=== PATIENT | female | born 1965 | race Caucasian/White ===

== ENCOUNTER 2022-04-12 08:30 | Outpatient (CLI) | payer OTHER, SELFPAY ==
[2022-04-12 10:08] LABS: Albumin* 4.3 g/dL (3.3-5.0); Chloride* 104 mmol/L (96-114); Potassium* 4.7 mmol/L (3.6-5.1); Sodium* 139 mmol/L (135-149)
[2022-04-12 10:10] LABS: Bilirubin Total* 0.7 mg/dL (0.1-1.5); Carbon Dioxide* 26 mmol/L (20-32); Cholesterol* 202 mg/dL (90-199); Creatinine* 0.8 mg/dL (0.5-1.5); Estimated Glomerular Filt Rate 86 ml/min
[2022-04-12 10:11] LABS: Alanine Aminotransferase* 16 U/L (4-35); Alkaline Phosphatase* 78 U/L (40-150); Aspartate Amino Transferase* 24 U/L (12-35); Blood Urea Nitrogen* 13 mg/dL (7-30); Calcium* 9.2 mg/dL (8.4-10.6); Glucose* 98 mg/dL (60-115); HDL Cholesterol* 88 mg/dL (>=50); LDL Cholesterol Calculated 98 mg/dL (<100); Total Protein* 6.8 g/dL (6.0-8.3); Triglycerides* 81 mg/dL (40-149)
[2022-04-12 14:38] LABS: Vitamin D 25 Hydroxy* 58 ng/mL (30-80)
[2022-04-12 17:56] LABS: Free T4 Free Thyroxine* 1.27 ng/dL (0.70-1.85)
== END 2022-04-12 08:31 | disposition home or self-care (01) ==
LOC: NFLDREF 08:32
PROVIDERS: PCP Family Medicine; Visit Provider Family Medicine
DX: Z01.419 Encounter for gynecological examination (general) (routine) without abnormal findings (principal); E03.9 Hypothyroidism, unspecified; E55.9 Vitamin D deficiency, unspecified; I10 Essential (primary) hypertension; Z13.6 Encounter for screening for cardiovascular disorders
CPT/HCPCS: 80053; 80061; 82306; 84439; 84443

== ENCOUNTER 2022-06-14 15:10 | Outpatient (CLI) | payer OTHER, SELFPAY ==
--- NOTE | 2022-06-14 15:20 | CRLHL7_ITS ---
For Patients: As a result of the Century Cures Act, medical imaging exams and procedure reports are released immediately into your electronic medical record. You may view this report before your referring provider. If you have questions, please contact your health care provider. BILATERAL SCREENING MAMMOGRAM WITH COMPUTER-AIDED DETECTION AND TOMOSYNTHESIS TECHNIQUE: CC and MLO views were obtained. These mammographic images have been obtained using full-field digital technique. These mammographic images were interpreted with the benefit of computer-aided detection. Breast Tomosynthesis was used in this interpretation. COMPARISON FILM: 03/30/21, 04/02/20, 03/08/19. FINDINGS: There are scattered areas of fibroglandular density IMPRESSION: There is no radiographic evidence for malignancy. ASSESSMENT: BI-RADS Category 1: Negative RECOMMENDATION: Routine screening mammogram in 1 year. A lay language report of this examination will be provided to the patient. Liban Mckinley M.D. Diagnostic Radiologist [email or web address] AUGUSTINE/Dictated by: Liban Mckinley MD @ 06/15/2022 8:52:00 AM (Electronically Signed)
--- OUTSIDE RECORDS SUMMARY | 2022-06-14 15:22 | XMS_ITS | Encounter Summary ---
:1965 Author Organization [facility] Address [address] [place] [id number] Care Team Providers Name Role Phone Elsewhere, Pcp Primary Care Provider Unavailable Reason for Referral Outpatient (Routine) - Authorized Specialty Diagnoses / Procedures Referred By Contact Refer red To Contact Sleep Medicine Mahad Bustamante M.D. [address] [phone] Referral ID Status Reason Start Date Expiration Date Visits V isits Requested Authorized [id number] Authorized 04/23/2022 04/23/2023 1 1 Reason for Visit Appointment Request (Routine) - Closed Specialty Diagnoses / Procedures Referred By Contact Refer red To Contact Sleep Medicine Referral ID Status Reason Start Date Expiration Date Visits Requ ested Visits Authorized [id number] Closed 03/09/2022 03/09/2023 1 1 Encounter Details Date Type Department Care Team Description 04/23/2022 Office Visit [facility] Mahad Bustamante, Apnea Sle ep Obstructive Medicine in [place] (Primary Dx) [address] [place] [phone] Social History Tobacco Use Types Packs/Day Years Used Date Smoking Tobacco: Never Smokeless Tobacco: Never Alcohol Use Standard Drinks/Week Comments Yes 2 (1 standard drink = 0.6 oz pure alcoho l) Alcohol Habits Answer Date Recorded How often do you have a drink containing alcohol? 2-3 times a week 04/18/2022 How many drinks containing alcohol do you have on a 1 or 2 04/18/2022 typical day when you are drinking? How often do you have six or more drinks on one Never 04/18/2022 occasion? Comment: Not asked Social Isolation Answer Date Recorded In a typical week, how many times do you More than three laxmi es a week 04/18/2022 talk on the phone with family, friends, or neighbors? How often do you get together with friends Three times a wee k 04/18/2022 or relatives? How often do you attend samaritan or Never 2021 advent services? Do you belong to any clubs or Yes 04/18/2022 organizations such as samaritan groups, unions, fraternal or athletic groups, or school groups? How often do you attend meetings of the 1 to 4 times per yea r 04/18/2022 clubs or organizations you belong to? Are you now , , , 04/18/2022 , never or living with a partner? Physical Activity Answer Date Recorded On average, how many days per week do you engage in moderate to 5 days 04/18/2022 strenuous exercise (like walking fast, running, jogging, dancing, swimming, biking, or other activities that cause a light or heavy sweat)? On average, how many minutes do you engage in exercise at th is 60 min 04/18/2022 level? Stress Answer Date Recorded Do you feel stress - tense, restless, nervous, or anxious, N ot at all 04/18/2022 or unable to sleep at night because your mind is troubled all the time - these days? Financial Resource Strain Answer Date Recorded How hard is it for you to pay for the very basics like Not h yaneth at all 04/18/2022 food, housing, medical care, and heating? Intimate Partner Violence Answer Date Recorded Within the last year, have you been afraid of your partner o r No 04/18/2022 ex-partner? Within the last year, have you been humiliated or emotionall y No 04/18/2022 abused in other ways by your partner or ex-partner? Within the last year, have you been kicked, hit, slapped, or No 04/18/2022 otherwise physically hurt by your partner or ex-partner? Within the last year, have you been raped or forced to have any No 04/18/2022 kind of sexual activity by your partner or ex-partner? Food Insecurity Answer Date Recorded Within the past 12 months, you worried that your food would Never true 04/18/2022 run out before you got money to buy more. Within the past 12 months, the food you bought just didn't N ever true 04/18/2022 last and you didn't have money to get more. Transportation Needs Answer Date Recorded In the past 12 months, has lack of transportation kept you f rom No 04/18/2022 medical appointments or from getting medications? In the past 12 months, has lack of transportation kept you f rom No 04/18/2022 meetings, work, or getting things needed for daily living? Housing Stability Answer Date Recorded In the last 12 months, was there a time when you were not ab le No 04/18/2022 to pay the mortgage or rent on time? In the last 12 months, how many places have you lived? 1 04/18/2022 In the last 12 months, was there a time when you did not hav e a No 04/18/[address] or slept in a fpc (including now)? Education Answer Date Recorded What is the highest level of school Master's degree (e.g., M A, MS, 05/20/2021 you have completed or the highest Elias, MEd, MUSICAL INSTRUMENT MECHANIC, JAX) degree you have received? Sex Assigned at Date Recorded Female 06/25/2021 7:39 PM CDT documented as of this encounter Last Filed Vital Signs Vital Sign Reading Time Taken Comments Blood Pressure 120/79 04/23/2022 1:14 PM CDT Pulse 67 04/23/2022 1:14 PM CDT Temperature - - Respiratory Rate - - Oxygen Saturation - - Inhaled Oxygen Concentration - - Weight 93.2 kg (205 lb 5.7 oz) 04/23/2022 1:14 PM CDT Height 175 cm (5' 8.9) 04/23/2022 1:14 PM CDT Body Mass Index 30.42 04/23/2022 1:14 PM CDT documented in this encounter Progress Notes Mahad Bustamante M.D. - 04/23/2022 1:30 PM CDT SUBJECTIVE CHIEF COMPLAINT / REASON FOR VISIT Activation of hypoglossal nerve stimulator (Inspire) therapy HISTORY OF PRESENT ILLNESS Ms. Gudino is a 56 y.o. female with severe, non positional obstructive sleep apnea pAHI 62 events per hour January 2022)-status post Inspire implantation March 10, 2022 who presents for activation of the Inspire system. Verbal histories were obtained today from the patient and her significant other. Ms. Gudino has enjoyed an uncomplicated postoperative course. She denies significant tongue weakness, soreness, dysarthria, dysphagia, or difficulties with the Inspire incision site. OBJECTIVE VITAL SIGNS Blood Pressure: 120/79 (04/23/2022 1:14 PM) Pulse Rate: 67 (04/23/2022 1:14 PM) BMI (Calculated): 30.4 kg/m?? (04/23/2022 1:14 PM) Height: 175 cm (04/23/2022 1:14 PM) Weight: 93.2 kg (04/23/2022 1:14 PM) PHYSICAL EXAMINATION General: Alert. No acute distress. ENT: No oral lesions identified. No tongue lesions identified. Full tongue range of motion demonstrated. Handling oral secretions well. Speech clear. Neck: Full range of motion. Lungs: Easy respirations at rest. Skin: Clean, dry, intact, and non erythematous right submandibular and right infraclavicular incision sites. No palpable fluctuance, warmth, or discharge from the impulse generator site. Musculoskeletal: Able to get on and off the exam table under her own power. Gait: Intact ASSESSMENT / PLAN #1 Severe obstructive sleep apnea-status post hypoglossal nerve stimulator implantation March 10, 2022 Using the Inspire computer programmer analyst, the following parameters were determined today: Sensory threshold: 1.6 volts Functional threshold: 2.5 volts Sensing mechanism: Intact Using the Inspire computer programmer analyst, the following parameters were set today: Stimulation range: 2.4-3.4 volts Initial stimulation amplitude: 2.4 volts Start delay: 30 minutes Pause time: 15 minutes Maximum therapy duration: 8 hours Ms. Gudino was educated on the operation of the Inspire remote. She demonstrated proficiency in turning the system on and off as well as up titrating and down titrating the stimulation amplitude. Questions about the Inspire system were reviewed. Plan 1. Starting tonight, aim for all night, every night Inspire usage at an initial stimulation amplitude of 2.4 volts. 2. Every 7 days or longer, increase the stimulation amplitude by 1 level (0.1 volt increment) until the maximum allowable stimulation amplitude is reached (3.4 volts) or intolerable side effects occur,whichever develops first. 3. Recheck visit in 3 months in preparation for the Inspire fine tune polysomnogram. 4. I encouraged the patient to reach out via the phone or portal if problems arise that prevent consistent and comfortable Inspire usage. I personally spent over half of a total of 60 minutes [id number] with the patient in counseling and discussion and/or coordination of care as described above. documented in this encounter Plan of Treatment Upcoming Encounters Date Type Specialty Care Team Description 07/21/2022 Office Visit Sleep Medicine Mahad Bustamante M .D. [address] [place], [place] [phone] (Wo rk) Scheduled Referrals Name Type Priority Associated Diagnoses Order [facility] Sleep Medicine Outpatient Referral Routine Expect ed: office visit 07/24/2022 (clinic) (Approximate), Expires: 07/24/2023 documented as of this encounter Visit Diagnoses Diagnosis Apnea Sleep Obstructive - Primary documented in this encounter Care Teams Abatement Worker Relationship Specialty Start Date End Date Elsewhere, Pcp PCP - General Family Medicine 05/20/21 Dr. Livia Scott External Primary Care 04/21/22 [facility] Physician [address] [place] [address] documented as of this encounter
--- OUTSIDE RECORDS SUMMARY | 2022-06-14 15:22 | XMS_ITS | Encounter Summary ---
:1965 Author Organization [facility] Address [address] [place] [address] Care Team Providers Name Role Phone Elsewhere, Pcp Primary Care Provider Unavailable Encounter Details Date Type Department Care Team Description 05/13/2022 Clinical Communication [facility]ad Bustamante, [facility] [place] [address] [facility] [address] [place] [phone] Social History Tobacco Use Types Packs/Day Years [...] or relatives? How often do you attend yarsani or Never 2021 advent services? Do you belong to any clubs or Yes 04/18/2022 organizations such as yarsani groups, unions, fraternal or athletic groups, or school groups? How often do you attend meetings of the to 4 times per yea r 04/18/2022 [...] place to sleep or slept in a retirement (including now)? Education Answer Date Recorded What is the highest level of school Master's degree (e.g., M A, MS, 05/20/2021 you have completed or the highest Elias, MEd, ANIMAL BEHAVIORIST, JAX) degree you have received? Sex Assigned at Date Recorded Female 06/25/2021 7:39 PM CDT documented as of this encounter Miscellaneous Notes Telephone Encounter - Brigid Mosquera - 05/13/2022 3:[address] Bustamante, Patient is calling to set up Inspire recheck visit with you in later June. You do not have any EST spots available. Please advise if ok to use Study Rtn spot. Thank you. documented in this encounter Plan of Treatment Upcoming Encounters Date Type Specialty Care Team Description 07/21/2022 Office Visit Sleep Medicine Mahad Bustamante M .D. [address] [place], [place] [phone] (Wo rk) documented as of this encounter Visit Diagnoses Not on filedocumented in this encounter Care Teams Deputy District Customs Director Relationship Specialty Start Date End Date Elsewhere, Pcp PCP - General Family Medicine 05/20/21 Dr. Livia Scott External Primary Care 04/21/22 [facility] Physician [address] [place] [address] documented as of this encounter
--- OUTSIDE RECORDS SUMMARY | 2022-06-14 15:22 | XMS_ITS | Encounter Summary ---
:1965 Author Organization [facility] Address [address] [place] [address] Care Team Providers Name Role Phone Elsewhere, Pcp Primary Care Provider Unavailable Encounter Details Date Type Department Care Team Description 03/03/2022 Clinical Department of Vishnu Edwards Communication Otorhinolaryngology in [place], [place] [address] [place] [phone] Social History Tobacco Use Types Packs/Day Years [...] or relatives? How often do you attend gnosticist or Never 2021 taoist services? Do you belong to any clubs or Yes 04/18/2022 organizations such as gnosticist groups, unions, fraternal or athletic groups, or [...] minutes do you engage in exercise at is 60 min 04/18/2022 level? Stress Answer [...] place to sleep or slept in a penitentiary (including now)? Education Answer Date Recorded What is the highest level of school Master's degree (e.g., M A, MS, 05/20/2021 you have completed or the highest Elias, MEd, EMS DIRECTOR, JAX) degree you have received? Sex Assigned at Date Recorded Female 06/25/2021 7:39 PM CDT documented as of this encounter Miscellaneous Notes Telephone Encounter - Janet Zamora - 03/09/2022 9:01 AM CDT Activation appointment is scheduled for 04/23 at 1:30p. Please order PO. Thank you Telephone Encounter - Janet Zamora - 03/03/2022 11:51 AM CDT I received a call and spoke with the patient's insurance company. The stated that they received two request for approval for the Inspire device. The request sent on 02/21/22 was approved and the other request was a duplicate being removed. I called Cheli to confirm and gave her the authorization number. Patient is approved. Thank you documented in this encounter Plan of Treatment Upcoming Encounters Date Type Specialty Care Team Description 07/21/2022 Office Visit Sleep Medicine Mahad Bustamante M .D. [address] [place] [phone] (Wo rk) documented as of this encounter Visit Diagnoses Not on filedocumented in this encounter Care Teams Assistant Analyst Relationship Specialty Start Date End Date Elsewhere, Pcp PCP - General Family Medicine 05/20/21 documented as of this encounter
--- OUTSIDE RECORDS SUMMARY | 2022-06-14 15:22 | XMS_ITS | Encounter Summary ---
:1965 Author Organization [facility] Address [address] [place] [address] Care Team Providers Name Role Phone Elsewhere, Pcp Primary Care Provider Unavailable Encounter Details Date Type Department Care Team Description 02/18/2022 Orders Only Department of Laura Rausch, Otorhinolaryngology in [place], [place] [address] [facility] [address] [place] [phone] Social History Tobacco Use Types Packs/Day Years [...] or relatives? How often do you attend catholic or Never 2021 mormon services? Do you belong to any clubs or Yes 04/18/2022 organizations such as catholic groups, unions, fraternal or athletic groups, or [...] place to sleep or slept in a jail (including now)? Education Answer Date Recorded What is the highest level of school Master's degree (e.g., M A, MS, 05/20/2021 you have completed or the highest Elias, MEd, EXAMINATION SCORER, JAX) degree you have received? Sex Assigned at Date Recorded Female 06/25/2021 7:39 PM CDT documented as of this encounter Plan of Treatment Upcoming Encounters Date Type Specialty Care Team Description 07/21/2022 Office Visit Sleep Medicine Mahad Bustamante M .D. [address] [place] [phone] (Wo rk) documented as of this encounter Visit Diagnoses Not on filedocumented in this encounter Care Teams Printing Assistant Relationship Specialty Start Date End Date Elsewhere, Pcp PCP - General Family Medicine 05/20/21 documented as of this encounter
--- OUTSIDE RECORDS SUMMARY | 2022-06-14 15:22 | XMS_ITS | Encounter Summary ---
:1965 Author Organization [facility] Address [address] [place] [address] Care Team Providers Name Role Phone Elsewhere, Pcp Primary Care Provider Unavailable Reason for Visit Auth/Cert Specialty Diagnoses / Procedures Referred By Contact Refer red To Contact Diagnoses Obstructive Sleep Apnea Adult severe obstructive sleep apnea Procedures MT INCISION IMPL CRANIAL NERVE MT INS CHST WALL RESP ELCTD INSERTION STIMULATOR HYPOGLOSSAL NERVE Referral ID Status Reason Start Date Expiration Date Visits Requ ested Visits Authorized [id number] 1 1 Encounter Details Date Type Department Care Team Description 03/10/2022 Hospital Encounter [facility] OR Dick Alcala, [address] [place] [phone] [facility] [phone] [place] [phone] (Wo rk) Social History Tobacco Use Types Packs/Day Years [...] or relatives? How often do you attend religious or Never 2021 mandaen services? Do you belong to any clubs or Yes 04/18/2022 organizations such as religious groups, unions, fraternal or athletic groups, or [...] place to sleep or slept in a [facility] (including now)? Education Answer Date Recorded What is the highest level of school Master's degree (e.g., M Ricky, MS, 05/20/2021 you have completed or the highest Elias, MEd, AUTOMOTIVE SALES EXECUTIVE, JAX) degree you have received? Sex Assigned at Date Recorded Female 06/25/2021 7:39 PM CDT documented as of this encounter Last Filed Vital Signs Vital Sign Reading Time Taken Comments Blood Pressure 161/67 03/10/2022 6:19 PM CDT Pulse 75 03/10/2022 7:30 PM CDT Temperature 36.5 ??C (97.7 ??F) 03/10/2022 7:36 PM CDT Respiratory Rate 19 03/10/2022 6:30 PM CDT Oxygen Saturation 98% 03/10/2022 7:30 PM CDT Inhaled Oxygen Concentration - - Weight 91.1 kg (200 lb 13.4 oz) 03/10/2022 11:51 AM CDT Height 172.7 cm (5' 8) 03/10/2022 11:51 AM CDT Body Mass Index 30.54 03/10/2022 11:51 AM CDT documented in this encounter Medications at Time of Discharge Medication Sig Dispensed Refills Start Date End Date eszopiclone (LUNESTA) Lunesta 3 mg oral 0 014 3 mg tablet tablet See Instructions, 1 TABLET AT BEDTIME levothyroxine Take 112 mcg by mouth 0 09/18/2021 (SYNTHROID, every evening. LEVOTHROID) 112 mcg tablet losartan (COZAAR) 25 Take 25 mg by mouth at 0 mg tablet bedtime. methylphenidate HCl every morning. 0 08/25/2020 (CONCERTA) 54 mg CR tablet amLODIPine (NORVASC) at bedtime. 0 09/23/2021 10 mg tablet DME CPAPIndications: DME Order 1 each 0 09/30/2021 Apnea Sleep Obstructive EPINEPHrine (EPIPEN) Inject 0.3 mg 0 01/31/2019 0.3 mg/0.3 mL intramuscularly as injection syringe needed. fluticasone propionate Administer 1 spray 0 (FLONASE) 50 into each nostril mcg/actuation nasal daily. spray HYDROcodone-acetaminop 0.5 tablets as needed. 0 0 12/22/2013 hen (NORCO) 7.5-325 mg per tablet SUMAtriptan (IMITREX) Administer into 0 9 20 mg/actuation nasal affected nostril(s) as spray needed. traMADol (ULTRAM) 50 50 mg as needed. 0 8 mg tablet traMADol ER (ULTRAM 200 mg at bedtime. 0 09/23/20 21 ER) 100 mg 24 hr tablet traMADol ER (ULTRAM MEDS ON BACK ORDER, 0 014 ER) 200 mg 24 hr that's why 100mg is tablet prescribed at this time triamcinolone Administer 1 spray 0 (NASACORT) 55 into each nostril mcg/actuation nasal daily. spray cephalexin (KEFLEX) Take 1 capsule (500 mg 28 capsule 0 02/2403/17/2022 500 mg capsule total) by mouth every 6 (six) hours for 7 days. HYDROcodone-acetaminop Take 1 tablet by mouth 10 tablet 0 0 03/10/2022 03/13/2022 hen (NORCO) 5-325 mg every 4 (four) hours per tabletIndications: as needed for pain Acute Pain Exception (pain) for up to 3 days Indication: Acute Pain Exception. documented as of this encounter OR Notes Op Note - Kraig Bustamante M.D. - 03/10/2022 2:38 PM CDT Surgeon: Kraig Bustamante MD [employer] Mechanic Surgeons: MD Vishnu Felix MD Preoperative diagnosis: 1. Severe obstructive sleep apnea 2. Continuous positive airway pressure intolerance Postoperative diagnosis: 1. Severe obstructive sleep apnea 2. Continuous positive airway pressure intolerance Name of procedure: 1. 12th cranial nerve (hypoglossal) stimulation implant (CPT 83558) 2. Placement of right pleural respiration sensor 3. Electronic analysis of the implanted neurostimulator pulse generator system (CPT 71694) Complications: None Anesthesia Type General Procedural note: The patient was brought to the Operating Room and was anesthetized via general endotracheal anesthesia without complication. A procedural pause was undertaken, all parties agreed. A shoulder roll was placed and the patient was prepped and draped in usual sterile fashion with the head turned to the left. Prior to prepping and draping, electrodes were placed in the genioglossus and styloglossus muscle and connected to the NIM box for intraoperative nerve monitoring. A modified sub-mandibular incision was made in the right upper neck approximately 2 cm below the mandible in the natural skin crease. Dissection was carried down through the subcutaneous tissue and platysma. The inferior border of the submandibular gland was identified as well as the digastric tendon.The submandibular gland and the overlying fascia with the marginal mandibular nerve were retracted superiorly. The digastric was retracted inferiorly. Dissection was carried down into the digastric triangle where the hypoglossal nerve was identified in its usual fashion. The mylohyoid muscle was retracted anteriorly, and the hypoglossal nerve was dissected up towards the floor of the mouth. The lateral branches to retrusor muscles were identified, and tested intra- operatively using the NIM stimulator. The cuff electrode for the hypoglossal nerve stimulator was placed distally to these branches on the medial nerve branch to the genioglossus muscle. Diagnostic evaluation confirmed activation of the genioglossus nerve, resulting in genioglossal activation and tongue protrusion, confirmed visually.Aninferior pocket was created deep to the subcutaneous layer and superficial to the pectoralis muscle.The stimulation electrode was then secured to the digastric tendon on its lateral surface with 2, 3-0 silk sutures. A second 5 cm incision was made in the right upper chest approximately 3 cm below the clavicle. Dissection was carried down to the pectoralis muscle. Once at the pectoralis muscle blunt dissection was used to traverse through the muscle down to the chest wall. The external and internal intercostals were visualized. Dissection was carried through the external intercostals to the internal intercostal space and a quarter-inch malleable was used to create a pocket laterally between the ribs. A 3-0 silk suture was placed on the external intercostals and the respiratory sensor was then carefully and slowly inserted between the external and internal intercostals. The pectoral muscles was closed with 3-0 Monocryl sutures. The anchoring portion of the lead was then secured to the chest wall with multiple 3-0 silk sutures. The stimulation lead was then tunneled in a subplatysmal plane and brought out intothe sub-clavicular pocket. 2 L of saline irrigation was then instilled into the submental and subclavicular pockets. The IPG was then placed into the subclavicular pocket and secured to the pectoralis fascia with two, 2-0 silk sutures. The IPG was connected to the respiratory and stimulation leads. Diagnostic evaluation was run, which confirmed a good respiration sensing signal as well as good tongueprotrusion stimulation without evidence of retraction of the tongue.. The wounds were then closed in three layers with deep 3-0 and 4-0 Monocryl sutures and a 5-0 PDS suture in a subdermal fashion. Dermabond was then applied followed by pressure dressings. The patient was handed back to anesthesia for successful emergence. They were taken the PACU in stable condition. All surgical pauses and universal protocols were followed. A first aid trainer was necessary for one or more of the following: opening, exposure and visualization during the case, maintaining hemostasis, would closure. Kraig Bustamante M.D. Brief Op Note - Vishnu Edwards M.D. - 03/10/2022 2:38 PM CDT Pre-op Diagnosis Obstructive Sleep Apnea Adult Post-op Diagnosis Obstructive Sleep Apnea Adult Findings As expected. Complications None Vishnu Edwards M.D. documented in this encounter Plan of Treatment Upcoming Encounters Date Type Specialty Care Team Description 07/21/2022 Office Visit Sleep Medicine Mahad Bustamante M .D. [address] [place], [place] [phone] (Wo rk) documented as of this encounter Procedures Procedure Name Priority Date/Time Associated Diagnosis Comme nts INSERTION STIMULATOR 03/10/2022 1:30 PM Obstructive Sl eep Apnea HYPOGLOSSAL NERVE CDT Adult Case Notes KNIFE CUTTER 1145 ADULT OXYGEN THERAPY Routine 03/10/2022 12:50 PM CDT documented in this encounter Visit Diagnoses Not on filedocumented in this encounter Administered Medications Inactive Administered Medications - up to 3 most recent administrations Medication Order MAR Action Action Date Dose Rate Site acetaminophen tablet 1,000 mg Given 03/10/2022 1:06 PM CDT 1,000 mg (TYLENOL) 1,000 mg, oral, Once, On Tue03/10/22 at 1315, For 1 dose, Pre-Op metoprolol tablet 12.5 mg (LOPRESSOR) 12.5 mg, oral, Once as needed, if patien t did not take their last scheduled dose of beta rajinder prior to arrival, Starting on Tue03/10/22 at 1300, For 1 dose, Pre-Op, Do not give if patient does not take scheduled beta bl ockers, if patient is receiving intravenous vasopressors or inotropes, if he art rate is less than 50 beats per minute, if systolic blood pres sure is less than 90 mmHg or if diastolic blood pressure is less than 40 mmHg, or if patient has an allergy to metoprolol. oxyCODONE IR tablet 10 mg (ROXICODONE) 10 mg, oral, Every 4 hours PRN, severe p ain or score 7-10 of 10, or pain greater than comfort goal, Starting on Tue03/10/22 at 1815 oxyCODONE IR tablet 5 mg (ROXICODONE) 5 mg, oral, Every 4 hours PRN, moderate pain or score 4-6 of 10, Starting on Tue03/10/22 at 1815 sodium chloride 0.9 % injection 10 mL 10 mL, intravenous, As needed, line care , Starting on Tue03/10/22 at 1300, Pre-Op, Peripheral Intravenous Catheter and Rapid Infusion Cat heter, prior to blood sampling, post blood transfusion or post blood samplin g sodium chloride 0.9 % injection 3 mL 3 mL, intravenous, As needed, line care, Starting on Tue03/10/22 at 1300, Pre-Op, Prior to and following infusion and betw catherine multiple consecutive infusions: sodium chloride 0.9 % injection sodium chloride 0.9 % injection 3 mL 3 mL, intravenous, Every 12 hours scheduled, First dos e on Tue03/10/22 at 2100, Pre-Op, Peripheral Intravenous Catheter and Rapid Infu xiao Catheter, when no infusion to maintain patency documented in this encounter Active and Recently Administered Medications Times are shown in CDT. Scheduled Medication Order 03/08/2022 03/09/2022 03/10/2022 acetaminophen tablet 1,000 mg (TYLENOL) (COMPLETED) 1306 (Given - Provider: Stephanie De Leon R.N.) 1,000 mg, oral, Once, On Tue03/10/22 at 1315, For 1 dose, Pre-Op acetaminophen tablet 1,000 mg (TYLENOL) 1830 (Due) 1,000 mg, oral, Every 6 hours, First dose on Tue03/10/22 at 1830 sodium chloride 0.9 % injection 3 mL 3 mL, intravenous, Every 12 hours schedu led, First dose on Tue03/10/22 at 2100, Pre-Op, Peripheral Intravenous Catheter and Rapid Infusion Catheter, when no infusion to maintain patency Continuous Medication Order 03/08/2022 03/09/2022 03/10/2022 lactated ringers 1800 (Due) 20 mL/hr, intravenous, Continuous, Start ing on Tue03/10/22 at 1800, PACU & Post-Op phenylephrine 80 mcg/mL in NaCl 0.9% 250 mL infusion (CANCELED) 1403 (New Bag - Provider: Taqueria Gentile APRN, MAGNUS, D.N.P.)1406 (Rate/Dose Change - Provider: Taqueria Gentile APRN, MAGNUS, D.N.P.)1443 (Rate/Dose Change - Provider: Taqueria Gentile APRN, MAGNUS, D.N.P.) 0-1 mcg/kg/min ? 91.1 kg Dosing weight (0-68.325 mL/hr, rounded to 0-68.33 mL/hr), intravenous, Continuous, Starting on Tue03/10/22 at 1245, Intra-Op, 20 mg in 250 mL, Patient Type: Standard, initiate 1450 (Rate/Dose Change - Provider: Taqueria Gentile APRN, CRNA, D.N.P.)1456 (Rate/Dose Change - Provider: Taqueria Gentile APRN, CRNA, D.N.P.)1500 (Rate/Dose Change - Provider: Taqueria Gentile APRN, CRNA, D.N.P.) at: Other, Rate: Per Provider, Titrate a t: Other, Titrate: Per Provider, Goal: Other, Goal: Per Provider 1503 (Rate/Dos e Change - Provider: Taqueria Gentile APRN, CRNA, D.N.P.)1519 (Rate/Dose Change - Provider: Taqueria Gentile APRN, CRNA, D.N.P.)1601 (Stopped - Provider: Taqueria Gentile APRN, CRNA, D.N.P.) PRN Medication Order 03/08/2022 03/09/2022 03/10/2022 dexAMETHasone injection 4 mg (DECADRON) 4 mg, intravenous, Once as needed, nause a, vomiting, Starting on Tue03/10/22 at 1815, For 1 dose, Give only if NOT given during the pre or intraoperative period. If ondansetron ordered, give dexamethasone with first dose of ondansetron. fentaNYL injection 25 mcg (SUBLIMAZE) 25 mcg, intravenous, Every 2 min PRN, mo derate pain or score 4-6 of 10, severe pain or score 7-10 of 10, Starting on Tue03/10/22 at 1250, PACU (only), Up to maximum total dose of 100 mcg haloperidol lactate injection 1 mg (HALDOL) 1 mg, intravenous, Every 6 hours PRN, na usea, vomiting, Starting on Tue03/10/22 at 1815, For 48 hours, Total of 3 doses in 24 hour period. RASS must be -2 or higher to administer. Reassess for nausea or vomiting after at least 10 minutes. If nausea or vomiting persists administer next ordered antiemetic medications (order for antiemetic medication administration ondansetron then haloperidol then promethazine) hydroxypropyl methylcellulose 2.5 % opht halmic demulcent solution (GONAK) (CANCELED) 1400 (Given - Provid er: Jossy Fernandes M.D.) As needed, Starting on Tue03/10/22 at 1400, Intra-Op lidocaine-EPINEPHrine 1 %-1:100,000 injection (XYLOCAINE W/EPI) (CANCELED) 1416 (Given - Provider: Jossy Fernandes M.D. - Comment: Right neck and chest) As needed, Starting on Tue03/10/22 at 1416, Intra-Op metoprolol tablet 12.5 mg (LOPRESSOR) 12.5 mg, oral, Once as needed, if patien t did not take their last scheduled dose of beta rajinder prior to arrival, Starting on Tue03/10/22 at 1300, For 1 dose, Pre-Op, Do not give if patient does not ta ke scheduled beta blockers, if patient i s receiving intravenous vasopressors or inotropes, if heart rate is less than 50 beats per minute, if systolic blood pressure is less than 90 mmHg or if diastolic blood pressure is less than 40 mmHg, or if patient has an allergy to metoprolol. naloxone injection 0.2 mg (NARCAN) 0.2 mg, intravenous, Once as needed, res piratory depression, Starting on Tue03/10/22 at 1815, For 1 dose, For RASS Score -4 or less, respiratory rate of less than 8 breaths/min. Notify provider/service and rapid response team (if available at institution). ondansetron (PF) injection 4 mg (ZOFRAN) 4 mg, intravenous, Every 6 hours PRN, na usea, vomiting, Starting on Tue03/10/22 at 1815, For 48 hours, Reassess for nausea or vomiting after at least 10 minutes. If nausea or vomiting persists administe r next ordered antiemetic medications (o rder for antiemetic medication administration ondansetron then haloperidol then promethazine). oxyCODONE IR tablet 10 mg (ROXICODONE)(Linked Group 1) 10 mg, oral, Every 4 hours PRN, severe p ain or score 7-10 of 10, or pain greater than comfort goal, Starting on Tue03/10/22 at 1815 oxyCODONE IR tablet 5 mg (ROXICODONE)(Linked Group 1) 5 mg, oral, Every 4 hours PRN, moderate pain or score 4-6 of 10, Starting on Tue03/10/22 at 1815 promethazine injection 6.25 mg (PHENERGAN) 6.25 mg, intravenous, Every 6 hours PRN, nausea, vomiting, Starting on Tue03/10/22 at 1815, For 48 hours, RASS must be -2 or higher to administer. Reassess for nausea or vomiting after at least 10 minut es. If nausea or vomiting persists admin ister next ordered antiemetic medications (order for antiemetic medication administration ondansetron then haloperidol then promethazine) sodium chloride 0.9 % injection 10 mL 10 mL, intravenous, As needed, line care , Starting on Tue03/10/22 at 1300, Pre- Op, Peripheral Intravenous Catheter and Rapid Infusion Catheter, prior to blood sampling, post blood transfusion or post blood sampling sodium chloride 0.9 % injection 3 mL 3 mL, intravenous, As needed, line care, Starting on Tue03/10/22 at 1300, Pre- Op, Prior to and following infusion and between multiple consecutive infusions: sodium chloride 0.9 % injection Linked Groups Order Group 1: oxyCODONE IR tablet 5 mg (ROXICODONE)Jump to med 5 mg, oral, Every 4 hours PRN, moderate pain or score 4-6 of 10, Starting on Tue03/10/22 at 1815 Or oxyCODONE IR tablet 10 mg (ROXICODONE)Jump to med 10 mg, oral, Every 4 hours PRN, severe p ain or score 7-10 of 10, or pain greater than comfort goal, Starting on Tue03/10/22 at 1815 documented in this encounter Care Teams Boxing Instructor Relationship Specialty Start Date End Date Elsewhere, Pcp PCP - General Family Medicine 05/20/21 documented as of this encounter
--- OUTSIDE RECORDS SUMMARY | 2022-06-14 15:22 | XMS_ITS | Encounter Summary ---
:1965 Author Organization [facility] Address [address] [place] [id number] Care Team Providers Name Role Phone Elsewhere, Pcp Primary Care Provider Unavailable Reason for Visit Outpatient (Routine) - Closed Specialty Diagnoses / Procedures Referred By Contact Refer red To Contact Otorhinolaryngology Vishnu Edwards M.D . [facility] [address] [place] [address] Referral ID Status Reason Start Date Expiration Date Visits Requ ested Visits Authorized [id number] Closed 02/15/2022 02/15/2023 1 1 Encounter Details Date Type Department Care Team Description 03/09/2022 Office Visit Department of Vishnu Edwards Apnea Sleep O bstructive (Primary Dx); Otorhinolaryngology roya García M.D. [place], [place] [address] [place] [phone] Social History Tobacco Use Types Packs/Day Years [...] or relatives? How often do you attend temple or Never 2021 caodaism services? Do you belong to any clubs or Yes 04/18/2022 organizations such as temple groups, unions, fraternal or athletic groups, or [...] have completed or the highest Elias, MEd, SENIOR BUYER PLANNER, JAX) degree you have received? Sex Assigned at Date Recorded Female 06/25/2021 7:39 PM CDT documented as of this encounter Progress Notes Vishnu Edwards M.D. - 03/09/2022 4:00 PM CDT SUBJECTIVE CHIEF COMPLAINT / REASON FOR VISIT Candi Gudino is a 56 y.o. female who presents for listing visit for inspire hypoglossal nerve stimulator implantation tomorrow. HISTORY OF PRESENT ILLNESS The patient presents for listing visit. She has continued in her weight loss efforts. No further concerns. The following portions of the patient's history were reviewed and updated as appropriate: allergies,current medications, family history, medical history, social history, surgical history and problem list. OBJECTIVE PHYSICAL EXAM General: Awake, appropriately interactive Pulmonary: Breathing comfortably on room air ASSESSMENT / PLAN #1 Apnea Sleep Obstructive #2 Neuralgia Trigeminal It was a pleasure visiting with the patient today. She is prepared for surgery tomorrow. We discussed many aspects of the surgery including risks, expected outcome, expected convalescence. Specifically, we discussed risks of implant infection, hematoma, implant failure, need for replacement of the battery after 11 years, MRI compatibility of the head and limbs only, rare risk of pneumothorax, positioning of incisions, rare risk of injury to the marginal mandibular, lingual, hypoglossal nerves. We had a good discussion about the possibility of residual moderate or severe SHANNON, which may require future management including weight loss or further sleep surgeries. I discussed activation of the device 1month after surgery, repeat sleep study, possible soreness of the tongue muscle or irritation of thebottom of the tongue. Fortunately, she is currently using a tooth guard from Dr. Damon Khan. Written informed consent was signed today. I will have her follow-up with Dr. Stallings following surgery. This visit and patient care coordination lasted more than 30 minutes, not including the time for theprocedure. Over 50% of the time was spent counselling the patient including detailed discussions about the pathophysiology, medical and surgical management options, future management options, and expected disease course. Answers for HPI/ROS submitted by the patient on 01/13/2022 Fever: Yes No eye issues: Yes No ENT issues: Yes No heart issues: Yes No respiratory issues: Yes No GI issues: Yes Muscle pain/stiffness: Yes No skin issues: Yes Headache: Yes No mental health issues: Yes No blood/lymph issues: Yes No urinary/reproductive issues: Yes documented in this encounter Miscellaneous Notes Addendum Note - Vishnu Edwards M.D. - 03/09/2022 4:00 PM CDT Addended by: VISHNU EDWARDS on: 03/09/2022 04:41 PM Modules accepted: Level of Service documented in this encounter Plan of Treatment Upcoming Encounters Date Type Specialty Care Team Description 07/21/2022 Office Visit Sleep Medicine Mahad Bustamante M .D. [address] [place] [phone] (Wo rk) documented as of this encounter Visit Diagnoses Diagnosis Apnea Sleep Obstructive - Primary Neuralgia Trigeminal documented in this encounter Additional Health Concerns Infection Onset Date Last Indicated Resolved Time COVID19 Pending 03/09/2022 03/09/2022 03/09/2022 5:15 PM CDT documented as of this encounter Care Teams Cook Specialty Foreign Food Relationship Specialty Start Date End Date Elsewhere, Pcp PCP - General Family Medicine 05/20/21 documented as of this encounter
--- OUTSIDE RECORDS SUMMARY | 2022-06-14 15:22 | XMS_ITS | Encounter Summary ---
:1965 Author Organization [facility] Address [address] [place] [address] Care Team Providers Name Role Phone Elsewhere, Pcp Primary Care Provider Unavailable Encounter Details Date Type Department Care Team Description 04/21/2022 Clinical Communication Visit Review in [place], [place] [address] [place], [place] [phone] Social History Tobacco Use Types Packs/Day Years [...] or relatives? How often do you attend protestant or Never 2021 jewish services? Do you belong to any clubs or Yes 04/18/2022 organizations such as protestant groups, unions, fraternal or athletic groups, or [...] place to sleep or slept in a custodial (including now)? Education Answer Date Recorded What is the highest level of school Master's degree (e.g., M Ricky, MS, 05/20/2021 you have completed or the highest Elias, MEd, MACHINE TACK PULLER, JAX) degree you have received? Sex Assigned at Date Recorded Female 06/25/2021 7:39 PM CDT documented as of this encounter Plan of Treatment Upcoming Encounters Date Type Specialty Care Team Description 07/21/2022 Office Visit Sleep Medicine Mahad Bustamante M .D. [address] [place], [place] [phone] (Wo rk) documented as of this encounter Visit Diagnoses Not on filedocumented in this encounter Care Teams Resident Services Coordinator Relationship Specialty Start Date End Date Elsewhere, Pcp PCP - General Family Medicine 05/20/21 Dr. Livia Scott External Primary Care 04/21/22 [facility] Physician [address] [place] [address] documented as of this encounter
--- OUTSIDE RECORDS SUMMARY | 2022-06-14 15:22 | XMS_ITS | Encounter Summary ---
:1965 Author Organization [facility] Address [address] [place] [address] Care Team Providers Name Role Phone Elsewhere, Pcp Primary Care Provider Unavailable Reason for Visit Auth/Cert Specialty Diagnoses / Procedures Referred By Contact Refer red To Contact Diagnoses Obstructive Sleep Apnea Adult severe obstructive sleep apnea Procedures [place] INCISION IMPL CRANIAL NERVE [place] INS CHST WALL RESP ELCTD INSERTION STIMULATOR HYPOGLOSSAL NERVE Referral ID Status Reason Start Date Expiration Date Visits Requ ested Visits Authorized [id number] 1 1 Encounter Details Date Type Department Care Team Description 03/10/2022 Anesthesia Event RST ROMB MAIN OR Jah Anand M.D. [address] [place] [phone] [address] [facility] Taqueria Gentile APRN, [place]RNA[place] [phone] Anesthesia Record Procedure Summary Procedure Name Responsible Anesthesia Start Anesthesia Stop Anesthesiologist Time Time INSERTION STIMULATOR Jah Anand M.D. 03/10/22 1345 02/24 02/14 1817 HYPOGLOSSAL NERVE. (Right: Neck) Events Date Time Event Comment 03/10/2022 1250 1345 An Start Machine/Equipmen t Checked Infection Precautions Foll owed Procedure/Site Verified NPO Sta tus Verified Supine Standard ASA Mon itors Applied 1350 An Induction 1354 An Intubation 1357 Turnover to Proceduralist 1400 Quick Note Erroneous BP izzy ding due to repositioning while cuff going off. 1402 Quick Note Patency of PIVs confirmed after arms tucked. 1438 Proc Start 1625 Quick Note Unable to obtain a BP reading due to surgical team le aning on BP cuff. Team notified. 1630 Quick Note Erroneous BP izzy ding from surgical team leaning on BP cu ff. Team notified. 1633 Quick Note Continued errone ous BP reading from surgical team le aning on BP cuff. Awaiting arrival of additional BP cuff/cord to [facility] ng NIBP location. 1649 Quick Note BP cuff moved to RLE 1753 Proc Fin 1759 Turnover to ANE Staff 180 Airway Removal Criteria Met 180 Extubation/Airway Removed 180 an stop data 181 An End I completed my h andoff to the receiving staff during [facility] we 1. Identified the patient 2. Ident ified the responsible provider 3. Revi ewed the pertinent medical history 4. Discussed the surgical course 5. Review ed intra-op anesthesia management and i ssues during anesthesia 6. Set expectati ons for post-procedure period 7. Allowe d opportunity for questions and ac knowledgement of understanding. Name Total fentanyl injection 50 mcg/mL 125 mcg lidocaine 2% (mg) injection 100 mg propofol 10 mg/mL 170 mg propofol 10 mg/mL infusion 1,873.02 mg succinylcholine 20 mg/mL injection 120 mg phenylephrine 100 mcg/mL injection 150 mcg ePHEDrine PF 5 mg/mL syringe injection 30 mg ondansetron 4 mg/2 mL injection 4 mg glycopyrrolate 0.2 mg/mL injection 0.2 mg remifentaniL 20 mcg/mL in NaCl 0.9% 100 mL infusion (U LTIVA) 2.67 mg phenylephrine 80 mcg/mL in NaCl 0.9% 250 mL infusion 3 .1 mg dexamethasone 4 mg/mL injection 4 mg ceFAZolin 4 g Lactated Ringers Free Drip 800 mL lactated ringers free drip 1,100 mL Agents No agents on file. Blood No blood administrations on file. Lines, Drains, and Airways Type Details Placement Removal Wound 03/10/22; 1444; Incision; 03/10/22 1444 by Adriano Neck; Right Mary, R.N. Wound 03/10/22; 1444; Incision; 03/10/22 1444 by Adriano, Chest; Right Mary, R.N. Wound 11/06/21; 1014; N; 11/06/21 1014 by 03/10/22 171 3 by Adriano, Incision; Nose; Eryn Bassett R.N. Mai RRosina Ridley septoplasty/bilateral turbinate reduction; clayton splints; 03/10/22; 1713 Peripheral IV Placement Date: 03/10/22; 03/10/22 1311 by 03/10 by Placement Time: 1311; Charlotte Merlos Radha Catheter Size: 22 G; L, R.N. Orientation: Left; Location: Hand; Site Prep: Chlorhexidine (Preferred); Insertion Attempts: 1; Removal Date: 03/10/22; Removal Time: 1926; Removal Reason: Per protocol ETT Placement Date: 03/10/22; 03/10/22 1354 by 03/10 by Placement Time: 1353 Taqueria Gentile, Taqueria Gentile, (created via procedure MAGNUS CHICAS, D.N.P. MAGNUS CHICAS D.N.P. documentation); Mask Ventilation: Oral/Nasal airway needed; Type: Standard ETT; Single Lumen Tube Size: 7 mm; Cuffed: Yes; Location: Oral; Grade View: Grade 1; Insertion Attempts: 1; Placement Verification: Bilateral breath sounds, Positive ETCO2, Symmetrical chest wall movement; Removal Date: 03/10/22; Removal Time: 1801 Peripheral IV Placement Date: 03/10/22; 03/10/22 1401 by 03/10 by Placement Time: 1401; Taqueria Gentile Freder icksen Radha Catheter Size: 20 G; MAGNUS CHICAS, D.N.P. L, R.N. Orientation: Right; Location: Hand; Removal Date: 03/10/22; Removal Time: 1922; Removal Reason: Per protocol documented in this encounter Social History Tobacco Use Types Packs/Day Years [...] or relatives? How often do you attend alevism or Never 2021 faith services? Do you belong to any clubs or Yes 04/18/2022 organizations such as alevism groups, unions, fraternal or athletic groups, or [...] place to sleep or slept in a fci (including now)? Education Answer Date Recorded What is the highest level of school Master's degree (e.g., Jaky García, MS, 05/20/2021 you have completed or the highest Elias, MEd, CABLE SPLICER HELPER, JAX) degree you have received? Sex Assigned at Date Recorded Female 06/25/2021 7:39 PM CDT documented as of this encounter OR Notes Anesthesia Postprocedure Evaluation - Jah Anand M.D. - 03/10/2022 7:42 PM CDT Patient: Candi Gudino Procedure Summary Date: 03/10/22 Room / Location: [address] 01 [facility] / [facility] in [place], [place] Anesthesia Start: 1345 Anesthesia Stop: 1816 Procedure: INSERTION STIMULATOR HYPOGLOSSAL NERVE. (Right Neck) Diagnosis: Obstructive Sleep Apnea Adult (severe obstructive sleep apnea.) Providers: Kraig Bustamante M.D. Responsible Provider: Jah Anand M.D. Anesthesia Type: general ASA Status: 3 Anesthesia Type: general Last vitals Vitals Value Taken Time BP 161/67 06/15/22 1819 Temp 36.7 ??C 03/10/22 181 Pulse 92 03/10/22 1830 Resp 19 03/10/22 1830 SpO2 99 % 03/10/22 1830 Please reference Vitals flowsheet for most recent vital signs. Anesthesia Post Evaluation Patient Disposition: dismissal Cardiovascular status: hemodynamics (HR & BP) acceptable Respiratory status: patent airway with spontaneous effort Temperature: normothermic Oxygen requirements: room air Level of consciousness: awake Pain score: pain adequately controlled and/or at baseline Post Op nausea/vomiting: none Hydration status: euvolemic Anesthesia Procedure Notes - Taqueria Gentile APRN, CRNA, D.N.P. - 03/10/2022 2:30 PM CDTAssociated Order(s): Airway Airway Date/Time: 03/10/2022 1:54 PM Performed by: Taqueria Gentile APRN, CRNA, D.N.P. Authorized by: Joey Johnson M.D. Patient location during procedure: OR / Procedure Area PROCEDURE DETAILS: Mask difficulty assessment: oral/nasal airway needed Final airway type: video laryngoscope Laryngeal Manipulation: no Final best view of glottic structures - Cormack/Lehane Score: grade 1 ETT location: oral VL device: glide scope Hillister scope blade size: 3 Adult tube size: 7 Adult ETT distance at teeth/gum: 22 Oral tube type: standard ETT Cuffed: yes Number of attempt to successful placement: 1 Airway confirmation: bilateral breath sounds, positive ETCO2 and bilateral chest rise Other previous techniques attempted: none PRE PROCEDURE DETAILS: Pre evaluation for airway management: procedure Urgency: elective Preop assessment of probable difficulty: questionable / suspicious difficult airway Preoxygenation: bag valve mask SEDATION / ANESTHESIA Anesthesia method: anesthesia POST PROCEDURE DETAILS: Procedure outcome: successful Airway event: no complications Anesthesia Preprocedure Evaluation - Joey Johnson M.D. - 03/10/2022 12:49 PM CDT Preprocedure Anesthesia & H&P Assessment Procedure Summary Date/Time: 03/10/22 1443 Procedure: INSERTION STIMULATOR HYPOGLOSSAL NERVE. (Right Neck) Diagnosis: Obstructive Sleep Apnea Adult [G47.33] Pre-op diagnosis: severe obstructive sleep apnea. Location: [place] [id number] / [facility] in [place], [place] Providers: Vishnu Edwards M.D. Pertinent components of the patient's history including current problem list, medical history, surgical history, family history, social history, medications and allergies were reviewed. Present illnessand pre-op diagnosis were confirmed. The planned surgery / procedure was verified with the patient /legal guardian. The patient's general health condition remains unchanged RELEVANT COMORBID CONDITIONS CV (+) Hypertension NOS ENDO (+) Hypothyroidism NEURO (+) Aneurysm Carotid Artery (HCC) OBJECTIVE PHYSICAL EXAMINATION Airway (HEENT) Mallampati: III TM Distance: >3 FB Neck ROM: Full Mouth Opening: >3 cm Cardiovascular Rhythm: Regular Rate: Normal Cardiovascular Assessment: cardiovascular normal Pulmonary Pulmonary Assessment: Clear and diminished General / Constitutional Constitutional Assessment: Obese General State of Health:: calm Neurological Neurologic Assessment:??alert and oriented x 3 ASSESSMENT / PLAN ANESTHESIA PLAN ASA: 3 Anesthesia Plan: general Patient seen and allergies reviewed, anesthesia plan and risks discussed directly with patient /legal guardian or through an intelligence officer. Risks/Benefits/Alternatives of Blood transfusion discussed with patient / legal guardian, including an opportunity to ask questions and/or decline some or all transfusion therapies. The patient / legalguardian consented to the use of all blood products, as deemed medically necessary Approval to Proceed: approved for anesthesia documented in this encounter Plan of Treatment Upcoming Encounters Date Type Specialty Care Team Description 07/21/2022 Office Visit Sleep Medicine Mahad Bustamante M .D. [address] [place], [place] [phone] (Wo rk) documented as of this encounter Procedures Procedure Name Priority Date/Time Associated Comments Diagnosis LDA ANE ENDOTRACHEAL Routine 03/10/2022 1:54 PM R esults for this AIRWAY CDT procedure are i n the results section. documented in this encounter Results LDA ANE ENDOTRACHEAL AIRWAY (03/10/2022 1:54 PM CDT) Narrative Taqueria Gentile APRN, CRNA, D.N.P. - 03/10/2022 1:54 PM CDT Taqueria Gentile APRN, CRNA D.N.P. ? 03/10/2022 ??2:30 PM Airway Date/Time: 03/10/2022 1:54 PM Performed by: Taqueria Gentile APRN, CRNA, D.N.P. Authorized by: Joey Johnson M.D. Patient location during procedure: OR / Procedure Area PROCEDURE DETAILS: Mask difficulty assessment: oral/nasal a irway needed Final airway type: video laryngoscope Laryngeal Manipulation: no ?? Final best view of glottic structures - Cormack/Lehane Score: grade 1 ETT location: oral VL device: glide scope Hillister scope blade size: 3 Adult tube size: 7 Adult ETT distance at teeth/gum: 22 Oral tube type: standard ETT Cuffed: yes Number of attempt to successful placemen t: 1 Airway confirmation: bilateral breath so unds, positive ETCO2 and bilateral chest rise Other previous techniques attempted: non e PRE PROCEDURE DETAILS: Pre evaluation for airway management: pr ocedure Urgency: elective Preop assessment of probable difficulty: questionable / suspicious difficult airway Preoxygenation: bag valve mask SEDATION / ANESTHESIA Anesthesia method: anesthesia POST PROCEDURE DETAILS: ? Procedure outcome: successful ?? Airway event: no complications Joey Johnson M.D. ANESTHESIA ORDERABLES documented in this encounter Visit Diagnoses Not on filedocumented in this encounter Administered Medications Inactive Administered Medications - up to 3 most recent administrations Medication Order MAR Action Action Date Dose Rate Site ceFAZolin injection (ANCEF) Given 03/10/2022 5:13 PM CDT 2 g intravenous, As needed, Starting on Tue03/10/22 at 1415, Anesthesia Intra-op Given 03/10/2022 2:15 PM CDT 2 g dexAMETHasone injection (DECADRON) Given 03/10/2022 2:06 PM CDT 4 mg intravenous, As needed, Starting on Tue03/10/22 at 1406, Anesthesia Intra-op ePHEDrine (PF) injection Given 03/10/2022 2:34 PM CDT 10 mg intravenous, As needed, Starting on Tue03/10/22 at 1407, Anesthesia Intra-op Given 03/10/2022 2:25 PM CDT 5 mg Given 03/10/2022 2:22 PM CDT 5 mg fentaNYL injection (SUBLIMAZE) Given 03/10/2022 3:31 PM CDT 25 mcg intravenous, As needed, Starting on Tue03/10/22 at 1350, Anesthesia Intra-op Given 03/10/2022 3:01 PM CDT 50 mcg Given 03/10/2022 1:50 PM CDT 50 mcg glycopyrrolate injection (ROBINUL) Given 03/10/2022 2:51 PM CDT 0.2 mg intravenous, As needed, Starting on Tue03/10/22 at 1451, Anesthesia Intra-op lactated ringers New Bag 03/10/2022 1:46 PM CDT intravenous, Continuous Infusion: Per Instructions PRN, Starting on Tue03/10/22 at 1346, Anesthesia Intra-op lactated ringers New Bag 03/10/2022 5:07 PM CDT intravenous, Continuous Infusion: Per Instructions PRN, Starting on Tue03/10/22 at 1401, Anesthesia Intra-op New Bag 03/10/2022 2:01 PM CDT lidocaine (PF) (cardiac) injection Given 03/10/2022 1:50 PM CDT 100 mg intravenous, As needed, Starting on Tue03/10/22 at 1350, Anesthesia Intra-op ondansetron (PF) injection (ZOFRAN) Given 03/10/2022 5:07 PM CDT 4 mg intravenous, As needed, Starting on Tue03/10/22 at 1707, Anesthesia Intra-op phenylephrine 80 Rate/Dose Change 03/10/2022 3:19 0.05 mcg/kg/min 3.4 16 mL/hr mcg/mL in NaCl 0.9% PM CDT 250 mL infusion 0-1 mcg/kg/min ? 91.1 kg Dosing weight (0-68.325 mL/hr, rounded to 0-68.33 mL/hr), intravenous, Continuous, Starting on Tue03/10/22 at 1245, Intra-Op, 20 mg in 250 mL, Patient Type: Standard, initiate at: Other, Rate: Per Provider, Titrate at: Other, Titrate: Per Provider, Goal: Other, Goal: Per Provider Rate/Dose Change 03/10/2022 3:03 PM CDT 0.1 mcg/kg/min 6.833 mL/hr Rate/Dose Change 03/10/2022 3:00 PM CDT 0.5 mcg/kg/min 34.162 mL/hr phenylephrine injection Given 03/10/2022 2:50 PM CDT 150 mcg intravenous, As needed, Starting on Tue03/10/22 at 1450, Anesthesia Intra-op propofol 10 mg/mL infusion New Bag 03/10/2022 5:07 15 mcg/kg/min 8 .199 mL/hr (DIPRIVAN) PM CDT intravenous, Continuous Infusion: Per Instructions PRN, Starting on Tue03/10/22 at 1350, Anesthesia Intra-op Rate/Dose Change 03/10/2022 4:55 PM CDT 85 mcg/kg/min 46.461 mL/hr New Bag 03/10/2022 3:24 PM CDT 100 mcg/kg/min 54.66 mL/hr propofoL injection (DIPRIVAN) Given 03/10/2022 3:25 PM CDT 30 mg intravenous, As needed, Starting on Tue03/10/22 at 1350, Anesthesia Intra-op Given 03/10/2022 1:50 PM CDT 140 mg remifentaniL 20 mcg/mL in NaCl New Bag 03/10/2022 4:05 PM 0.1 mcg/kg/min 27.33 mL/hr 0.9% 100 mL infusion (ULTIVA) CDT intravenous, Continuous Infusion: Per Instructions PRN, Starting on Tue03/10/22 at 1350, Anesthesia Intra-op Rate/Dose Change 03/10/2022 3:18 PM CDT 0.1 mcg/kg/min 27.33 mL/hr Rate/Dose Change 03/10/2022 2:59 PM CDT 0.12 mcg/kg/min 32.796 mL/h r succinylcholine (PF) injection (ANECTINE ) Given 03/10/2022 1:50 PM CDT 120 mg intravenous, As needed, Starting on Tue03/10/22 at 1350, Anesthesia Intra-op documented in this encounter Care Teams Optical Laboratory Mechanic Relationship Specialty Start Date End Date Elsewhere, Pcp PCP - General Family Medicine 05/20/21 documented as of this encounter
--- OUTSIDE RECORDS SUMMARY | 2022-06-14 15:22 | XMS_ITS | Encounter Summary ---
:1965 Author Organization [facility] Address [address] [place] [address] Care Team Providers Name Role Phone Elsewhere, Pcp Primary Care Provider Unavailable Reason for Visit Auth/Cert Specialty Diagnoses / Procedures Referred By Contact Refer red To Contact Diagnoses Obstructive Sleep Apnea Adult severe obstructive sleep apnea Procedures ID INCISION IMPL CRANIAL NERVE ID INS CHST WALL RESP ELCTD INSERTION STIMULATOR HYPOGLOSSAL NERVE Referral ID Status Reason Start Date Expiration Date Visits Requ ested Visits Authorized [id number] 1 1 Encounter Details Date Type Department Care Team Description 03/10/2022 Surgery RST ROMB ZEKE OR Kraig Bustamante, INSERTION STIMULATOR [address] [facility] M.D. HYPOGLOSSAL NERVE. [place], [place] [address] [facility] [address] [place], [place] [phone] (Wo rk) Social History Tobacco Use Types [...] or relatives? How often do you attend spiritism or Never 2021 restoration services? Do you belong to any clubs or Yes 04/18/2022 organizations such as spiritism groups, unions, fraternal or athletic groups, or [...] place to sleep or slept in a longterm (including now)? Education Answer Date Recorded What is the highest level of school Master's degree (e.g., M Ricky, MS, 05/20/2021 you have completed or the highest Elias, MEd, GAMBRELER, JAX) degree you have received? Sex Assigned at Date Recorded Female 06/25/2021 7:39 PM CDT documented as of this encounter Last Filed Vital Signs Vital Sign Reading Time Taken Comments Blood Pressure 144/92 03/10/2022 11:51 AM CDT Pulse 96 03/10/2022 11:51 AM CDT Temperature 36.6 ??C (97.9 ??F) 03/10/2022 11:51 AM CDT Respiratory Rate 16 03/10/2022 11:51 AM CDT Oxygen Saturation 96% 03/10/2022 11:51 AM CDT Inhaled Oxygen Concentration - - Weight [...] 2:38 PM CDT Surgeon: Kraig Bustamante MD [facility]: MD Vishnu Felix MD Preoperative diagnosis: 1. Severe obstructive sleep apnea 2. Continuous positive airway pressure intolerance Postoperative diagnosis: 1. Severe obstructive sleep apnea 2. Continuous positive airway pressure intolerance Name of procedure: 1. 12th cranial nerve (hypoglossal) stimulation implant (CPT 12509) 2. Placement of right pleural respiration sensor 3. Electronic analysis of the implanted neurostimulator pulse generator system (CPT 50621) Complications: None Anesthesia Type General Procedural note: [...] pauses and universal protocols were followed. A actuarial assistant was necessary for one or more of [...] Medicine Mahad Bustamante M .D. [address] [place], [place] [phone] (Wo rk) documented as of this encounter Procedures Procedure Name Priority Date/Time Associated Diagnosis Comme nts INSERTION STIMULATOR 03/10/2022 1:30 PM Obstructive Sl eep Apnea HYPOGLOSSAL NERVE CDT Adult Case Notes EXECUTIVE CREATIVE DIRECTOR 1145 ADULT OXYGEN THERAPY Routine 03/10/2022 12:50 PM CDT documented in this encounter Visit Diagnoses Diagnosis Obstructive Sleep Apnea Adult documented in this encounter Administered Medications Inactive Administered Medications - up to 3 most recent administrations Medication Order MAR Action Action Date Dose Rate Site acetaminophen tablet 1,000 mg Given 03/10/2022 1:06 PM CDT 1,000 mg (TYLENOL) 1,000 mg, oral, Once, On Tue03/10/22 at 1315, For 1 dose, Pre-Op hydroxypropyl methylcellulose 2.5 % Given 03/10/2022 2:00 PM CDT 2 drops ophthalmic demulcent solution (GONAK) As needed, Starting on Tue03/10/22 at 1400, Intra-Op lidocaine-EPINEPHrine 1 %-1:100,000 injection Given 2:16 PM CDT 10 mL (XYLOCAINE W/EPI) As needed, Starting on Tue03/10/22 at 1416, [...] Prior to and following infusion and betw een multiple consecutive infusions: sodium chloride 0.9 % [...] (New Bag - Provider: Taqueria Gentile APRN, INVESTMENTS MANAGER, D.N.P.)1406 (Rate/Dose Change - Provider: Taqueria Gentile APRN, CRNA, D.N.P.)1443 (Rate/Dose Change - Provider: Taqueria Gentile APRN, CRNA, D.N.P.) 0-1 mcg/kg/min ? 91.1 kg Dosing [...] 4-6 of 10, Starting on Tue03/10/22 at 1814 promethazine injection 6.25 mg (PHENERGAN) 6.25 mg, intravenous, Every 6 hours PRN, nausea, vomiting, Starting on Tue03/10/22 at 181, For 48 hours, RASS must be -2 [...] than comfort goal, Starting on Tue03/10/22 at 1814 documented in this encounter Care Teams Fire Prevention Forester Relationship Specialty Start Date End Date Elsewhere, Pcp PCP - General Family Medicine 05/20/21 documented as of this encounter
--- OUTSIDE RECORDS SUMMARY | 2022-06-14 15:22 | XMS_ITS | Encounter Summary ---
:1965 Author Organization [facility] Address [address] [place] [phone] Care Team Providers Name Role Phone Elsewhere, Pcp Primary Care Provider Unavailable Reason for Referral Outpatient (Routine) - Closed Specialty Diagnoses / Procedures Referred By Contact Refer red To Contact Otorhinolaryngology Kraig Bustamanet M. D. [facility] [address] [place] [phone] Referral ID Status Reason Start Date Expiration Date Visits Requ ested Visits Authorized [id number] Closed 03/09/2022 03/09/2023 1 1 Encounter Details Date Type Department Care Team Description 03/09/2022 Orders Only Department of Laura Rausch, Otorhinolaryngology in [place], [place] [address] [facility] [address] [place] [phone] Social History Tobacco Use Types Packs/Day Years [...] or relatives? How often do you attend evangelical or Never 2021 denominational services? Do you belong to any clubs or Yes 04/18/2022 organizations such as evangelical groups, unions, fraternal or athletic groups, or [...] have completed or the highest Elias, MEd, STREET OPENINGS INSPECTOR, JAX) degree you have received? Sex Assigned at Date Recorded Female 06/25/2021 7:39 PM CDT documented as of this encounter Plan of Treatment Upcoming Encounters Date Type Specialty Care Team Description 07/21/2022 Office Visit Sleep Medicine Mahad Bustamante M .D. [address] [place] [phone] (Wo rk) Scheduled Referrals Name Type Priority Associated Order Schedule Diagnoses Otorhinolaryngology Post Op Outpatient Routine Expected: (clinic) Referral 04/23/2022 (Approximate), Expires: 06/09/2023 documented as of this encounter Visit Diagnoses Not on filedocumented in this encounter Additional Health Concerns Infection Onset Date Last Indicated Resolved Time COVID19 Pending 03/09/2022 03/09/2022 03/09/2022 5:15 PM CDT documented as of this encounter Care Teams Housekeeper Nanny Relationship Specialty Start Date End Date Elsewhere, Pcp PCP - General Family Medicine 05/20/21 documented as of this encounter
--- OUTSIDE RECORDS SUMMARY | 2022-06-14 15:22 | XMS_ITS | Encounter Summary ---
:1965 Author Organization [facility] Address [address] [place] [address] Care Team Providers Name Role Phone Elsewhere, Pcp Primary Care Provider Unavailable Reason for Visit Outpatient (Routine) - Closed Specialty Diagnoses / Procedures Referred By Contact Refer red To Contact Otorhinolaryngology Kraig Bustamante M. D. [facility] [address] [place] [phone] Referral ID Status Reason Start Date Expiration Date Visits Requ ested Visits Authorized [id number] Closed 03/09/2022 03/09/2023 1 1 Encounter Details Date Type Department Care Team Description 04/23/2022 Office Visit Department of Kraig Bustamante Apnea Sleep Otorhinolaryngology roya Dixon M.D. [place], [place] [address] [place] [address] (Primary Dx) [address] [place] [phone] Social History Tobacco Use Types Packs/Day Years [...] or relatives? How often do you attend episcopal or Never 2021 gnosticism services? Do you belong to any clubs or Yes 04/18/2022 organizations such as episcopal groups, unions, fraternal or athletic groups, or [...] place to sleep or slept in a half-way (including now)? Education Answer Date Recorded What is the highest level of school Master's degree (e.g., M A, MS, 05/20/2021 you have completed or the highest Elias, MEd, CERTIFIED DRUG COUNSELOR, JAX) degree you have received? Sex Assigned at Date Recorded Female 06/25/2021 7:39 PM CDT documented as of this encounter Progress Notes Kraig Bustamante M.D. - 04/23/2022 1:30 PM CDT SUBJECTIVE CHIEF COMPLAINT / REASON FOR VISIT Post op visit HISTORY OF PRESENT ILLNESS Ms. Gudino returns for the activation of her upper airway stimulator. She had no difficulties withthe procedure. The following portions of the patient's history were reviewed and updated as appropriate: allergies,current medications, family history, medical history, social history, surgical history, and problem list. OBJECTIVE PHYSICAL EXAM Physical Exam ENT: Neck: Submental incision is healing without difficulties Chest: Right-sided IPG incision is healing without abnormalities. Both reviewed by my nurse, Laura Rausch RN ASSESSMENT / PLAN #1 Status post upper airway stimulator placement on 03/10/2022 Plan: Postoperative wound expectations were discussed. She will continue to follow with our sleep medicinecolleagues for continued care. She understands the plan. All questions were answered. documented in this encounter Plan of Treatment Upcoming Encounters Date Type Specialty Care Team Description 07/21/2022 Office Visit Sleep Medicine Mahad Bustamante M .D. [address] [place], [place] [phone] (Wo rk) documented as of this encounter Visit Diagnoses Diagnosis Apnea Sleep Obstructive - Primary documented in this encounter Care Teams Entry Level Electrician Relationship Specialty Start Date End Date Elsewhere, Pcp PCP - General Family Medicine 05/20/21 Dr. Livia Scott External Primary Care 04/21/22 [facility] Physician [address] [place] [phone] documented as of this encounter
--- OUTSIDE RECORDS SUMMARY | 2022-06-14 15:22 | XMS_ITS | Encounter Summary ---
:1965 Author Organization [facility] Address [address] [place] [address] Care Team Providers Name Role Phone Elsewhere, Pcp Primary Care Provider Unavailable Reason for Visit Outpatient (Routine) - Closed Specialty Diagnoses / Procedures Referred By Contact Refer red To Contact Video Medicine Diagnoses Apnea Sleep Obstructive Kraig Head, [facility] M.Dominique, Ch.B. [address] [place] [phone] Referral ID Status Reason Start Date Expiration Date Visits Requ ested Visits Authorized [id number] Closed 01/18/2022 01/18/2023 1 1 Encounter Details Date Type Department Care Team Description 02/18/2022 [facility] Kraig Head, Apnea Sleep Medicine in B., Ch.B. Obstructive [place], [place] [address] [facility] [address] [place] [phone] Social History Tobacco Use Types Packs/Day Years [...] or relatives? How often do you attend buddhist or Never 2021 rastafarian services? Do you belong to any clubs or Yes 04/18/2022 organizations such as buddhist groups, unions, fraternal or athletic groups, or [...] place to sleep or slept in a assisted (including now)? Education Answer Date Recorded What is the highest level of school Master's degree (e.g., M A, MS, 05/20/2021 you have completed or the highest Elias, MEd, MANUAL EQUIPMENT MECHANIC, JAX) degree you have received? Sex Assigned at Date Recorded Female 06/25/2021 7:39 PM CDT documented as of this encounter Progress Notes Kraig Head M.B., Ch.B. - 02/18/2022 9:00 AM CDT SUBJECTIVE CHIEF COMPLAINT/REASON FOR VISIT I met with the patient in her home to discuss the results of the home sleep apnea test using real-time video audio technology. I was in my office at [facility] [place]. OBJECTIVE PHYSICAL EXAM ASSESSMENT / PLAN #1 Obstructive sleep apnea I discuss the results of the home sleep apnea test using the [employer] system. For full details, please see separate report In summary, she has severe non positional obstructive sleep apnea with an apnea- hypopnea index of 62per hour and minimum saturation of 69%. This is an improvement from the previous sleep study which showed an apnea-hypopnea index of 73 per hour. She has now dropped below 65 per hour and thus qualifies for the Inspire procedure. I note that her weight is now below the maximum permitted and that examination under anesthesia showed AP collapse of her oropharynx. She is due to visit with our surgeon again in February and plans to proceed with the surgery. I discussed our expectation for a hoped for significant drop in her AHI following surgery but she is aware that the AHI may not drop below 15 per hour. She plans further weight loss and this may also be helpful in the future. Total time: 10 minutes [id number] and non [id number] documented in this encounter Plan of Treatment Upcoming Encounters Date Type Specialty Care Team Description 07/21/2022 Office Visit Sleep Medicine Mahad Bustamante M .D. [address] [place] [phone] (Wo rk) documented as of this encounter Visit Diagnoses Diagnosis Apnea Sleep Obstructive documented in this encounter Care Teams Optical Laboratory Mechanic Relationship Specialty Start Date End Date Elsewhere, Pcp PCP - General Family Medicine 05/20/21 documented as of this encounter
--- OUTSIDE RECORDS SUMMARY | 2022-06-14 15:22 | XMS_ITS | Clinical Summary ---
:1965 Author Organization [facility] Address [address] [place] [address] Care Team Providers Name Role Phone Elsewhere, Pcp Primary Care Provider Unavailable Source Comments Patient records contain information from all sites at [facility]. For routine questions regarding patient records, call [phone] during business hours, M-F 8:00 AM - 5:00 PM Central Time. Record requests for emergency care only can be directed to [phone] at any time.[facility] Allergies Active Allergy Reactions Severity Noted Date Comments Aspirin Rash, Other (see High 12/22/2013 ASPIRIN - M outh ulcers comments) and rash across chest Erythromycin Other (see comments) High 12/22/2013 ERYTHRO MYCIN - Eyes swelled shut Ibuprofen Other (see comments) High 12/05/2002 Mouth u lcers and rash Nsaids (Non-Steroidal Rash High 03/13/2018 Mouth ulcers Anti-Inflammatory Drug) Plant Extracts Edema High 04/21/2022 Allgood Zaleplon Headache High 12/22/2013 SONATA - Caused migraines Medications Medication Sig Dispensed Refills Start Date End Date Status eszopiclone (LUNESTA) Lunesta 3 mg oral 0 12/22/2013 Active 3 mg tablet tablet See Instructions, 1 TABLET AT BEDTIME HYDROcodone-acetamino 0.5 tablets as 0 12/22/2013 Active phen (NORCO) 7.5-325 needed. mg per tablet SUMAtriptan (IMITREX) Administer into 0 12/24/2008 Active 20 mg/actuation nasal affected nostril(s) spray as needed. traMADol ER (ULTRAM MEDS ON BACK ORDER, 0 12/22/2013 Active ER) 200 mg 24 hr that's why 100mg is tablet prescribed at this time traMADol (ULTRAM) 50 50 mg as needed. 0 12/21/2017 Active mg tablet EPINEPHrine (EPIPEN) Inject 0.3 mg 0 01/31/2019 Active 0.3 mg/0.3 mL intramuscularly as injection syringe needed. losartan (COZAAR) 25 Take 25 mg by mouth 0 1 Active mg tablet at bedtime. amLODIPine (NORVASC) at bedtime. 0 09/23/2021 Active 10 mg tablet levothyroxine Take 112 mcg by 0 09/18/2021 Active (SYNTHROID, mouth every evening. LEVOTHROID) 112 mcg tablet methylphenidate HCl every morning. 0 08/25/2020 Active (CONCERTA) 54 mg CR tablet traMADol ER (ULTRAM 200 mg at bedtime. 0 09/23/2021 Active ER) 100 mg 24 hr tablet DME CPAPIndications: DME Order 1 each 0 09/30/2021 Active Apnea Sleep Obstructive triamcinolone Administer 1 spray 0 Active (NASACORT) 55 into each nostril mcg/actuation nasal daily. spray fluticasone Administer 1 spray 0 Active propionate (FLONASE) into each nostril 50 mcg/actuation daily. nasal spray cholecalciferol Take 125 mcg by 0 Active (VITAMIN D3) 125 mcg mouth daily. 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 04/23/2022 Office Visit Otorhinolaryngology Corinna Bustamante Obstructive M.D. (Primary Dx) 04/23/2022 Office Visit Sleep Medicine Mahad Bustamante M.D. Obstructive (Primary Dx) 04/21/2022 Clinical Admitting/Central Communication Scheduling from Last 3 Months Immunizations Name Administration Dates Next Due HZV (ZOSTAVAX) 04/20/2017 HepA / HepB 01/20/2012 HepA Adult 03/30/2019 HepB Adult 03/30/2019, 07/17/2012 Influenza (IM) Preservative Free 09/05/2014 Influenza, Seasonal, Injectable 07/20/2005 MMR 03/30/2019 RZV (SHINGRIX) 01/31/2019 Td (Adult), adsorbed 09/26/2005 Tdap 06/10/2011, 11/15/2008 Ty21a (oral) 03/30/2019 (Deferred: Other - Prescripton given) TyVi (inj) 01/20/2012 YF 01/20/2012 influenza vaccine quad 09/21/2016, 08/14/2015 (FLUZONE/FLUARIX) (6 months and older)(PF) Family History Medical History Relation Name Comments ADD Father Marlo Mckinney Anxiety disorder Father Marlo Mckinney Colon polyps Father Marlo Mckinney Sleep apnea Father Marlo Mckinney Alcohol abuse Mother Paris Mckinney Arthritis Mother Paris Mckinney Breast cancer Mother Paris Plunkettskyordan Colon polyps Mother Paris Mi Elbarbie Depression Mother Paris Mi Eljmskyordan Lymphoma Mother [place] Mi Elbarbie Melanoma Mother Paris Mi Elavsky Migraines Mother Paris Carrizalesavskyordan Relation Name Status Comments Father Marlo Mckinney Mother Paris Mckinney Social History Tobacco Use Types Packs/Day Years [...] or relatives? How often do you attend mandaen or Never 2021 buddhist services? Do you belong to any clubs or Yes 04/18/2022 organizations such as mandaen groups, unions, fraImpulsiv or athletic groups, or school groups? How [...] have completed or the highest Elias, MEd, SIZING SPRAYER, JAX) degree you have received? Sex Assigned at Date Recorded Female 06/25/2021 7:39 PM CDT Last Filed Vital Signs Vital Sign Reading Time Taken Comments Blood Pressure 120/79 04/23/2022 1:14 PM CDT Pulse 67 04/23/2022 1:14 PM CDT Temperature 36.5 ??C (97.7 ??F) 03/10/2022 7:36 PM CDT Respiratory Rate 19 03/10/2022 6:30 PM CDT Oxygen Saturation 98% 03/10/2022 7:30 PM CDT Inhaled Oxygen Concentration - - Weight 93.2 kg (205 lb 5.7 oz) 04/23/2022 1:14 PM CDT Height 175 cm (5' 8.9) 04/23/2022 1:14 PM CDT Body Mass Index 30.42 04/23/2022 1:14 PM CDT Plan of Treatment Upcoming Encounters Date Type Specialty Care Team Description 07/21/2022 Office Visit Sleep Medicine Mahad Bustamante M .D. [address] [place] [phone] (Wo rk) Health Maintenance Due Date Last Done Comments CT Colonography 1965 Cervical Cancer Screening 1965 Cologuard 1965 Colonoscopy 1965 Colorectal Cancer Screening 1965 FIT 1965 HIV Screening 1965 Hepatitis C Screening 1965 Lipid (Cholesterol) 1965 Screening Thyroid Stimulating Hormone 1965 (TSH) test for thyroid function Mammogram 11/15/2009 11/15/2008, 10/30/2007, 10/25/2006 DTaP,Tdap,and Td Vaccines 06/10/2021 06/10/2011, 11/15/2008 , (3 - Td or Tdap) 09/26/2005 Depression Screening 09/26/2021 (Annual PHQ-2) Creatinine Level 05/21/2022 05/21/2021 Potassium Level 05/21/2022 05/21/2021 Sodium Level 05/21/2022 05/21/2021 COVID-19 Vaccine (5 - 06/04/2022 04/09/2022, 07/31/2021, Booster for Moderna series) 12/17/2020, Addition al history exists Influenza Vaccine (#1) 2022 07/22/2021, 07/29/2020, 07/31/2019, Additional history exists Office Visit for Blood 04/23/2023 04/23/2022 Pressure Check / Re-check Fasting Glucose for 05/21/2024 05/21/2021 Diabetes Screening Hepatitis B Vaccines Completed 03/30/2019, 07/17/2012, 01/20/2012 Zoster Vaccines Completed 04/03/2019, 01/31/2019, 04/20/2017 Pneumococcal vaccine (0-64 Aged Out No lo nger eligible years) based on patient 's age to complete this topic Medical Devices Implanted Type Area Dietitian Device Shelf Model / Identifier Expiration Date Ser ial / Lot Clip Slimline Side Angle 15 - [id number] Aneurysm Clip Feliciaman Implanted: Qty: 1 on 06/16/2001 Description: Device Dietitian - [employer]. Device Status Text - [id number]. Kls-Plate 16ho Straight - [id number] Hardware e.g. pins/screws/rods MARCELLESandra Alba Implanted: Qty: 1 on 12/05/2002 Description: Device Dietitian - JAYESH cantu. Device Status Text - [id number]. Lead Assembly Instructions Writer Ap Thor Rsp Sns - [id number] - [id number] Responsive Right: Inspire 09/07/2023 [id number] / Implanted: Qty: 1 on 03/10/2022 by Vishnu Edwards M.D. at [facility] Neurostimulator Sys Chest Medical [id number] / Systems Gen Nrstm Sleep Apnea Thor - [id number] - [id number] Spinal Cord Right: Inspire 08/14/2024 [id number] / Implanted: Qty: 1 on 03/10/2022 by Vishnu Edwards M.D. at [facility] Stimulator Chest Medical [id number] / Systems Insurance Payer Benefit Plan / Subscriber ID Effective Phone Address T ype Group Dates [employer] [id number] 2016-Pres [phone] [address] PPO OPEN ACCESS ent [address] [place] [address] ([place]) [place] [address] Advance Directives For more information, please contact: [phone] Documents on File Type Date Recorded Patient Service Delivery Director Explanati on Advance Directives 05/05/2017 12:00 AM Legacy doc ument. See document viewer. Advance Directives 05/13/2004 12:00 AM Legacy doc ument. See document viewer. Care Teams Billing Department Supervisor Relationship Specialty Start Date End Date Elsewhere, Pcp PCP - General Family Medicine 05/20/21 Dr. Livia Scott External Primary Care 04/21/22 [facility] Physician [address] [place] [phone]
--- OUTSIDE RECORDS SUMMARY | 2022-06-14 15:23 | XMS_ITS | Encounter Summary ---
:1965 Author Organization [facility] Address [address] [place] [address] Care Team Providers Name Role Phone Elsewhere, Pcp Primary Care Provider Unavailable Reason for Visit Outpatient (Routine) - Closed Specialty Diagnoses / Procedures Referred By Contact Refer red To Contact Diagnoses Apnea Sleep Obstructive Kraig Head M.B., [facility] Procedures Home sleep apnea test (HSAT) Ch.BKhai [address] [place], [place] [phone] Referral ID Status Reason Start Date Expiration Date Visits Requ ested Visits Authorized [id number] Closed 01/18/2022 01/18/2023 1 1 Encounter Details Date Type Department Care Team Description 02/11/2022 - Hospital Encounter Center for Sleep Kraig Head, 02/14/2022 Medicine in [place], Ch.[place], [place] [address] [facility] [address] [place] [phone] Social History Tobacco Use Types Packs/Day Years [...] or relatives? How often do you attend anabaptist or Never 2021 sikhism services? Do you belong to any clubs or Yes 04/18/2022 organizations such as anabaptist groups, unions, fraternal or athletic groups, or [...] have completed or the highest Elias, MEd, UROLOGIST PHYSICIAN, JAX) degree you have received? Sex Assigned at Date Recorded Female 06/25/2021 7:39 PM CDT documented as of this encounter Medications at Time of Discharge Medication Sig Dispensed Refills Start Date End Date amLODIPine (NORVASC) 10 at bedtime. 0 09/23/2021 mg tablet DME CPAPIndications: DME Order 1 each 0 09/30/2021 Apnea Sleep Obstructive EPINEPHrine (EPIPEN) Inject 0.3 mg 0 01/31/2019 0.3 mg/0.3 mL injection intramuscularly as syringe needed. eszopiclone (LUNESTA) 3 Lunesta 3 mg oral 0 12/22 mg tablet tablet See Instructions, 1 TABLET AT BEDTIME fluticasone propionate Administer 1 spray 0 (FLONASE) 50 into each nostril mcg/actuation nasal daily. spray HYDROcodone-acetaminoph 0.5 tablets as needed. 0 12/22/2013 en (NORCO) 7.5-325 mg per tablet levothyroxine Take 112 mcg by mouth 0 09/18/2021 (SYNTHROID, LEVOTHROID) every evening. 112 mcg tablet losartan (COZAAR) 25 mg Take 25 mg by mouth at 0 08/19/2021 tablet bedtime. methylphenidate HCl every morning. 0 08/25/2020 (CONCERTA) 54 mg CR tablet SUMAtriptan (IMITREX) Administer into 0 9 20 mg/actuation nasal affected nostril(s) as spray needed. traMADol (ULTRAM) 50 mg 50 mg as needed. 0 2017 tablet traMADol ER (ULTRAM ER) 200 mg at bedtime. 0 08/27 100 mg 24 hr tablet traMADol ER (ULTRAM ER) MEDS ON BACK ORDER, 0 200 mg 24 hr tablet that's why 100mg is prescribed at this time triamcinolone Administer 1 spray 0 (NASACORT) 55 into each nostril mcg/actuation nasal daily. spray acetaminophen (TYLENOL) Take 1,000 mg by mouth 0 03/10/2022 500 mg tablet every 6 (six) hours as needed for pain. HYDROcodone-acetaminoph Take 1 tablet by mouth 10 tablet 0 11/06/2021 03/10/2022 en (NORCO) 5-325 mg per every 6 (six) hours as tabletIndications: needed for pain (pain Acute Pain not controlled by tylenol) Indication: Acute Pain. documented as of this encounter Plan of Treatment Upcoming Encounters Date Type Specialty Care Team Description 07/21/2022 Office Visit Sleep Medicine Mahad Bustamante M .D. 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 documented in this encounter Results Home sleep apnea test (HSAT) (02/11/2022 12:15 PM CDT) Specimen (Source) Anatomical Location Collection Method / Collectio n Time Received Time / Laterality Volume Narrative ONBASE - 02/18/2022 8:28 AM CDT SUMMARY The home sleep apnea test using the [employer] hPAT system showed a total sleep time of 417 minutes. ??Estimated REM and non-REM sleep were recorded. ??The patient slept predominantly in the supin e position but 56 minutes of sleep in the lateral decubitus and prone posit ions was obtained. ??The estimated apnea-hypopnea index and respiratory dis turbance index were 62 per hour. ?? Mean oxyhemoglobin saturation was 91% wi th minimum saturation 69%. ??The patient snored at 40 decibels or above f or 49% of the night. CLINICAL INTERPRETATION The study showed the presence of very se valeria non positional obstructive sleep apnea with marked oxyhemoglobin de saturation. Kraig Lovell, Ch.B. SLEEP CENTER ORDERABLES Performing Organization Address City/State/ZIP Code Phon e Number ONBASE ONBASE NA documented in this encounter Visit Diagnoses Not on filedocumented in this encounter Care Teams Supervisor Garment Manufacturing Relationship Specialty Start Date End Date Elsewhere, Pcp PCP - General Family Medicine 05/20/21 documented as of this encounter
--- OUTSIDE RECORDS SUMMARY | 2022-06-14 15:23 | XMS_ITS | Encounter Summary ---
:1965 Author Organization [facility] Address [address] [place] [id number] Care Team Providers Name Role Phone Elsewhere, Pcp Primary Care Provider Unavailable Reason for Visit Outpatient (Routine) - Closed Specialty Diagnoses / Procedures Referred By Contact Refer red To Contact Otorhinolaryngology Vishnu Edwards M.D . [place] [facility] [address] [place] [address] Referral ID Status Reason Start Date Expiration Date Visits Requ ested Visits Authorized [id number] Closed 11/13/2021 11/13/2022 1 1 Encounter Details Date Type Department Care Team Description 01/13/2022 Telemedicine Department of Vishnu Edwards Apnea Sleep O bstructive (Primary Dx); Otorhinolaryngology roya García M.D. Neura lgia Trigeminal; [place], [place] Deviation Nasal Septal [address] [place] [phone] Social History Tobacco Use Types Packs/Day [...] get together with friends Three times a timoteo singh 04/18/2022 or relatives? How often do you attend mandaen or Never 2021 hindu services? Do you belong to any clubs or Yes 04/18/2022 organizations such as mandaen groups, unions, fraternal or athletic groups, or [...] place to sleep or slept in a group home (including now)? Education Answer Date Recorded What is the highest level of school Master's degree (e.g., M Ricky, MS, 05/20/2021 you have completed or the highest Elias, MEd, DRUG WORKER, JAX) degree you have received? Sex Assigned at Date Recorded Female 06/25/2021 7:39 PM CDT documented as of this encounter Progress Notes Vishnu Edwards M.D. - 01/13/2022 9:15 AM CDT OTOLARYNGOLOGY TELEHEALTH PHONE VISIT This visit was performed via connected care while I was present at the [facility] in [facility] and the patient was at their home. There was no direct [id number] communication or direct physical examination. All of the elements of the visit were performed remotely the a communication through the computer interface. Chief Complaint/Reason for Visit Severe obstructive sleep apnea, follow-up septoplasty History of Present Illness Patient presents for follow-up. She underwent septoplasty and drug-induced sleep endoscopy on 11/06/2021. She feels her nasal breathing is excellent. We have been trying to get her in with sleep medicine for repeat sleep study to qualify her for inspire. She is currently scheduled for a video visit atthe end of January. She is very interested in having surgery prior to her insurance switching over on March 26. Unfortunately, she was diagnosed with COVID last night. She has symptoms of fever and myalgias. Fortunately, she has intact sense of smell and taste. She has lost 22 lb since surgery. ROS: Pertinent positives are indicated in the HPI. All other review of systems are negative. Patient Self Exam: General: No acute distress, afebrile Eyes: No limitations in gaze, no changes in vision Ears: Denies otorrhea or deformities of the outer ear Nose: Denies rhinorrhea or epistaxis Face: No new numbness or weakness of the face Neck: Self palpation reveals no new lumps or swelling in the neck Lungs: Patient denies noisy breathing or shortness of breath Assessment/Plan: #1 severe SHANNON #2 Right trigeminal neuralgia with intolerance of CPAP It was a pleasure to speak to Candi Gudino today. She has had a great outcome from her septoplasty. I congratulated her on her weight loss. I do think she has likely made a significant impact on her AHI with her 22 lb weight loss and potentially improved nasal breathing. I think she is likelyunder 65 AHI at this point. She will be messaging the sleep medicine team to see if they can advanceher visit or schedule her for a polysomnography in person. I reviewed again the criteria for inspiretherapy. I also reviewed again the unpredictable nature of sleep surgery. I would hope that the weight loss in combination with the inspire therapy may reduce her SHANNON into the mild range, but I did discuss that she may require additional surgeries or interventions to achieve this. She was very understanding of this. I asked that she send me a message should she have difficulty in obtaining sleep study or if the results are available and she is ready to pursue surgery. I have personally reviewed the relevant records and imaging. PATIENT EDUCATION Patient ready to learn, no apparent learning barriers were identified. Explained diagnosis and treatment plan; patient expressed understanding of the content. BILLING A total of 15 minutes was spent with the patient in counseling and discussion and/or coordination ofcare as described above. Answers for HPI/ROS submitted by the patient on 01/13/2022 Fever: Yes No eye issues: Yes No ENT issues: Yes No heart issues: Yes No respiratory issues: Yes No GI issues: Yes Muscle pain/stiffness: Yes No skin issues: Yes Headache: Yes No mental health issues: Yes No blood/lymph issues: Yes No urinary/reproductive issues: Yes documented in this encounter Plan of Treatment Upcoming Encounters Date Type Specialty Care Team Description 07/21/2022 Office Visit Sleep Medicine Mahad Bustamante M .D. [address] [place], [place] [phone] (Wo rk) documented as of this encounter Visit Diagnoses Diagnosis Apnea Sleep Obstructive - Primary Neuralgia Trigeminal Deviation Nasal Septal documented in this encounter Care Teams Rfid Strategist Relationship Specialty Start Date End Date Elsewhere, Pcp PCP - General Family Medicine 05/20/21 documented as of this encounter
--- OUTSIDE RECORDS SUMMARY | 2022-06-14 15:23 | XMS_ITS | Encounter Summary ---
:1965 Author Organization [facility] Address [address] [place] [id number] Care Team Providers Name Role Phone Elsewhere, Pcp Primary Care Provider Unavailable Reason for Visit Outpatient (Routine) - Closed Specialty Diagnoses / Procedures Referred By Contact Refer red To Contact Otorhinolaryngology Vishnu Edwards M.D . [place] [facility] 200 [place] [address] Referral ID Status Reason Start Date Expiration Date Visits Requ ested Visits Authorized [id number] Closed 09/30/2021 09/30/2022 1 1 Encounter Details Date Type Department Care Team Description 11/05/2021 Office Visit Department of Vishnu Edwards Obstruction N jeanette (Primary Dx); Otorhinolaryngology roya García M.D. Devia tion Nasal Septal; [place], [place] Apnea Sleep Obstructive [address] [place] [phone] Social History Tobacco Use Types Packs/Day [...] or relatives? How often do you attend amish or Never 2021 cheondoism services? Do you belong to any clubs or Yes 04/18/2022 organizations such as amish groups, unions, fraternal or athletic groups, or [...] place to sleep or slept in a care home (including now)? Education Answer Date Recorded What is the highest level of school Master's degree (e.g., Jaky García, MS, 05/20/2021 you have completed or the highest Elias, MEd, MEDICAL ASSISTANT SUPERVISOR, JAX) degree you have received? Sex Assigned at Date Recorded Female 06/25/2021 7:39 PM CDT documented as of this encounter Progress Notes Vishnu Edwards M.D. - 11/05/2021 2:15 PM CST SUBJECTIVE CHIEF COMPLAINT / REASON FOR VISIT Candi Gudino is a 56 y.o. female who presents for listing visit for septoplasty bilateral inferior turbinate reduction HISTORY OF PRESENT ILLNESS Patient returns for listing visit. She is prepared for septoplasty and bilateral inferior turbinate reduction tomorrow. She has started exercising on her elliptical 30 minutes per day and continues to be interested in alternatives her CPAP. No further concerns. The following portions of the patient's history were reviewed and updated as appropriate: allergies,current medications, family history, medical history, social history, surgical history and problem list. OBJECTIVE PHYSICAL EXAM General: Awake, appropriately interactive Nose: No external deformity. Right septal deviation, worse in the higher nasal vault. Moderate turbinate hypertrophy. Oral cavity/oropharynx: Moderate palatal redundancy. Pulmonary: Breathing comfortably on room air. ASSESSMENT / PLAN #1 Obstruction Nasal #2 Deviation Nasal Septal #3 Apnea Sleep Obstructive It was a pleasure visiting with . Candi Gudino . She continues to be interested in alternatives her CPAP. I discussed with her that it may be useful to perform a drug-induced sleep endoscopyto assess for areas of obstruction. This would also be helpful should she pursue inspire in the future. She is amenable with proceeding. We will do this at the beginning of the case. She has several insightful questions which were answered to the best my abilities. I would did discuss the risks again with surgery, including the unpredictable nature of her postoperative pain. We will plan to manage this with Tylenol, ibuprofen, and her home hydrocodone. She was ready to proceed with surgery. Written informed consent was obtained. This visit lasted more than 15 min and over 50% of the time was spent counselling the patient. Intraoperative findings, the significance of the pathology report, future management options, and expecteddisease course were discussed. The patient's questions were answered. Answers for HPI/ROS submitted by the patient on 10/27/2021 No general issues: Yes No eye issues: Yes No ENT issues: Yes No heart issues: Yes No respiratory issues: Yes No GI issues: Yes No muscle/bone issues: Yes No skin issues: Yes No neurologic issues: Yes No mental health issues: Yes No blood/lymph issues: Yes No urinary/reproductive issues: Yes EL PLANER documented in this encounter Plan of Treatment Upcoming Encounters Date Type Specialty Care Team Description 07/21/2022 Office Visit Sleep Medicine Mahad Bustamante M .D. [address] [place] [phone] ([facility] [place]) documented as of this encounter Visit Diagnoses Diagnosis Obstruction Nasal - Primary Deviation Nasal Septal Apnea Sleep Obstructive documented in this encounter Additional Health Concerns Infection Onset Date Last Indicated Resolved Time COVID19 Pending 11/05/2021 11/05/2021 11/05/2021 5:10 PM BARREL PLANER documented as of this encounter Care Teams Fence Post Cutter Relationship Specialty Start Date End Date Elsewhere, Pcp PCP - General Family Medicine 05/20/21 documented as of this encounter
--- OUTSIDE RECORDS SUMMARY | 2022-06-14 15:23 | XMS_ITS | Encounter Summary ---
:1965 Author Organization [facility] Address [address] [place] [address] Care Team Providers Name Role Phone Elsewhere, Pcp Primary Care Provider Unavailable Reason for Visit Auth/Cert Specialty Diagnoses / Procedures Referred By Contact Refer red To Contact Diagnoses Obstruction Nasal Deviation Nasal Septal Obstruction Nasal [J34.89] Deviation Nasal Septal [J34.2] Procedures NJ SEPTO/SUBM RESEC W/WO CART GRFT NJ SUBMUC RSECT TURB PRTL/COMPLT SEPTOPLASTY REDUCTION TURBINATE Referral ID Status Reason Start Date Expiration Date Visits Requ ested Visits Authorized [id number] 1 1 Encounter Details Date Type Department Care Team Description 11/06/2021 Anesthesia Event RST ROMB MAIN OR Kari De Leon M.D. 200 [place] [phone] [facility] Vinnie Tolentino M.D., Ph.D. [address] [place] [phone] [place] [phone] Anesthesia Record Procedure Summary Procedure Name Responsible Anesthesiologist Anesthesia Start Ti me Anesthesia Stop Time SEPTOPLASTY. Kari De Leon M.D. 11/06/21 0750 11/06/21 1103 Events Date Time Event Comment 11/06/2021 0750 An Start Machine/Equipmen t Checked Infection Precautions Foll owed Procedure/Site Verified NPO Sta tus Verified Supine Standard ASA Mon itors Applied 0801 Quick Note Endoscopic sleep state protocol started 0812 Proc Start 0815 An Induction 0817 An Intubation 0818 Turnover to Proceduralist 1051 Turnover to ANE Staff 1051 Airway Removal Criteria Met 1052 Extubation/Airway Removed 1052 Proc Fin 1056 an stop data 1103 An End I completed my h andoff to the receiving staff during [facility] 1. Identified the patient 2. Ident ified the responsible provider 3. Revi ewed the pertinent medical history 4. Discussed the surgical course 5. Review ed intra-op anesthesia management and i ssues during anesthesia 6. Set expectati ons for post-procedure period 7. Allowe d opportunity for questions and ac knowledgement of understanding. Name Total fentanyl injection 50 mcg/mL 100 mcg lidocaine 2% (mg) injection 100 mg propofol 10 mg/mL 220 mg propofol 10 mg/mL infusion 1,550 mg succinylcholine 20 mg/mL injection 130 mg phenylephrine 100 mcg/mL injection 100 mcg ondansetron 4 mg/2 mL injection 4 mg phenylephrine 80 mcg/mL in NaCl 0.9% 250 mL infusion 2 .18 mg dexamethasone 4 mg/mL injection 4 mg remifentaniL 20 mcg/mL in NaCl 0.9% 100 mL infusion (U LTIVA) 1.89 mg ceFAZolin injection 2 g (ANCEF) 2 g Lactated Ringers Free Drip 700 mL Agents No agents on file. Blood No blood administrations on file. Lines, Drains, and Airways Type Details Placement Removal Peripheral IV Placement Date: 11/06/21; 11/06/21 0614 by Radha , 11/06/21 1249 by Placement Time: 0614; Ricky Hurley, Catheter Size: 20 G; R.N. Orientation: Anterior, Lower, Right; Location: Forearm; Site Prep: Chlorhexidine (Preferred); Insertion Attempts: 1; Removal Date: 11/06/21; Removal Time: 1249 ETT Placement Date: 11/06/21; 11/06/21 0817 by 11/06 1052 by Placement Time: 08 Liban Gannon, Liban Hoang, (created via procedure PANEL LAY UP WORKER, FOOT DOCTOR, DNAP PANEL LAY UP WORKER, CR NA, DNAP documentation); Mask Ventilation: Not attempted; Type: Standard ETT; Single Lumen Tube Size: 7 mm; Cuffed: Yes; Location: Oral; Grade View: Grade 1; Placement Verification: Bilateral breath sounds, Positive ETCO2, Symmetrical chest wall movement; Removal Date: 11/06/21; Removal Time: 1052 Wound 11/06/21; 1014; N; 11/06/21 1014 by 03/10/22 171 3 by Adriano, Incision; Nose; Eryn Bassett R.N. Mai, R.N . septoplasty/bilateral turbinate reduction; clayton splints; 03/10/22; 1713 documented in this encounter Social History Tobacco [...] do you attend religious or Never 2021 yazidi services? Do you belong to any clubs [...] place to sleep or slept in a skilled nursing (including now)? Education Answer Date Recorded What is the highest level of school Master's degree (e.g., M Ricky, MS, 05/20/2021 you have completed or the highest Elias, MEd, CABLE PLACER, JAX) degree you have received? Sex Assigned at Date Recorded Female 06/25/2021 7:39 PM CDT documented as of this encounter OR Notes Anesthesia Postprocedure Evaluation - Emily Walker M.D. - 11/06/2021 12:55 PM CST Patient: Candi Gudino Procedure Summary Date: 11/06/21 Room / Location: [address] [facility] [place], [place] Anesthesia Start: 0750 Anesthesia Stop: 1103 Procedures: SEPTOPLASTY. (N/A ) REDUCTION TURBINATE. (Bilateral ) ENDOSCOPY SLEEP STATE. (N/A ) Diagnosis: Obstruction Nasal Deviation Nasal Septal (Obstruction Nasal [J34.89], Deviation Nasal Septal [J34.2].) Providers: Melanie Ray M.D. Responsible Provider: Kari De Leon M.D. Anesthesia Type: general ASA Status: 3 Anesthesia Type: general Last vitals Vitals Value Taken Time BP 117/75 11/06/21 1237 Temp 36.5 ??C 11/06/21 1230 Pulse 64 11/06/21 1242 Resp 14 11/06/21 1158 SpO2 95 % 11/06/21 1145 Vitals shown include unvalidated device data. Please reference Vitals flowsheet for most recent vital signs. Anesthesia Post Evaluation Patient Disposition: dismissal Cardiovascular status: hemodynamics (HR & BP) acceptable Respiratory status: patent airway with spontaneous effort Temperature: normothermic Oxygen requirements: room air Level of consciousness: awake Pain score: pain adequately controlled and/or at baseline Post Op nausea/vomiting: none Hydration status: euvolemic Comments: Patient had uneventful recovery. No acute events in PACU. Hemodynamically stable. Pain is adequately controlled. RVISOR OF RESEARCH Anesthesia Procedure Notes - Liban Gannon APRN, FOOT DOCTOR, DNAP - 11/06/2021 8:29 AM CSTAssociated Order(s): Airway Airway Date/Time: 11/06/2021 8:17 AM Performed by: Liban Gannon APRN, CRNA, DNAP Authorized by: Kari De Leon M.D. Patient location during procedure: OR / Procedure Area PROCEDURE DETAILS: Mask difficulty assessment: not attempted Final airway type: video laryngoscope Laryngeal Manipulation: no Final best view of glottic structures - Cormack/Lehane Score: grade 1 ETT location: oral VL device: glide scope Mondovi scope blade size: 3 Adult tube size: 7 Adult ETT distance at teeth/gum: 21 Oral tube type: standard ETT Cuffed: yes Airway confirmation: bilateral breath sounds, positive ETCO2 and bilateral chest rise Other previous techniques attempted: none PRE PROCEDURE DETAILS: Pre evaluation for airway management: procedure Urgency: elective Preop assessment of probable difficulty: no difficulty anticipated Preoxygenation: bag valve mask SEDATION / ANESTHESIA Anesthesia method: anesthesia POST PROCEDURE DETAILS: Procedure outcome: successful Airway event: no complications ATTESTATION STATEMENT RVISOR OF RESEARCH Anesthesia Preprocedure Evaluation - Vinnie Tolentino M.D., Ph.D. - 11/06/2021 5:55 AM CST Preprocedure Anesthesia & H&P Assessment Procedure Summary Date/Time: 11/06/21 0745 Procedures: SEPTOPLASTY. (N/A ) REDUCTION TURBINATE. (Bilateral ) ENDOSCOPY SLEEP STATE. (N/A ) Diagnosis: Obstruction Nasal [J34.89] Deviation Nasal Septal [J34.2] Pre-op diagnosis: Obstruction Nasal [J34.89], Deviation Nasal Septal [J34.2]. Location: [address] / [facility] in [place], [place] Providers: Vishnu Edwards M.D. Pertinent components [...] TM Distance: >3 FB Neck ROM: Full Cardiovascular Rhythm: Regular Rate: Normal Cardiovascular Assessment: cardiovascular normal Pulmonary Pulmonary Assessment: Clear and diminished General / Constitutional Constitutional Assessment: Obese General State of Health:: calm Neurological Neurologic Assessment:??alert and oriented x 3 ASSESSMENT / PLAN ANESTHESIA PLAN ASA: 3 Anesthesia Plan: general Patient seen and allergies reviewed, anesthesia plan and risks discussed directly with patient /legal guardian or through an spanish medical interpreter. The use of blood products not discussed Approval to Proceed: approved for anesthesia Severe SHANNON, BMI 33, trigeminal neuralgia RVISOR OF RESEARCH documented in this encounter Plan of Treatment Upcoming Encounters Date Type Specialty Care Team Description 07/21/2022 Office Visit Sleep Medicine Mahad Bustamante M .D. [address] [place], [place] [phone] (Wo rk) documented as of this encounter Procedures Procedure Name Priority Date/Time Associated Comments Diagnosis LDA ANE ENDOTRACHEAL Routine 11/06/2021 8:17 AM R esults for this AIRWAY SUPERVISOR OF RESEARCH procedure are i n the results section. documented in this encounter Results LDA ANE ENDOTRACHEAL AIRWAY (11/06/2021 8:17 AM SUPERVISOR OF RESEARCH) Narrative Liban Gannon APRN, CRNA, DNAP - 0 11/06/2021 8:17 AM SUPERVISOR OF RESEARCH Liban Gannon APRN, CRNA, DNAP ? 11/06/2021 ??8:30 AM Airway Date/Time: 11/06/2021 8:17 AM Performed by: Liban Gannon APRN, CRNA, DNAP Authorized by: Kari De Leon M.D. Patient location during procedure: OR / Procedure Area PROCEDURE DETAILS: Mask difficulty assessment: not attempte d Final airway type: video laryngoscope Laryngeal Manipulation: no ?? Final best view of glottic structures - Cormack/Lehane Score: grade 1 ETT location: oral VL device: glide scope Mondovi scope blade size: 3 Adult tube size: 7 Adult ETT distance at teeth/gum: 21 Oral tube type: standard ETT Cuffed: yes Airway confirmation: bilateral breath so unds, positive ETCO2 and bilateral chest rise Other previous techniques attempted: non e PRE PROCEDURE DETAILS: Pre evaluation for airway management: pr ocedure Urgency: elective Preop assessment of probable difficulty: no difficulty anticipated Preoxygenation: bag valve mask SEDATION / ANESTHESIA Anesthesia method: anesthesia POST PROCEDURE DETAILS: ? Procedure outcome: successful ?? Airway event: no complications ATTESTATION STATEMENT Kari De Leon M.D. ANESTHESIA ORDERABLES documented in this encounter Visit Diagnoses Not on filedocumented in this encounter Administered Medications Inactive Administered Medications - up to 3 most recent administrations Medication Order MAR Action Action Date Dose Rate Site ceFAZolin injection 2 g (ANCEF) Given 11/06/2021 8:25 AM SUPERVISOR OF RESEARCH 2 g 2 g, intravenous, Once, On Tue11/06/21 at 0745, For 1 dose, Intra-Op, Administer within 1 hour prior to surgical incision If needed, reconstitute vial per package insert instructions. See IVAG for administration guidelines. , Drug Monitoring Program: Pharmacist to adjust medication dosing based on indication and drug clearance factors., Indications: Prophylaxis, surgical dexAMETHasone injection (DECADRON) Given 11/06/2021 8:25 AM SUPERVISOR OF RESEARCH 4 mg intravenous, As needed, Starting on Tue11/06/21 at 0825, Anesthesia Intra-op fentaNYL injection (SUBLIMAZE) Given 11/06/2021 10:13 AM SUPERVISOR OF RESEARCH 50 mcg intravenous, As needed, Starting on Tue11/06/21 at 0816, Anesthesia Intra-op Given 11/06/2021 8:16 AM SUPERVISOR OF RESEARCH 50 mcg lactated ringers New Bag 11/06/2021 7:59 AM SUPERVISOR OF RESEARCH intravenous, Continuous Infusion: Per Instructions PRN, Starting on Tue11/06/21 at 0759, Anesthesia Intra-op lidocaine (PF) (cardiac) injection Given 11/06/2021 8:00 AM SUPERVISOR OF RESEARCH 100 mg intravenous, As needed, Starting on Tue11/06/21 at 0800, Anesthesia Intra-op ondansetron (PF) injection (ZOFRAN) Given 11/06/2021 10:13 AM SUPERVISOR OF RESEARCH 4 mg intravenous, As needed, Starting on Tue11/06/21 at 1013, Anesthesia Intra-op phenylephrine 80 Rate/Dose Change 11/06/2021 9:25 AM 0.3 mcg/kg/min 2 2.5 mL/hr mcg/mL in NaCl 0.9% SUPERVISOR OF RESEARCH 250 mL infusion 0-1 mcg/kg/min ? 100 kg Dosing weight (0-75 mL/hr), intravenous, Continuous, Starting on Tue11/06/21 at 0700, Intra-Op, 20 mg in 250 mL, Patient Type: Standard, initiate at: 0.5 mcg/kg/min., Titrate at: 0.1 mcg/kg/min. every 5 min., Goal: MAP 60-80 Rate/Dose Change 11/06/2021 8:52 AM SUPERVISOR OF RESEARCH 0.5 mcg/kg/min 37.5 mL/hr Rate/Dose Change 11/06/2021 8:45 AM SUPERVISOR OF RESEARCH 0.4 mcg/kg/min 30 mL/hr phenylephrine injection Given 11/06/2021 8:37 AM SUPERVISOR OF RESEARCH 100 mcg intravenous, As needed, Starting on Tue11/06/21 at 0837, Anesthesia Intra-op propofol 10 mg/mL infusion Rate/Dose 11/06/2021 8:43 100 mcg/kg/min 60 mL/hr (DIPRIVAN) Change AM SUPERVISOR OF RESEARCH intravenous, Continuous Infusion: Per Instructions PRN, Starting on Tue11/06/21 at 0801, Anesthesia Intra-op Rate/Dose Change 11/06/2021 8:18 AM SUPERVISOR OF RESEARCH 125 mcg/kg/min 75 mL/hr Rate/Dose Change 11/06/2021 8:13 AM SUPERVISOR OF RESEARCH 275 mcg/kg/min 165 mL/hr propofoL injection (DIPRIVAN) Given 11/06/2021 10:42 AM SUPERVISOR OF RESEARCH 50 mg intravenous, As needed, Starting on Tue11/06/21 at 0801, Anesthesia Intra-op Given 11/06/2021 8:15 AM SUPERVISOR OF RESEARCH 150 mg Given 11/06/2021 8:01 AM SUPERVISOR OF RESEARCH 20 mg remifentaniL 20 mcg/mL in Rate/Dose 11/06/2021 9:54 0.2 mcg/kg/min 6 0 mL/hr NaCl 0.9% 100 mL infusion Change AM SUPERVISOR OF RESEARCH (ULTIVA) intravenous, Continuous Infusion: Per Instructions PRN, Starting on Tue11/06/21 at 0815, Anesthesia Intra-op Rate/Dose Change 11/06/2021 9:28 AM SUPERVISOR OF RESEARCH 0.15 mcg/kg/min 45 mL/hr Rate/Dose Change 11/06/2021 8:55 AM SUPERVISOR OF RESEARCH 0.1 mcg/kg/min 30 mL/hr succinylcholine (PF) injection (ANECTINE ) Given 11/06/2021 8:16 AM SUPERVISOR OF RESEARCH 130 mg intravenous, As needed, Starting on Tue11/06/21 at 0816, Anesthesia Intra-op documented in this encounter Care Teams Extruding Department Supervisor Relationship Specialty Start Date End Date Elsewhere, Pcp PCP - General Family Medicine 05/20/21 documented as of this encounter
--- OUTSIDE RECORDS SUMMARY | 2022-06-14 15:23 | XMS_ITS | Encounter Summary ---
:1965 Author Organization [facility] Address [address] [place] [address] Care Team Providers Name Role Phone Elsewhere, Pcp Primary Care Provider Unavailable Encounter Details Date Type Department Care Team Description 11/05/2021 Ancillary Procedure Department of Otorhinolaryngology Social History Tobacco Use Types Packs/Day Years [...] do you attend temple or Never 2021 mu-ism services? Do you belong to any clubs [...] place to sleep or slept in a senior care (including now)? Education Answer Date Recorded What is the highest level of school Master's degree (e.g., M A, MS, 05/20/2021 you have completed or the highest Elias, MEd, HAND ENDBAND CUTTER, JAX) degree you have received? Sex Assigned at Date Recorded Female 06/25/2021 7:39 PM CDT documented as of this encounter Plan of Treatment Upcoming Encounters Date Type Specialty Care Team Description 07/21/2022 Office Visit Sleep Medicine Mahad Bustamante M .D. [address] [place] [phone] (Wo rk) documented as of this encounter Procedures Procedure Name Priority Date/Time Associated Comments Diagnosis OTORHINOLARYNGOLOGY IMAGE Routine 11/05/2021 8:40 Results for this EXAM PM RECEIVABLE EXECUTIVE procedure are i n the results section. documented in this encounter Results NOSE-Otorhinolaryngology Image Exam (11/05/2021 8:40 PM RECEIVABLE EXECUTIVE) Specimen (Source) Anatomical Location Collection Method / Collectio n Time Received Time / Laterality Volume Narrative IIMS - 11/06/2021 11:04 AM RECEIVABLE EXECUTIVE This order has been created and auto-finalized to support the import of images acquired without order. The clini brandy documentation to support these images can be found on the encounter vy t produced images. Provider Not In System IMG NON RAD IMAGING PROCEDUR ES Performing Organization Address City/State/ZIP Code Phon e Number IIMS IIMS NA documented in this encounter Visit Diagnoses Not on filedocumented in this encounter Care Teams Cyber Forensic Specialist Relationship Specialty Start Date End Date Elsewhere, Pcp PCP - General Family Medicine 05/20/21 documented as of this encounter
--- OUTSIDE RECORDS SUMMARY | 2022-06-14 15:23 | XMS_ITS | Encounter Summary ---
:1965 Author Organization [facility] Address [address] [place] [address] Care Team Providers Name Role Phone Elsewhere, [...] or relatives? How often do you attend mormonism or Never 2021 hinduism services? Do you belong to any clubs or Yes 04/18/2022 organizations such as mormonism groups, unions, fraternal or athletic groups, or [...] have completed or the highest Elias, MEd, SOCCER COMMENTATOR, JAX) degree you have received? Sex Assigned at Date Recorded Female 06/25/2021 7:39 PM CDT documented as of this encounter Plan of Treatment Upcoming Encounters Date Type Specialty Care Team Description 07/21/2022 Office Visit Sleep Medicine Mahad Bustamante M .D. [address] [place] [address] [phone] (Wo rk) documented as of this encounter Procedures Procedure Name Priority Date/Time Associated Comments Diagnosis OTORHINOLARYNGOLOGY IMAGE Routine 11/05/2021 8:30 Results for this EXAM PM PRINTED CIRCUIT BOARDS PLASMA ETCHER procedure are i n the results section. documented in this encounter Results NOSE-Otorhinolaryngology Image Exam (11/05/2021 8:30 PM PRINTED CIRCUIT BOARDS PLASMA ETCHER) Specimen (Source) Anatomical Location Collection Method / Collectio n Time Received Time / Laterality Volume Narrative IIMS - 11/06/2021 11:00 AM PRINTED CIRCUIT BOARDS PLASMA ETCHER This order has been created and auto-finalized [...] on filedocumented in this encounter Care Teams Branch Associate Relationship Specialty Start Date End Date Elsewhere, Pcp PCP - General Family Medicine 05/20/21 documented as of this encounter
--- OUTSIDE RECORDS SUMMARY | 2022-06-14 15:23 | XMS_ITS | Encounter Summary ---
:1965 Author Organization [facility] Address [address] [place] [address] Care Team Providers Name Role Phone Elsewhere, Pcp Primary Care Provider Unavailable Reason for Visit Reason Comments No approval required for surgery Encounter Details Date Type Department Care Team Description 10/09/2021 Clinical Department of Vishnu Edwards No approval Communication Otorhinolaryngology Scottie Leon for [place], [place] surgery [address] [place] [phone] Social History Tobacco Use Types Packs/Day Years Used Date Smoking Tobacco: Never Alcohol Habits Answer Date Recorded How often [...] do you attend episcopal or Never 2021 quaker services? Do you belong to any clubs [...] place to sleep or slept in a nursing home (including now)? Education Answer Date Recorded What is the highest level of school Master's degree (e.g., M A, MS, 05/20/2021 you have completed or the highest Elias, MEd, SUPERVISOR MOLD YARD, JAX) degree you have received? Sex Assigned at Date Recorded Female 06/25/2021 7:39 PM CDT documented as of this encounter Miscellaneous Notes Telephone Encounter - Denzel Lindsey V. - 10/09/2021 11:51 AM CST I have contacted the patient with this information below and she is going to contact her insurance company to get more information. She wants to go forward with her surgery on 11/06/21. She will contactus back if something changes. FYI- A Predetermination Review is not required with the patient's insurance company, [employer]. This does not mean the patient has been approved nor denied for the procedure(s). It simply means that the insurance company will review the procedure(s) for medical necessity at time of claim submission. If the patient has questions about coverage for the procedure(s), please advise to contact the insurance company. Thank you, Mitali RY WORKER documented in this encounter Plan of Treatment Upcoming Encounters Date Type Specialty Care Team Description 07/21/2022 Office Visit Sleep Medicine Mahad Bustamante M .D. [address] [place], [place] [phone] (Wo rk) documented as of this encounter Visit Diagnoses Not on filedocumented in this encounter Care Teams Meter Installer And Remover Relationship Specialty Start Date End Date Elsewhere, Pcp PCP - General Family Medicine 05/20/21 documented as of this encounter
--- OUTSIDE RECORDS SUMMARY | 2022-06-14 15:23 | XMS_ITS | Encounter Summary ---
:1965 Author Organization [facility] Address [address] [place] [address] Care Team Providers Name Role Phone Elsewhere, Pcp Primary Care Provider Unavailable Reason for Referral Outpatient (Routine) - Closed Specialty Diagnoses / Procedures Referred By Contact Refer red To Contact Video Medicine Diagnoses Apnea Sleep Obstructive Kraig Head, [facility], Ch.B. [address] [place] [phone] Referral ID Status Reason Start Date Expiration Date Visits Requ ested Visits Authorized [id number] Closed 01/18/2022 01/18/2023 1 1 Outpatient (Routine) - Closed Specialty Diagnoses / Procedures Referred By Contact Refer red To Contact Diagnoses Apnea Sleep Obstructive Kraig Head M.B., [facility] Procedures Home sleep apnea test (HSAT) Ch.B. [address] [place] [phone] Referral ID Status Reason Start Date Expiration Date Visits Requ ested Visits Authorized [id number] Closed 01/18/2022 01/18/2023 1 1 Reason for Visit Outpatient (Routine) - Closed Specialty Diagnoses / Procedures Referred By Contact Refer red To Contact Sleep Medicine Vishnu Edwards M.D . Silber, Michael H, [address] [facility] [phone] [address] [place] [address] Phone: Fax: Referral ID Status Reason Start Date Expiration Date Visits Requ ested Visits Authorized [id number] Closed 12/25/2021 12/25/2022 1 1 Encounter Details Date Type Department Care Team Description 01/18/2022 Telemedicine Center for Sleep Kraig Head, Apnea Sleep Medicine in [place], ChKhaiB. Obstructive (Primary [place], [place] [address] [facility]) [address] [place] [phone] Social History Tobacco Use Types Packs/Day Years [...] do you attend protestant or Never 2021 congregation services? Do you belong to any clubs [...] place to sleep or slept in a correction (including now)? Education Answer Date Recorded What is the highest level of school Master's degree (e.g., Jaky García, , 05/20/2021 you have completed or the highest Elias, MEd, WHEEL FITTER, JAX) degree you have received? Sex Assigned at Date Recorded Female 06/25/2021 7:39 PM CDT documented as of this encounter Progress Notes Kraig Head M.B., Ch.B. - 01/18/2022 10:00 AM CDT SUBJECTIVE CHIEF COMPLAINT/REASON FOR VISIT I met with the patient and her in their home to discuss obstructive sleep apnea using real-time video audio technology. I was in my office at [facility]. HISTORY OF PRESENT ILLNESS #1 Obstructive sleep apnea Obstructive sleep apnea was diagnosed in July 2021 with an AHI of 73 and an RDI of 76 per hour with minimum saturation of 74%. 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 She underwent a septoplasty and turbinate reduction on 11/06/2021 with no improvement in her ability to tolerate CPAP although her says she has snoring somewhat less. He still notes apneas and snort arousals. She starts to sleep on her side but rapidly changes to her back. With the help of 3 mg Lunesta and 200 mg tramadol she initiate sleep quickly at 8:30 p.m.. She wakesat most once to use the bathroom returning easily to sleep. She wakes with an alarm between 5 and 5:30 a.m. on week days feeling groggy. However, she has never been particularly sleepy during the day and thinks she is less sleepy now. Her [place] Sleepiness Scale was 5. She has no difficulty driving. Her only other narcotic is 2.5 mg hydrocodone for migraine which she has taken once since September. Her blood pressure is under good control (117/75 on 11/06/2021). She has lost 25 lb weight since October 2021 and tells me that her current weight is 200 lb for a height of 5 ft 8 in. OBJECTIVE PHYSICAL EXAM ASSESSMENT / PLAN #1 Obstructive sleep apnea She is unable to tolerate CPAP because of chronic facial pain. She is planning the inspire procedure. I calculated her BMI today, based on the figures she gave me as 30.4 which would qualify her for the procedure. However, her sleep study of 2020 showed a AHI of 73 per hour which is higher than the cut off of 65 per hour. She has had an examination of her oropharynx under anesthesia which shows AP collapse which would also allow the procedure to be performed. We decided to proceed with a home sleep apnea test using the WatchPAT system. In view of her 25 lb weight loss, she will likely have dropped her be AHI below 65. I will meet with her back to discuss the results. I did briefly review the procedure with her. I quoted a 60% success rate and discussed some of the possible complications. Total time: 30 minutes [id number] and non [id number] documented in this encounter Plan of Treatment Upcoming Encounters Date Type Specialty Care Team Description 07/21/2022 Office Visit Sleep Medicine Mahad Bustamante M .D. [address] [place], [place] [phone] (Wo rk) Scheduled Referrals Name Type Priority Associated Diagnoses Order S chedule Video anyplace Outpatient Referral Routine Apnea Sleep 1 Occu rrences visit Obstructive starting 2021 until 3 documented as of this encounter Results Home sleep apnea test (HSAT) (02/11/2022 12:15 PM CDT) Specimen (Source) Anatomical Location Collection Method / Collectio n Time Received Time / Laterality Volume Narrative ONBASE - 02/18/2022 8:28 AM CDT SUMMARY The home sleep apnea test using the [place] hPAT system showed a total sleep time [...] apnea with marked oxyhemoglobin de saturation. Kraig Lovell [facility] ORDERABLES Performing Organization Address City/State/ZIP Code Phon e Number ONBASE ONBASE NA documented in this encounter Visit Diagnoses Diagnosis Apnea Sleep Obstructive - Primary Apnea Sleep Obstructive documented in this encounter Care Teams Squaring Shear Operator Relationship Specialty Start Date End Date Elsewhere, Pcp PCP - General Family Medicine 05/20/21 documented as of this encounter
--- OUTSIDE RECORDS SUMMARY | 2022-06-14 15:23 | XMS_ITS | Encounter Summary ---
:1965 Author Organization [facility] Address [address] [place] [address] Care Team Providers Name Role Phone Elsewhere, Pcp Primary Care Provider Unavailable Encounter Details Date Type Department Care Team Description 11/16/2021 Clinical Department of Vishnu Edwards Communication Otorhinolaryngology in Scottie García [place], [place] [address] [place] [phone] Social History Tobacco Use [...] or relatives? How often do you attend faith or Never 2021 rastafari services? Do you belong to any clubs or Yes 04/18/2022 organizations such as faith groups, unions, fraternal or athletic groups, or [...] have completed or the highest Elias, MEd, TRACTOR DRILL OPERATOR, JAX) degree you have received? Sex Assigned at Date Recorded Female 06/25/2021 7:39 PM CDT documented as of this encounter Miscellaneous Notes Telephone Encounter - Janet Whitfield - 11/16/2021 8:08 AM CST Order in for Ms. Gudino to return to see you sometime in December. You are not in clinic the whole month of December. Would you like to see her on Mikal 6? Please advise, thank you! DER MACHINE KNIFE SETTER documented in this encounter Plan of Treatment Upcoming Encounters Date Type Specialty Care Team Description 07/21/2022 Office Visit Sleep Medicine Mahad Bustamante M .D. [address] [place], [place] [phone] (Wo rk) documented as of this encounter Visit Diagnoses Not on filedocumented in this encounter Care Teams Electrocardiograph Technician Relationship Specialty Start Date End Date Elsewhere, Pcp PCP - General Family Medicine 05/20/21 documented as of this encounter
--- OUTSIDE RECORDS SUMMARY | 2022-06-14 15:23 | XMS_ITS | Encounter Summary ---
:1965 Author Organization [facility] Address [address] [place] [address] Care Team Providers Name Role Phone Elsewhere, Pcp Primary Care Provider Unavailable Encounter Details Date Type Department Care Team Description 10/13/2021 Telemedicine Department of Dental Damon Khan I., Left without seen Specialties in [facility] [address] [place] [phone] Social History Tobacco Use Types Packs/Day [...] or relatives? How often do you attend yazdanism or Never 2021 hinduism services? Do you belong to any clubs or Yes 04/18/2022 organizations such as yazdanism groups, unions, fraternal or athletic groups, or [...] place to sleep or slept in a long term (including now)? Education Answer Date Recorded What is the highest level of school Master's degree (e.g., M A, MS, 05/20/2021 you have completed or the highest lEias, MEd, FARM HELPER, JAX) degree you have received? Sex Assigned at Date Recorded Female 06/25/2021 7:39 PM CDT documented as of this encounter Progress Notes Damon Khan D.M.D. 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 She was scheduled for virtual visit with me during one ofher breaks between classes. I was at least 30 minutes late having been unexpectedly occupied with another patient. Understandably,Ms. Gudino could not continue to wait for me. Thus we did not interactas planned. I wrote her a note of apology and as always she is very graciously accepting and understanding. Candi Gudino is a 56 y.o. female who presents for virtual appointment. OBJECTIVE Not applicable ASSESSMENT / PLAN #1. Neuropathic Orofacial Pain R SHOVEL OPERATOR HELPER documented in this encounter Plan of Treatment Upcoming Encounters Date Type Specialty Care Team Description 07/21/2022 Office Visit Sleep Medicine Mahad Bustamante M .D. [address] [place], [place] [phone] (Wo rk) documented as of this encounter Visit Diagnoses Not on filedocumented in this encounter Care Teams Director Of Market Intelligence Relationship Specialty Start Date End Date Elsewhere, Pcp PCP - General Family Medicine 05/20/21 documented as of this encounter
--- OUTSIDE RECORDS SUMMARY | 2022-06-14 15:23 | XMS_ITS | Encounter Summary ---
:1965 Author Organization [facility] Address [address] [place] [address] Care Team Providers Name Role Phone Elsewhere, Pcp Primary Care Provider Unavailable Encounter Details Date Type Department Care Team Description 01/13/2022 Clinical Communication Center for Sleep Jeanette Head, Medicine in M.B., .B. [place], [place] [address] [facility] [address] [place] [phone] Social History Tobacco Use Types Packs/Day Years [...] or relatives? How often do you attend presybeterian or Never 2021 confucianism services? Do you belong to any clubs or Yes 04/18/2022 organizations such as presybeterian groups, unions, fraternal or athletic groups, or [...] place to sleep or slept in a chcf (including now)? Education Answer Date Recorded What is the highest level of school Master's degree (e.g., M A, MS, 05/20/2021 you have completed or the highest Elias, MEd, PATTERN GRADER CUTTER, JAX) degree you have received? Sex Assigned at Date Recorded Female 06/25/2021 7:39 PM CDT documented as of this encounter Miscellaneous Notes Telephone Encounter - Gem Zavala - 01/13/2022 4:[address] Head, The patient is scheduled to see you on February 18 for an office visit. Due to her insurance changing in February, the patient would like to get a sooner appointment with you and also a sleep study before February if possible.I did not see any sooner appointments on your calendars. Do you have some time coming up to see this patient in December or early January? Please advise, Thank you,Gem documented in this encounter Plan of Treatment Upcoming Encounters Date Type Specialty Care Team Description 07/21/2022 Office Visit Sleep Medicine Mahad Bustamante M .D. [address] [place], [place] [phone] (Wo rk) documented as of this encounter Visit Diagnoses Not on filedocumented in this encounter Care Teams Linux Programmer Relationship Specialty Start Date End Date Elsewhere, Pcp PCP - General Family Medicine 05/20/21 documented as of this encounter
--- OUTSIDE RECORDS SUMMARY | 2022-06-14 15:23 | XMS_ITS | Encounter Summary ---
:1965 Author Organization [facility] Address [address] [place] [address] Care Team Providers Name Role Phone Elsewhere, Pcp Primary Care Provider Unavailable Encounter Details Date Type Department Care Team Description 12/07/2021 Telemedicine Department of Dental Damon Khan I., Specialties in [facility] [place] [address] [place] [phone] Social History Tobacco Use Types Packs/Day [...] do you attend mormonism or Never 2021 orthodoxy services? Do you belong to any clubs [...] place to sleep or slept in a fdc (including now)? Education Answer Date Recorded What is the highest level of school Master's degree (e.g., M Ricky, MS, 05/20/2021 you have completed or the highest Elias, MEd, SOLUTION MANAGER, JAX) degree you have received? Sex Assigned at Date Recorded Female 06/25/2021 7:39 PM CDT documented as of this encounter Progress Notes Damon Khan D.M.D. - 12/07/2021 2:00 PM CDT SUBJECTIVE Candi Gudino is a 56 y.o. female who presents for discussion of treatments affecting facialpain. Apnea-hypopnea index was 74. She attempted CPAP for three weeks but unfortunately it exacerbated herfacial pain and triggered headaches every morning for which she had to medicate. She has been discussing surgical implantation of inspire. She has l 15 lb and hopes to lose about 10 more all of which should reduce her apnea-hypopnea index. OBJECTIVE Not apical ASSESSMENT / PLAN #1. Neuropathic Facial Pain I am pleased that she was able to discontinue CPAP since it was exacerbating her facial pain and causing headaches. I am even more pleased with the fact that she is losing weight and hope that the planto surgically implant inspire will be of benefit to her. She continues to receive medication management by her local neurologist. However is slated to retirefairly shortly. Commended that she consult with someone at [facility] and I am happy to make those arrangements before my own imminent longterm in mid January. We will be in touch. documented in this encounter Plan of Treatment Upcoming Encounters Date Type Specialty Care Team Description 07/21/2022 Office Visit Sleep Medicine Mahad Bustamante M .D. [address] [place] [phone] (Wo rk) documented as of this encounter Visit Diagnoses Not on filedocumented in this encounter Care Teams Sausage Stuffer Relationship Specialty Start Date End Date Elsewhere, Pcp PCP - General Family Medicine 05/20/21 documented as of this encounter
--- OUTSIDE RECORDS SUMMARY | 2022-06-14 15:23 | XMS_ITS | Encounter Summary ---
:1965 Author Organization [facility] Address [address] [place] [address] Care Team Providers Name Role Phone Elsewhere, Pcp Primary Care Provider Unavailable Reason for Visit Reason Comments Medication Question Not at pharmacy Encounter Details Date Type Department Care Team Description 11/06/2021 Clinical Department of Vishnu Edwards Medication Communication Otorhinolaryngology Scottie Leon (Not at [place], [place] pharmacy) [address] [place] [phone] Social History Tobacco Use Types Packs/Day [...] or relatives? How often do you attend baptism or Never 2021 taoist services? Do you belong to any clubs or Yes 04/18/2022 organizations such as baptism groups, unions, fraternal or athletic groups, or [...] have completed or the highest Elias, MEd, YARDMASTER, JAX) degree you have received? Sex Assigned at Date Recorded Female 06/25/2021 7:39 PM CDT documented as of this encounter Miscellaneous Notes Telephone Encounter - Vishnu Edwards M.D. - 11/06/2021 3:45 PM CST Spoke to patient's . They did not receive the paper prescriptions. I electronically ordered these medications to the [facility]. SCHOOL PRINCIPAL Telephone Encounter - Christine Gomez - 11/06/2021 3:34 PM CST Patient called and stated they were at [facility] to spanish moss picker the prescriptions for hydrocodone and Duricef and nothing was there. I called the pharmacy to check and they said they hadn't received anything. cefadroxil (DURICEF) 500 mg capsule Take 1 capsule (500 mg total) by mouth 2 (two) times a day for 7 days., Starting Tue11/06/2021, Until Tue11/13/2021, Print Dispense: 14 capsule Refills: 0 ordered Pharmacy: [id number] [place] [address] [facility] ( ) HYDROcodone-acetaminophen (NORCO) 5-325 mg per tablet 10 tablet 0 11/06/2021 Sig - Route: Take 1 tablet by mouth every 6 (six) hours as needed for pain (pain not controlled by tylenol) Indication: Acute Pain. - oral Class: Print Earliest Fill Date: 11/06/2021 Renewals Please contact Pharmacy regarding this. SCHOOL PRINCIPAL documented in this encounter Plan of Treatment Upcoming Encounters Date Type Specialty Care Team Description 07/21/2022 Office Visit Sleep Medicine Mahad Bustamante M .D. [facility] [address] [employer] [place], [place] [phone] (Wo rk) documented as of this encounter Visit Diagnoses Not on filedocumented in this encounter Care Teams Beach Lifeguard Relationship Specialty Start Date End Date Elsewhere, Pcp PCP - General Family Medicine 05/20/21 documented as of this encounter
--- OUTSIDE RECORDS SUMMARY | 2022-06-14 15:23 | XMS_ITS | Encounter Summary ---
:1965 Author Organization [facility] Address [address] [place] [address] Care Team Providers Name Role Phone Elsewhere, Pcp Primary Care Provider Unavailable Encounter Details Date Type Department Care Team Description 09/30/2021 Clinical Communication Preoperative [facility] in [facility] [place], [place] [address] [facility] [address] [place] [id number] [phone] Social History Tobacco Use Types Packs/Day Years [...] or relatives? How often do you attend restorationism or Never 2021 restorationist services? Do you belong to any clubs or Yes 04/18/2022 organizations such as restorationism groups, unions, fraternal or athletic groups, or [...] place to sleep or slept in a residential (including now)? Education Answer Date Recorded What is the highest level of school Master's degree (e.g., M Ricky, MS, 05/20/2021 you have completed or the highest Elias, MEd, ACOUSTICAL TILE PATTERNMAKER, JAX) degree you have received? Sex Assigned at Date Recorded Female 06/25/2021 7:39 PM CDT documented as of this encounter Miscellaneous Notes Telephone Encounter - Sienna Brewer, [employer] - 09/30/2021 1:36 PM SPREADER Surgical Risk Score: 2 Risk Identifiers: 3 ??? SHANNON ??? HTN ??? Tramadol ADER documented in this encounter Plan of Treatment Upcoming Encounters Date Type Specialty Care Team Description 07/21/2022 Office Visit Sleep Medicine Mahad Bustamante M .D. [address] [place] [phone] (Wo rk) documented as of this encounter Visit Diagnoses Not on filedocumented in this encounter Care Teams Certified Ophthalmic Technician Relationship Specialty Start Date End Date Elsewhere, Pcp PCP - General Family Medicine 05/20/21 documented as of this encounter
--- OUTSIDE RECORDS SUMMARY | 2022-06-14 15:23 | XMS_ITS | Encounter Summary ---
:1965 Author Organization [facility] Address [address] [place] [address] Care Team Providers Name Role Phone Elsewhere, Pcp Primary Care Provider Unavailable Reason for Referral Outpatient (Routine) - Closed Specialty Diagnoses / Procedures Referred By Contact Refer red To Contact Otorhinolaryngology Vishnu Edwards M.D . [address] [address] Referral ID Status Reason Start Date Expiration Date Visits Requ ested Visits Authorized [id number] Closed 02/15/2022 02/15/2023 1 1 Scheduling Instructions [address] Edwards Encounter Details Date Type Department Care Team Description 02/15/2022 Orders Only Department of Vishnu Edwards Apnea Sleep Otorhinolaryngology roya García M.D. [place], [place] (Primary Dx) [address] [place] [phone] Social History Tobacco Use Types Packs/Day [...] or relatives? How often do you attend rastafarian or Never 2021 anglican services? Do you belong to any clubs or Yes 04/18/2022 organizations such as rastafarian groups, unions, fraternal or athletic groups, or [...] completed or the highest Elias, MEd, MACHINE SORTER, JAX) degree you have received? Sex Assigned at Date Recorded Female 06/25/2021 7:39 PM CDT documented as of this encounter Plan of Treatment Upcoming Encounters Date Type Specialty Care Team Description 07/21/2022 Office Visit Sleep Medicine Mahad Bustamante M .D. [address] [place], [place] [phone] (Wo rk) Scheduled Referrals Name Type Priority Associated Order Schedule Diagnoses Otorhinolaryngology office Outpatient Routine E xpected: visit (clinic) Referral 03/09/2022, Expires: 05/18/2023 documented as of this encounter Results SARS Coronavirus 2, Molecular Detection, PCR, Varies Asymptomatic (03/09/2022 12:11 PM CDT) [facility] Method Time Signature COVID-19, Swab, 03/09/2022 DTL PCR, Source Nasopharynx 5:13 PM CDT COVID-19, Undetected Undetected 03/09/2022 DTL PCR, Result 5:13 PM CDT Comment: SARS-CoV-2 RNA absent. This result does not rule out COVID-19 in the patient, as the sensitivity of the test depends o n the timing of the specimen collection and quality of the specimen. Result should be correlated with patient's history and clinical presentat ion. ----ADDITIONAL INFORMATION---- This RT-PCR test using the [employer] SARS-Co V-2 Assay ( [employer] performed on the [employer] Two Module System has received Emergency Use Authorization (EUA) by the U.S. Food and Drug Administration, and is modified from the manager ethics's instructions with a bridging study. Performance characteristics were verifie d by [facility] in a manner consistent with CLIA requirements. Visit the CDC website: https://www.cdc.g ov/coronavirus/ for the most recent guidelines on [place] virus testing. Fact Sheet for Healthcare Providers: https://www.fda.gov/media/191537/downloa d Fact Sheet for Patients: https://www.fda.gov/media/917403/downloa d Specimen Anatomical Collection Method Collection Time Receive d Time (Source) Location / / Volume Laterality Varies 03/09/2022 12:11 03/09/2022 (Nasopharynx) PM CDT 12:45 PM CDT Vishnu Edwards M.D. LAB MICROBIOLOGY - GENERAL Shayy GUERRIER Performing Organization Address City/State/ZIP Code Phon e Number [facility] [address] [place], [place] [address] [place] [address] [facility] [address] documented in this encounter Visit Diagnoses Diagnosis Apnea Sleep Obstructive - Primary documented in this encounter Care Teams Financial Analyst Accountant Relationship Specialty Start Date End Date Elsewhere, Pcp PCP - General Family Medicine 05/20/21 documented as of this encounter
--- OUTSIDE RECORDS SUMMARY | 2022-06-14 15:23 | XMS_ITS | Encounter Summary ---
:1965 Author Organization [facility] Address [address] [place] [address] Care Team Providers Name Role Phone Elsewhere, Pcp Primary Care Provider Unavailable Reason for Visit Auth/Cert Specialty Diagnoses / Procedures Referred By Contact Refer red To Contact Diagnoses Obstruction Nasal Deviation Nasal Septal Obstruction Nasal [J34.89] Deviation Nasal Septal [J34.2] Procedures WY SEPTO/SUBM RESEC W/WO CART GRFT W[place] SUBMUC RSECT TURB PRTL/COMPLT SEPTOPLASTY REDUCTION TURBINATE Referral ID Status Reason Start Date Expiration Date Visits Requ ested Visits Authorized [id number] 1 1 Encounter Details Date Type Department Care Team Description 11/06/2021 Surgery [facility] OR Melanie Ray M.D. SEPTOPLASTY. [address] [facility] [address] [place] [address] [place], [place] [phone] (Wo rk) Social History Tobacco Use Types [...] or relatives? How often do you attend muslim or Never 2021 evangelical services? Do you belong to any clubs or Yes 04/18/2022 organizations such as muslim groups, unions, fraternal or athletic groups, or [...] place to sleep or slept in a long-term (including now)? Education Answer Date Recorded What is the highest level of school Master's degree (e.g., M Ricky, MS, 05/20/2021 you have completed or the highest Elias, MEd, RACK ROOM WORKER, JAX) degree you have received? Sex Assigned at Date Recorded Female 06/25/2021 7:39 PM CDT documented as of this encounter Last Filed Vital Signs Vital Sign Reading Time Taken Comments Blood Pressure 117/76 11/06/2021 6:10 AM SOLID WASTE ENGINEER Pulse 15 11/06/2021 6:10 AM SOLID WASTE ENGINEER Temperature 36.5 ??C (97.7 ??F) 11/06/2021 6:10 AM SOLID WASTE ENGINEER Respiratory Rate 15 11/06/2021 6:10 AM SOLID WASTE ENGINEER Oxygen Saturation 97% 11/06/2021 6:10 AM SOLID WASTE ENGINEER Inhaled Oxygen Concentration - - Weight 100 kg (220 lb 7.4 oz) 11/06/2021 6:10 AM SOLID WASTE ENGINEER Height 172.7 cm (5' 8) 11/06/2021 6:10 AM SOLID WASTE ENGINEER Body Mass Index 33.52 11/06/2021 6:10 AM SOLID WASTE ENGINEER documented in this encounter Discharge Instructions AttachmentsThe following attachments cannot be sent through Care Everywhere. Instructions After Sedation or Anesthesia for Adults (Slovenian)documented in this encounter Medications at Time of [...] 6 (six) hours as needed for pain. documented as of this encounter OR Notes Op Note - Vishnu Edwards M.D. - 11/06/2021 7:45 AM CST Pre-op Diagnosis Obstruction Nasal,Deviation Nasal Septal Post-op Diagnosis Obstruction Nasal,Deviation Nasal Septal A dermatology physician assistant actively participated and was necessary for one or more of the following: opening,exposure and visualization during the case, maintaining hemostasis, wound closure resulting in its safe and expeditious completion. Findings As expected. Complications None Description of Procedure The patient was brought to the operating room and identified by name and clinic number. A proceduralpause was undertaken, all parties agreed. After a 20 mg bolus of propofol, anesthesia successfully induced a plane of anesthesia with propofol to a level of 275 mcg/kg/min. At this level the patient was noted to be obstructing. The 4.1 mm flexible bronchoscope was inserted into the nasal cavity and brought down to the level of the velum, oropharynx, tongue base, and epiglottis. Grading of the collapse is noted in the table below. Additional findings include complete palatal AP collapse and partial tongue base collapse with snort arousals with tongue base collapse. Once the procedure was completed, the patient was handed back to anesthesia for intubation and general anesthesia for the remainder of the procedure. Vote Classification System Level A-P Lateral Concentric Velum 2 Oropharynx 2 Tongue Base 1 Epiglottis 0 0 Grade 2 = obstruction, >75% narrowing, markedly reduced or absent airflow Grade 1 = vibration, 50%-75% narrowing, possible reduced airflow Grade 0 = no vibration of the involved structure and <50% airway narrowing compared with dimensions during spontaneous breathing We then turned our attention to septoplasty and bilateral inferior turbinate reduction. Afrin pledgets were placed on both sides the nose. The head of bed was turned 90??. Vibrissae were trimmed. A haylie transection incision and the bilateral septum were injected with 1% lidocaine with 100,000 epinephrine. The patient was prepped and draped in the usual fashion for nasal surgery. We began on the left side. Pledgets were removed from both sides of the nose. The haylie transection was made with a 15 blade. Using a speculum, a sub mucoperichondrial flap was raised on the left side with no tears. There was a mild posterior septal spur on the left, and a severe septal spur on the right with a high right septal deviation. After raising the mucoperichondrial flap on the left side, a submucoperichondrial flap on the right side was raised through the haylie transection incision. A tear was encountered at the side of the severe septal spur. The mucoperichondrial flap was raised past the bony septum. Next, C-shaped chondrotomy was fashioned with the 15 blade, an completed with a 2 mm osteotome. Double-action scissors were used to continue the superior cut through the bony septum. The Toriyumi elevator was used to fracture the posterior bony septum. The chondrotomy was removed with the Artemio forceps additional deviated bony septum was removed with a straight through cut. Mucoperichondrial flaps were replaced. Next, the bilateral inferior turbinates were injected with 1% lidocaine 1000 epinephrine. Starting on the right side, incision was made in the 15 blade at the head of the inferior turbinate. Dissectionwas carried out along the bone with a caudal elevator. The turbinate shaver was inserted and submucous resection of turbinate soft tissue was performed. The inferior turbinate was outfractured with a Boies elevator. An identical procedure was performed on the left side. The haylie-transfixion incision was closed with a 4-0 chromic running locking suture. Moreno splints were placed and secured with a 3-0 Ethilon transseptal suture. Stomach contents were suctioned with a [place] sump. The patient was returned anesthesia team where she was awakened, extubated, and transported to PACU in good condition. There were no complications. Fire risk was assessed at 2. Vishnu Edwards M.D. D WASTE ENGINEER documented in this encounter Plan of Treatment Upcoming Encounters Date Type Specialty Care Team Description 07/21/2022 Office Visit Sleep Medicine Mahad Bustamante M .D. [address] [place] [phone] (Wo rk) Scheduled Referrals Name Type Priority Associated Order Schedule Diagnoses Otorhinolaryngology office Outpatient Routine E xpected: visit (clinic) Referral 11/13/2021, Expires: 02/03/2023 documented as of this encounter Procedures Procedure Name Priority Date/Time Associated Diagnosis Comme nts ADULT OXYGEN THERAPY Routine 11/06/2021 11:03 AM SOLID WASTE ENGINEER ENDOSCOPY SLEEP STATE 11/06/2021 7:30 AM SOLID WASTE ENGINEER Obs truction Nasal Deviation Nasal Septal REDUCTION TURBINATE 11/06/2021 7:30 AM SOLID WASTE ENGINEER Obstr uction Nasal Deviation Nasal Septal SEPTOPLASTY 11/06/2021 7:30 AM SOLID WASTE ENGINEER Obstructi on Nasal Deviation Nasal Septal documented in this encounter Visit Diagnoses Diagnosis Obstruction Nasal Deviation Nasal Septal Apnea Sleep Obstructive Neuralgia Trigeminal Hypothyroidism Obstruction Nasal Deviation Nasal Septal documented in this encounter Admitting Diagnoses Diagnosis Obstruction Nasal Deviation Nasal Septal documented in this encounter Administered Medications Inactive Administered Medications - up to 3 most recent administrations Medication Order MAR Action Action Date Dose Rate Site acetaminophen tablet 1,000 mg Given 11/06/2021 7:10 AM SOLID WASTE ENGINEER 1,000 mg (TYLENOL) 1,000 mg, oral, Once, On Tue11/06/21 at 0615, For 1 dose, Pre-Op fentaNYL injection 25 mcg (SUBLIMAZE) Given 11/06/2021 11:40 AM SOLID WASTE ENGINEER 25 mcg 25 mcg, intravenous, Every 2 min PRN, For pain 4 or greater (maximum 100 mcg). If max dose of Fentanyl is reached and if pain is greater than 4, discontinue Fentanyl: give Hydromorphone, Starting on Tue11/06/21 at 1103, PACU (only) Given 11/06/2021 11:31 AM SOLID WASTE ENGINEER 25 mcg Given 11/06/2021 11:18 AM SOLID WASTE ENGINEER 25 mcg lactated ringers Continued from OR 11/06/2021 11:10 AM 20 mL/hr 20 mL/hr 20 mL/hr, intravenous, SOLID WASTE ENGINEER Continuous, Starting on Tue11/06/21 at 1030, PACU & Post-Op lidocaine-EPINEPHrine 1 Given 11/06/2021 10:13 AM 2.5 mL Bilateral Nares %-1:100,000 injection (XYLOCAINE SOLID WASTE ENGINEER W/EPI) As needed, Starting on Tue11/06/21 at 0830, Intra-Op Given 11/06/2021 8:30 AM SOLID WASTE ENGINEER 6 mL Bilat eral Nares metoprolol tablet 12.5 mg (LOPRESSOR) 12.5 mg, oral, Once as needed, if patien t did not take their last scheduled dose of beta rajinder prior to arrival, Starting on Tue11/06/21 at 0606, For 1 dose, Pre-Op, Do not give if patient does not take scheduled beta bl ockers, if patient is receiving intravenous vasopressors or inotropes, if he art rate is less than 50 beats per minute, if systolic blood pres sure is less than 90 mmHg or if diastolic blood pressure is less than 40 mmHg, or if patient has an allergy to metoprolol. mupirocin 2 % ointment Given 11/06/2021 10:38 AM 1 application Bilateral Nares (BACTROBAN) SOLID WASTE ENGINEER As needed, Starting on Tue11/06/21 at 1038, Intra-Op oxyCODONE IR tablet 10 mg (ROXICODONE) Given 11/06/2021 11:29 AM SOLID WASTE ENGINEER 10 mg 10 mg, oral, Every 4 hours PRN, severe pain or score 7-10 of 10, or pain greater than comfort goal, Starting on Tue11/06/21 at 1117, PACU & Post-Op oxyCODONE IR tablet 5 mg (ROXICODONE) 5 mg, oral, Every 4 hours PRN, moderate pain or score 4-6 of 10, Starting on Tue11/06/21 at 1117, PACU & Post-Op oxymetazoline 0.05 % Given 11/06/2021 8:28 AM SOLID WASTE ENGINEER 1 application Bilateral Nares nasal spray (AFRIN) As needed, Starting on Tue11/06/21 at 0828, Intra-Op sodium chloride 0.9 % injection 10 mL 10 mL, intravenous, As needed, line care , Starting on Tue11/06/21 at 0606, Pre-Op, Peripheral Intravenous Catheter and Rapid Infusion Cat heter, prior to blood sampling, post blood transfusion or post blood samplin g sodium chloride 0.9 % injection 3 mL 3 mL, intravenous, As needed, line care, Starting on Tue11/06/21 at 0606, Pre-Op, Prior to and following infusion and betw een multiple consecutive infusions: sodium chloride 0.9 % injection sodium chloride 0.9 % injection 3 mL 3 mL, intravenous, Every 12 hours scheduled, First dos e on Tue11/06/21 at 0900, Pre-Op, Peripheral Intravenous Catheter and Rapid Infu xiao Catheter, when no infusion to maintain patency documented in this encounter Active and Recently Administered Medications Times are shown in SOLID WASTE ENGINEER. Scheduled Medication Order 11/04/2021 11/05/2021 11/06/2021 acetaminophen tablet 1,000 mg (TYLENOL) (COMPLETED) 0710 (Given - Provider: Dunia Vinson R.N.) 1,000 mg, oral, Once, On Tue11/06/21 at 0615, For 1 dose, Pre-Op ceFAZolin injection 2 g (ANCEF) (COMPLETED) 0825 (Given - Provider: Liban Gannon APRN, MAGNUS, DNAHelen) 2 g, intravenous, Once, On Tue11/06/21 a t 0745, For 1 dose, Intra-Op, Administer within 1 hour prior to surgical incision If needed, reconstitute vial per package insert instructions. See IVAG for admin istration guidelines. , Drug Monitoring Program: Pharmacist to adjust medication dosing based on indication and drug clearance factors., Indications: Prophylaxis, surgical lidocaine 10 mg/mL (1 %) injection 1 mL (XYLOCAINE) 0615 (Due) 1 mL, infiltration, Once, On Tue11/06/21 at 0615, For 1 dose, Pre-Op, May admin up to 1 mL at the site of IV site if not allergic to lidocaine sodium chloride 0.9 % injection 3 mL 0900 (Due) 3 mL, intravenous, Every 12 hours schedu led, First dose on Tue11/06/21 at 0900, Pre-Op, Peripheral Intravenous Catheter and Rapid Infusion Catheter, when no infusion to maintain patency Continuous Medication Order 11/04/2021 11/05/2021 11/06/2021 lactated ringers 0615 (Due) 20 mL/hr, intravenous, Continuous, Starting on Tue11/06/21 at 06 15, Pre-Op lactated ringers 1110 (Continued from OR - Provider: Radha Ham R.N.) 20 mL/hr, intravenous, Continuous, Start ing on Tue11/06/21 at 1030, PACU & Post-Op phenylephrine 80 mcg/mL in NaCl 0.9% 250 mL infusion (CANCELED) 0837 (New Bag - Provider: Liban Gannon APRN, MAGNUS, DNAP)0845 (Rate/Dose Change - Provider: Liban Gannon APRN, MAGNUS, DNAP)0852 (Rate/Dose Change - Provider: Liban Gannon APRN, MAGNUS, DNAHelen) 0-1 mcg/kg/min ? 100 kg Dosing weight (0-75 mL/hr), intravenous, Continuous, Starting on Tue11/06/21 at 0700, Intra-Op, 20 mg in 250 mL, Patient Type: Standard, initiate at: 0.5 mcg/kg/min., Titrate at: 0.1 mcg/kg/min. every 5 min., Goal: MAP 60-80 0925 (Rate/Dose Change - Provider: Liban Gannon APRN, MAGNUS, DNAP)0928 (Stopped - Provider: Liban Gannon APRN, MAGNUS, DNAP) PRN Medication Order 11/04/2021 11/05/2021 11/06/2021 fentaNYL injection 25 mcg (SUBLIMAZE) 1109 (Given - Provider: Radha Ham R.N.)1112 (Given - Provider: Radha Ham R.N.)1114 (Given - Provider: Radha Ham R.N.)1118 (Given - Provider: Radha Ham R.N.) 25 mcg, intravenous, Every 2 min PRN, Fo r pain 4 or greater (maximum 100 mcg). If max dose of Fentanyl is reached and if pain is greater than 4, discontinue Fentanyl: give Hydromorphone, Starting on Tue11/06/21 at 1103, PACU (only) 1131 (Given - Provider: Radha Ham R.N.)1140 (Given - Provider: Radha Ham R.N.) fentaNYL injection 25 mcg (SUBLIMAZE) 25 mcg, intravenous, Every 2 min PRN, mo derate pain or score 4-6 of 10, severe pain or score 7-10 of 10, Starting on Tue11/06/21 at 0606, Pre-Op, Up to maximum total dose of 200 mcg HYDROmorphone (PF) injection 0.2 mg (DILAUDID) 0.2 mg, intravenous, Every 5 min PRN, mo derate pain or score 4-6 of 10, severe pain or score 7-10 of 10, Starting on Tue11/06/21 at 1103, PACU (only), Up to maximum total dose of 2 mg lidocaine-EPINEPHrine 1 %-1:100,000 injection (XYLOCAINE W/EPI) (CANCELED) 0830 (Given - Provider: Noemy Rowan M.D.)1013 (Given - Provider: Vishnu Edwards M.D.) As needed, Starting on Tue11/06/21 at 0830, Intra-Op metoprolol tablet 12.5 mg (LOPRESSOR) 12.5 mg, oral, Once as needed, if patien t did not take their last scheduled dose of beta rajinder prior to arrival, Starting on Tue11/06/21 at 0606, For 1 dose, Pre-Op, Do not give if patient does not ta ke scheduled beta blockers, if patient i s receiving intravenous vasopressors or inotropes, if heart rate is less than 50 beats per minute, if systolic blood pressure is less than 90 mmHg or if diastolic blood pressure is less than 40 mmHg, or if patient has an allergy to metoprolol. mupirocin 2 % ointment (BACTROBAN) (CANCELED) 1038 (Given - Provider: Vishnu Edwards M.D.) As needed, Starting on Tue11/06/21 at 1038, Intra-Op oxyCODONE IR tablet 10 mg (ROXICODONE)(Linked Group 1) 1129 (Given - Provider: Radha Ham R.N.) 10 mg, oral, Every 4 hours PRN, severe p ain or score 7-10 of 10, or pain greater than comfort goal, Starting on Tue11/06/21 at 1117, PACU & Post-Op oxyCODONE IR tablet 5 mg (ROXICODONE)(Linked Group 1) 1129 (See Alternative - Provider: Radha Ham R.N.) 5 mg, oral, Every 4 hours PRN, moderate pain or score 4-6 of 10, Starting on Tue11/06/21 at 1117, PACU & Post-Op oxymetazoline 0.05 % nasal spray (AFRIN) (CANCELED) 0828 (Given - Provider: Noemy Rowan M.D. - Comment: soaked on cottonoids and used) As needed, Starting on Tue11/06/21 at 0828, Intra-Op sodium chloride 0.9 % injection 10 mL 10 mL, intravenous, As needed, line care , Starting on Tue11/06/21 at 0606, Pre- Op, Peripheral Intravenous Catheter and Rapid Infusion Catheter, prior to blood sampling, post blood transfusion or post blood sampling sodium chloride 0.9 % injection 3 mL 3 mL, intravenous, As needed, line care, Starting on Tue11/06/21 at 0606, Pre- Op, Prior to and following infusion and between multiple consecutive infusions: sodium chloride 0.9 % injection Linked Groups Order Group 1: oxyCODONE IR tablet 5 mg (ROXICODONE)Jump to med 5 mg, oral, Every 4 hours PRN, moderate pain or score 4-6 of 10, Starting on Tue11/06/21 at 1117, PACU & Post-Op Or oxyCODONE IR tablet 10 mg (ROXICODONE)Jump to med 10 mg, oral, Every 4 hours PRN, severe p ain or score 7-10 of 10, or pain greater than comfort goal, Starting on Tue11/06/21 at 1117, PACU & Post-Op documented in this encounter Care Teams Shirring Machine Operator Relationship Specialty Start Date End Date Elsewhere, Pcp PCP - General Family Medicine 05/20/21 documented as of this encounter
--- OUTSIDE RECORDS SUMMARY | 2022-06-14 15:23 | XMS_ITS | Encounter Summary ---
:1965 Author Organization [facility] Address [address] [place] [address] Care Team Providers Name Role Phone Elsewhere, Pcp Primary Care Provider Unavailable Reason for Referral Outpatient (Routine) - Closed Specialty Diagnoses / Procedures Referred By Contact Refer red To Contact Otorhinolaryngology Vishnu Edwards M.D . [facility] 200 [place] [address] Referral ID Status Reason Start Date Expiration Date Visits Requ ested Visits Authorized [id number] Closed 11/06/2021 11/06/2022 [address] Edwards on 6Fr, 4 pm COURSE MANAGER Reason for Visit Auth/Cert Specialty Diagnoses / Procedures Referred By Contact Refer red To Contact Diagnoses Obstruction Nasal Deviation Nasal Septal Obstruction Nasal [J34.89] Deviation Nasal Septal [J34.2] Procedures [place] SEPTO/SUBM RESEC W/WO CART GRFT [place] SUBMUC RSECT TURB PRTL/COMPLT SEPTOPLASTY REDUCTION TURBINATE Referral ID Status Reason Start Date Expiration Date Visits Requ ested Visits Authorized [id number] 1 1 Encounter Details Date Type Department Care Team Description 11/06/2021 Hospital Encounter [facility] OR Dick Alcala M.D. [address] [place] [phone] Obstruction Nasal; [address] [facility] Tracy Russell APRN, C.N.P., M.S.N. [address] [place] [phone] [place] [address] Social History Tobacco Use Types Packs/Day Years [...] do you attend gnosticist or Never 2021 anabaptist services? Do you belong to any clubs [...] have completed or the highest Elias, MEd, LABEL SEWER, JAX) degree you have received? Sex Assigned at Date Recorded Female 06/25/2021 7:39 PM CDT documented as of this encounter Last Filed Vital Signs Vital Sign Reading Time Taken Comments Blood Pressure 117/75 11/06/2021 12:30 PM GOLF COURSE MANAGER Pulse 70 11/06/2021 12:30 PM GOLF COURSE MANAGER Temperature 36.5 ??C (97.7 ??F) 11/06/2021 12:30 PM GOLF COURSE MANAGER Respiratory Rate 8 11/06/2021 11:45 AM GOLF COURSE MANAGER Oxygen Saturation 89% 11/06/2021 12:30 PM GOLF COURSE MANAGER Inhaled Oxygen Concentration - - Weight 100 kg (220 lb 7.4 oz) 11/06/2021 6:10 AM GOLF COURSE MANAGER Height 172.7 cm (5' 8) 11/06/2021 6:10 AM GOLF COURSE MANAGER Body Mass Index 33.52 11/06/2021 6:10 AM GOLF COURSE MANAGER documented in this encounter Discharge Instructions AttachmentsThe following attachments cannot be sent through Care Everywhere. Instructions After Sedation or Anesthesia for Adults (Japanese)documented in this encounter Medications at Time of [...] Post-op Diagnosis Obstruction Nasal,Deviation Nasal Septal A assistant terminal manager actively participated and was necessary for one [...] suture. Stomach contents were suctioned with a [place] sump. The patient was returned anesthesia team where she was awakened, extubated, and transported to PACU in good condition. There were no complications. Fire risk was assessed at 2. Vishnu Edwards M.D. COURSE MANAGER documented in this encounter Plan of Treatment Upcoming Encounters Date Type Specialty Care Team Description 07/21/2022 Office Visit Sleep Medicine Mahad Bustamante M .D. 200 [place], [place] [phone] (Wo rk) Scheduled Referrals Name Type Priority Associated Order Schedule Diagnoses Otorhinolaryngology office Outpatient Routine E xpected: visit (clinic) Referral 11/13/2021, Expires: 02/03/2023 documented as of this encounter Procedures Procedure Name Priority Date/Time Associated Diagnosis Comme nts ADULT OXYGEN THERAPY Routine 11/06/2021 11:03 AM GOLF COURSE MANAGER ENDOSCOPY SLEEP STATE 11/06/2021 7:30 AM GOLF COURSE MANAGER Obs truction Nasal Deviation Nasal Septal REDUCTION TURBINATE 11/06/2021 7:30 AM GOLF COURSE MANAGER Obstr uction Nasal Deviation Nasal Septal SEPTOPLASTY 11/06/2021 7:30 AM GOLF COURSE MANAGER Obstructi on Nasal Deviation Nasal Septal documented in this encounter Visit Diagnoses Diagnosis Obstruction Nasal Deviation Nasal Septal Apnea Sleep Obstructive Neuralgia Trigeminal Hypothyroidism documented in this encounter Admitting Diagnoses Diagnosis Obstruction Nasal Deviation Nasal Septal documented in this encounter Administered Medications Inactive Administered Medications - up to 3 most recent administrations Medication Order MAR Action Action Date Dose Rate Site acetaminophen tablet 1,000 mg Given 11/06/2021 7:10 AM GOLF COURSE MANAGER 1,000 mg (TYLENOL) 1,000 mg, oral, Once, On Tue11/06/21 at 0615, For 1 dose, Pre-Op fentaNYL injection 25 mcg (SUBLIMAZE) Given 11/06/2021 11:40 AM GOLF COURSE MANAGER 25 mcg 25 mcg, intravenous, Every 2 min PRN, For pain 4 or greater (maximum 100 mcg). If max dose of Fentanyl is reached and if pain is greater than 4, discontinue Fentanyl: give Hydromorphone, Starting on Tue11/06/21 at 1103, PACU (only) Given 11/06/2021 11:31 AM GOLF COURSE MANAGER 25 mcg Given 11/06/2021 11:18 AM GOLF COURSE MANAGER 25 mcg lactated ringers Continued from OR 11/06/2021 11:10 AM 20 mL/hr 20 mL/hr 20 mL/hr, intravenous, GOLF COURSE MANAGER Continuous, Starting on Tue11/06/21 at 1030, PACU & Post-Op metoprolol tablet 12.5 mg (LOPRESSOR) 12.5 mg, [...] metoprolol. oxyCODONE IR tablet 10 mg (ROXICODONE) Given 11/06/2021 11:29 AM GOLF COURSE MANAGER 10 mg 10 mg, oral, Every 4 hours PRN, severe pain or score 7-10 of 10, or pain greater than comfort goal, Starting on Tue11/06/21 at 1117, PACU & Post-Op oxyCODONE IR tablet 5 mg (ROXICODONE) 5 mg, oral, Every 4 hours PRN, moderate pain or score 4-6 of 10, Starting on Tue11/06/21 at 1117, PACU & Post-Op sodium chloride 0.9 % injection 10 mL [...] Recently Administered Medications Times are shown in GOLF COURSE MANAGER. Scheduled Medication Order 11/04/2021 11/05/2021 11/06/2021 acetaminophen [...] Bag - Provider: Liban Gannon APRN, MAGNUS, DNAHelen)0845 (Rate/Dose Change - Provider: Liban Gannon APRN, MAGNUS, DNAP)0852 (Rate/Dose Change - Provider: Liban Gannon APRN, MAGNUS, DNAHelen) 0-1 mcg/kg/min ? 100 kg Dosing weight (0-75 mL/hr), intravenous, Continuous, Starting on Tue11/06/21 at 0700, Intra-Op, 20 mg in 250 mL, Patient Type: Standard, initiate at: 0.5 mcg/kg/min., Titrate at: 0.1 mcg/kg/min. every 5 min., Goal: MAP 60-80 0925 (Rate/Dose Change - Provider: Liban Gannon, JUAN FRANCISCO, MAGNUS, DNAP)0928 (Stopped - Provider: Liban Gannon [...] Post-Op documented in this encounter Care Teams News Operations Manager Relationship Specialty Start Date End Date Elsewhere, Pcp PCP - General Family Medicine 05/20/21 documented as of this encounter
--- OUTSIDE RECORDS SUMMARY | 2022-06-14 15:23 | XMS_ITS | Encounter Summary ---
:1965 Author Organization [facility] Address [address] [place] [address] Care Team Providers Name Role Phone Elsewhere, [...] or relatives? How often do you attend sikh or Never 2021 hindu services? Do you belong to any clubs or Yes 04/18/2022 organizations such as sikh groups, unions, fraternal or athletic groups, or [...] place to sleep or slept in a snf (including now)? Education Answer Date Recorded What is the highest level of school Master's degree (e.g., M A, MS, 05/20/2021 you have completed or the highest Elias, MEd, TOWEL STRETCHER, JAX) degree you have received? Sex Assigned at Date Recorded Female 06/25/2021 7:39 PM CDT documented as of this encounter Plan of Treatment Upcoming Encounters Date Type Specialty Care Team Description 07/21/2022 Office Visit Sleep Medicine Mahad Bustamante M .D. [address] [place] [phone] (Wo rk) documented as of this encounter Procedures Procedure Name Priority Date/Time Associated Comments Diagnosis OTORHINOLARYNGOLOGY IMAGE Routine 11/05/2021 8:35 Results for this EXAM PM IMMIGRATION SERVICES OFFICER procedure are i n the results section. documented in this encounter Results NOSE-Otorhinolaryngology Image Exam (11/05/2021 8:35 PM IMMIGRATION SERVICES OFFICER) Specimen (Source) Anatomical Location Collection Method / Collectio n Time Received Time / Laterality Volume Narrative IIMS - 11/06/2021 11:01 AM IMMIGRATION SERVICES OFFICER This order has been created and auto-finalized [...] on filedocumented in this encounter Care Teams Top Waddy Relationship Specialty Start Date End Date Elsewhere, Pcp PCP - General Family Medicine 05/20/21 documented as of this encounter
--- OUTSIDE RECORDS SUMMARY | 2022-06-14 15:23 | XMS_ITS | Encounter Summary ---
:1965 Author Organization [facility] Address [address] [place] [address] Care Team Providers Name Role Phone Elsewhere, Pcp Primary Care Provider Unavailable Reason for Referral Outpatient (Routine) - Closed Specialty Diagnoses / Procedures Referred By Contact Refer red To Contact Diagnoses Apnea Sleep Obstructive [facility] M.B., [facility] Procedures Home sleep apnea test (HSAT) Ch.B. [address] [place] [phone] Referral ID Status Reason Start Date Expiration Date Visits Requ ested Visits Authorized [id number] Closed 01/18/2022 01/18/2023 1 1 Reason for Visit Outpatient (Routine) - Closed Specialty Diagnoses / Procedures Referred By Contact Refer red To Contact Diagnoses Apnea Sleep Obstructive [facility] M.B., [facility] Procedures Home sleep apnea test (HSAT) Ch.B. [address] [place] [phone] Referral ID Status Reason Start Date Expiration Date Visits Requ ested Visits Authorized [id number] Closed 01/18/2022 01/18/2023 1 1 Encounter Details Date Type Department Care Team Description 01/28/2022 - Hospital Encounter [facility] for [facility] 01/31/2022 Medicine Nas Thomas, Ch.B. Obstructive [place], [address] [place] [address] [place] [phone] [place], [place] [phone] (Work) [phone] Social History Tobacco Use Types Packs/Day Years [...] or relatives? How often do you attend christian or Never 2021 religion services? Do you belong to any clubs or Yes 04/18/2022 organizations such as christian groups, unions, fraternal or athletic groups, or [...] have completed or the highest Elias, MEd, AUTOMATION CONTROLS ENGINEER, JAX) degree you have received? Sex Assigned [...] Visit Sleep Medicine Mahad Bustamante M .D. [address] [place] [address], [place] [phone] (Wo rk) documented as of this encounter Procedures Procedure Name Priority Date/Time Associated Diagnosis Comme nts [place] DIESEL RETROFIT INSTALLER STDY UNATTND Routine 02/11/2022 12:15 PM [...] The home sleep apnea test using the [employer] hPAT system showed a total sleep time [...] with marked oxyhemoglobin de saturation. [facility] ORDERABLES Performing Organization Address City/State/ZIP Code Phon e Number ONBASE ONBASE NA documented in this encounter Visit Diagnoses Diagnosis Apnea Sleep Obstructive documented in this encounter Care Teams Lever Tender Relationship Specialty Start Date End Date Elsewhere, Pcp PCP - General Family Medicine 05/20/21 documented as of this encounter
--- OUTSIDE RECORDS SUMMARY | 2022-06-14 15:23 | XMS_ITS | Encounter Summary ---
:1965 Author Organization [facility] Address [address] [place] [phone] Care Team Providers Name Role Phone Elsewhere, Pcp Primary Care Provider Unavailable Reason for Visit Outpatient (Routine) - Closed Specialty Diagnoses / Procedures Referred By Contact Refer red To Contact Anesthesiology Diagnoses Obstruction Nasal Deviation Nasal Septal Vishnu Edwards M.D. [facility] 200 [place] [address] Referral ID Status Reason Start Date Expiration Date Visits Requ ested Visits Authorized [id number] Closed 09/30/2021 09/30/2022 1 1 Encounter Details Date Type Department Care Team Description 10/27/2021 Telemedicine Preoperative Vishnu Ewdards M.D. [facility] Medical Exam (Primary Dx); Evaluation Center in [facility] Tracy Youssef APRN C.N.PKhai, M.S.N. [address] [place] [phone] Obstruction Nasal; [place], [place] Deviation Nasal Septal; [address] [place] [address] Apnea Sleep Obstructive; [place], [place] Hypertension E ssential Primary; [phone] Aneurysm Carotid Artery (HCC ); [phone] Neuralgia Trige maria m; Migraine Headac he; Hypothyroidism Social History Tobacco Use Types Packs/Day Years [...] or relatives? How often do you attend uatsdin or Never 2021 mandaen services? Do you belong to any clubs or Yes 04/18/2022 organizations such as uatsdin groups, unions, fraternal or athletic groups, or [...] place to sleep or slept in a halfway (including now)? Education Answer Date Recorded What is the highest level of school Master's degree (e.g., M A, MS, 05/20/2021 you have completed or the highest Elias, MEd, FUR WEIGHER, JAX) degree you have received? Sex Assigned at Date Recorded Female 06/25/2021 7:39 PM CDT documented as of this encounter H&P Notes Tracy Russell APRN, C.N.P., M.S.N. - 10/27/2021 11:00 AM CST REASON FOR VISIT: Preoperative Medical Evaluation REFERRING PHYSICIAN: Vishnu Edwards M.D. 11/06/2021: SEPTOPLASTY; Vishnu Edwards M.D. Surgery Specific Risk Classification: Low Risk / Elevated Risk: Low Risk SUBJECTIVE HISTORY OF PRESENT ILLNESS This Consult was conducted via real-time audio/video technology. This is a 56 y.o. female who is here for preanesthetic medical examination prior to the planned procedure as listed above. Patient presents with history of chronic right-sided nasal obstruction and severe obstructive sleep apnea. At today's visit, she reports daily headache. Relieved by Tylenol, Tramadol, and/or hydrocodone as needed. The following portions of the patient's history were reviewed and updated as appropriate: allergies,current medications, medical history, social history, surgical history and problem list. REVIEW OF SYSTEMS The following systems were negative: Constitutional, Skin, Eyes, ENT, CV, Respiratory, GI, , Hematologic, Musculoskeletal, Neuro, Psych Cardiac Risk Scoring: Cayla Cardiac Score: 0.12 % RCRI Point Count: 1 RCRI Score: 0.9% DASI Calculations Flowsheet Row Appointment from 10/27/2021 in Preoperative Evaluation Center in [place], [place] Estimated V02 Peak 34.63 Estimated MET Level 9.89 The patient exceeding 4 METS. OBJECTIVE OBJECTIVE PHYSICAL EXAMINATION General/Constitutional General State of Health: Healthy appearing Airway (HEENT) Dental Assessment: Dentition intact Cardiovascular Virtual visit Pulmonary Virtual visit Neurological Neurologic Assessment: Alert and oriented X 3 Musculoskeletal Ambulate with: None Psychiatric Psychiatric Assessment: Calm Dermatology Virtual visit Physical exam will be performed by anesthesia the day of procedure. ASSESSMENT / PLAN Anesthesia: Patient denies previous anesthesia related complications. Airway Hx : None #1 Preanesthetic Medical Exam Very pleasant 56-year-old non-smoking female presents for virtual GRPUO. She reports regular cardiovascular activity that includes elliptical for 30 minutes 4 times per week. Denies cardiopulmonary symptoms at rest or with activity. NPO and medication instructions reviewed with patient. Labs: Reviewed from 05/21/21. Hgb 15.0, Hct 45.5, platelets 165, Na 140, K 4.6, Creatinine 0.93, and GFR 69. ECG: Not indicated today. #2 Obstruction Nasal #3 Deviation Nasal Septal #4 Apnea Sleep Obstructive See HPI for details. Compliant with CPAP. #5 Hypertension Essential Primary Managed with amlodipine and losartan, which she was instructed to take amlodipine and hold losartan morning of surgery. #6 Aneurysm Carotid Artery (HCC) Right paraclinoid carotid aneurysm diagnosed 2000. Status post cranioplasty in 2000 and 2002. Followed by [facility], please see their notes for further details. Asymptomatic. #7 Neuralgia Trigeminal Symptoms affect right side of face. She uses lidocaine patch when using CPAP. #8 Migraine Headache Diagnosed in 1999. She reports 1 migraine per week. Managed with Imitrex. #9 Hypothyroidism Managed with levothyroxine, which she was instructed to take morning of surgery. RECOMMENDATIONS: Patient medically optimized for planned procedure: Yes Further Recommendations: None PATIENT EDUCATION: Checklist for Surgical Patients Evening before your surgery: Call [phone] or [phone] between 8:15 p.m. and midnight to learn report time for surgery next day. Phone system will ask for [facility] number and date of . Fasting for Adults: - 8 hours before your report time stop eating solid foods. - 6 hours before your report time stop drinking any non clear liquids such as: milk, soy/almond milk, orange juice, or tomato juice. - 1 hour before your report time stop drinking clear liquids. Clear Liquids: - Water, clear fruit juice (apple/white grape), carbonated beverages, clear broth, gelatin, ice popsor popsicles, and clear tea or black coffee (no milk or creamer). I personally spent a total of 60 minutes in gmg-opfn-ys-face time performing a review of the record and/or discussion with the patient/caregiver as described above. Consult conducted via real-time audio/video technology by Tracy Russell APRN, C.N.P., M.S.N. in [facility] to the patient in the patient's home. CIENCE PROFESSOR documented in this encounter Plan of Treatment Upcoming Encounters Date Type Specialty Care Team Description 07/21/2022 Office Visit Sleep Medicine Mahad Bustamante M .D. [address] [place] [phone] (Wo rk) documented as of this encounter Visit Diagnoses Diagnosis Preanesthetic Medical Exam - Primary Obstruction Nasal Deviation Nasal Septal Apnea Sleep Obstructive Hypertension Essential Primary Aneurysm Carotid Artery (HCC) Neuralgia Trigeminal Migraine Headache Hypothyroidism documented in this encounter Care Teams Marketing Manager Health Communications Relationship Specialty Start Date End Date Elsewhere, Pcp PCP - General Family Medicine 05/20/21 documented as of this encounter
--- OUTSIDE RECORDS SUMMARY | 2022-06-14 15:23 | XMS_ITS | Encounter Summary ---
:1965 Author Organization [facility] Address [address] [place] [address] Care Team Providers Name Role Phone Elsewhere, Pcp Primary Care Provider Unavailable Encounter Details Date Type Department Care Team Description 12/28/2021 Orders Only Department of [place], Apnea Sl eep Neurology in M.B., Ch.B. Obstructive (Primary [place], [place] [address] [facility]) [address] [place] [phone] Social History Tobacco Use Types Packs/Day Years [...] or relatives? How often do you attend mosque or Never 2021 mormon services? Do you belong to any clubs or Yes 04/18/2022 organizations such as mosque groups, unions, fraternal or athletic groups, or [...] have completed or the highest Elias, MEd, LABORATORY ADMINISTRATIVE DIRECTOR, JAX) degree you have received? Sex Assigned at Date Recorded Female 06/25/2021 7:39 PM CDT documented as of this encounter Plan of Treatment Upcoming Encounters Date Type Specialty Care Team Description 07/21/2022 Office Visit Sleep Medicine Mahad Bustamante M .D. [address] [place] [phone] (Wo rk) documented as of this encounter Visit Diagnoses Diagnosis Apnea Sleep Obstructive - Primary documented in this encounter Care Teams Senior Medical Writer Relationship Specialty Start Date End Date Elsewhere, Pcp PCP - General Family Medicine 05/20/21 documented as of this encounter
--- OUTSIDE RECORDS SUMMARY | 2022-06-14 15:23 | XMS_ITS | Encounter Summary ---
:1965 Author Organization [facility] Address [address] [place] [address] Care Team Providers Name Role Phone Elsewhere, Pcp Primary Care Provider Unavailable Encounter Details Date Type Department Care Team Description 11/06/2021 [facility] in [place], [place] [address] [place] [phone] Social History Tobacco Use Types Packs/Day [...] or relatives? How often do you attend episcopalian or Never 2021 scientologist services? Do you belong to any clubs or Yes 04/18/2022 organizations such as episcopalian groups, unions, fraternal or athletic groups, or [...] level of school Master's degree (e.g., Jaky García MS, 05/20/2021 you have completed or the highest Elias, MEd, RN MED SURG, JAX) degree you have received? Sex Assigned at Date Recorded Female 06/25/2021 7:39 PM CDT documented as of this encounter Plan of Treatment Upcoming Encounters Date Type Specialty Care Team Description 07/21/2022 Office Visit Sleep Medicine Mahad Bustamante M .D. 200 [place], [place] [phone] (Wo rk) documented as of this encounter Visit Diagnoses Not on filedocumented in this encounter Care Teams Commercial Parts Professional Relationship Specialty Start Date End Date Elsewhere, Pcp PCP - General Family Medicine 05/20/21 documented as of this encounter
--- OUTSIDE RECORDS SUMMARY | 2022-06-14 15:23 | XMS_ITS | Encounter Summary ---
:1965 Author Organization [facility] Address [address] [place] [address] Care Team Providers Name Role Phone Elsewhere, Pcp Primary Care Provider Unavailable Encounter Details Date Type Department Care Team Description 10/27/2021 Clinical Communication Department of Dental Britney Khan I., Specialties in D.M.D. [place], [place] [address] [place] [address] Social History Tobacco Use Types Packs/Day Years [...] do you attend mormonism or Never 2021 baptism services? Do you belong to any clubs [...] place to sleep or slept in a detention (including now)? Education Answer Date Recorded What is the highest level of school Master's degree (e.g., M Ricky, MS, 05/20/2021 you have completed or the highest Elias, MEd, FIELD TECHNICIAN, JAX) degree you have received? Sex Assigned at Date Recorded Female 06/25/2021 7:39 PM CDT documented as of this encounter Miscellaneous Notes Telephone Encounter - Janeth Monahan - 10/27/2021 11:19 AM CST Patient will be having surgery on 11/06. Stated that Dr Khan would like to visit with her before then. She would prefer a phone call please. Can you please place the order and a time when we can schedule this. Thank you ATIONS SUPERVISOR 2ND SHIFT documented in this encounter Plan of Treatment Upcoming Encounters Date Type Specialty Care Team Description 07/21/2022 Office Visit Sleep Medicine Mahad Bustamante M .D. [address] [place], [place] [phone] (Wo rk) documented as of this encounter Visit Diagnoses Not on filedocumented in this encounter Additional Health Concerns Infection Onset Date Last Indicated Resolved Time COVID19 Pending 11/05/2021 11/05/2021 11/05/2021 5:10 PM OPERATIONS SUPERVISOR 2ND SHIFT documented as of this encounter Care Teams Inbound Sales Manager Relationship Specialty Start Date End Date Elsewhere, Pcp PCP - General Family Medicine 05/20/21 documented as of this encounter
--- OUTSIDE RECORDS SUMMARY | 2022-06-14 15:23 | XMS_ITS | Encounter Summary ---
:1965 Author Organization [facility] Address [address] [place] [address] Care Team Providers Name Role Phone Elsewhere, Pcp Primary Care Provider Unavailable Reason for Referral Outpatient (Routine) - Closed Specialty Diagnoses / Procedures Referred By Contact Refer red To Contact Otorhinolaryngology Vishnu Edwards M.D . [address] [phone] Referral ID Status Reason Start Date Expiration Date Visits Requ ested Visits Authorized [id number] Closed 11/13/2021 11/13/2022 1 1 ECTOR GLASS OR MIRROR Reason for Visit Outpatient (Routine) - Closed Specialty Diagnoses / Procedures Referred By Contact Refer red To Contact Otorhinolaryngology Vishnu Edwards M.D . [address] [phone] Referral ID Status Reason Start Date Expiration Date Visits Requ ested Visits Authorized [id number] Closed 11/06/2021 11/06/2022 1 1 Encounter Details Date Type Department Care Team Description 11/13/2021 Office Visit Department of Vishnu Edwards Vahe al Septal (Primary Dx); Otorhinolaryngology roya García M.D. Apnea Sleep Obstructive [address] [phone] Social History Tobacco Use Types Packs/Day [...] or relatives? How often do you attend bahai or Never 2021 scientology services? Do you belong to any clubs or Yes 04/18/2022 organizations such as bahai groups, unions, fraternal or athletic groups, or [...] have completed or the highest Elias, MEd, HEALTHCARE RECRUITER, JAX) degree you have received? Sex Assigned at Date Recorded Female 06/25/2021 7:39 PM CDT documented as of this encounter Progress Notes Vishnu Edwards M.D. - 11/13/2021 4:00 PM CST SUBJECTIVE CHIEF COMPLAINT / REASON FOR VISIT Candi Gudino is a 56 y.o. female who presents status post septoplasty and inferior turbinate reduction on 11/06. HISTORY OF PRESENT ILLNESS Patient returns for follow-up. Her pain was manageable and well controlled on her home Vicodin. She has not been using her CPAP. She has been sleeping for many hours throughout the night and during theday. She feels tired during the day. She feels that her quality of sleep is good. She would like to delay turning to work for another week or 2. The following portions of the patient's history were reviewed and updated as appropriate: allergies,current medications, family history, medical history, social history, surgical history and problem list. OBJECTIVE PHYSICAL EXAM General: Alert, appropriately interactive Nose: No external deformity. Moreno splints removed. Septum is midline and intact. Healing mucosa on the right side. Turbinates with expected healing. ASSESSMENT / PLAN #1 Septal deviation #2 Severe obstructive sleep apnea The patient noted improved breathing with removal of Moreno splints. This is better than her preop state. I recommended no nose blowing for an additional 2 weeks, and light nose blowing afterwards. I also recommended continuing using nasal saline spray 2 3 times a day for the next 2 weeks to enhance mucosal healing. I discussed for resuming her CPAP, which is likely the cause for her excessive sleep. I will facilitate a work excuse for the next couple weeks. I will plan to see her back in 2 months. She will be working on weight loss. She has already lost 9 lb or so due to reduced intake. If she has lost 10% of her weights, or close to it, we will consider a repeat polysomnogram. I had another discussion with her about the likely need for multiple sleep surgeries to get her within range of mild obstructive sleep apnea. She restated her interest in getting off of pain medications needed for her trigeminal neuralgia and CPAP use. Answers for HPI/ROS submitted by the patient on 10/27/2021 No general issues: Yes No eye issues: Yes No ENT issues: Yes No heart issues: Yes No respiratory issues: Yes No GI issues: Yes No muscle/bone issues: Yes No skin issues: Yes No neurologic issues: Yes No mental health issues: Yes No blood/lymph issues: Yes No urinary/reproductive issues: Yes ECTOR GLASS OR MIRROR documented in this encounter Plan of Treatment Upcoming Encounters Date Type Specialty Care Team Description 07/21/2022 Office Visit Sleep Medicine Mahad Bustamante M .D. [address] [place] [phone] (Wo rk) Scheduled Referrals Name Type Priority Associated Order Schedule Diagnoses Otorhinolaryngology office Outpatient Routine E xpected: visit (clinic) Referral 01/11/2022, Expires: 02/10/2023 documented as of this encounter Visit Diagnoses Diagnosis Deviation Nasal Septal - Primary Apnea Sleep Obstructive documented in this encounter Care Teams Master Yacht Relationship Specialty Start Date End Date Elsewhere, Pcp PCP - General Family Medicine 05/20/21 documented as of this encounter
--- OUTSIDE RECORDS SUMMARY | 2022-06-14 15:23 | XMS_ITS | Encounter Summary ---
:1965 Author Organization [facility] Address [address] [place] [address] Care Team Providers Name Role Phone Elsewhere, Pcp Primary Care Provider Unavailable Encounter Details Date Type Department Care Team Description 12/10/2021 Clinical Communication Department of Dental Britney Khan I., Specialties in D.M.D. [place], [place] [address] [place] [address] Social History Tobacco Use Types Packs/Day Years [...] or relatives? How often do you attend latter-day or Never 2021 amish services? Do you belong to any clubs or Yes 04/18/2022 organizations such as latter-day groups, unions, fraternal or athletic groups, or [...] have completed or the highest Elias, MEd, NETWORK SUPPORT TECHNICIAN, JAX) degree you have received? Sex Assigned at Date Recorded Female 06/25/2021 7:39 PM CDT documented as of this encounter Miscellaneous Notes Telephone Encounter - Shiela Jimenez - 12/10/2021 11:02 AM CDT Patient called and is wondering if she can get a new mouth guard before Dr. Khan retires. Please advise. Thank you documented in this encounter Plan of Treatment Upcoming Encounters Date Type Specialty Care Team Description 07/21/2022 Office Visit Sleep Medicine Mahad Bustamante M .D. 200 [place], [place] [phone] (Wo rk) documented as of this encounter Visit Diagnoses Not on filedocumented in this encounter Care Teams National Investigative Producer Relationship Specialty Start Date End Date Elsewhere, Pcp PCP - General Family Medicine 05/20/21 documented as of this encounter
--- OUTSIDE RECORDS SUMMARY | 2022-06-14 15:23 | XMS_ITS | Encounter Summary ---
:1965 Author Organization [facility] Address [address] [place] [address] Care Team Providers Name Role Phone Elsewhere, Pcp Primary Care Provider Unavailable Reason for Referral Outpatient (Routine) - Closed Specialty Diagnoses / Procedures Referred By Contact Refer red To Contact Sleep Medicine Vishnu Edwards M.D . Silber, Michael H, 200 [facility] JakyDominique, [place] [address] [place] [phone] Phone: Fax: Referral ID Status Reason Start Date Expiration Date Visits Requ ested Visits Authorized [id number] Closed 12/25/2021 12/25/2022 1 1 Encounter Details Date Type Department Care Team Description 12/25/2021 Orders Only Department of Vishnu Edwards, Otorhinolaryngology in [place], [place] [address] [place] [phone] Social History Tobacco Use Types Packs/Day [...] do you attend sikh or Never 2021 catholic services? Do you belong to any clubs [...] have completed or the highest Elias, MEd, SHIFT PRODUCTION SUPERVISOR, JAX) degree you have received? Sex Assigned at Date Recorded Female 06/25/2021 7:39 PM CDT documented as of this encounter Plan of Treatment Upcoming Encounters Date Type Specialty Care Team Description 07/21/2022 Office Visit Sleep Medicine Mahad Bustamante M .D. [address] [place] [phone] (Wo rk) Scheduled Referrals Name Type Priority Associated Diagnoses Order S chedule Return to provider Outpatient Referral Routine Ex pected: in another 01/08/2022 specialty (Approximate), Expires: 03/26/2023 documented as of this encounter Visit Diagnoses Not on filedocumented in this encounter Care Teams Senior Game Designer Relationship Specialty Start Date End Date Elsewhere, Pcp PCP - General Family Medicine 05/20/21 documented as of this encounter
--- OUTSIDE RECORDS SUMMARY | 2022-06-14 15:24 | XMS_ITS | Encounter Summary ---
:1965 Author Organization [facility] Address [address] [place] [address] Care Team Providers Name Role Phone Unavailable Primary Care Provider Unavailable Encounter Details Date Type Department Care Team Description 09/26/2010 Hospital Encounter HX NO MAPPING Provider, Historical Social History Tobacco Use Types Packs/Day Years Used Date Smoking Tobacco: Never Assessed Alcohol Habits Answer Date Recorded How often [...] do you attend christian or Never 2021 scientology services? Do you [...] or slept in a penitentiary (including now)? Sex Assigned at Date Recorded Female 06/25/2021 7:39 PM CDT documented as of this encounter Medications at Time of Discharge Medication Sig Dispensed Refills Start Date End Date SUMAtriptan (IMITREX) 20 Administer into 0 2008 mg/actuation nasal spray affected nostril(s) as needed. acetaminophen (TYLENOL) Take 2 tablets by 0 12/2407/01/2021 500 mg tablet mouth as needed. methylphenidate HCl Take 2 tablets by 0 9 09/30/2021 (CONCERTA) 36 mg CR mouth daily. tablet documented as of this encounter Miscellaneous Notes Miscellaneous - Conversion, Historical Provider Tal - 09/26/2010 12:00 AM PERSONAL PROTECTION SPECIALIST [id number] IOD processed records. Source: [facility] [email or web address] Document Id: [id number] documented in this encounter Plan of Treatment Upcoming Encounters Date Type Specialty Care Team Description 07/21/2022 Office Visit Sleep Medicine Mahad Bustamante M .D. [address] [place], [place] [phone] (Wo rk) documented as of this encounter Visit Diagnoses Not on filedocumented in this encounter
--- OUTSIDE RECORDS SUMMARY | 2022-06-14 15:24 | XMS_ITS | Encounter Summary ---
:1965 Author Organization [facility] Address [address] [place] [address] Care Team Providers Name Role Phone Unavailable Primary Care Provider Unavailable Encounter Details Date Type Department Care Team Description 01/28/2021 Clinical Communication Department of Dental Bill, Britney Escamilla, Specialties in D.M.D. [place], [place] [address] [place] [address] Social History Tobacco Use Types Packs/Day Years [...] or relatives? How often do you attend sabianist or Never 2021 synagogue services? Do you belong to any clubs or Yes 04/18/2022 organizations such as sabianist groups, unions, fraternal or athletic groups, or [...] to sleep or slept in a senior living (including now)? Education Answer Date Recorded What is the highest level of Professional school degree (e.g ., , 03/30/2019 school you have completed or the DDS, DVM, NASRIN) highest degree you have received? Sex Assigned at Date Recorded Female 06/25/2021 7:39 PM CDT documented as of this encounter Miscellaneous Notes Telephone Encounter - Arleen Galvez - 02/02/2021 1:03 PM CDT LM to schedule return Telephone Encounter - Sofie Oneal L.D.A. - 01/28/2021 1:27 PM CDT This patient will need a 60 minute video visit or f2f with Dr. Khan. Telephone Encounter - Arleen Galvez - 01/28/2021 7:53 AM CDT Patient is looking to get a new mouth guard. She is also wanting to talk about her pain and she is looking into have corrective surgery in her deviated septum and wondering about the pain in her face. Can I schedule a return? She was seen about 3 years ago. Thank you documented in this encounter Plan of Treatment Upcoming Encounters Date Type Specialty Care Team Description 07/21/2022 Office Visit Sleep Medicine Mahad Bustamante M .D. [address] [place], [place] [phone] (Wo rk) documented as of this encounter Visit Diagnoses Not on filedocumented in this encounter
--- OUTSIDE RECORDS SUMMARY | 2022-06-14 15:24 | XMS_ITS | Encounter Summary ---
:1965 Author Organization [facility] Address [address] [place] [address] Care Team Providers Name Role Phone Unavailable Primary Care Provider Unavailable Encounter Details Date Type Department Care Team Description 04/21/2011 Hospital Encounter HX NO MAPPING Provider, Historical [...] or relatives? How often do you attend voodoo or Never 2021 restoration services? Do you belong to any clubs or Yes 04/18/2022 organizations such as voodoo groups, unions, fraternal or athletic groups, or [...] or slept in a custodial (including now)? Sex Assigned at Date Recorded [...] daily. tablet documented as of this encounter Plan of Treatment Upcoming Encounters Date Type Specialty Care Team Description 07/21/2022 Office Visit Sleep Medicine Mahad Bustamante M .D. 200 [place], [place] [phone] (Wo rk) documented as of this encounter Visit Diagnoses Not on filedocumented in this encounter
--- OUTSIDE RECORDS SUMMARY | 2022-06-14 15:24 | XMS_ITS | Encounter Summary ---
:1965 Author Organization [facility] Address [address] [place] [address] Care Team Providers Name Role Phone Unavailable Primary Care Provider Unavailable Encounter Details Date Type Department Care Team Description 01/05/2010 Hospital Encounter HX NO MAPPING Provider, Historical [...] do you attend latter-day or Never 2021 confucianism services? Do you [...] or slept in a longterm (including now)? Sex Assigned at Date Recorded [...] Sleep Medicine Mahad Bustamante M .D. 200 [place], [place] [phone] (Wo rk) documented as of this encounter Visit Diagnoses Not on filedocumented in this encounter
--- OUTSIDE RECORDS SUMMARY | 2022-06-14 15:24 | XMS_ITS | Encounter Summary ---
:1965 Author Organization [facility] Address [address] [place] [address] Care Team Providers Name Role Phone Unavailable Primary Care Provider Unavailable Reason for Visit Reason Onset Date Comments Medication Question 11/23/2019 Encounter Details Date Type Department Care Team Description 11/23/2019 Clinical Communication Section of Chrissie Mxi ication Question Infectious Diseases M, R.N. in [place], [place] ([facility]) [address] [place] [phone] Social History Tobacco Use Types Packs/Day Years [...] do you attend episcopal or Never 2021 jehovah's witness services? Do you belong to any clubs [...] this encounter Miscellaneous Notes Telephone Encounter - Chrissie Mix R.N. - 11/23/2019 4:05 PM CST Received a message that the patient is at the [facility] to get a second Hepatitis A vaccination and, in reviewing the patient's record of past immunizations, they are asking if another dose of Hepatitis A is truly needed since she appears to have already received two. I reviewed the patient's immunization record and note that the first dose of Hepatitis A was given as part of a Twinrix (HepA/HepB) vaccine. Since the Hep A dose in a twinrix vaccine is less than an adult dose of Hepatitis A alone, I did confirm (per the pink book on Hepatitis A vaccine) the following: Single- antigen hepatitis A vaccine may be used to complete a series begun with Twinrix and vice versa. A person 19 years of age or older who receives one dose of Twinrix may complete the hepatitis A series with two doses of adult formulation hepatitis A vaccine by at least 5 months. (https ://www.cdc.gov/vaccines/pubs/pinkbook/hepa.html) FACILITY MANAGER documented in this encounter Plan of Treatment Upcoming Encounters Date Type Specialty Care Team Description 07/21/2022 Office Visit Sleep Medicine Mahad Bustamante M .D. [address] [place], [place] [phone] (Wo rk) documented as of this encounter Visit Diagnoses Not on filedocumented in this encounter
--- OUTSIDE RECORDS SUMMARY | 2022-06-14 15:24 | XMS_ITS | Encounter Summary ---
:1965 Author Organization [facility] Address 200 [place] [address] Care Team Providers Name Role Phone Elsewhere, Pcp Primary Care Provider Unavailable Reason for Referral Outpatient (Routine) - Closed Specialty Diagnoses / Procedures Referred By Contact Refer red To Contact Sleep Medicine Kraig Head M.B., [facility] Ch.B. 200 [place], [place] [phone] Referral ID Status Reason Start Date Expiration Date Visits Requ ested Visits Authorized [id number] Closed 08/14/2021 08/14/2022 1 1 Scheduling Instructions RN cpap visit on 09/30/2021 LE TESTER Reason for Visit Outpatient (Routine) - Closed Specialty Diagnoses / Procedures Referred By Contact Refer red To Contact Sleep Kraig Tatum M.B., [facility] Ch.B. 200 [place] [phone] Referral ID Status Reason Start Date Expiration Date Visits Requ ested Visits Authorized [id number] Closed 07/01/2021 07/01/2022 1 1 Encounter Details Date Type Department Care Team Description 08/14/2021 Office Visit [facility] Kraig Head, Apnea Sleep Medicine in [place], Ch.B. Obstructive (Primary [place], [place] 200 [facility] D[facility]) 200 [place] [phone] Social History Tobacco Use Types Packs/Day Years [...] or relatives? How often do you attend yarsanism or Never 2021 zoroastrian services? Do you belong to any clubs or Yes 04/18/2022 organizations such as yarsanism groups, unions, fraternal or athletic groups, or [...] place to sleep or slept in a [facility] (including now)? Education Answer Date Recorded What is the highest level of school Master's degree (e.g., M A, MS, 05/20/2021 you have completed or the highest Elias, MEd, LINUX SERVER ADMINISTRATOR, JAX) degree you have received? Sex Assigned at Date Recorded Female 06/25/2021 7:39 PM CDT documented as of this encounter Progress Notes Kraig Head M.B., Ch.B. - 08/14/2021 9:00 AM CST SUBJECTIVE CHIEF COMPLAINT/REASON FOR VISIT Follow-up of polysomnography OBJECTIVE PHYSICAL EXAM ASSESSMENT / PLAN #1 Obstructive sleep apnea I met with the patient and her discuss the results of the sleep study. For full details, please see separate polysomnography report. In summary, she has severe non positional obstructive sleep apnea with an AHI of 73 and RDI of 76 per hour and minimum saturation of 74%. CPAP was successful at 9 cm water pressure. I discussed the need for treatment. The patient has chronic facial pain. She used a large Respironics Nilesh mask which was tolerable but resulted in some discomfort in her face on waking in the morning.She did not feel she would be able to tolerate any interface that involved straps across upper jaw. We did discuss alternatives to CPAP. She is understandably reluctant to even consider jaw surgery inview of her facial pain. We discussed the possibility of upper airway surgery. We discussed tongue stimulation technique but her BMI is too high for this at present. She would like to try CPAP and I prescribed a system set at 9 cm water pressure with a large Respironics Nilesh mask and heated humidification. I discussed care of the machine. She is aware there is a shortage of machines nationwide and will call multiple vendors in the [facility] if necessary to try and find availability. We will see her back in 2 months to review progress but she will cancel and reschedule the appointment if she has not been able to find a machine by then. Total time: 35 min, [id number] and non [id number] LE TESTER documented in this encounter Plan of Treatment Upcoming Encounters Date Type Specialty Care Team Description 07/21/2022 Office Visit Sleep Medicine Mahad Bustamante M .D. [address] [place] [phone] (Wo rk) Scheduled Referrals Name Type Priority Associated Diagnoses Order S [facility] Sleep Medicine Outpatient Referral Routine Expect ed: nurse visit 09/30/2021 (clinic) (Approximate), Expires: 08/14/2024 documented as of this encounter Visit Diagnoses Diagnosis Apnea Sleep Obstructive - Primary documented in this encounter Care Teams Director Vaccine Relationship Specialty Start Date End Date Elsewhere, Pcp PCP - General Family Medicine 05/20/21 documented as of this encounter
--- OUTSIDE RECORDS SUMMARY | 2022-06-14 15:24 | XMS_ITS | Encounter Summary ---
:1965 Author Organization [facility] Address [address] [place] [address] Care Team Providers Name Role Phone Unavailable Primary Care Provider Unavailable Encounter Details Date Type Department Care Team Description 03/24/2009 Hospital Encounter HX NO MAPPING Provider, Historical [...] or relatives? How often do you attend mormon or Never 2021 mandaen services? Do you belong to any clubs or Yes 04/18/2022 organizations such as mormon groups, unions, fraternal or athletic groups, or [...] or slept in a [facility] (including now)? Sex Assigned at Date Recorded Female 06/25/2021 7:39 PM CDT documented as of this encounter Medications at Time of Discharge Medication Sig Dispensed Refills Start Date End Date SUMAtriptan (IMITREX) 20 Administer into 0 2008 mg/actuation nasal spray affected nostril(s) as needed. acetaminophen (TYLENOL) Take 2 tablets by 0 12/2407/01/2021 500 mg tablet mouth as needed. documented as of this encounter Plan of Treatment Upcoming Encounters Date Type Specialty Care Team Description 07/21/2022 Office Visit Sleep Medicine Mahad Bustamante M .D. [address] [place] [phone] (Wo rk) documented as of this encounter Visit Diagnoses Not on filedocumented in this encounter
--- OUTSIDE RECORDS SUMMARY | 2022-06-14 15:24 | XMS_ITS | Encounter Summary ---
:1965 Author Organization [facility] Address [address] [place] [phone] Care Team Providers Name Role Phone Elsewhere, Pcp Primary Care Provider Unavailable Reason for Referral Outpatient (Routine) - Closed Specialty Diagnoses / Procedures Referred By Contact Refer red To Contact Otorhinolaryngology Vishnu Edwards M.D . [address] [phone] Referral ID Status Reason Start Date Expiration Date Visits Requ ested Visits Authorized [id number] Closed 09/30/2021 09/30/2022 1 1 Scheduling Instructions Pre-op/listing utpatient (Routine) - Closed Specialty Diagnoses / Procedures Referred By Contact Refer red To Contact Anesthesiology Diagnoses Obstruction Nasal Deviation Nasal Septal Vishnu Edwards M.D. [address] [phone] Referral ID Status Reason Start Date Expiration Date Visits Requ ested Visits Authorized [id number] Closed 09/30/2021 09/30/2022 1 1 R WORKER Reason for Visit Outpatient (Routine) - Closed Specialty Diagnoses / Procedures Referred By Contact Refer red To Contact Otorhinolaryngology Diagnoses Obstruction Nasal Damon Khan I. [place] Mario Lombardi [address] [place] [phone] Referral ID Status Reason Start Date Expiration Date Visits V isits Requested Authorized [id number] Closed Specialty 07/06/2021 07/06/2022 1 1 Services Required Encounter Details Date Type Department Care Team Description 09/30/2021 Comprehensive Visit Department of EdwardsVishnu Nasal Septal (Primary Dx); Otorhinolaryngology in [place] García Obstr uction Nasal; [place], [place] Apnea Sleep Obstructive [address] [place] [phone] Social History Tobacco Use Types Packs/Day [...] or relatives? How often do you attend islam or Never 2021 anabaptist services? Do you belong to any clubs or Yes 04/18/2022 organizations such as islam groups, unions, fraternal or athletic groups, or [...] place to sleep or slept in a [place] [facility] [place] (including now)? Education Answer Date Recorded What is the highest level of school Master's degree (e.g., Jaky García, MS, 05/20/2021 you have completed or the highest Elias, MEd, FLAT KNITTER HELPER, JAX) degree you have received? Sex Assigned at Date Recorded Female 06/25/2021 7:39 PM CDT documented as of this encounter Consult Notes Vishnu Edwards M.D. - 09/30/2021 8:45 AM CST SUBJECTIVE CHIEF COMPLAINT / REASON FOR VISIT Candi Gudino is a 56 y.o. female who presents for evaluation of right- sided nasal obstruction. HISTORY OF PRESENT ILLNESS Patient is a very pleasant 56-year-old female with a history of trigeminal neuralgia who presents for evaluation of right-sided nasal obstruction. The patient has a history of severe SHANNON with an AHI of73 who was prompted to seek evaluation for right-sided nasal obstruction. She wondered if her nasal o bstruction contributed to her sleep apnea. She notes right-sided nasal obstruction for the last several years. It is constant in nature. She rates it as severe. She has been using Nasonex for several months now, which has not helped the right side. She has had no prior nasal surgeries. She thinks thatshe has some seasonal allergies, but does not take any medications for this. She has tried nasal saline irrigations in the past, but this has also not been helpful. The patient has some issues with her facial pain as it relates to her CPAP. She has trialed multipleCPAPs, is managed by Dr. Damon Khan for facial pain related to more of the pressure on her right cheek with the CPAP. She has noted a tremendous improvement in her sleep and energy in the morning with the CPAP, but overall this requires management with a lidocaine patch on her cheek, and she still gets residual headaches from time to time, which requires medication to manage. She uses 9 cm H2O pressure for her CPAP. Her bed partner notes minimal snoring with her CPAP. Her blood pressure has improved. She is interested in alternatives in treatment of her sleep apnea as the CPAP mask is difficult to m anage with her facial pain. She has trialed 5 different masks during her fitting with Sleep Medicineand her current one was the most tolerable. The patient denies smoking. She drinks 2-3 alcoholic beverages per week. 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 The following portions of the patient's history were reviewed and updated as appropriate: allergies,current medications, family history, medical history, social history, surgical history and problem list. Social History Tobacco Use Smoking status: Never Smoker Smokeless tobacco: Not on file REVIEW OF SYSTEMS Constitutional: Positive for fatigue and weight gain of more than 10 pounds. ENT: Positive for sinus congestion. Respiratory: Positive for coughing up mucus (phlegm) and sleep disturbances due to breathing. Neurological: Positive for numbness or shooting pain in hands, arms, legs, or feet, excessive daytime sleepiness, headaches and weakness in arms or legs. Psychiatric/Behavioral: Positive for excessive daytime sleepiness/tiredness, snores loudly and stop breathing, choking, or gasping while asleep. The following systems were negative: Skin, Eyes, CV, GI, , Hematologic, Musculoskeletal OBJECTIVE PHYSICAL EXAM General: Awake, appropriately interactive Face: Symmetric. House Brackmann I/ bilaterally. Eyes: Extraocular movements intact. No nystagmus. Neuro: Cranial nerves 2 through 12 intact bilaterally. Ears: Auricles without deformity. Bilateral canals are patent. Bilateral TMs are round, intact with no evidence of middle ear effusion. Nose: Mild C-shaped deformity with nasal tip deviated to the right. No dorsal hump. No vestibular stenosis or collapse. Left caudal septal deviation, more posterior severe right septal deviation. Inferior turbinates with moderate hypertrophy. No drainage or polyps bilaterally. Oral cavity/oropharynx: 1+ tonsils. Qabw-on-rdvmgkla palatal redundancy. No macroglossia. Class 1 occlusion bilaterally. No retrognathia. Neck: Supple. No lymphadenopathy. Trachea midline. Pulmonary: Breathing comfortably on room air. Flexible laryngoscopy: Verbal consent obtained and universal protocol followed. In order to evaluatethe chief complaint, a flexible laryngoscopy was performed as a separate identifiable procedure. Twopercent lidocaine with phenylephrine was instilled into the right and left nares. The flexible scopewas passed. The larynx was examined, specifically the supraglottis, true vocal folds, and subglottis. Vocal fold adduction and abduction were assessed. The true vocal folds, arytenoids, and interarytenoid spaces were closely visualized to confirm presence or absence of erythema, edema, or structural lesions. Specific findings: Right septal deviation redemonstrated. Nasopharynx without lesion. Tongue base isnot setback. Epiglottis, supraglottic structures are normal. Glottis the usually visualized with excellent abduction or adduction bilaterally of the true vocal folds. No lesions of the glottis. ASSESSMENT / PLAN #1 Obstruction Nasal #2 Deviation Nasal Septal #3 Apnea Sleep Obstructive It was a pleasure meeting with Ms. Candi Mi Terese today. She is a very pleasant 56-year-old with right-sided nasal obstruction. I discussed the mucosal and structural components of nasal obstruction. I believe her right-sided nasal obstruction is predominantly caused by her severe septal deviation. She has failed maximal medical therapy with topical steroids and nasal saline irrigation for an adequate period of time. I discussed with her septoplasty and inferior turbinate reduction. I discussed the risks of surgery including hematoma, use of Moreno splints, perforation. We will file for to PWA. She is amenable to proceeding.I discussed with her the nasal cycle and that her nasal breathing wou ld not be equal on both sides. With regards to her obstructive sleep apnea, this is a tricky situation to be sure. She has difficulty with her CPAP secondary to her trigeminal neuralgia, which has been managed to the best of her abilities with the help of Dr. Khan. I discussed with her that the most dependable, safest, and effective treatment for obstructive sleep apnea is CPAP. I discussed with her that in patients wear CPAP is not tolerated S, sleep surgery may be an option. She has severe obstructive sleep apnea. Her latest BMI is 33. I discussed with her 3 major categories of sleep surgery: Soft tissue surgery, hypoglossal nerve stimulator, and orthognathic surgery. She is not interested in orthognathic surgery after a brief conversation. I discussed with her that do not point towards significant soft tissue obstructive components that could be intervened upon with the surgery. I do not believe that addressing her palate or tongue base with a reduction surgery or UPPP would cure her sleep apnea such that CPAP would not be necessary. Finally, I discussed with her the criteria for qualifying for a hypoglossal nerve stimulator. Namely, AHI 15-65, BMI less than 35, lack of circumferential palatal closure on drug-induced sleep endoscopy. I did also discuss that weight loss is an option for treating obstructive sleep apnea.She inquired if weight loss may get her into the range of AHI for hypoglossal nerve stimulator, and this may be the case. She is amenable to working on this. For now, she is amenable to working on her nasal obstruction and revisiting op options for sleep surgery following her septoplasty. We will coordinate her septoplasty and bilateral inferior turbinate reduction. She was amenable withthis plan. R WORKER documented in this encounter Plan of Treatment Upcoming Encounters Date Type Specialty Care Team Description 07/21/2022 Office Visit Sleep Medicine Mahad Bustamante M .D. [address] [place], [place] [phone] (Wo rk) Scheduled Referrals Name Type Priority Associated Order Schedule Diagnoses Preoperative Evaluation Outpatient Routine Obstruct ion Nasal Expected: GRUPO consult (clinic) Referral Deviation Nasal 10/27 Septal (Approximate), Expires: 12/29/2022 Otorhinolaryngology office Outpatient Routine E xpected: visit (clinic) Referral 11/05/2021, Expires: 12/29/2022 documented as of this encounter Results SARS Coronavirus 2, Molecular Detection, PCR, Varies Asymptomatic (11/05/2021 12:13 PM LINER WORKER) [facility] Method Time Signature COVID-19, Swab, 11/05/2021 DTL PCR, Source Nasopharynx 5:10 PM LINER WORKER COVID-19, Undetected Undetected 11/05/2021 DTL PCR, Result 5:10 PM LINER WORKER Comment: SARS-CoV-2 RNA absent. This result does not rule out COVID-19 in the patient, as the sensitivity of the test depends o n the timing of the specimen collection and quality of the specimen. Result should be correlated with patient's history and clinical presentat ion. ----ADDITIONAL INFORMATION---- This RT-PCR test using the Walkabout SARS-Co V-2 Assay ( [employer].) performed on the Walkabout Two Module System has received Emergency Use Authorization (EUA) by the U.S. Food and Drug Administration, and is modified from the websphere architect's instructions with a bridging study. Performance characteristics were verifie d by [facility] in a manner consistent with CLIA requirements. Visit the CDC website: https://www.cdc.g ov/coronavirus/ for the most recent guidelines on Hanson virus testing. Fact Sheet for Healthcare Providers: https://www.fda.gov/media/204256/downloa d Fact Sheet for Patients: https://www.fda.gov/media/593348/downloa d Specimen Anatomical Collection Method Collection Time Receive d Time (Source) Location / / Volume Laterality Varies 11/05/2021 12:13 11/05/2021 (Nasopharynx) PM LINER WORKER 12:56 PM LINER WORKER Vishnu Edwards M.D. LAB MICROBIOLOGY - GENERAL O RDERABLES Performing Organization Address City/State/ZIP Code Phon e Number [facility] - [address] [place], [place] [address] [facility] [place] [address] Laboratories-[facility] [address] documented in this encounter Visit Diagnoses Diagnosis Deviation Nasal Septal - Primary Obstruction Nasal Apnea Sleep Obstructive documented in this encounter Care Teams Roll Form Operator Relationship Specialty Start Date End Date Elsewhere, Pcp PCP - General Family Medicine 05/20/21 documented as of this encounter
--- OUTSIDE RECORDS SUMMARY | 2022-06-14 15:24 | XMS_ITS | Encounter Summary ---
:1965 Author Organization [facility] Address [address] [place] [address] Care Team Providers Name Role Phone Elsewhere, Pcp Primary Care Provider Unavailable Reason for Referral Outpatient (Routine) - Closed Specialty Diagnoses / Procedures Referred By Contact Refer red To Contact Otorhinolaryngology Diagnoses Obstruction Nasal aDmon Khan I., [facility] Harjit [address] [place] [address] Referral ID Status Reason Start Date Expiration Date Visits V isits Requested Authorized [id number] Closed Specialty 07/06/2021 07/06/2022 1 1 Services Required Encounter Details Date Type Department Care Team Description 07/06/2021 Orders Only Department of Dental Damon Khan I., Obst ruction Nasal Specialties in [place] (Primary Dx) [place], [place] [address] [place] [address] Social History Tobacco Use Types Packs/Day Years [...] or relatives? How often do you attend jew or Never 2021 voodoo services? Do you belong to any clubs or Yes 04/18/2022 organizations such as jew groups, unions, fraternal or athletic groups, or [...] have completed or the highest Elias, MEd, MARINE FITTER, JAX) degree you have received? Sex Assigned at Date Recorded Female 06/25/2021 7:39 PM CDT documented as of this encounter Plan of Treatment Upcoming Encounters Date Type Specialty Care Team Description 07/21/2022 Office Visit Sleep Medicine Mahad Bustamante M .D. [address] [place] [phone] (Wo rk) Scheduled Referrals Name Type Priority Associated Order Schedule Diagnoses Otorhinolaryngology - Outpatient Routine Obstruction Nasal E xpected: General non-surgical Referral 021 consult (clinic) (Approximat e), Expires: 07/06/2024 documented as of this encounter Visit Diagnoses Diagnosis Obstruction Nasal - Primary documented in this encounter Care Teams Industrial Custodian Relationship Specialty Start Date End Date Elsewhere, Pcp PCP - General Family Medicine 05/20/21 documented as of this encounter
--- OUTSIDE RECORDS SUMMARY | 2022-06-14 15:24 | XMS_ITS | Encounter Summary ---
:1965 Author Organization [facility] Address [address] [place] [address] Care Team Providers Name Role Phone Elsewhere, Pcp Primary Care Provider Unavailable Reason for Visit Reason Comments Intake Assessment Encounter Details Date Type Department Care Team Description 05/20/2021 Clinical Communication Division of Allergic Elsewhere, Intake Assessment Diseases in [place], [place] [address] [place] [phone] Social History Tobacco Use Types Packs/Day Years [...] do you attend sabianist or Never 2021 quaker services? Do you [...] have completed or the highest Elias, MEd, DIRECTOR MEDICARE SALES, JAX) degree you have received? Sex Assigned at Date Recorded Female 06/25/2021 7:39 PM CDT documented as of this encounter Plan of Treatment Upcoming Encounters Date Type Specialty Care Team Description 07/21/2022 Office Visit Sleep Medicine Mahad Bustamante M .D. [address] [place] [phone] (Wo rk) documented as of this encounter Visit Diagnoses Not on filedocumented in this encounter Care Teams Precision Lathe Operator Relationship Specialty Start Date End Date Elsewhere, Pcp PCP - General Family Medicine 05/20/21 documented as of this encounter
--- OUTSIDE RECORDS SUMMARY | 2022-06-14 15:24 | XMS_ITS | Encounter Summary ---
:1965 Author Organization [facility] Address [address] [place] [address] Care Team Providers Name Role Phone Elsewhere, Pcp Primary Care Provider Unavailable Encounter Details Date Type Department Care Team Description 08/24/2021 Orders Only Department of Dental Damon Khan D.M. D. Specialties in [place], [place] [address] [place] [phone] Social History Tobacco Use Types Packs/Day [...] have completed or the highest Elias, MEd, BARRELHEAD INSPECTOR, JAX) degree you have received? Sex Assigned at Date Recorded Female 06/25/2021 7:39 PM CDT documented as of this encounter Plan of Treatment Upcoming Encounters Date Type Specialty Care Team Description 07/21/2022 Office Visit Sleep Medicine Mahad Bustamante M .D. [address] [place] [phone] (Wo rk) documented as of this encounter Visit Diagnoses Not on filedocumented in this encounter Care Teams Disability Counselor Relationship Specialty Start Date End Date Elsewhere, Pcp PCP - General Family Medicine 05/20/21 documented as of this encounter
--- OUTSIDE RECORDS SUMMARY | 2022-06-14 15:24 | XMS_ITS | Encounter Summary ---
:1965 Author Organization [facility] Address [address] [place] [id number] Care Team Providers Name Role Phone Elsewhere, Pcp Primary Care Provider Unavailable Reason for Referral Outpatient (Routine) - Authorized Specialty Diagnoses / Procedures Referred By Contact Refer red To Contact Sleep Medicine Kraig Head M.B., [facility] [address] [place] [phone] Referral ID Status Reason Start Date Expiration Date Visits V isits Requested Authorized [id number] Authorized 09/30/2021 09/30/2022 1 1 OPOLITAN EDITOR Reason for Visit Reason Comments Sleep Apnea Outpatient (Routine) - Closed Specialty Diagnoses / Procedures Referred By Contact Refer red To Contact Sleep Kraig Tatum M.B., [facility] [address] [place] [address] [phone] Referral ID Status Reason Start Date Expiration Date Visits Requ ested Visits Authorized [id number] Closed 08/14/2021 08/14/2022 1 1 Encounter Details Date Type Department Care Team Description 09/30/2021 Nurse Only [facility] Kraig Head M.B., [facility] [address] [place] [phone] Sleep Apnea in [facility] Shelton Martinez R.N. 200 [place] [phone] [address] [place] [phone] Social History Tobacco Use Types Packs/Day [...] or relatives? How often do you attend hindu or Never 2021 episcopalian services? 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 Sex Assigned at Date Recorded Female 06/25/2021 7:39 PM CDT documented as of this encounter Last Filed Vital Signs Vital Sign Reading Time Taken Comments Blood Pressure 127/76 09/30/2021 9:45 AM METROPOLITAN EDITOR Pulse 76 09/30/2021 9:45 AM METROPOLITAN EDITOR Temperature - - Respiratory Rate - - Oxygen Saturation - - Inhaled Oxygen Concentration - - Weight 104 kg (229 lb 0.9 oz) 09/30/2021 9:45 AM METROPOLITAN EDITOR Height 177 cm (5' 9.69) 09/30/2021 9:45 AM METROPOLITAN EDITOR Body Mass Index 33.16 09/30/2021 9:45 AM METROPOLITAN EDITOR documented in this encounter Patient Instructions Patient InstructionsShelton Taylor RRosina. - 09/30/2021 9:45 AM CST Images from the original note were not included. Patient Education Cleaning Your Positive Airway Pressure (PAP) Equipment Your positive airway pressure therapy equipment helps you breathe better while you sleep. Getting a good night???s sleep is important for your health. Cleaning the interface, your mask and nasal pillows is important because over time natural oils on your face can cause a poor rjdu-zv-azno seal. Cleaning your interface often helps the mask fit more comfortably and helps it to stay in place better. Cleaning your humidifier every day keeps water from sitting too long. If water sits too long, mold and fungus may grow. Allergies, a runny nose and stuffiness can happen if you breathe these in. Use these instructions as a guide for cleaning your PAP equipment. Your PAP equipment comes with an instruction manual from the public health worker. Look at your equipment instruction manual for the public health worker???s recommendations. It is important to clean your equipment. Supplies ?? Mild liquid soap such as Ivory???, Eloisa??? or baby shampoo ?? Sink or basin ?? Clean hand towel ?? A shower bar, towel rack or back of a chair to hang tubing on ?? Vinegar water - made with one part white vinegar and three parts water Mask Wash daily. 1. Remove the headgear from the mask. 2. Put soap in warm water until sudsy. Do not put soap directly on the mask. 3. Wash the mask in the warm soapy water. 4. Rinse the mask under running water. 5. Shake off extra water. 6. Put the mask on a clean hand towel to air dry or use the towel to wipe the mask. Once a week, after washing the mask in soapy water, soak the mask in vinegar water. Soak for 30 minutes.Then follow steps 3 to 5. Nasal pillows Wash daily. 1. Wash the nasal pillows in warm soapy water. 2. Rinse the nasal pillows under running water. 3. Shake off extra water. 4. Put nasal pillows on a clean hand towel to air dry or use the towel to wipe them. Humidifier Wash daily. 1. Empty remaining distilled water. 2. Wash humidifier reservoir in the spouter if the instruction manual says it is safe and you have a spouter. Otherwise, follow steps 3 to 6. 3. Wash the inside of the humidifier with warm soapy water. 4. Rinse the inside of the humidifier thoroughly. 5. Pour out extra water. 6. Use a clean hand towel to wipe the outside of the humidifier. ??Let the inside air dry before putting new distilled water into it before you go to bed. Once a week, after washing the inside of the humidifier, pour vinegar water into the humidifier. After 30 minutes, pour out the vinegar water. Then follow steps 4 to 6. Talk with the store where you buy your PAP equipment about getting a humidifier that snaps apart foreasier cleaning. Tubing Wash weekly. 1. Separate tubing from the PAP unit and mask or nasal pillows. 2. Wash the tubing in warm soapy water. 3. Soak the tubing in vinegar water for 30 minutes. 4. Rinse the tubing under running water. 5. Shake off extra water. 6. Let tubing air dry by hanging it so the water drains out.?? Tubing also can be dried by reattaching it to the PAP unit and turning the unit on for several minutes. Headgear Wash weekly. 1. Close the Velcro??? tabs so they do not fruit or nut picker lint from the towel. 2. Handwash headgear in warm soapy water. Do not wash headgear in the clothes washer. 3. Place headgear on a clean hand towel to air dry or use the hand towel to dry it. Do not dry the headgear in the clothes dryer. Filters It is important to know what your filter looks like, where it is located and what type of filter youhave. There are washable and disposable filters. Washable filters Wash weekly when cleaning tubing. 1. Remove the filter. 2. Wash the filter in warm soapy water. 3. Rinse the filter under running water. 4. Squeeze out extra water or press filter in a clean hand towel. 5. Let the filter air dry. 6. Do not put the filter back until it is completely dry. Disposable filters Check monthly. Replace the filter if it is nancy. Do not clean it. Do not use it again. You may haveto check more often if, for example, your PAP is in a nancy room or you have a house pet. PAP unit 1. Remove dust from the PAP unit by wiping it with a damp cloth. 2. Do not place liquids on top of the PAP unit. Traveling You can travel with your PAP equipment. You can use pop-up cleansing wipes such as baby wipes to clean your interfaces. Bottled drinking water or tap water can be used in the humidifier if distilled water is not available. If you can safely drink the water it can be used to moisturize your nose in thehumidity chamber. Always empty the humidifier completely every day and put it upside down so it dries out. Keep in mind distilled water is still the preferred water because it does not leave mineral deposits in the system, hose or interfaces. Important ?? Do not keep or use cleaning supplies that are . ?? Do not use equipment that is too old or out of date. ?? Follow your public health worker???s instructions on when to replace outdated equipment. ?? Understand and follow your insurance???s guidelines. ?? Do not put solutions that may be harmful to you in the humidifier. These include bleach, cleaningproducts made by the public health worker and other cleaning products such as Bowie Mickie???. Do not put products such as VICKS??? in the humidifier. This material is for your education and information only. This content does not replace medical advice, diagnosis or treatment. New medical research may change this information. If you have questions about a medical condition, always talk with your health care provider. ? 2011 [facility] [place] for Medical Education and Research (MER). All rights reserved. [id number] Patient Education Using Positive Airway Pressure (PAP) Introduction Your sleep care provider has prescribed a positive airway pressure (PAP) device as treatment for breathing problems during sleep. The PAP device includes a flexible hose, soft mask or nosepiece, and a small air blower. PAP therapy is a treatment--not a cure--for problems such as obstructive sleep apnea (SHANNON), central sleep apnea (CSA) or complex sleep apnea (both central and obstructive breathing problems). Robles Messages About PAP Therapy ?? Therapy may be life long; it is not a cure, only a treatment ?? Attitude determines a successful outcome ?? It usually takes one to two months to adjust ?? The robles to success is daily use ?? Most people feel better, well rested, and no longer snore ?? Many health benefits may happen as a result of successful treatment How PAP Works The PAP device uses room air and blows a gentle, steady stream of air through your nose into your throat, keeping your airway open and allowing you to breathe normally (Figure 1). Your sleep care provider decides how strong the air pressure needs to be during your sleep study. This air pressure is different for each person; do not compare yours to others. Everyone has a period of adjustment getting used to breathing against the airflow. The robles to successful adjustment is daily use of PAP. Types of PAP interfaces It is very important to find the right interface for you (Figure 2). Interfaces include: ?? Full-face masks that cover your mouth and nose. These are attached with straps that stretch across your forehead and cheeks. ?? Nasal pillows (cannulas) that fit under your nose (at your nostrils) and have straps that cover less of your face. ?? Nasal (standard) masks that only cover your nose. Proper fit is important, as well as learning how to wear the interface the right way (Figure 3). There are many different styles and sizes of interfaces and sizes vary with each brand and type. Most PAP interfaces are adjustable. Ask your sleep care provider or PAP supplier to show you how to make adjustments. Many companies that make PAP have instructions to help you. These instructions may be in a print format, such as a booklet, or available online. If you find your interface is uncomfortable or feel it does not work well, do not stop using it. Give it a few days and look into adjustments that may be needed to solve fitting issues. Many stores have a 30-day period where you can return it for a new one. Do not get discouraged. Work with your sleepcare provider to find the best interface for you. Using Your PAP For most users, it takes about one to two months to fully adjust to PAP. Most people are able to usePAP every night, all night, once they are used to it. Wear PAP nightly for as long as you can. If you cannot wear PAP while sleeping, wear it for a short period during the day while you are awake. You can practice using the device while relaxing (e.g., watching your favorite television show, listening to music or reading the paper). This keeps your mind on something else and usually helps to lessen anxious feelings you may have from learning to breathe against the air pressure. You eventually get used to the feeling of the air pressure and have an easier time falling asleep when you use it at night. Use the PAP every night. You may be tempted to skip a night. Your snoring may not be as bad as it was before using the device; however, snoring returns after several nights without using PAP. Just because you do not snore for a few nights without PAP does not mean your sleep apnea, which is a long-lasting (chronic) condition, has gone away. Keep your PAP at a consistent pressure. The PAP pressure is determined in the sleep laboratory. The blower unit is set to the proper pressure for you. Do not alter the pressure. Weight changes can affect your pressure requirements. Common Problems With PAP Therapy There are several common problems people usually have with PAP. These may include: Runny or stuffy nose, sneezing One of the most common effects from using PAP is that constant air blowing through your nose dries out the nasal tissues. The tissues become red and puffy. You may have a clear runny, drippy nose during the day and congestion and increased sneezing at night. You may also have a postnasal drip when lying down; this can lead to a sore throat and coughing at night. These symptoms are like those of the common cold and cause you to have increased difficulty using the PAP device. A PAP device comes with canisters for distilled water. There are heat units underneath to warm the water and add moisture to your nose during treatment. This humidity keeps the tissues of your nose free of inflammation, irritation and from getting dried out. It is best to set the humidity setting on a higher setting at first to prevent irritation from happening; you can always move it down if you feel it is too moist. It is very important to learn how to adjust the heat setting. PAP does not cause the common cold, allergies, sinus or ear infections; however, these conditions may make it less comfortable to use the PAP because nasal congestion may increase. If you develop a cold or sinus infection, you may have to stop PAP until your symptoms get better ifyou are unable to continue with the therapy. Increasing the humidity level may help you with using the PAP. If you have allergies or other problems that block your nasal passages, talk about possible treatment with your sleep care provider. An npzv-ycz-nwujzjx decongestant medication may be for short-term treatment. Follow the instructions given on the medication package. Nasal steroids may be prescribed for more severe cases involving allergies or other conditions. Discuss any concerns you have with your sleep care provider. Not tolerating forced air You can use the ???ramp?? button on the PAP to drop your pressure. It gradually comes back up to the prescribed pressure within 10 to 15 minutes. This may help you fall asleep before the pressure reaches a stronger level. Some people find this helpful while others prefer the air pressure as prescribed. You need to experiment to find what works best for you. Talk with your sleep care provider. Dry mouth Dry mouth is commonly caused if you keep your mouth open when sleeping. During the first few weeks of treatment you will likely learn to keep your mouth closed while sleeping. Increase your humidity setting if dry mouth continues. Sometimes your nose is stuffy and so you breathe through your mouth. You can try adding a chinstrap, which is a soft fabric strap that adds support under the chin. You can also try a full-face mask instead of a nasal mask or pillows. Feeling claustrophobic If the mask or interface makes you feel closed in and uneasy, you may be having a claustrophobic reaction. Talk with your sleep care provider about how you feel. You may need a smaller interface or onewith simpler headgear. Sometimes all you need is to take your time adjusting to the interface. Your sleep care team can help you create a plan that works best for you. Difficulty falling asleep This is usually a temporary problem. It helps to wear the mask sometimes during the day at first in order to get used to it. Using the ???ramp?? feature on the machine can also help by providing a gradual increase to your prescribed pressure setting. It is also helpful to try to relax, avoid caffeineand alcohol before going to bed, and exercise on a regular basis. Sometimes falling asleep is a problem before PAP therapy. If this is the case, discuss your sleep habits with your sleep care provider.Also, talk about what you can do to help get good rest. Contact your sleep care provider if you are still having trouble falling asleep after regular use of PAP. Daytime sleepiness If you remain sleepy or become sleepy during the day despite using PAP, ask your partner or someone to observe you while you are sleeping. Ask them if you continue to snore over the therapy or if your interface is leaking. Frequent snoring over PAP pressure is a sign the pressure may need to be raisedor it may mean your interface is worn out and not sealing as it should. Most people need 7 to 8 hours of sleep every day in order to feel well rested. You will be sleepy even if your apnea is fully treated if you are constantly sleep deprived. Leaky mask This means you are not getting the full pressure you need. Leaking usually indicates you do not havethe mask adjusted correctly or it is very worn. The leaking air can cause your eyes to become dry and teary. Try adjusting the straps, mask or nasal pillows. Make sure the mask does not sit too high onthe bridge of your nose. Washing the mask daily with warm, soapy water can help make sure you have abetter fit. Washing your face at night before you go to bed can also help. It is possible you may need a different size mask or different size nasal pillows. Talk with your sleep care provider or PAP supplier. Skin irritation and pressure sores These problems can happen if your mask does not fit right. Try adjusting the straps and mask. Make sure the mask fits over the nose and does not sit too high on its bridge. A tight-cinching mask that rides too high can lead to pressure sores over the bridge of the nose. You may need to find a different size mask or try nasal pillows. Talk with your sleep care provider or PAP supplier. If you have sores or raw skin on your nose, tell your sleep care provider right away. These usually go away by switching to nasal pillows and applying an aqgd-sju-gbhqijx antibacterial ointment/cream to the sore area. Annoying noise PAP devices typically make less noise than a ceiling fan. If the device seems too loud to you or to your bed partner, it may mean the pieces are not attached correctly, there is a larger leak or it is wearing out. Check your operation manual or contact the store where you bought it to figure out the problem. Removing the mask during sleep This is a common problem, especially at the start of PAP therapy. It happens because you may move a lot in your sleep or your nose is congested so you pull the mask from your face. A good mask (interface) fit can help with this. Adding a PAP humidifier can also help. Put the interface back on if you wake up and find it off. Talk with your sleep care provider if this continues to be a problem. There are some interfaces designed for more active sleepers. Care of PAP Read the [facility] booklet Positive Airway Pressure (PAP) Equipment Cleaning Instructions ([id number]). Be sure you understand how to care for your PAP device and clean the humidity chamber daily. Talk to your PAP equipment company about how often your insurance pays for replacement interfaces, hoses, filters, and other device equipment. Replace the parts as often as you are able because it helps keep good fit, comfort and performance. Traveling with a PAP device When traveling with a PAP device, carry your blower unit with you on the plane. Do not send your PAPthrough checked luggage. Before you go, check the type of electrical plug needed. Handy converter plug- ins can be purchased through your PAP supplier. Pack an extension cord with your PAP because sometimes the outlets in hotelrooms are not near the head of the bed. Conclusion Your level of improvement with PAP depends on how bad your symptoms are. Important messages to remember include: ?? Most people feel and look better rested. ?? Other people may notice the change before you do. ?? You should no longer snore. ?? You still need 7 to 8 hours of sleep every night. ?? Medical conditions and some medications can cause daytime sleepiness. ?? PAP decreases the heart (cardiovascular) health risk associated with obstructive sleep apnea (SHANNON). ?? PAP must be used to be effective. Your best results come from wearing it the entire time you sleep. ?? Regular visits to your sleep care provider are important; SHANNON is a long- lasting (chronic) condition. ?? Often, adjustments are necessary to make PAP comfortable. Contact the [facility] to discuss ways to make PAP comfortable or to discuss other treatment options. ?? Follow-up with your sleep care provider within the first month and schedule routine visits once ayear. ?? Make healthy lifestyle choices: lose weight, if necessary; participate in a regular exercise plan; avoid alcohol and sedative use; and if you smoke, stop. When to call your sleep care provider Call your sleep care provider if: ?? You are snoring over the PAP. ?? Congestion is not responding to heated humidity. ?? You have mask-related concerns. ?? You are still very sleepy but are getting 7 to 8 hours of sleep. ?? You have stopped using the treatment. ?? You have not been able to use the PAP comfortably. ?? Your weight has changed by 10 percent or more since PAP was prescribed. If you have questions about this material, contact your [facility] health care provider. This material is for your education and information only. This content does not replace medical advice, diagnosis or treatment. New medical research may change this information. If you have questions about a medical condition, always talk with your health care provider. ? 2016 [facility] [place] for Medical Education and Research (MER). All rights reserved. [id number] OPOLITAN EDITOR documented in this encounter Progress Notes Shelton Taylor R.N. - 09/30/2021 9:45 AM CST Images from the original note were not included. SUBJECTIVE Candi Gudino presents for initial PAP follow-up. Overnight polysomnogram completed on 08/13/2021 revealed an AHI of 73.3 per hour in 151.5 total minutes sleep time. Weight at the time of testing was 101.0 kg. Candi Gudino reports PAP-related improvements in: sleep quality, daytime alertness, energy,napping reduction and blood pressure and describes the following current concerns/challenges about treatment: nasal congestion and denies the following with PAP: excessive pressure, difficulty exhaling, choking and gasping. No snoring or snort arousals are noted. Patient has neuropathic pain which causes headaches in the morning with PAP use. She has been using a lidocaine patch and Ultram as prevention. Her current mask style prevents the strap from being over the nerve which causes her chronic pain. Holbrook Score: 6 (09/30/21805 : Patient, Online Services) PROMIS Adult Short Form-Global Health Score (Mental): 16 (09/30/21803 : Patient, Online Services) PROMIS Adult Short Form-Global Health Score (Physical): 14 (09/30/21803 : Patient, Online Services) Blood Pressure: 127/76 (09/30/2021 9:45 AM) Pulse Rate: 76 (09/30/2021 9:45 AM) BMI (Calculated): 33.2 kg/m?? (09/30/2021 9:45 AM) Height: 177 cm (09/30/2021 9:45 AM) Weight: 104 kg (09/30/2021 9:45 AM) Patient Active Problem List Diagnosis ??? Apnea Sleep Obstructive ??? Obstruction Nasal ??? Deviation Nasal Septal PAP therapy prescribed at : 9 cm H2O. 08/20/2021 - 09/18/2021 The interface is a Nilesh large nasal. Heated humidity is set on auto, and heated hose is set at on auto. Current vendor: [employer] CP[employer] [facility] Patient verbalizes she is benefitting from using CPAP therapy. ASSESSMENT / PLAN This return visit was supervised by Sally Head M.D. Updated plan of care and treatment recommendations provided as a result of today's visit include: 1. Continue PAP therapy at 9 cm H2O. Prescription was renewed by protocol [id number] and provided tothe patient. 2. Weight Loss was encouraged. I explained to the patient the importance of weight loss in the management of SHANNON. 3. senior living management of the sleep treatment plan was reviewed with instruction on the focus that this is a chronic medical condition that requires ongoing assessment. Follow-up recommendation is for1 year. 4. Nurse reviewed with patient how and when to adjust her heated humidity and heated tube temperature to prevent nasal congestion and nasal dryness. Comprehensive education was provided regarding Positive Airway Pressure Therapy (PAP). Common problems encountered when utilizing CPAP were reviewed in detail including vasomotor rhinitis and congestion and the use of heated humidity. Instruction on the need to adjust the heat setting on the humidity was reviewed to assure the patient has knowledge of how to do this. Proper care of CPAP equipment andintervals for replacing interface, hoses and filters was provided. Reinforcement of the importance of properly cleaning the humidifier and empty the water daily was provided. Discussion of the health risks of untreated obstructive sleep apnea was reviewed. I reinforced importance in obtaining adequatetotal sleep time of 7-8 hours daily. Education materials were provided this date, please refer to patient education and or the after visit summary for details. OPOLITAN EDITOR documented in this encounter Plan of Treatment Upcoming Encounters Date Type Specialty Care Team Description 07/21/2022 Office Visit Sleep Medicine Mahad Bustamante M .D. [address] [place] [address] [phone] (Wo rk) Scheduled Referrals Name Type Priority Associated Diagnoses Order S [facility] Sleep Medicine Outpatient Referral Routine Expect ed: office visit 09/30/2022 (clinic) (Approximate), Expires: 12/29/2022 documented as of this encounter Visit Diagnoses Diagnosis Apnea Sleep Obstructive documented in this encounter Care Teams Representative Relationship Specialty Start Date End Date Elsewhere, Pcp PCP - General Family Medicine 05/20/21 documented as of this encounter
--- OUTSIDE RECORDS SUMMARY | 2022-06-14 15:24 | XMS_ITS | Encounter Summary ---
:1965 Author Organization [facility] Address [address] [place] [address] Care Team Providers Name Role Phone Elsewhere, Pcp Primary Care Provider Unavailable Reason for Referral Outpatient (Routine) - Closed Specialty Diagnoses / Procedures Referred By Contact Refer red To Contact Diagnoses Obstructive Sleep Apnea Adult Kraig Head M.B., [facility] Procedures Polysomnography (PSG): Split Night (STANDARD); Non-Positional SHANNON, Positional SHANNON, RERA; CPAP, ASV Ch.B. [address] [place], [place] [address] Referral ID Status Reason Start Date Expiration Date Visits Requ ested Visits Authorized [id number] Closed 07/01/2021 07/01/2022 1 1 ICAL EDUCATOR Reason for Visit Outpatient (Routine) - Closed Specialty Diagnoses / Procedures Referred By Contact Refer red To Contact Diagnoses Obstructive Sleep Apnea Adult Kraig Head M.B., [facility] Procedures Polysomnography (PSG): Split Night (STANDARD); Non-Positional SHANNON, Positional SHANNON, RERA; CPAP, ASV Ch.B. [address] [place], [place] [address] Referral ID Status Reason Start Date Expiration Date Visits Requ ested Visits Authorized [id number] Closed 07/01/2021 07/01/2022 1 1 Encounter Details Date Type Department Care Team Description 08/13/2021 - Hospital Encounter [facility] Ob structive Sleep 08/16/2021 Medicine in [place], [place]. Apnea Adult [place], [address] [place], [place] [address] [facility] [id number] [place], [place] [phone] (Work) [phone] Social History Tobacco Use Types Packs/Day Years [...] or relatives? How often do you attend restoration or Never 2021 confucianist services? Do you belong to any clubs or Yes 04/18/2022 organizations such as restoration groups, unions, fraternal or athletic groups, or [...] have completed or the highest Elias, MEd, [employer], [employer]) degree you have received? Sex Assigned at Date Recorded Female 06/25/2021 7:39 PM CDT documented as of this encounter Medications at Time of Discharge Medication Sig Dispensed Refills Start Date End Date EPINEPHrine (EPIPEN) Inject 0.3 mg 0 01/31/2019 0.3 mg/0.3 mL intramuscularly as injection syringe needed. eszopiclone (LUNESTA) Lunesta 3 mg oral 0 014 3 mg tablet tablet See Instructions, 1 TABLET AT BEDTIME HYDROcodone-acetaminop 0.5 tablets as needed. 0 0 12/22/2013 hen (NORCO) 7.5-325 mg per tablet methylphenidate HCl every morning. 0 08/25/2020 (CONCERTA) 54 mg CR tablet SUMAtriptan (IMITREX) Administer into 0 9 20 mg/actuation nasal affected nostril(s) as spray needed. traMADol (ULTRAM) 50 50 mg as needed. 0 8 mg tablet traMADol ER (ULTRAM MEDS ON BACK ORDER, 0 014 ER) 200 mg 24 hr that's why 100mg is tablet prescribed at this time amLODIPine (NORVASC) 5 0 04/09/2021 mg tablet amoxicillin (AMOXIL) amoxicillin 500 mg 0 014 10/22/2021 500 mg capsule oral capsule See Instructions, 4 tablets x 1 dose 60 minutes before procedure betamethasone 1 12/23/2017 10/22/2021 dipropionate (DIPROLENE) 0.05 % cream cetirizine (ZyrTEC) 10 TAKE 2 TABLETS BY 0 202010/22/2021 mg tablet MOUTH BY MOUTH EVERY MORNING AND 2 EVERY EVENING ciclopirox (PENLAC) 8 0 04/09/2021 % external solution DME CPAPIndications: DME Order 1 each 0 08/14/2021 01/0 01/2022 Apnea Sleep Obstructive fexofenadine (SHREE) Take 1 tablet (180 mg 180 tablet 3 10/22/2021 180 mg total) by mouth 2 tabletIndications: (two) times a day. Hives levothyroxine Take 1 tablet by mouth 0 05/05/2017 09/30/2021 (SYNTHROID, every morning before LEVOTHROID) 88 mcg breakfast. tablet lisinopril Take 10 mg by mouth. 0 03/10/2018/2 03/2022 (PRINIVIL,ZESTRIL) 10 mg tablet methylphenidate HCl Take 2 tablets by 0 9 09/30/2021 (CONCERTA) 36 mg CR mouth daily. tablet mometasone (ELOCON) Apply 1 application 45 g 0 018 10/22/2021 0.1 % cream topically daily as needed (Rash). documented as of this encounter Plan of Treatment Upcoming Encounters Date Type Specialty Care Team Description 07/21/2022 Office Visit Sleep Medicine Mahad Bustamante M .D. [address] [place], [place] [phone] (Wo rk) documented as of this encounter Procedures Procedure Name Priority Date/Time Associated Diagnosis Comme nts HC PSG >=6 YRS W Routine 08/14/2021 5:37 AM Obstructive Sleep Results for this CPAP CHEMICAL EDUCATOR Apnea Adult procedure are i n the results section. documented in this encounter Results Polysomnography (PSG): Split Night (STANDARD); Non-Positional SHANNON, Positional SHANNON, RERA; CPAP, ASV (08/14/2021 5:37 AM CHEMICAL EDUCATOR) Specimen (Source) Anatomical Location Collection Method / Collectio n Time Received Time / Laterality Volume Narrative ONBASE - 08/14/2021 8:42 AM CHEMICAL EDUCATOR SUMMARY Polysomnography showed 73 predominantly obstructive apneas and hypopneas per hour with events occurring in all po sitions and states. ??Occasional central apneas was seen in the supine po sition. ??There were an additional 2.4 respiratory effort-related arousals per hour for total respiratory disturbance index of 75.6 per hour. ??Sumit hilliard oxyhemoglobin saturation was 95% with mean saturation 88% and minimum saturation 74%. ??68% of the night was spent with saturations below 90%. ?? The patient snored moderately 70% of the time on the side and 25% the time on the back. ??No periodic limb movements were seen. ??Of 66 arousals pe r hour, 59 per hour were breathing related. ??Sleep efficiency was low at 7 3% and sleep architecture showed increased light non-REM sleep and no REM sleep during this phase of the study. During the second half of the night CPAP was used with the large Respironics Nilesh mask. ??At an optimal p ressure of 9 cm water, all sleep disordered breathing and snoring was chung minated. ??Oxyhemoglobin saturation normalized with a mean of 96%. ??Sleep e fficiency increased, slow-wave and REM rebound was seen and arousals fell. CLINICAL INTERPRETATION The study shows the presence of severe n on positional obstructive sleep apnea with resultant marked oxyhemoglobi n desaturation and disturbance of sleep architecture, efficiency and kody nuity. ??CPAP was successful at 9 cm water pressure with elimination of sl eep disordered breathing, normalization of oxyhemoglobin saturatio n and REM and slow-wave rebound. Kraig Lovell, Ch.B. [facility] ORDERABLES Performing Organization Address City/State/ZIP Code Phon e Number ONBASE ONBASE NA documented in this encounter Visit Diagnoses Diagnosis Obstructive Sleep Apnea Adult documented in this encounter Care Teams Cotton Feeder Relationship Specialty Start Date End Date Elsewhere, Pcp PCP - General Family Medicine 05/20/21 documented as of this encounter
--- OUTSIDE RECORDS SUMMARY | 2022-06-14 15:24 | XMS_ITS | Encounter Summary ---
:1965 Author Organization [facility] Address [address] [place] [address] Care Team Providers Name Role Phone Unavailable Primary Care Provider Unavailable Reason for Visit Reason Comments Skin Check Rash Rigth forearm Encounter Details Date Type Department Care Team Description 03/13/2018 Office Visit Department of Fozia Rose, Dermatitis (Primary Dermatology in [place] ) [address] [phone] Social History Tobacco Use Types Packs/Day Years [...] or relatives? How often do you attend sikhism or Never 2021 yazidi services? Do you belong to any clubs or Yes 04/18/2022 organizations such as sikhism groups, unions, fraternal or athletic groups, or [...] or slept in a assisted (including now)? Sex Assigned at Date Recorded Female 06/25/2021 7:39 PM CDT documented as of this encounter Progress Notes Fozia Rose M.D. - 03/13/2018 2:30 PM CDT CHIEF COMPLAINT Recheck dermatitis HISTORY OF THE PRESENT ILLNESS Candi Gudino is a pleasant 52 y.o. female who follows up for a dermatitis recheck. She had a similar rash in the past however it improved. She previously used triamcinolone cream prescribed byDr. Scott without improvement so this was discontinued. I prescribed her betamethasone cream twice daily for 2 weeks with a one week break and then had her resume for a second two weeks. At her lastvisit in December, she felt the dermatitis had markedly improved so she stopped the steroid creams. Shedeveloped the dermatitis again two weeks ago. It is pruritic, rated at 6/10. She scratches it 3-4 times a day. For the last two weeks the only thing she has applied to her dermatitis is over the counter Benadryl cream. She has not used any steroid cream. She denies rash anywhere else on her body. She cannot think of any specific contacts specific to her right arm that could cause irritation or a contact dermatitis. She does not wear any braces on either arm. PAST MEDICAL HISTORY No history of skin cancer PHYSICAL EXAM General: Awake, alert, in no acute distress, and with appropriate affect. Skin: Examination of the right superior extensor arm reveals a mild patch of dermatitis measuring 5 cm x 4.5 cm. Examination reveals no vesicles, blisters or pustules. Examination reveals dry skin on her elbows bilaterally but no rash on the arms, knees, legs or upper chest. IMPRESSION AND PLAN #1 Bilateral extensor arms: Mild dermatitis I advised the patient not to use the betamethasone. I will prescribe mometasone cream to apply once a day for up to two weeks at most, stop for one week and resume for up to two weeks at most. I explained to the patient the risks of skin thinning with prolonged steroid use. We also discussed that if this becomes chronic or recurring then consideration [place] rash is I am hoping we can avoid the patch testing. She is in agreement with this approach PATIENT EDUCATION Ready to learn. No apparent learning barriers were identified. Learning preferences include listening. Explained diagnosis and treatment plan; patient/guardian of patient expressed understanding of thecontent. By signing my name below, I, Billy Das, attest that this documentation has been prepared underthe direction and in the presence of Fozia Rose M.D.. Electronically Signed: yair Arcos. 03/13/2018. 2:49 PM . I, Fozia Rose M.D., personally performed the services described in this documentation. All medical record entries made by the scribe were at my direction and in my presence. I have reviewed the chart and discharge instructions (if applicable) and agree that the record reflects my personal performance and is accurate and complete. Fozia Rose M.D. . 03/13/2018. 3:12 PM. documented in this encounter Plan of Treatment Upcoming Encounters Date Type Specialty Care Team Description 07/21/2022 Office Visit Sleep Medicine Mahad Bustamante M .D. [address] [place], [place] [phone] (Wo rk) documented as of this encounter Visit Diagnoses Diagnosis Dermatitis - Primary documented in this encounter
--- OUTSIDE RECORDS SUMMARY | 2022-06-14 15:24 | XMS_ITS | Encounter Summary ---
:1965 Author Organization [facility] Address [address] [place] [address] Care Team Providers Name Role Phone Unavailable Primary Care Provider Unavailable Encounter Details Date Type Department Care Team Description 05/05/2017 Hospital Encounter HX NO MAPPING Social History Tobacco Use Types Packs/Day Years [...] or relatives? How often do you attend scientology or Never 2021 orthodoxy services? Do you belong to any clubs or Yes 04/18/2022 organizations such as scientology groups, unions, fraternal or athletic groups, or [...] or slept in a snf (including now)? Sex Assigned at Date Recorded Female 06/25/2021 7:39 PM CDT documented as of this encounter Last Filed Vital Signs Vital Sign Reading Time Taken Comments Blood Pressure 117/65 05/05/2017 12:39 PM CDT Pulse 74 05/05/2017 6:34 AM CDT Temperature - - Respiratory Rate 16 05/05/2017 12:39 PM CDT Oxygen Saturation - - Inhaled Oxygen Concentration - - Weight 97.3 kg (214 lb 8.1 oz) 05/05/2017 6:34 AM CDT Height 172 cm (5' 7.72) 05/05/2017 6:34 AM CDT Body Mass Index 32.89 05/05/2017 6:34 AM CDT documented in this encounter Medications at Time of Discharge Medication Sig Dispensed Refills Start Date End Date eszopiclone (LUNESTA) 3 Lunesta 3 mg oral 0 12/22 mg tablet tablet See Instructions, 1 TABLET AT BEDTIME HYDROcodone-acetaminophen 0.5 tablets as 0 2013 (NORCO) 7.5-325 mg per needed. tablet SUMAtriptan (IMITREX) 20 Administer into 0 2008 mg/actuation nasal spray affected nostril(s) as needed. traMADol ER (ULTRAM ER) MEDS ON BACK ORDER, 0 200 mg 24 hr tablet that's why 100mg is prescribed at this time acetaminophen (TYLENOL) Take 2 tablets by 0 12/2407/01/2021 500 mg tablet mouth as needed. amoxicillin (AMOXIL) 500 amoxicillin 500 mg 0 10/22/2021 mg capsule oral capsule See Instructions, 4 tablets x 1 dose 60 minutes before procedure levothyroxine (SYNTHROID, Take 1 tablet by 0 08/09/30/2021 LEVOTHROID) 88 mcg tablet mouth every morning before breakfast. methylphenidate HCl Take 2 tablets by 0 09/30/2021 (CONCERTA) 36 mg CR mouth daily. tablet documented as of this encounter Plan of Treatment Upcoming Encounters Date Type Specialty Care Team Description 07/21/2022 Office Visit Sleep Medicine Mahad Bustamante M .D. [address] [place] [phone] (Wo rk) documented as of this encounter Visit Diagnoses Not on filedocumented in this encounter
--- OUTSIDE RECORDS SUMMARY | 2022-06-14 15:24 | XMS_ITS | Encounter Summary ---
:1965 Author Organization [facility] Address [address] [place] [address] Care Team Providers Name Role Phone Unavailable Primary Care Provider Unavailable Encounter Details Date Type Department Care Team Description 07/10/2009 Hospital Encounter HX [facility] aHzel Resendez M.D. [address] [place], [place] [phone] (Wo rk) Social History Tobacco Use Types [...] or relatives? How often do you attend cheondoism or Never 2021 mandaeism services? Do you belong to any clubs or Yes 04/18/2022 organizations such as cheondoism groups, unions, fraternal or athletic groups, or [...] this encounter Miscellaneous Notes Telephone Encounter - Conversion, Historical Provider Ser - 07/10/2009 12:00 AM CDT [id number] Situation/What is the patients concern/need: Please see form in your inbasket requiring signature. Clinical Background/Recent Intervention: Patient qualifies for cost savings from insurance if she does her preventative care. Your sig verifies that she had physical on 11/15/08. She did have physical on this date. Recommendation/Patient Request: Please sig form and fax to Cinthya at [employer], . Best number(s) to reach patient: Can reach patient on cell [phone] if needed. Source: [facility]XRTFSYSandra Document Id: [id number] Telephone Encounter - Yolanda Daniel M.D. - 07/10/2009 12:00 AM CDT [id number] I mailed it last Tue (the day I got it) Pls fax as well Source: [facility] Document Id: [id number] Electronically signed by Conversion, [facility] Student Finance Advisor [id number] at 02/27/2017 10:02 PM CDT Telephone Encounter - Conversion, Historical Provider Ser - 07/10/2009 12:00 AM CDT [id number] Done. Source: [facility] RWHXTRANSXRTFSYS Document Id: [id number] documented in this encounter Plan of Treatment Upcoming Encounters Date Type Specialty Care Team Description 07/21/2022 Office Visit Sleep Medicine Mahad Bustamante M .D. [address] [place], [place] [phone] (Wo rk) documented as of this encounter Visit Diagnoses Not on filedocumented in this encounter
--- OUTSIDE RECORDS SUMMARY | 2022-06-14 15:24 | XMS_ITS | Encounter Summary ---
:1965 Author Organization [facility] Address [address] [place] [id number] Care Team Providers Name Role Phone Unavailable Primary Care Provider Unavailable Reason for Visit Reason Comments Travel Consult Appointment Request (Routine) - Closed Specialty Diagnoses / Procedures Referred By Contact Refer red To Contact Infectious Diseases Referral ID Status Reason Start Date Expiration Date Visits Requ ested Visits Authorized [id number] Closed 03/12/2019 03/11/2020 1 Encounter Details Date Type Department Care Team Description 03/30/2019 Comprehensive Visit Section of [facility] And Infectious Diseases Nichelle Wynne APRN [facility] (Primary in [place], [place]. ) [place] [address] [facility] [address] [place] [phone] Social History Tobacco Use Types Packs/Day Years [...] or relatives? How often do you attend hinduism or Never 2021 mu-ism services? Do you belong to any clubs or Yes 04/18/2022 organizations such as hinduism groups, unions, fraternal or athletic groups, or [...] Sign Reading Time Taken Comments Blood Pressure - - Pulse - - Temperature 36.6 ??C (97.9 ??F) 03/30/2019 9:07 AM CDT Respiratory Rate - - Oxygen Saturation - - Inhaled Oxygen Concentration - - Weight 97.9 kg (215 lb 13.3 oz) 03/30/2019 9:07 AM CDT Height - - Body Mass Index 33.09 05/05/2017 6:34 AM CDT documented in this encounter Consult Notes Nichelle Levin APRN, C.N.P. - 03/30/2019 9:30 AM CDT Clinic Number:[id number] Patient Name: Candi Gudino Age: 53 y.o. Birthdate: 1965 Sex: female [address]: [address] [place] [id number] Provider: Nichelle Levin APRN, C.N.P. REFERRAL SOURCE: self-referred CHIEF COMPLAINT/REASON FOR CONSULT Pre Travel Consult HISTORY OF PRESENT ILLNESS Ms. Gudino is a generally healthy 53 y.o. female here with her and children preparing for international travel. Patient provided the following information in the Travel and Tropical Medicine Questionnaire. Travel-related Information Are you taking this assessment for yourself or someone else?: Myself 1. City and Country: [facility] 1. Date of Arrival at Destination: 05/02/19 1. Departure: 05/10/19 2. City and Country: [facility] 2. Date of Arrival at Destination: 05/10/19 2. Departure: 05/10/19 3. City and Country: [facility] 3. Date of Arrival at Destination: 05/10/19 3. Departure: 05/12/19 4. City and Country: [place], [facility], [facility] 4. Date of Arrival at Destination: 05/12/19 4. Departure: 05/17/19 What is the purpose of your travel to this destination?: Vacation What type of travel are you planning?: Independent travel - Flexible itinerary What are your planned accommodations?: Hotel/Resort Any previous international travel?: Y If yes, please list countries and year.: en[place] -annually -1990 [place] [phone] [facility] 2007[facility]2009 [place] 2004/2005/2007/2009 [place] 2012 [place] 2009 [facility] 2005 Health Pre-Travel Screen Do you have a medical condition that is stable now, but that may recur while traveling?: No Have you had a fever in the past 48 hours?: No Are you , or planning to become in the next 3 months?: No Date of last menstrual period.: 09/02/14 Do you have HIV/AIDS, any other immune disorder, leukemia, transplantation, cancer, or take steroidsor any medication that weakens your immune system?: No Do you live (or work closely) with anyone who has HIV/AIDS, an immune disorder, transplantation, cancer, or is on chemotherapy?: No Do you have severe thrombocytopenia (low platelet count) or a blood clotting or bleeding disorder?: No Do you have ulcer/indigestion or diarrhea?: No Have you had stomach surgery?: No Have you ever had hepatitis or jaundice?: No Have you ever taken anti-malaria medications before? : Yes Have you ever had a convulsion, seizure or epilepsy?: No Have you ever had chicken pox disease as a child?: Yes Have you had measles disease as a child?: No Have you had mumps disease?: No Do you have a history of depression, anxiety or other psychiatric diagnosis?: Yes Do you have psoriasis?: No Do you have a history of an abnormal heart rhythm or abnormal electrocardiogram?: No Have you ever had tuberculosis (TB) exposure?: No Have you had a splenectomy (surgical removal of the spleen)?: No Have you ever fainted during blood draws or from an injection?: No Have you ever had any reactions, or side effect, from any vaccination? : No Have you received any injection of immunoglobulin or any blood product during the past 8 months?: No Have you received any antibiotic or vaccine(s) in the last 4 weeks? If yes, please note the name of the vaccine or antibiotic and if an antibiotic, include the day of the last dose, in the text box below.: No Are you prone to motion sickness?: Yes Do you wear glasses/contacts?: Yes Tell us more if you answered yes or don't know. (max 250 characters): [facility] motion sickness ocean cruise Did you review the immunization indicated in your [facility] Record.: Y DIAGNOSTICS None ASSESSMENT / PLAN 1. Immunization Recommendations Based on the patient's reported itinerary, past medical and immunization history and after discussion of risks and benefits, the patient consents to receive the following vaccine(s): Hepatitis A, Hepatitis B (Recombivax?? or Engerix??), Typhoid (Oral) and MMR. Vaccine indications, contraindications, dosing schedule, efficacy and adverse effects for each vaccine were reviewed. Vaccine information statement(s) were provided. and The following vaccine(s) were discussed but the patient did not receive: Rabies - because risk of illness is low and Yellow Fever (I discussed the adverse effects including life-threatening side-effects discussed) - because Patient received the yellow fever vaccination in 2011. As of March 2016, no booster vaccinations are required. Patient advised that she will need to contact the clinic that administered the yellow fever vaccination in order to obtain a replacement yellowcard. Vaccine indications, contraindications, dosing schedule, efficacy and adverse effects for eachvaccine were reviewed. Vaccine information statement(s) were provided.. Vaccine indications, contraindications, dosing schedule, efficacy and adverse effects for each vaccine were reviewed. Vaccine information statement(s) were provided. Patient was advised that she will require a 2nd hepatitis A vaccination in 6 months as the original hepatitis A vaccination she received was part of a combination vaccine called Twinrix which does not contain full dose of hepatitis A vaccine. As she did not complete the series of 3 Twinrix vaccinations is recommended that she complete the 2 doses hepatitis A vaccine series. She has received 2 doses of hepatitis B vaccine therefore we will be able to complete the series today with her 3rd dose. 2. Insect Precautions and Insect Transmitted Diseases Based on the patient's reported itinerary and medical history, the following is advised and written information Stay Healthy While Traveling was provided and reviewed regarding general insect bite precautions, insect repellent use and permethrin use. For malaria prevention: no antimalarial prophylaxis needed Patient advised to see healthcare provider if illness occurs during or after travel. Mosquito avoidance measures recommended not only for malaria prevention at destinations were risk ispresent, but also for other mosquito illnesses. The planned destinations are considered risk for transmission of Dengue, Chikungunya and Zika. Patient was advised to use repellents for daytime protection and to reapply later in the afternoon/day. 3. Traveler's Diarrhea Based on the patient's reported itinerary and medical history, the following is advised and written information per Stay Healthy While Traveling provided and reviewed regarding food and water precautions and traveler's diarrhea self- management, including the proper use of antidiarrheal and/or antibiotic. Antibiotic use is recommended only if needed when outside the [place]. If persistent or severe diarrhea occurs, the patient is advised to seek medical attention. A prescription for azithromycin was provided. Potential adverse effects discussed. Patient notes a prior allergic reaction to erythromycin however states that she has tolerated azithromycin without reaction. 4. Pre-Travel Education Patient viewed the Stay Healthy While Traveling audiovisual education. Pamphlet provided with review of the following: insect precautions, food and water precautions, self-treatment of traveler's diarrhea, travel health insurance/air evacuation, animal bite management algorithm, motion sickness, jet lag, safe swimming/beach precautions, DVT prevention, respiratory and viral illnesses/influenza, sunscreen hand hygiene, sexual exposure and illness after travel. Additional pertinent topics reviewed include altitude sickness and compression stockings advised. 5. Other Education Altitude Illness: A prescription for acetazolamide was provided. Side effects were discussed. Written information on altitude sickness was provided. Advised patient that I will prescribe a 3 daytrial dose in addition to the 3 day dose for the trip. I would recommend that she take the trial dose prior to travel to ensure she does not experience allergic reaction or intolerable side effects. Assessment of Barriers/Learning Preferences Barriers present: None Teaching methods: Verbal explanation, use of printed material, audio/visuals. Stay Healthy While Traveling [id number] booklet provided. The plan of care, as outlined above, was discussed with patient whoexpressed understanding, and all questions were satisfactorily answered. Diagnoses #1 Counseling Travel And Immunization Other orders - acetaZOLAMIDE (DIAMOX) 125 mg tablet; Take 1 tablet (125 mg total) by mouth 2 (two) times a day. Altitude illness-begin day before ascent for total of 3 days, Starting Tue03/30/2019, Until Tue04/29/2019, Normal - Typhoid oral [address] capsule; Take 1 capsule by mouth every other day for 7 days. On empty stomach Use cool water. Finish 14 days before trip, Starting Tue03/30/2019, Until Tue04/06/2019, Normal - azithromycin (ZITHROMAX) 500 mg tablet; Take 1 tablet (500 mg total) by mouth daily for 3 days. For Traveler's diarrhea if severe when out of [place] and stop if diarrhea stops, Starting Tue03/30/2019, Until Tue04/02/2019, Normal - HepA: hepatitis A vaccine (19 years and older) - HepB: hepatitis B vaccine (20 years and older) - MMR: measles, mumps and rubella vaccine (12 months and older) Nichelle Levin APRN, C.N.P. Special Instructions Patient dismissed. Total time spent with patient (excluding time spent by the patient watching educational video): 15 minutes Counseling Time: Greater than 50% of total time. ORDERS Orders Placed This Encounter Procedures ??? HepA: hepatitis A vaccine (19 years and older) ??? HepB: hepatitis B vaccine (20 years and older) ??? MMR: measles, mumps and rubella vaccine (12 months and older) documented in this encounter Plan of Treatment Upcoming Encounters Date Type Specialty Care Team Description 07/21/2022 Office Visit Sleep Medicine Mahad Bustamante M .D. [address] [place], [place] [phone] (Wo rk) documented as of this encounter Visit Diagnoses Diagnosis Counseling Travel And Immunization - Sara lisbeth documented in this encounter
--- OUTSIDE RECORDS SUMMARY | 2022-06-14 15:24 | XMS_ITS | Encounter Summary ---
:1965 Author Organization [facility] Address [address] [place] [address] Care Team Providers Name Role Phone Unavailable Primary Care Provider Unavailable Encounter Details Date Type Department Care Team Description 04/09/2021 Clinical Communication Department of Dental Bill, Britney Escamilla, Specialties in D.M.D. [place], [place] [address] [place] [address] Social History Tobacco Use Types Packs/Day Years [...] do you attend islam or Never 2021 catholic services? Do you [...] Notes Telephone Encounter - Arleen Galvez - 04/09/2021 3:20 PM CDT This is scheduled Telephone Encounter - Sofie Oneal L.D.A. - 04/09/2021 1:04 PM CDT Yes, please schedule her appointment with Dr. Khan after her sleep appt also Telephone Encounter - Arleen Galvez - 04/09/2021 12:46 PM CDT Patient called and stated her appointment with Dr Khan is after her allergy appointment but she is wondering should it be after her sleep appointment that is scheduled in Jun? thaarleen you documented in this encounter Plan of Treatment Upcoming Encounters Date Type Specialty Care Team Description 07/21/2022 Office Visit Sleep Medicine Mahad Bustamante M .D. [address] [place] [phone] (Wo rk) documented as of this encounter Visit Diagnoses Not on filedocumented in this encounter
--- OUTSIDE RECORDS SUMMARY | 2022-06-14 15:24 | XMS_ITS | Encounter Summary ---
:1965 Author Organization [facility] Address [address] [place] [id number] Care Team Providers Name Role Phone Elsewhere, Pcp Primary Care Provider Unavailable Reason for Visit Outpatient (Routine) - Closed Specialty Diagnoses / Procedures Referred By Contact Refer red To Contact Allergy and Immunology Diagnoses HivDamon Frost I.[facility] Harjit [address] [place] [address] Referral ID Status Reason Start Date Expiration Date Visits V isits Requested Authorized [id number] Closed Specialty 04/07/2021 04/07/2022 1 1 Services Required Encounter Details Date Type Department Care Team Description 05/21/2021 Comprehensive Visit Division of Linda Larsen (Primary Dx); Allergic Diseases Scottie Patricio in [address] [place] [phone] [place], [place] [phone] (Work) [phone] Social History Tobacco Use Types Packs/Day Years [...] or relatives? How often do you attend orthodoxy or Never 2021 synagogue services? Do you belong to any clubs or Yes 04/18/2022 organizations such as orthodoxy groups, unions, fraternal or athletic groups, or [...] place to sleep or slept in a usp (including now)? Education Answer Date Recorded What is the highest level of school Master's degree (e.g., M Ricky, MS, 05/20/2021 you have completed or the highest Elias, MEd, DRAW FRAME OPERATOR, JAX) degree you have received? Sex Assigned at Date Recorded Female 06/25/2021 7:39 PM CDT documented as of this encounter Last Filed Vital Signs Vital Sign Reading Time Taken Comments Blood Pressure - - Pulse - - Temperature 36.3 ??C (97.3 ??F) 05/21/2021 9:04 AM CDT Respiratory Rate - - Oxygen Saturation - - Inhaled Oxygen Concentration - - Weight - - Height - - Body Mass Index - - documented in this encounter Consult Notes Raheem Larsen M.D. - 05/21/2021 9:00 AM CDT Allergy and Immunology Consult Note Candi Gudino is a 55 y.o. female being seen in the Division of Allergic Diseases on 05/21/2021. Patient is referred by Damon Khan D.M.D. for a consultation for the following clinical question: chronic hives HPI: Ms. Gudino is a 55 y/o female patient with a history of hypothyroidism on levothyroxine here for evaluation of chronic hives. Hives started about 3 years ago. 1 year after hives started she saw an edger runner who instructed her to take cetirizine 20 mg twice daily. She experienced significant sedation with this dose of cetirizine. About 1 week ago she saw a mold bunch trimmer who recommended switching to fexofenadine. Hives are well controlled on fexofenadine 180 mg twice daily. Sedation is much better, but still having some dryness. No bruising when hives resolve. No angioedema. She avoids NSAIDs as they trigger a rash. No clear precipitating factors for hives. Medication Allergy: Allergies Allergen Reactions ??? Aspirin Other (see comments) ASPIRIN - Mouth ulcers and rash across chest ??? Erythromycin Other (see comments) ERYTHROMYCIN - Eyes swelled shut ??? Ibuprofen Other (see comments) Mouth ulcers and rash ??? Nsaids (Non-Steroidal Anti-Inflammatory Drug) Rash Mouth ulcers ??? Zaleplon Headache SONATA - Caused migraines PMH: Past Medical History: Diagnosis Date ??? Varicella PSH: Past Surgical History: Procedure Laterality Date ??? OTHER CONVERTED SHX (SEE COMMENT) N/A 12/05/2002 >Right temporal cranioplasty with a Anna CAMACHO. Restabilization of previously placed bone flap. ??? OTHER CONVERTED SHX (SEE COMMENT) N/A 06/16/2001 >Right pterional craniotomy. Extradural removal sphenoid wing. ??? OTHER CONVERTED SHX (SEE COMMENT) N/A 02/07/2006 >Excision of lesion, right lateral canthus. Subciliary incision. Medications: Current Outpatient Medications: ??? acetaminophen (TYLENOL) 500 mg tablet, Take 2 tablets by mouth as needed., Disp: , Rfl: ??? acetaZOLAMIDE (DIAMOX) 125 mg tablet, Take 1 tablet (125 mg total) by mouth 2 (two) times a day.Altitude illness-begin day before ascent for total of 3 days, Disp: 12 tablet, Rfl: 0 ??? amLODIPine (NORVASC) 5 mg tablet, , Disp: , Rfl: ??? amoxicillin (AMOXIL) 500 mg capsule, amoxicillin 500 mg oral capsule See Instructions, 4 tabletsx 1 dose 60 minutes before procedure, Disp: , Rfl: ??? betamethasone dipropionate (DIPROLENE) 0.05 % cream, , Disp: , Rfl: 1 ??? cetirizine (ZyrTEC) 10 mg tablet, TAKE 2 TABLETS BY MOUTH BY MOUTH EVERY MORNING AND 2 EVERY EVENING, Disp: , Rfl: ??? ciclopirox (PENLAC) 8 % external solution, , Disp: , Rfl: ??? EPINEPHrine (EPIPEN) 0.3 mg/0.3 mL injection syringe, Inject 0.3 mg intramuscularly as needed., Disp: , Rfl: 0 ??? eszopiclone (LUNESTA) 3 mg tablet, Lunesta 3 mg oral tablet See Instructions, 1 TABLET AT BEDTIME, Disp: , Rfl: ??? HYDROcodone-acetaminophen (NORCO) 7.5-325 mg per tablet, HYDROcodone- acetaminophen 7.5 mg-325 mgoral tablet See Instructions, One po Q 4-6 hrs prn migraines, Disp: , Rfl: ??? levothyroxine (SYNTHROID, LEVOTHROID) 88 mcg tablet, Take 1 tablet by mouth every morning beforebreakfast. , Disp: , Rfl: ??? lisinopril (PRINIVIL,ZESTRIL) 10 mg tablet, Take 10 mg by mouth. , Disp: , Rfl: ??? methylphenidate HCl (CONCERTA) 36 mg CR tablet, Take 2 tablets by mouth daily., Disp: , Rfl: ??? mometasone (ELOCON) 0.1 % cream, Apply 1 application topically daily as needed (Rash)., Disp: 45g, Rfl: 0 ??? SUMAtriptan (IMITREX) 20 mg/actuation nasal spray, Administer into affected nostril(s) as needed., Disp: , Rfl: ??? traMADol (ULTRAM) 50 mg tablet, TK 1 T PO BID PRN P, Disp: , Rfl: 0 ??? traMADol ER (ULTRAM ER) 200 mg 24 hr tablet, Ultram ER 200 mg/24 hours oral tablet, extended release See Instructions, 1 TABLET DAILY, Disp: , Rfl: Family History: No family history on file. Social History: Social History Tobacco Use ??? Smoking status: Never Smoker Substance Use Topics ??? Alcohol use: Not on file ??? Drug use: Not on file Review of Systems: Answers for HPI/ROS submitted by the patient on 05/20/2021 Fatigue: Yes No eye issues: Yes No ENT issues: Yes Swelling in the legs or feet: Yes No respiratory issues: Yes No GI issues: Yes No muscle/bone issues: Yes Skin rash: Yes Headache: Yes Numbness or shooting pain in hands, arms, legs or feet: Yes Loud snoring: Yes Excessive daytime sleepiness/tiredness: Yes No blood/lymph issues: Yes No urinary/reproductive issues: Yes Physical Exam: There were no vitals taken for this visit. Gen: female in no acute distress Skin: no urticaria on exam Head: normocephalic Eyes: PERRLA Mouth/Throat: moist mucous membranes Neck: supple Chest: CTAB Cardiac: RRR Neuro: AOX3 Studies: Component Latest Ref Rng & Units 05/21/2021 Potassium, S 3.6 - 5.2 mmol/L 4.6 Sodium, S 135 - 145 mmol/L 140 Chloride, S 98 - 107 mmol/L 100 Bicarbonate, S 22 - 29 mmol/L 31 (H) Anion Gap 7 - 15 9 BUN (Blood Urea Nitrogen), S/P 6 - 21 mg/dL 16 Creatinine, S 0.59 - 1.04 mg/dL 0.93 eGFR-Non Black/ >=60 mL/min/BSA 69 eGFR-Black/ >=60 mL/min/BSA 79 Calcium, Total, S 8.6 - 10.0 mg/dL 9.8 Glucose, S 70 - 140 mg/dL 80 Protein, Total, S 6.3 - 7.9 g/dL 7.5 Albumin, S 3.5 - 5.0 g/dL 4.9 Aspartate Aminotransferase (AST), S 8 - 43 U/L 22 Alkaline Phosphatase, S 35 - 104 U/L 82 Alanine Aminotransferase (ALT), S 7 - 45 U/L 20 Bilirubin, Total, S <=1.2 mg/dL 0.5 Hemoglobin 11.6 - 15.0 g/dL 15.0 Hematocrit 35.5 - 44.9 % 45.5 (H) Erythrocytes 3.92 - 5.13 x10(12)/L 4.98 MCV 78.2 - 97.9 fL 91.4 RBC Distrib Width 12.2 - 16.1 % 12.4 Platelet Count 157 - 371 x10(9)/L 165 White Blood Cell Count 3.4 - 9.6 x10(9)/L 4.3 Neutrophils 1.56 - 6.45 x10(9)/L 2.53 Lymphocytes 0.95 - 3.07 x10(9)/L 1.15 Monocytes 0.26 - 0.81 x10(9)/L 0.36 Eosinophils 0.03 - 0.48 x10(9)/L 0.17 Basophils 0.01 - 0.08 x10(9)/L 0.04 Assessment/Plan: 55 y/o female patient with a history of hypothyroidism on levothyroxine here for evaluation of chronic hives. 1. Chronic urticaria - currently well controlled Chronic urticaria is most likely spontaneous/idiopathic. No clear triggering factors. CBC with differential and CMP checked today are overall normal. She is being following for hypothyroidism. For chronic urticaria, recommend continuing fexofenadine 180 mg twice daily. Reviewed possible side effects. After 1 month, she can try reducing the dose of fexofenadine to 180 mg once daily. If in the future hives are not controlled on maximum doses of antihistamines, then we could consider start omalizumab. Patient agrees with the plan. Candi Hiwot Terese expressed their understanding and agreement with the plan. I answered all their questions to the best of my abilities. I personally spent over half of a total [45] minutes face to face with the patient in counseling anddiscussion and/or coordination of care as described above. Patient Education Ready to learn, no apparent learning barriers were identified; learning preferences include listening. Explained diagnosis and treatment plan; patient expressed understanding of the content. Raheem Larsen M.D. Division of Allergic Diseases documented in this encounter Plan of Treatment Upcoming Encounters Date Type Specialty Care Team Description 07/21/2022 Office Visit Sleep Medicine Mahad Bustamante M .D. [address] [place] [phone] (Wo rk) documented as of this encounter Results (ABNORMAL) Comprehensive Metabolic Panel (05/21/2021 9:51 AM CDT) P athologist Signature Potassium, S 4.6 3.6 - 5.2 05/21/2021 DTL mmol/L 10:53 AM CDT Sodium, S 140 135 - 145 05/21/2021 DTL mmol/L 10:53 AM CDT Chloride, S 100 98 - 107 05/21/2021 DTL mmol/L 10:53 AM CDT Bicarbonate, S 31 (H) 22 - 29 05/21/2021 DTL mmol/L 10:53 AM CDT Anion Gap 9 7 - 15 05/21/2021 DTL 10:53 AM CDT BUN (Blood Urea 16 6 - 21 05/21/2021 DTL Nitrogen), S mg/dL 10:53 AM CDT Creatinine 0.93 0.59 - 05/21/2021 DTL 1.04 mg/dL 10:53 AM CDT eGFR-Non 69 >=60 05/21/2021 DTL Black/ mL/min/BSA 10:53 AM CDT [place]an Comment: ----ADDITIONAL INFORMATION---- Estimated GFR calculated using the 2009 CKD_EPI creatinine equation. eGFR-Black/ 79 >=60 mL/min/BSA 2020 10:53 AM CDT DTL Comment: ----ADDITIONAL INFORMATION---- Estimated GFR calculated using the 2009 CKD_EPI creatinine equation. Calcium, Total, S 9.8 8.6 - 10.0 mg/dL 05/21/2021 10:5 3 AM CDT DTL Glucose, S 80 70 - 140 mg/dL 05/21/2021 10:53 AM CDT DTL Protein, Total, S 7.5 6.3 - 7.9 g/dL 05/21/2021 10:53 AM CDT DTL Albumin, S 4.9 3.5 - 5.0 g/dL 05/21/2021 10:53 AM CDT DTL Aspartate Aminotransferase 22 8 - 43 U/L 05/21/2021 1 0:53 AM CDT DTL (AST), S Alkaline Phosphatase, S 82 35 - 104 U/L 05/21/2021 10 :53 AM CDT DTL Alanine Aminotransferase (ALT), 20 7 - 45 U/L 021 10:53 AM CDT DTL S Bilirubin, Total, S 0.5 <=1.2 mg/dL 05/21/2021 10:53 A M CDT DTL Specimen Anatomical Collection Method Collection Time Receive d Time (Source) Location / / Volume Laterality Blood (Blood, 05/21/2021 9:51 AM 05/21/20 21 Venous) CDT 10:27 AM CDT Raheem Larsen M.D. LAB BLOOD ADD-ON Performing Organization Address City/State/ZIP Code Phon e Number [facility] - [address] [place], [place] [address] [facility] [place] [address] [facility] 200 [facility] (ABNORMAL) CBC with Differential, Blood (05/21/2021 9:51 AM CDT) [facility] gist Method Time Signature Hemoglobin 15.0 11.6 - 05/21/2021 DTL 15.0 g/dL 10:32 AM CDT Hematocrit 45.5 (H) 35.5 - 05/21/2021 DTL 44.9 % 10:32 AM CDT Erythrocytes 4.98 3.92 - 05/21/2021 DTL 5.13 10:32 AM CDT x10(12)/L MCV 91.4 78.2 - 05/21/2021 DTL 97.9 fL 10:32 AM CDT RBC Distrib Width 12.4 12.2 - 05/21/2021 DTL 16.1 % 10:32 AM CDT Platelet Count 165 157 - 371 05/21/2021 DTL x10(9)/L 10:32 AM CDT Leukocytes 4.3 3.4 - 9.6 05/21/2021 DTL x10(9)/L 10:32 AM CDT Neutrophils 2.53 1.56 - 05/21/2021 DTL 6.45 10:32 AM CDT x10(9)/L Lymphocytes 1.15 0.95 - 05/21/2021 DTL 3.07 10:32 AM CDT x10(9)/L Monocytes 0.36 0.26 - 05/21/2021 DTL 0.81 10:32 AM CDT x10(9)/L Eosinophils 0.17 0.03 - 05/21/2021 DTL 0.48 10:32 AM CDT x10(9)/L Basophils 0.04 0.01 - 05/21/2021 DTL 0.08 10:32 AM CDT x10(9)/L Specimen Anatomical Collection Method Collection Time Receive d Time (Source) Location / / Volume Laterality Blood (Blood, 05/21/2021 9:51 AM 05/21/20 Venous) CDT 10:17 AM CDT Raheem Larsen M.D. LAB BLOOD ADD-ON Performing Organization Address City/State/ZIP Code Phon e Number [facility] - [address] [place], [place] [address] [facility] [place] [address] [facility] [address] documented in this encounter Visit Diagnoses Diagnosis Urticaria Chronic - Primary Hives documented in this encounter Care Teams Case Management Director Relationship Specialty Start Date End Date Elsewhere, Pcp PCP - General Family Medicine 05/20/21 documented as of this encounter
--- OUTSIDE RECORDS SUMMARY | 2022-06-14 15:24 | XMS_ITS | Encounter Summary ---
:[address] [facility] Address [address] [place] [address] Care Team Providers Name Role Phone Elsewhere, Pcp Primary Care Provider Unavailable Encounter Details Date Type Department Care Team Description 05/20/2021 Clinical Communication Division of Allergic [place]ia[place], Raheem Diseases in Jeffy Walton M.D. [place] [address] [facility] [address] [place] [phone] Social History Tobacco Use Types Packs/Day Years [...] do you attend bahai or Never 2021 evangelical services? Do you [...] have completed or the highest Elias, MEd, BREAKFAST SUPERVISOR, JAX) degree you have received? Sex Assigned at Date Recorded Female 06/25/2021 7:39 PM CDT documented as of this encounter Plan of Treatment Upcoming Encounters Date Type Specialty Care Team Description 07/21/2022 Office Visit Sleep Medicine Mahad Bustamante M .D. [address] [place], [place] [phone] (Wo rk) documented as of this encounter Visit Diagnoses Not on filedocumented in this encounter Care Teams Orthophoto Tech/Draftsman Relationship Specialty Start Date End Date Elsewhere, Pcp PCP - General Family Medicine 05/20/21 documented as of this encounter
--- OUTSIDE RECORDS SUMMARY | 2022-06-14 15:24 | XMS_ITS | Encounter Summary ---
:1965 Author Organization [facility] Address [address] [place] [address] Care Team Providers Name Role Phone Elsewhere, Pcp Primary Care Provider Unavailable Encounter Details Date Type Department Care Team Description 08/24/2021 Telemedicine Department of Dental Dmaon Khan I., [facility] [place] [address] [place] [phone] Social History Tobacco Use Types Packs/Day [...] do you attend sabianist or Never 2021 moravian services? Do you belong to any clubs [...] have completed or the highest Elias, MEd, MANAGER STAFFING, JAX) degree you have received? Sex Assigned at Date Recorded Female 06/25/2021 7:39 PM CDT documented as of this encounter Consult Notes Damon Khan D.M.D. - 08/24/2021 11:00 AM CST This video visit was conducted during the COVID-19 pandemic during which social distancing was encouraged. This visit with was conducted via real-time video technology originating from [place], [place]. Ms. Gudino was referred for Orofacial Pain evaluation by me and was at home at time of our video consultation. Ms. Gudino underwent evaluation in the Sleep Medicine Clinic where she was determined to have an apnea-hypopnea index of 74 on polysomnogram. CPAP was recommended and she is currently awaiting the arrival of a nasal interface. During the polysomnogram, the CPAP straps presented a mechanical stimulus to the right side of her face which grossly exacerbated her right 2nd division neuropathic pain. She developed ice pick sensations in the right face with pain reference to her teeth as she had in years past. She is very concerned that the CPAP strap will be intolerable and wanted to discuss options with me. I suggested that she consider taping the straps, otherwise reorienting their position by tying perhaps a string around them both or considering other options. These may include wearing a lidocaine patch on the right face during sleep, the pre-sleep application of EMLA cream or even and orthodontic type of appliance that will act as a barrier so that the strap does not touch her face. She is going to have a trial of CPAP over the next few weeks and then meet with Dr. Head. In the meantime, I will talk with some of my pain clinic colleagues about the advisability of lidocaine patchnightly and or M lock cream nightly. I will also discuss the potential for developing a mechanical barrier so that CPAP strap does not touch the right side of her face. I strongly urged her to be in of eight of and persistent with CPAP. Her apnea- hypopnea index is severe and we had a lengthy discussion about that as well, reinforcing the information shared with her byDr. Head. She has an appointment in ENT on September 30 to address her right nasal obstruction. She was curiousabout the possibility that the nasal obstruction would cause her obstructive sleep apnea. I repeatedly emphasized that her obstructive sleep apnea is not caused by the right nasal obstruction. She verba lized an understanding. We will touch base again either before or on September 30. I will look into the possibilities referenced above. I will of course discuss these ultimately with Dr. Head as well to ensure that they do not compromised the affect of the CPAP. I spent 15 minutes reviewing appropriate medical records and in video consultation with Ms. Gudino greater than 50% of which was spent to youth counselor and coordinate care. TOP HAT BODY MAKER documented in this encounter Plan of Treatment Upcoming Encounters Date Type Specialty Care Team Description 07/21/2022 Office Visit Sleep Medicine Mahad Bustamante M .D. [address] [place], [place] [phone] (Wo rk) documented as of this encounter Visit Diagnoses Not on filedocumented in this encounter Care Teams Clock Smith Relationship Specialty Start Date End Date Elsewhere, Pcp PCP - General Family Medicine 05/20/21 documented as of this encounter
--- OUTSIDE RECORDS SUMMARY | 2022-06-14 15:24 | XMS_ITS | Encounter Summary ---
:1965 Author Organization [facility] Address [address] [place] [id number] Care Team Providers Name Role Phone Unavailable Primary Care Provider Unavailable Reason for Referral Outpatient (Routine) - Closed Specialty Diagnoses / Procedures Referred By Contact Refer red To Contact Sleep Medicine Diagnoses Obstructive Sleep Apnea Adult Damon Khan D.M.D. [address] [phone] Referral ID Status Reason Start Date Expiration Date Visits V isits Requested Authorized [id number] Closed Specialty 04/07/2021 04/07/2022 1 1 Services Required Scheduling Instructions Please schedule with Dr. Cabral or James Sanchez Escalante and or Jennifer Outpatient (Routine) - Closed Specialty Diagnoses / Procedures Referred By Contact Refer red To Contact Allergy and Immunology Diagnoses Hives Damon Khan [facility] Harjit [address] [place] [phone] Referral ID Status Reason Start Date Expiration Date Visits V isits Requested Authorized [id number] Closed Specialty 04/07/2021 04/07/2022 1 1 Services Required Scheduling Instructions Please schedule with Dr. Mcdaniels or Dr. aLrsen Reason for Visit Reason Comments Orofacial Pain Consultation Appointment Request (Routine) - Closed Specialty Diagnoses / Procedures Referred By Contact Refer red To Contact Dental Specialties Referral ID Status Reason Start Date Expiration Date Visits Requ ested Visits Authorized [id number] Closed 02/02/2021 02/02/2022 1 1 Encounter Details Date Type Department Care Team Description 04/07/2021 Office Visit Department of Dental Damon Khan I., Ela holt (Primary Dx); Specialties in [place]. Obstructive S leep Apnea Adult; [place], [place] [facility] [address] [place] [phone] Social History Tobacco Use Types Packs/Day Years [...] do you attend latter-day or Never 2021 hoahaoism services? Do you belong to any clubs [...] encounter Progress Notes Damon Khan D.M.D. - 04/07/2021 11:00 AM CDT SUBJECTIVE Candi Gudino is a 55 y.o. female who presents for the following concerns.: 1. Persistent fatigue, necessitating long naps and severe snoring with snort arousals throughout thenight ( confirmed) 2. Concerns related to nose and specifically obstruction and difficulty breathing through nose 3. Chronic hives 4. 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 This is well controlled at present. Understandably,Ms. Gudino is reticent with regard to nasal surgery and or wearing an interface for obstructive sleep apnea management. Distant history of polysomnogram. Reportedly no obstructive sleep apnea. However, over time, she hasgained weight, snoring is much more severe in disruptive, and she is exhausted most of the time. Sheawakens exhausted every morning and on most days will take a two or 3 hour nap even after sleeping an ywhere from 8-14 hours the night before. She has assumed that the information regarding the absence of obstructive sleep apnea, generated all those years ago is still applicable and that she may need rhinoplasty. I advised her that this is not necessarily the case and that we should proceed with request for new sleep medicine consultation. Consultation many years ago reportedly revealed obstruction within the nasal cavity and surgical intervention was recommended. Due to the fact that she has struggled tremendously with oral facial neuropathic pain (please see oral facial pain notes for details) she did not want to proceed with rhinoplasty. Her facial pain is much more controlled at this point and though she was reluctant, she elected to return to discuss the prospect of rhinoplasty and or sleep medicine evaluation with me. She was diagnosed with chronic hives which was a condition her father had for many years. She takes to Zyrtec in the morning and two in the evening. This seems to control her symptoms fairly well but this sedative affect is quite troublesome and she would like to know if there are other options. She is curious if she needs a new inter occlusal appliance. She has no problems with the current device but simply wants to inquire about whether not she should have the current one replaced. OBJECTIVE Range of mandibular motion appears to be normal. Inter occlusal appliance is retentive and appears to be functional. No need to replace ASSESSMENT / PLAN #1 Disordered Breathing - query SHANNON #2. Nasal obstruction #3. Chronic Hives 1. Recommend repeat sleep medicine consultation. If she has mild to moderate obstructive sleep apneaand wishes to avoid a CPAP interface for fear that it will exacerbate her pain, she may benefit froma mandibular repositioning appliance. I advised her that we should have updated information regarding the presence or absence of sleep disorder breathing before proceeding with any interventions. She agrees and arrangements will be made 2. We will postpone consultation with Dr. Brian Small in ENT with regard to rhinoplasty. It may be that if disordered breathing is diagnosed, treatment may preclude the necessity of any sort of intervention to her nose. Alternatively, if she does not have obstructive sleep apnea, it may be that a mandibular repositioning appliance would be of assistance to her in ways that may preclude the need for nasal surgical intervention with hopes that it would reduce snoring and improve her sleep quality. This is purely speculative on my part but it is important to recognize that her oral facial pain history provides a very rational foundation for her concern about wearing a CPAP interface. She is also very concerned that any sort of nasal surgery would exacerbate the Oral Facial Pain that cripple to her quality of life for many years. 3. Chronic hives is controlled but perhaps at the expense of greater sedation. I will ask my colleagues in Allergy Medicine to evaluate, confirmed diagnosis and perhaps suggest other options at their discretion. Finally, once these consultations are complete,Ms. Gudino and I will meet virtually to discuss nextsteps. At this point my involvement is solely based on my historical management of her chronic facial pain which as indicated disrupted her quality of life severely. She would like for me to help her make decisions with regard to next steps in order to avoid recurrence of pain intensity in frequency, if at all possible. I am happy to do so. documented in this encounter Plan of Treatment Upcoming Encounters Date Type Specialty Care Team Description 07/21/2022 Office Visit Sleep Medicine Mahad Bustamante M .D. [address] [place], [place] [phone] (Wo rk) Scheduled Referrals Name Type Priority Associated Diagnoses Order S chedule Allergy and Outpatient Referral Routine Hives Expected : Immunology - General 021 consult (clinic) (Approximat e), Expires: 04/07/2024 Sleep Medicine - Outpatient Referral Routine Obstructive Sleep Expected: General consult Apnea Adult 04/07/2021 (clinic) (Approximate), Expires: 04/07/2024 documented as of this encounter Visit Diagnoses Diagnosis Hives - Primary Obstructive Sleep Apnea Adult Pain Neuropathic documented in this encounter
--- OUTSIDE RECORDS SUMMARY | 2022-06-14 15:24 | XMS_ITS | Encounter Summary ---
:1965 Author Organization [facility] Address [address] [place] [address] Care Team Providers Name Role Phone Elsewhere, Pcp Primary Care Provider Unavailable Encounter Details Date Type Department Care Team Description 09/27/2021 Lab Department of Laboratory Damon Khan I., Contact With And (Suspected) Exposure To COVID-19; Medicine and Pathology, D.M.DKhai Prep rocedural Lab Exam [facility] [place], [place] [address] [place] [phone] Social History Tobacco Use Types Packs/Day [...] or relatives? How often do you attend scientologist or Never 2021 hinduism services? 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 Sex Assigned at Date Recorded Female 06/25/2021 7:39 PM CDT documented as of this encounter Plan of Treatment Upcoming Encounters Date Type Specialty Care Team Description 07/21/2022 Office Visit Sleep Medicine Mahad Bustamante M .D. [address] [place], [place] [phone] (Wo rk) documented as of this encounter Procedures Procedure Name Priority Date/Time Associated Diagnosis Comme nts SARS COV-2 RNA, Routine 09/27/2021 1:43 PM Contact With And Re sults for this PCR, VARIES PETS SALESPERSON (Suspected) Exposure procedu re are in To COVID-19 the results Preprocedural Lab section. Exam documented in this encounter Results SARS CoV-2 RNA, PCR, Varies Asymptomatic (09/27/2021 1:43 PM PETS SALESPERSON) [facility] Method Time Signature SARS CoV-2 Swab, 09/27/2021 DTL RNA, PCR, Nasopharynx 8:55 PM PETS SALESPERSON Source SARS CoV-2 Undetected Undetected 09/27/2021 DTL RNA, PCR 8:55 PM PETS SALESPERSON Comment: SARS-CoV-2 RNA absent. This result does not rule out COVID-19 in the patient, as the sensitivity of the test depends o n the timing of the specimen collection and quality of the specimen. Result should be correlated with patient's history and clinical presentat ion. ----ADDITIONAL INFORMATION---- This RT-PCR test has received Emergency Use Authorization (EUA) by the U.S. Food and Drug Administration an d is used per shared services manager's instructions. Performance characteristics were verified by [facility] in a manner consistent with CLIA requirements. Visit the CDC website: https://www.cdc.g ov/coronavirus/ for the most recent guidelines on Coron avirus testing. Fact Sheet for Healthcare Providers: https://www.fda.gov/media/779402/downloa d Fact Sheet for Patients: https://www.fda.gov/media/636190/downloa d Specimen Anatomical Collection Method Collection Time Receive d Time (Source) Location / / Volume Laterality Varies 09/27/2021 1:43 PM 2:36 (Nasopharynx) PETS SALESPERSON PM PETS SALESPERSON Damon Khan D.M.D. LAB MICROBIOLOGY - GENERAL O CHEY Performing Organization Address City/State/ZIP Code Phon e Number [facility] - [address] [place] [phone] [facility] [place] [address] Laboratories-[address] documented in this encounter Visit Diagnoses Diagnosis Contact With And (Suspected) Exposure To COVID-19 Preprocedural Lab Exam documented in this encounter Additional Health Concerns Infection Onset Date Last Indicated Resolved Time COVID19 Pending 09/27/2021 09/27/2021 09/27/2021 8:55 PM PETS SALESPERSON documented as of this encounter Care Teams Member Of The Legislative Assembly Relationship Specialty Start Date End Date Elsewhere, Pcp PCP - General Family Medicine 05/20/21 documented as of this encounter
--- OUTSIDE RECORDS SUMMARY | 2022-06-14 15:24 | XMS_ITS | Encounter Summary ---
:1965 Author Organization [facility] Address [address] [place] [address] Care Team Providers Name Role Phone Elsewhere, Pcp Primary Care Provider Unavailable Reason for Referral Outpatient (Routine) - Closed Specialty Diagnoses / Procedures Referred By Contact Refer red To Contact Sleep Medicine Kraig Head M.B., [facility] Ch.B. [address] [place] [phone] Referral ID Status Reason Start Date Expiration Date Visits Requ ested Visits Authorized [id number] Closed 07/01/2021 07/01/2022 1 1 Outpatient (Routine) - Closed Specialty Diagnoses / Procedures Referred By Contact Refer red To Contact Diagnoses Obstructive Sleep Apnea Adult Kraig Head M.B., [facility] Procedures Polysomnography (PSG): Split Night (STANDARD); Non-Positional SHANNON, Positional SHANNON, RERA; CPAP, ASV Ch.B. [address] [place] [phone] Referral ID Status Reason Start Date Expiration Date Visits Requ ested Visits Authorized [id number] Closed 07/01/2021 07/01/2022 1 1 Reason for Visit Outpatient (Routine) - Closed Specialty Diagnoses / Procedures Referred By Contact Refer red To Contact Sleep Medicine Diagnoses Obstructive Sleep Apnea Adult Damon Khan D.M.D. [place] [address] [place] [phone] Referral ID Status Reason Start Date Expiration Date Visits V tyrone Requested Authorized [id number] Closed Specialty 04/07/2021 04/07/2022 1 1 Services Required Encounter Details Date Type Department Care Team Description 07/01/2021 Comprehensive Visit Center for Sleep Kraig Head [facility] Sleep Medicine in [place], Ch.B. Apnea Adult [place], [address] [place], [place] [address] [place] [phone] [place], [place] [phone] (Work) [phone] Social History Tobacco Use Types Packs/Day Years [...] or relatives? How often do you attend hoahaoism or Never 2021 sikh services? 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 Sex Assigned at Date Recorded Female 06/25/2021 7:39 PM CDT documented as of this encounter Last Filed Vital Signs Vital Sign Reading Time Taken Comments Blood Pressure 120/82 07/01/2021 10:46 AM CDT Pulse 88 07/01/2021 10:46 AM CDT Temperature - - Respiratory Rate - - Oxygen Saturation - - Inhaled Oxygen Concentration - - Weight 101 kg (222 lb 7.1 oz) 07/01/2021 10:46 AM CDT Height 173.1 cm (5' 8.15) 07/01/2021 10:46 AM CDT Body Mass Index 33.67 07/01/2021 10:46 AM CDT documented in this encounter Consult Notes Kraig Head M.B., Ch.B. - 07/01/2021 11:00 AM CDT SUBJECTIVE REFERRING PROVIDER Damon Khan D.M.D. REASON FOR CONSULT Question of sleep apnea HISTORY OF PRESENT ILLNESS #1 Question of sleep apnea I took a history from the patient. I examined the patient. I agree with the findings as documented by Dr. Meade on the note of today summarized below. The patient has a complex background history of a craniotomy for a paraclinoid aneurysm and a subsequent right temporal cranioplasty. 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 She has chronic facial pain on the right which may be trigeminal neuralgia. In 2006 polysomnography at [place] showed an AHI of 3. However, 66% of 45 arousals per hour were breathing related. Minimum saturation was 93%. CPAP resolved all sleep disordered breathing. It was decidedshe did not need treatment at that time. She has increased her weight at least 20 lb. Her tells me that snoring is now present in allpositions and he and the patient have noted snort arousals. He has noticed apneas. She sleeps on herright side and her back. With the help of 3 mg Lunesta she goes to bed between 9 and 10:00 p.m. falling asleep easily. She takes 200 mg tramadol ER before bed for pain. She wakes twice during the night either because of snorting or to use the bathroom but returns to sleep easily. She wakes with an alarm at 5:00 a.m. on week days and spontaneously at 11:00 a.m. on weekends with a dry mouth. She is only mildly sleepy during the day, dozing later in the day watching TV and reading with an Whiteface Sleepiness Scale of 6. She does not fall asleep driving. However, this is confounded by her useof 72 mg Concerta for ADD. She naps once or twice a week for 2 to 3 hours. OBJECTIVE PHYSICAL EXAM Blood Pressure: 120/82 (07/01/2021 10:46 AM) Pulse Rate: 88 (07/01/2021 10:46 AM) BMI (Calculated): 33.7 kg/m?? 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 Right nostril occluded. Lips, teeth, and gums normal. Lymph: No abnormal lymphadenopathy in neck or supraclavicular region Neck: Normal. Neck circumference 41 cm. Thyroid normal. ASSESSMENT / PLAN #1 Probable obstructive sleep apnea The patient has many features suggest obstructive sleep apnea including heavy snoring, snort arousals, observed apneas, mild daytime sleepiness, weight gain, hypertension, the anatomic orientation of her oropharynx and a strong family history of sleep apnea in her father and sister. We will proceed to nocturnal polysomnography rather than a home sleep apnea test so that we can try CPAP during the night and see if she can tolerated. The other reason for doing a in-lab study is because of her use of tramadol which can induce central rather than obstructive apnea which could not be adequately assessed with a home sleep apnea test. We will use nasal pillows with CPAP as this may be more tolerable to her. I will see her back in the morning. Miriam Meade M.D. - 07/01/2021 11:00 AM CDT [facility] Initial consultation note 07/01/21 SUBJECTIVE CHIEF COMPLAINT / REASON FOR VISIT Damon Khan D.M.D. requests evaluation for snoring. HISTORY OF PRESENT ILLNESS is a 56 y.o. 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 She further underwent a right temporal cranioplasty in 2002. 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 she presents to sleep clinic for snoring. History is obtained from patient and her . Ms. Gudino says that she never snored until after her facial surgeries in 2000. Since that time, she has had loud snoring and her notes multiple episodes of sorting awake and irregular breathing. She had a overnight polysomnogram in 2006 where CPAP was trialed but ultimately no treatment was p ursued due to the mild severity and difficulty tolerating the mask with her facial pain. Her husbandsays in the last 7-8 years her snoring has grown worse. The breathing cessation has become more prominent and now patient is also aware of occasional snorting awake. She does endorse a dry mouth on waking up and says she sleeps with her mouth open because 1 of her nostrils is plugged chronically from her surgeries. She has significant facial pain over her right cheek as a result of the surgery for which she takes nightly tramadol 200mg. She typically goes to bed between 9 and 10 after taking 3 mg of Lunesta. Sleep is often immediate and she sleeps 3-4 hours of restful sleep. Her says her snoring increases through the night andis very prominent by 1:00 a.m.. Patient says she typically wakes up at 1:00 a.m. and 3:30 a.m. but is able to go back to sleep immediately after using the bathroom. She wakes up to an alarm at 5:00 a.m. on weekdays and 11:00 a.m. without alarm on weekends. She will often nap 1-2 hours on weekend days.Her says she sleeps mostly on her right side and back and has not noticed a difference in snoring based on position. She does not have any daytime drowsiness in the morning hours, during driving (including the 40 minute commute to and from work), or when with other people. She does have a tendency to nod off at home on the couch if reading or watching television in the evening. Whiteface scale 6. She is on Concerta 72mg daily for ADHD. The following portions of the patient's history were reviewed and updated as appropriate: allergies,current medications, family history, medical history, social history, surgical history. 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 She lives at home with her . She drinks one cup of coffee per day. She has 2oz scotch 2-3 times per week. No tobacco or other drug use. FAMILY HISTORY: Father and sister both diagnosed with sleep apnea requiring CPAP. REVIEW OF SYSTEMS: Positives are as stated above in the HPI. Remainder performed and was negative. Answers for HPI/ROS submitted by the patient [...] blood/lymph issues: Yes No urinary/reproductive issues: Yes OBJECTIVE PHYSICAL EXAM Vitals: 07/01/21 1046 BP: 120/82 Pulse: 88 Body mass index is 33.67 kg/m??. General Appearance: Normal. NAD. Ears, Nose, Mouth and Throat: Nose normal. Teeth and gums normal. Mallampati score 4 with a narrow throat. No air movement through her right nostril with exhale Neck: Neck: Neck circumference: 41cm. Respiratory: Chest expansion and symmetry normal. Respiratory effort normal. Cardiovascular: Extremities warm and well perfused. Musculoskeletal: Gait normal. Extremities: No clubbing, cyanosis or edema. Skin: No rash or significant lesions noted. Neurological/psychiatric: Oriented to time, place and person. Mood and affect normal. ASSESSMENT / PLAN #1 Probable obstructive sleep apnea Ms. Gudino has multiple risk factors for SHANNON including snoring with observed apneas and snort arousals, weight gain, family history, throat anatomy, and mild daytime sleepiness. There has been significant change since the prior polysomnography test in 2006. We will pursue in-lab polysomnography to determine the severity of apnea present and tolerability of CPAP devices. Plan: 1. Overnight polysomnogram with CPAP trial - in-lab will allow opportunity to see if her facial pain will allow CPAP treatment 2. Follow-up after nocturnal polysomnogram Patient was seen and discussed with Dr. Adilene Meade MD FISCAL SERVICES MANAGER/Epilepsy Fellow documented in this encounter Plan of Treatment Upcoming Encounters Date Type Specialty Care Team Description 07/21/2022 Office Visit Sleep Medicine Mahad Bustamante M .D. [address] [place] [phone] (Wo rk) Scheduled Referrals Name Type Priority Associated Diagnoses [facility] Outpatient Referral Routine Expect ed: office visit 07/01/2021 (clinic) (Approximate), Expires: 07/01/2024 documented as of this encounter Results Polysomnography (PSG): Split Night (STANDARD); Non-Positional SHANNON, Positional SHANNON, RERA; CPAP, ASV (08/14/2021 5:37 AM REGIONAL VICE PRESIDENT LIFE SALES) Specimen (Source) Anatomical Location Collection Method / Collectio n Time Received Time / Laterality Volume Narrative ONBASE - 08/14/2021 8:42 AM REGIONAL VICE PRESIDENT LIFE SALES SUMMARY Polysomnography showed 73 predominantly obstructive apneas and hypopneas per hour with events occurring in all po sitions and states. ??Occasional central apneas was seen in the supine po sition. ??There were an additional 2.4 respiratory effort-related arousals per hour for total respiratory disturbance index of 75.6 per hour. ??[facility] oxyhemoglobin saturation was 95% with mean saturation [...] and REM and slow-wave rebound. Kraig Lovell, [facility]Khai[facility]. [facility]EP [facility]ENTER ORDERABLES Performing Organization Address City/State/ZIP Code Phon e Number ONBASE ONBASE NA documented in this encounter Visit Diagnoses Diagnosis Obstructive Sleep Apnea Adult Obstructive Sleep Apnea Adult documented in this encounter Care Teams Skip Hoist Operator Relationship Specialty Start Date End Date Elsewhere, Pcp PCP - General Family Medicine 05/20/21 documented as of this encounter
--- OUTSIDE RECORDS SUMMARY | 2022-06-14 15:24 | XMS_ITS | Encounter Summary ---
:1965 Author Organization [facility] Address [address] [place] [address] Care Team Providers Name Role Phone Unavailable Primary Care Provider Unavailable Encounter Details Date Type Department Care Team Description 05/13/2009 Hospital Encounter H[facility] Hazel Resendez M.D. [address] [place], [place] [phone] (Wo rk) Social History [...] or relatives? How often do you attend zoroastrianism or Never 2021 christianity services? Do you belong to any clubs or Yes 04/18/2022 organizations such as zoroastrianism groups, unions, fraternal or athletic groups, or [...] or slept in a mcc (including now)? Sex Assigned at Date Recorded [...] Encounter - Conversion, Historical Provider Ser - 05/13/2009 12:00 AM CDT [id number] Patient calling for refills of Ultram 50 mg. And Nasacort for 90 day supply. Has a new insurance carrier. Source: [facility] RWHXTRANSXRTFSYS Document Id: [id number] documented in this encounter Plan of Treatment Upcoming Encounters Date Type Specialty Care Team Description 07/21/2022 Office Visit Sleep Medicine Mahad Bustamante M .D. [address] [place] [phone] (Wo rk) documented as of this encounter Visit Diagnoses Not on filedocumented in this encounter
--- OUTSIDE RECORDS SUMMARY | 2022-06-14 15:24 | XMS_ITS | Encounter Summary ---
:1965 Author Organization [facility] Address [address] [place] [address] Care Team Providers Name Role Phone Elsewhere, Pcp Primary Care Provider Unavailable Encounter Details Date Type Department Care Team Description 05/21/2021 Hospital Encounter Department of Laboratory Raheem Larsen Medicine and Pathology, [place] [address] [place] [address] [place] [phone] [place] [address] [phone] Social History Tobacco Use Types Packs/Day Years [...] do you attend evangelical or Never 2021 mormon services? 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 Sex Assigned [...] 100mg is tablet prescribed at this time acetaminophen Take 2 tablets by 0 12/24/2008/0 02/2021 (TYLENOL) 500 mg mouth as needed. tablet acetaZOLAMIDE (DIAMOX) Take 1 tablet (125 mg 12 tablet 0 07/01/2021 125 mg tablet total) by mouth 2 (two) times a day. Altitude illness-begin day before ascent for total of 3 days amLODIPine (NORVASC) 5 0 04/09/20212 mg tablet amoxicillin (AMOXIL) amoxicillin 500 mg 0 014 10/22/2021 500 mg capsule oral capsule See Instructions, 4 tablets x 1 dose 60 minutes before procedure betamethasone 1 12/23/2017 10/22/2021 dipropionate (DIPROLENE) 0.05 % cream cetirizine (ZyrTEC) 10 TAKE 2 TABLETS BY 0 202010/22/2021 mg tablet MOUTH BY MOUTH EVERY MORNING AND 2 EVERY EVENING ciclopirox (PENLAC) 8 0 04/09/2021 % external solution fexofenadine (SHREE) Take 1 tablet (180 mg 180 tablet 3 10/22/2021 180 mg total) by mouth 2 tabletIndications: (two) times a day. Hives levothyroxine Take 1 tablet by mouth 0 05/05/2017 09/30/2021 (SYNTHROID, every morning before LEVOTHROID) 88 mcg breakfast. tablet lisinopril Take 10 mg by mouth. 0 03/10/201809/27 (PRINIVIL,ZESTRIL) 10 mg tablet methylphenidate HCl Take [...] Medicine Mahad Bustamante M .D. [address] [place], [place] [phone] (Wo rk) documented as of this encounter Procedures Procedure Name Priority Date/Time Associated Comments Diagnosis CBC WITH DIFFERENTIAL, Routine 05/21/2021 9:51 AM Hives Results for this B CDT procedure are i n the results section. COMPREHENSIVE Routine 05/21/2021 9:51 AM Hives Results for this METABOLIC PANEL, S/P CDT procedu re are in the results section. documented in this encounter Results (ABNORMAL) Comprehensive Metabolic Panel [...] 05/21/2021 DTL Black/ mL/min/BSA 10:53 AM CDT Malian Comment: ----ADDITIONAL INFORMATION---- Estimated GFR calculated using [...] Organization Address City/State/ZIP Code Phon e Number [facility] - [address] [place], [place] [address] [facility] [place] [address] Laboratories-[facility] 200 [facility] (ABNORMAL) CBC with Differential, Blood (05/21/2021 9:51 AM CDT) [facility] Method Time Signature Hemoglobin 15.0 11.6 - [...] 05/21/2021 9:51 AM 05/21/20 21 Venous) CDT 10:17 AM CDT Raheem Larsen M.D. LAB BLOOD ADD-ON Performing Organization Address City/State/ZIP Code Phon e Number [facility] - [address] [place], [place] [address] [facility] [place] [address] Laboratories-[facility] [address] documented in this encounter Visit Diagnoses Diagnosis Hives documented in this encounter Care Teams Visual Aid Expert Relationship Specialty Start Date End Date Elsewhere, Pcp PCP - General Family Medicine 05/20/21 documented as of this encounter
--- OUTSIDE RECORDS SUMMARY | 2022-06-14 15:24 | XMS_ITS | Encounter Summary ---
:1965 Author Organization [facility] Address [address] [place] [address] Care Team Providers Name Role Phone Elsewhere, Pcp Primary Care Provider Unavailable Encounter Details Date Type Department Care Team Description 09/30/2021 Ancillary Procedure Department of Otorhinolaryngology Social History [...] do you attend yarsanism or Never 2021 amish services? 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 Sex Assigned at Date Recorded Female 06/25/2021 7:39 PM CDT documented as of this encounter Plan of Treatment Upcoming Encounters Date Type Specialty Care Team Description 07/21/2022 Office Visit Sleep Medicine Mahad Bustamante M .D. [address] [place], [place] [phone] (Wo rk) documented as of this encounter Procedures Procedure Name Priority Date/Time Associated Comments Diagnosis OTORHINOLARYNGOLOGY IMAGE Routine 09/30/2021 8:25 Results for this EXAM AM BRAKE LINER procedure are i n the results section. documented in this encounter Results Direct Laryngoscopy-Otorhinolaryngology Image Exam (09/30/2021 8:25 AM BRAKE LINER) Specimen (Source) Anatomical Collection Method Collection Time Re ceived Time Location / / Volume Laterality 09/30/2021 8:25 AM BRAKE LINER Narrative IIMS - 09/30/2021 9:37 AM BRAKE LINER This order has been created and auto-finalized [...] on filedocumented in this encounter Care Teams Circular Head Saw Operator Relationship Specialty Start Date End Date Elsewhere, Pcp PCP - General Family Medicine 05/20/21 documented as of this encounter
--- OUTSIDE RECORDS SUMMARY | 2022-06-14 15:24 | XMS_ITS | Encounter Summary ---
:1965 Author Organization [facility] Address [address] [place] [address] Care Team Providers Name Role Phone Elsewhere, Pcp Primary Care Provider Unavailable Encounter Details Date Type Department Care Team Description 08/12/2021 Lab Department of Kraig Head Preproce dural Lab Exam; Laboratory Medicine and MNeto, Ch .B. Contact With And (Suspected) Exposure To COVID-19 Pathology, [place] [address] [place] [address], in [facility] [phone] [place] [address] [place] [phone] Social History Tobacco Use Types Packs/Day Years [...] do you attend spiritism or Never 2021 amish services? 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 Sex Assigned at Date Recorded Female 06/25/2021 7:39 PM CDT documented as of this encounter Plan of Treatment Upcoming Encounters Date Type Specialty Care Team Description 07/21/2022 Office Visit Sleep Medicine Mahad Bustamante M .D. [address] [place] [phone] (Wo rk) documented as of this encounter Procedures Procedure Name Priority Date/Time Associated Diagnosis Comme nts SARS COV-2 RNA, Routine 08/12/2021 4:44 PM Preprocedural Lab Exam Results for this PCR, VARIES TEACHER OF THE DEAF Contact With And procedure a re in (Suspected) Exposure the res ults To COVID-19 section. documented in this encounter Results SARS CoV-2 RNA, PCR, Varies Asymptomatic (08/12/2021 4:44 PM TEACHER OF THE DEAF) [facility] Method Time Signature SARS CoV-2 Swab, 08/13/2021 DTL RNA, PCR, Nasopharynx 2:21 PM TEACHER OF THE DEAF Source SARS CoV-2 Undetected Undetected 08/13/2021 DTL RNA, PCR 2:21 PM TEACHER OF THE DEAF Comment: SARS-CoV-2 RNA absent. This result does [...] Drug Administration an d is used per admitting clerk's instructions. Performance characteristics were verified by [facility] in a manner consistent with CLIA requirements. Visit the CDC website: https://www.cdc.g ov/coronavirus/ for the most recent guidelines on Coron avirus testing. Fact Sheet for Healthcare Providers: https://www.fda.gov/media/394948/downloa d Fact Sheet for Patients: https://www.fda.gov/media/908185/downloa d Specimen Anatomical Collection Method Collection Time Receive d Time (Source) Location / / Volume Laterality Varies 08/12/2021 4:44 PM 5:33 (Nasopharynx) TEACHER OF THE DEAF PM TEACHER OF THE DEAF Kraig Lovell, Ch.B. LAB MICROBIOLOGY - GENERA L ORDERABLES Performing Organization Address City/State/[facility] Phon e Number [facility] - [address] [place] [phone] [place] [address] Laboratories-[facility] [address] documented in this encounter Visit Diagnoses Diagnosis Preprocedural Lab Exam Contact With And (Suspected) Exposure To COVID-19 documented in this encounter Additional Health Concerns Infection Onset Date Last Indicated Resolved Time COVID19 Pending 08/12/2021 08/12/2021 08/13/2021 2:22 PM TEACHER OF THE DEAF documented as of this encounter Care Teams Blank Driller Relationship Specialty Start Date End Date Elsewhere, Pcp PCP - General Family Medicine 05/20/21 documented as of this encounter
--- OUTSIDE RECORDS SUMMARY | 2022-06-14 15:24 | XMS_ITS | Encounter Summary ---
:1965 Author Organization [facility] Address [address] [place] [address] Care Team Providers Name Role Phone Unavailable Primary Care Provider Unavailable Encounter Details Date Type Department Care Team Description 07/08/2009 Hospital Encounter HX NO MAPPING Provider, Historical [...] do you attend religious or Never 2021 voodoo services? Do you [...] place to sleep or slept in a alf (including now)? Sex Assigned at Date Recorded [...] Miscellaneous Notes Miscellaneous - Conversion, Historical Provider Ser - 07/08/2009 12:00 AM CDT [id number] [address] [address] July 08, 2009 Candi Gudino [address] [place] [address] Dear Candi Gudino, Thank you for your interest in becoming a [employer] user. Please access the [employer] web site at [email or web address]. Your access code is: [email or web address] Access Code Expiration: TueOct 06, 2009 11:51 AM If you allow your access code to , or if you have any questions please call the [employer] national account representative at your primary clinic during normal clinic hours. Sincerely, [facility] Source: [facility] Document Id: [id number] documented in this encounter Plan of Treatment Upcoming Encounters Date Type Specialty Care Team Description 07/21/2022 Office Visit Sleep Medicine Mahad Bustamante M .D. [address] [place], [place] [phone] (Wo rk) documented as of this encounter Visit Diagnoses Not on filedocumented in this encounter
--- OUTSIDE RECORDS SUMMARY | 2022-06-14 15:25 | XMS_ITS | Encounter Summary ---
:1965 Author Organization [facility] Address [address] [place] [address] Care Team Providers Name Role Phone Unavailable Primary Care Provider Unavailable Encounter Details Date Type Department Care Team Description 04/06/2004 Hospital Encounter HX NO MAPPING Provider, Historical [...] or relatives? How often do you attend restorationist or Never 2021 restorationist services? Do you belong to any clubs or Yes 04/18/2022 organizations such as restorationist groups, unions, fraternal or athletic groups, or [...] or slept in a fci (including now)? Sex Assigned at Date Recorded Female 06/25/2021 7:39 PM CDT documented as of this encounter Plan of Treatment Upcoming Encounters Date Type Specialty Care Team Description 07/21/2022 Office Visit Sleep Medicine Mahad Bustamante M .D. [address] [place], [place] [phone] (Wo rk) documented as of this encounter Visit Diagnoses Not on filedocumented in this encounter
--- OUTSIDE RECORDS SUMMARY | 2022-06-14 15:25 | XMS_ITS | Encounter Summary ---
:1965 Author Organization [facility] Address [address] [place] [address] Care Team Providers Name Role Phone Unavailable Primary Care Provider Unavailable Encounter Details Date Type Department Care Team Description 10/31/2007 Hospital Encounter HX [facility] Hazel Resendez M.D. [address] [place], [place] [phone] (Wo rk) Social History [...] do you attend hinduism or Never 2021 synagogue services? Do you [...] slept in a nursing home (including now)? Sex Assigned at Date Recorded Female 06/25/2021 7:39 PM CDT documented as of this encounter Plan of Treatment Upcoming Encounters Date Type Specialty Care Team Description 07/21/2022 Office Visit Sleep Medicine Mahad Bustamante M .D. [address] [place], [place] [phone] (Wo rk) documented as of this encounter Visit Diagnoses Not on filedocumented in this encounter
--- OUTSIDE RECORDS SUMMARY | 2022-06-14 15:25 | XMS_ITS | Encounter Summary ---
:1965 Author Organization [facility] Address [address] [place] [address] Care Team Providers Name Role Phone Unavailable Primary Care Provider Unavailable Encounter Details Date Type Department Care Team Description 10/25/2006 Hospital Encounter HX [facility] Hazel Resendez M.D. [address] [place], [place] [phone] (Wo rk) Social History [...] do you attend mosque or Never 2021 anabaptist services? Do you [...] or slept in a fpc (including now)? Sex Assigned at Date Recorded Female 06/25/2021 7:39 PM CDT documented as of this encounter Plan of Treatment Upcoming Encounters Date Type Specialty Care Team Description 07/21/2022 Office Visit Sleep Medicine Mahad Bustamante M .D. [address] [place], [place] [phone] (Wo rk) documented as of this encounter Visit Diagnoses Not on filedocumented in this encounter
--- OUTSIDE RECORDS SUMMARY | 2022-06-14 15:25 | XMS_ITS | Encounter Summary ---
:1965 Author Organization [facility] Address [address] [place] [address] Care Team Providers Name Role Phone Unavailable [...] many times do you More than three lxami es a week 04/18/2022 talk on the phone with family, friends, or neighbors? How often do you get together with friends Three times a wee k 04/18/2022 or relatives? How often do you attend islam or Never 2021 druze services? Do you belong to any clubs [...] slept in a senior living (including now)? Sex Assigned at Date Recorded Female 06/25/2021 7:39 PM CDT documented as of this encounter Plan of Treatment Upcoming Encounters Date Type Specialty Care Team Description 07/21/2022 Office Visit Sleep Medicine Mahad Bustamante M .D. [address] [place], [place] [phone] (Wo rk) documented as of this encounter Visit Diagnoses Not on filedocumented in this encounter
--- OUTSIDE RECORDS SUMMARY | 2022-06-14 15:25 | XMS_ITS | Encounter Summary ---
:1965 Author Organization [facility] Address [address] [place] [address] Care Team Providers Name Role Phone Unavailable Primary Care Provider Unavailable Encounter Details Date Type Department Care Team Description 11/15/2008 Hospital Encounter [facility]X [facility] XRAY Provider, Histori brandy Social History Tobacco Use Types Packs/Day Years [...] or relatives? How often do you attend confucianism or Never 2021 catholic services? Do you belong to any clubs or Yes 04/18/2022 organizations such as confucianism groups, unions, fraternal or athletic groups, or [...] slept in a long term (including now)? Sex Assigned at Date Recorded Female 06/25/2021 7:39 PM CDT documented as of this encounter Plan of Treatment Upcoming Encounters Date Type Specialty Care Team Description 07/21/2022 Office Visit Sleep Medicine Mahad Bustamante M .D. [address] [place], [place] [phone] (Wo rk) documented as of this encounter Visit Diagnoses Not on filedocumented in this encounter
--- OUTSIDE RECORDS SUMMARY | 2022-06-14 15:25 | XMS_ITS | Encounter Summary ---
:1965 Author Organization [facility] Address [address] [place] [address] Care Team Providers Name Role Phone Unavailable Primary Care Provider Unavailable Encounter Details Date Type Department Care Team Description 12/21/2004 Hospital Encounter HX NO MAPPING Provider, Historical [...] or relatives? How often do you attend tenriism or Never 2021 catholic services? Do you belong to any clubs or Yes 04/18/2022 organizations such as tenriism groups, unions, fraternal or athletic groups, or [...] Medicine Mahad Bustamante M .D. [address] [place], [place] [phone] (Wo rk) documented as of this encounter Visit Diagnoses Not on filedocumented in this encounter
--- OUTSIDE RECORDS SUMMARY | 2022-06-14 15:25 | XMS_ITS | Encounter Summary ---
:1965 Author Organization [facility] Address [address] [place] [address] Care Team Providers Name Role Phone Unavailable Primary Care Provider Unavailable Encounter Details Date Type Department Care Team Description 03/16/2004 Hospital Encounter HX [facility] Luz Malone L.PKhaiN. [address] [place], [place] [phone] Social History Tobacco Use Types Packs/Day Years [...] or relatives? How often do you attend confucianist or Never 2021 jain services? Do you belong to any clubs or Yes 04/18/2022 organizations such as confucianist groups, unions, fraternal or athletic groups, or [...] Encounter - Conversion, Historical Provider Ser - 03/16/2004 12:00 AM CDT [id number] >> LUZ ROMANO TueMar 16, 2004 11:21 AM >> CALL RECEIVED. Contact: María pt. Using ultram prn for dysmenorrhea. Will you ok refill in María's absence? Accep ting this Rx will FAX it directly to the pharmacy. Source: [facility] RWHXTRANSXSYS Document Id: [id number] documented in this encounter Plan of Treatment Upcoming Encounters Date Type Specialty Care Team Description 07/21/2022 Office Visit Sleep Medicine Mahad Bustamante M .D. [address] [place], [place] [phone] (Wo rk) documented as of this encounter Visit Diagnoses Not on filedocumented in this encounter
--- OUTSIDE RECORDS SUMMARY | 2022-06-14 15:25 | XMS_ITS | Encounter Summary ---
:1965 Author Organization [facility] Address [address] [place] [address] Care Team Providers Name Role Phone Unavailable Primary Care Provider Unavailable Encounter Details Date Type Department Care Team Description 12/05/2002 - Hospital Encounter HX [facility] Balaji Muñoz, 12/07/2002 M.DKhai [address] [place] [address] Social History Tobacco Use Types Packs/Day Years [...] do you attend sabianist or Never 2021 taoist services? Do you [...] Visit Sleep Medicine Mahad Bustamante M .D. [address] [place] [phone] (Wo rk) documented as of this encounter Visit Diagnoses Not on filedocumented in this encounter
--- OUTSIDE RECORDS SUMMARY | 2022-06-14 15:25 | XMS_ITS | Encounter Summary ---
:1965 Author Organization [facility] Address [address] [place] [address] Care Team Providers Name Role Phone Unavailable Primary Care Provider Unavailable Encounter Details Date Type Department Care Team Description 01/24/2009 Hospital Encounter HX [facility] Hazel Resendez M.D. [address] [place], [place] [phone] (Wo rk) Social History [...] or relatives? How often do you attend methodist or Never 2021 confucianist services? Do you belong to any clubs or Yes 04/18/2022 organizations such as methodist groups, unions, fraternal or athletic groups, or [...] Sleep Medicine Mahad Bustamante M .D. [address] [place] [phone] (Wo rk) documented as of this encounter Visit Diagnoses Not on filedocumented in this encounter
--- OUTSIDE RECORDS SUMMARY | 2022-06-14 15:25 | XMS_ITS | Encounter Summary ---
:1965 Author Organization [facility] Address [address] [place] [address] Care Team Providers Name Role Phone Unavailable Primary Care Provider Unavailable Encounter Details Date Type Department Care Team Description 08/18/2007 Hospital Encounter HX NO MAPPING Provider, Historical [...] or relatives? How often do you attend jainism or Never 2021 scientologist services? Do you belong to any clubs or Yes 04/18/2022 organizations such as jainism groups, unions, fraternal or athletic groups, or [...] Medicine Mahad Bustamante M .D. [address] [place], [place] [phone] (Wo rk) documented as of this encounter Visit Diagnoses Not on filedocumented in this encounter
--- OUTSIDE RECORDS SUMMARY | 2022-06-14 15:25 | XMS_ITS | Encounter Summary ---
:1965 Author Organization [facility] Address [address] [place] [address] Care Team Providers Name Role Phone Unavailable Primary Care Provider Unavailable Encounter Details Date Type Department Care Team Description 11/15/2008 Hospital Encounter HX NO MAPPING Yelena Daniel M.D. [address] [place] [phone] (Wo rk) Social History Tobacco [...] do you attend scientologist or Never 2021 yazidism services? Do you belong to any clubs [...] or slept in a usp (including now)? Sex Assigned at Date Recorded Female 06/25/2021 7:39 PM CDT documented as of this encounter Plan of Treatment Upcoming Encounters Date Type Specialty Care Team Description 07/21/2022 Office Visit Sleep Medicine Mahad Bustamante M .D. [address] [place] [phone] (Wo rk) documented as of this encounter Visit Diagnoses Not on filedocumented in this encounter
--- OUTSIDE RECORDS SUMMARY | 2022-06-14 15:25 | XMS_ITS | Encounter Summary ---
:1965 Author Organization [facility] Address [address] [place] [address] Care Team Providers Name Role Phone Unavailable Primary Care Provider Unavailable Encounter Details Date Type Department Care Team Description 10/25/2006 Hospital Encounter HX NO MAPPING Provider, Historical [...] or relatives? How often do you attend mandaeism or Never 2021 jew services? Do you belong to any clubs or Yes 04/18/2022 organizations such as mandaeism groups, unions, fraternal or athletic groups, or [...] slept in a skilled nursing (including now)? Sex Assigned at Date Recorded Female 06/25/2021 7:39 PM CDT documented as of this encounter Plan of Treatment Upcoming Encounters Date Type Specialty Care Team Description 07/21/2022 Office Visit Sleep Medicine Mahad Bustamante M .D. [address] [place], [place] [phone] (Wo rk) documented as of this encounter Visit Diagnoses Not on filedocumented in this encounter
--- OUTSIDE RECORDS SUMMARY | 2022-06-14 15:25 | XMS_ITS | Encounter Summary ---
:1965 Author Organization [facility] Address [address] [place] [address] Care Team Providers Name Role Phone Unavailable Primary Care Provider Unavailable Encounter Details Date Type Department Care Team Description 02/07/2006 Hospital Encounter HX NO MAPPING Social History [...] do you attend protestant or Never 2021 temple services? Do you belong to any clubs [...] Sleep Medicine Mahad Bustamante M .D. [address] [place], [place] [phone] (Wo rk) documented as of this encounter Visit Diagnoses Not on filedocumented in this encounter
--- OUTSIDE RECORDS SUMMARY | 2022-06-14 15:25 | XMS_ITS | Encounter Summary ---
:1965 Author Organization [facility] Address [address] [place] [address] Care Team Providers Name Role Phone Unavailable Primary Care Provider Unavailable Encounter Details Date Type Department Care Team Description 03/11/2008 Hospital Encounter HX NO MAPPING Provider, Historical [...] do you attend mandaeism or Never 2021 islam services? Do you belong to any clubs [...] or slept in a half-way (including now)? Sex Assigned at Date Recorded Female 06/25/2021 7:39 PM CDT documented as of this encounter Plan of Treatment Upcoming Encounters Date Type Specialty Care Team Description 07/21/2022 Office Visit Sleep Medicine Mahad Bustamante M .D. [address] [place], [place] [phone] (Wo rk) documented as of this encounter Visit Diagnoses Not on filedocumented in this encounter
--- OUTSIDE RECORDS SUMMARY | 2022-06-14 15:25 | XMS_ITS | Encounter Summary ---
:1965 Author Organization [facility] Address [address] [place] [address] Care Team Providers Name Role Phone Unavailable Primary Care Provider Unavailable Encounter Details Date Type Department Care Team Description 10/25/2006 Hospital Encounter HX [facility] Provider, [facility] Social History Tobacco Use Types Packs/Day Years [...] or relatives? How often do you attend worship or Never 2021 baptist services? Do you belong to any clubs or Yes 04/18/2022 organizations such as worship groups, unions, fraternal or athletic groups, or [...] or slept in a halfway (including now)? Sex Assigned at Date Recorded Female 06/25/2021 7:39 PM CDT documented as of this encounter Plan of Treatment Upcoming Encounters Date Type Specialty Care Team Description 07/21/2022 Office Visit Sleep Medicine Mahad Bustamante M .D. [address] [place], [place] [phone] (Wo rk) documented as of this encounter Visit Diagnoses Not on filedocumented in this encounter
--- OUTSIDE RECORDS SUMMARY | 2022-06-14 15:25 | XMS_ITS | Encounter Summary ---
:1965 Author Organization [facility] Address [address] [place] [address] Care Team Providers Name Role Phone Unavailable Primary Care Provider Unavailable Encounter Details Date Type Department Care Team Description 07/13/2007 - Hospital Encounter HX [facility] Dejon Keenan, 07/20/2007 PRACTICE [facility] Social History Tobacco Use Types Packs/Day Years [...] do you attend hinduism or Never 2021 episcopal services? Do you belong to any clubs [...] Visit Sleep Medicine Mahad Bustamante M .D. [address] [place] [phone] (Wo rk) documented as of this encounter Visit Diagnoses Not on filedocumented in this encounter
--- OUTSIDE RECORDS SUMMARY | 2022-06-14 15:25 | XMS_ITS | Encounter Summary ---
:1965 Author Organization [facility] Address [address] [place] [address] Care Team Providers Name Role Phone Unavailable Primary Care Provider Unavailable Encounter Details Date Type Department Care Team Description 10/09/2007 Telemedicine Department of Otorhinolaryngology Social History Tobacco Use [...] or relatives? How often do you attend pentecostalism or Never 2021 islam services? Do you belong to any clubs or Yes 04/18/2022 organizations such as pentecostalism groups, unions, fraternal or athletic groups, or [...] or slept in a long-term (including now)? Sex Assigned at Date Recorded Female 06/25/2021 7:39 PM CDT documented as of this encounter Plan of Treatment Upcoming Encounters Date Type Specialty Care Team Description 07/21/2022 Office Visit Sleep Medicine Mahad Bustamante M .D. [address] [place], [place] [phone] (Wo rk) documented as of this encounter Procedures Procedure Name Priority Date/Time Associated Comments Diagnosis OTORHINOLARYNGOLOGY IMAGE Routine 10/09/2007 1:30 Results for this EXAM PM INSURANCE COORDINATOR procedure are i n the results section. documented in this encounter Results OTORHINOLARYNGOLOGY IMAGE EXAM (10/09/2007 1:30 PM INSURANCE COORDINATOR) Specimen (Source) Anatomical Location Collection Method / Collectio n Time Received Time / Laterality Volume Narrative IIMS - 05/02/2017 5:24 AM CDT This order has been created and auto-finalized [...]
--- OUTSIDE RECORDS SUMMARY | 2022-06-14 15:25 | XMS_ITS | Encounter Summary ---
:1965 Author Organization [facility] Address [address] [place] [address] Care Team Providers Name Role Phone Unavailable Primary Care Provider Unavailable Encounter Details Date Type Department Care Team Description 2005 Hospital Encounter HX [facility] Hazel Resendez M.D. [address] [place], [place] [phone] (Wo rk) Social History [...] do you attend restoration or Never 2021 pentecostal services? Do you belong to any clubs [...] Encounter - Conversion, Historical Provider Ser - 2005 12:00 AM CDT [id number] pt has an appt for an annual exam on Jul.29 pt will need a refill on this medication enough till she see's you. Accepting this Rx will FAX it directly to the pharmacy. [facility] Document Id: [id number] Telephone Encounter - Conversion, Historical Provider Ser - 2005 12:00 AM CDT [id number] done [facility] Document Id: [id number] documented in this encounter Plan of Treatment Upcoming Encounters Date Type Specialty Care Team Description 07/21/2022 Office Visit Sleep Medicine Mahad Bustamante M .D. [address] [place] [phone] (Wo rk) documented as of this encounter Visit Diagnoses Not on filedocumented in this encounter
--- OUTSIDE RECORDS SUMMARY | 2022-06-14 15:25 | XMS_ITS | Encounter Summary ---
:1965 Author Organization [facility] Address [address] [place] [address] Care Team Providers Name Role Phone Unavailable Primary Care Provider Unavailable Encounter Details Date Type Department Care Team Description 11/15/2008 Hospital Encounter HX [facility] Hazel Resendez M.D. [address] [place], [place] [phone] (Wo rk) Social History [...] or relatives? How often do you attend jain or Never 2021 congregational services? Do you belong to any clubs or Yes 04/18/2022 organizations such as jain groups, unions, fraternal or athletic groups, or [...] documented as of this encounter Progress Notes Yolanda Daniel M.D. - 11/15/2008 10:15 AM CST [id number] Candi is a 43 year old here for her annual exam. Obstetric History T2 P0 TAB0 SAB0 E0 M0 L2 using vasectomy for contraception. 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 Her menses are every 4-6 weeks X 1 week, first couple of days cramps, first few days heavy, no bleeding between cycles HPI: Head is good, best it's ever been. She's now on topamax 75mg at , seen at [facility]. 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, with arthralgia, reduced range of motion Unspecified Sleep Apnea 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 PAST SURGICAL HISTORY: Past Surgical History Procedure Date Complex aneurysm surg/carotid circ x2 Full rout obste care, deliv section Exploratory of abdomen Laparotomy lymphnodes Craniotomy 2000, 2002 (R) craniotomy with reduced range of mandibular motion Rw marking stitcher (abstracted) 2004 2005 2 tumors removed from behind her eye CURRENT MEDICATIONS: Current outpatient prescriptions Medication Sig TOPAMAX OR 75mg daily NASACORT AQ 55 MCG/ACT NA AERS 2 sprays each nostril once daily LUNESTA 3 MG OR TABS 1 TABLET AT BEDTIME ULTRAM ER 200 MG OR TB24 1 TABLET DAILY ULTRAM 50 MG OR TABS one pill BID prn dysmenorrhea VICODIN ES 7.5-750 MG OR TABS One po Q 4-6 hrs prn migraines IMITREX 20 MG/ACT NA SOLN ONE SPRAY AT ONSET OF HEADACHE AMOXICILLIN 500 MG OR CAPS 4 tablets x 1 dose 60 minutes before procedure CONCERTA OR 1 TABLET EVERY MORNING ALLERGIES: Aspirin, Ibuprofen, Erythromycin and Sonata FAMILY HX: Family History Problem Relation Diabetes Paternal Grandmother Breast CA Mother stomach and eye Depression Mother Neurological Maternal Grandmother auernsym Respiratory Brother asthma Respiratory Maternal Uncle emphysema Thyroid Sister Thyroid Mother Hypertension No family hx of Stroke No family hx of Colon CA No family hx of Alzheimers No family hx of Cancer Mother lymphom, stomache and eye Heart No family hx of reviewed 11/01/2007 ROS: REVIEW OF SYSTEMS: NEUROLOGIC: Has had 2 migraines since September. EYES: Negative ENT: Negative GI: Diarrhea over the last 2 days BREAST: Negative : Negative CUSTOMER ENGINEERING SPECIALIST: Negative CV: Negative PULMONARY: Negative MUSCULOSKELETAL: Negative PSYCH: Negative SOCIAL HISTORY: History Social History Marital Status: Spouse Name: N/A Number of Children: 2 Years of Education: N/A Occupational History Not on file. Social History Main Topics Tobacco Use: Never Alcohol Use: Yes seldom Drug Use: No Sexually Active: Yes -- Male partner(s) vasectomy Other Topics Concern Blood Transfusions No Sleep Concern No Stress Concern No Weight Concern Yes Diet No Back Care No Exercise Yes Seat Belt Yes Self Exams Yes Social History Narrative No narrative on file HEALTH HABITS: calcium intake N/A, last dT 2005, last lipids normal last yr, last mammogram last yr,last pap last yr and was normal PHYSICAL EXAM: This is a well-developed, well-nourished female in no apparent distress. ENT: ENT exam normal, no neck nodes or sinus tenderness. NECK: Supple, no adenopathy and thyroid normal. LUNGS: Normal - Clear to auscultation without rales, rhonchi, or wheezing.. HEART: Regular rate, rhythm and No murmur, rub, gallop. BREASTS: No masses, skin, nipple or axillary changes. ABDOMEN: Benign, Soft, flat, non-tender, No masses, organomegaly and No inguinal nodes. PELVIC EXAM: Lymph: no enlarged groin nodes External genitalia: normal development, normal BUS, no lesions Perineum: normal skin, no lesions, good support Urethra meatus: normal , no lesion or caruncle Urethra: normal, nontender Bladder: nontender, no masses, not enlarged Vagina:normal mucosa and ruggae, no lesions not atrophic Cervix:multiparous and no lesions Uterus: smooth, firm, mobile, without irregularities anteverted Adnexa: not palpable RV: not indicated Rectum: no hemorrhoids, no bleeding EXTREMITIES: Normal. NEUROLOGIC: Normal. SKIN: scattered benign nevi ASSESSMENT AND PLAN: Annual Transport Pilot exam. Migraines-much improved seeing neurologist at [facility] -her refilled her ultram ER, vicodin, topamax, lunesta and imitrex Menorrhagia/Dysmenorrhea-stable X yrs, no change since last yr, Hg and TSH normal last yr. -refilled prn ultram for dysmenorrhea. The ER is for her migraines. Health maintenance includes: pap smear done today, mammogram and DTAP. Refilled nasocort. Source[facility] Document Id: [id number] Electronically signed by Conversion, [facility] Emergency Preparedness Coordinator [id number] at 02/27/2017 7:45 PM CDT documented in this encounter Miscellaneous Notes Miscellaneous - Conversion, Historical Provider Ser - 11/15/2008 10:15 AM VIRTUAL OFFICE ASSISTANT [id number] Candi Gudino [address] [place] [address] November 21, 2008 Dear Candi Gudino, I am happy to inform you that your recent cervical cancer screening test (PAP smear) was normal. Preventative screening such as this helps insure your health for years to come. Congratulations for taking care of yourself! Please contact my office if you have any further questions. [phone]. Sincerely, Yolanda Daniel M.D. OBSTETRICS/GYNECOLOGY [facility] Source: [facility] Document Id: [id number] documented in this encounter Plan of Treatment Upcoming Encounters Date Type Specialty Care Team Description 07/21/2022 Office Visit Sleep Medicine Mahad Bustamante M .D. [address] [place], [place] [phone] (Wo rk) documented as of this encounter Visit Diagnoses Not on filedocumented in this encounter
--- OUTSIDE RECORDS SUMMARY | 2022-06-14 15:25 | XMS_ITS | Encounter Summary ---
:1965 Author Organization [facility] Address [address] [place] [address] Care Team Providers Name Role Phone Unavailable Primary Care Provider Unavailable Encounter Details Date Type Department Care Team Description 09/26/2008 Hospital Encounter HX NO MAPPING Provider, Historical [...] or relatives? How often do you attend christianity or Never 2021 mandaen services? Do you belong to any clubs or Yes 04/18/2022 organizations such as christianity groups, unions, fraternal or athletic groups, or [...] Miscellaneous - Conversion, Historical Provider Ser - 09/26/2008 12:00 AM EXPLORATION GEOLOGIST [id number] 07/08/2009 - Records released to self. Source: [facility] Document Id: [id number] documented in this encounter Plan of Treatment Upcoming Encounters Date Type Specialty Care Team Description 07/21/2022 Office Visit Sleep Medicine Mahad Bustamante M .D. [address] [place] [phone] (Wo rk) documented as of this encounter Visit Diagnoses Not on filedocumented in this encounter
--- OUTSIDE RECORDS SUMMARY | 2022-06-14 15:25 | XMS_ITS | Encounter Summary ---
:1965 Author Organization [facility] Address [address] [place] [address] Care Team Providers Name Role Phone Unavailable Primary Care Provider Unavailable Encounter Details Date Type Department Care Team Description 07/29/[address] [facility] Hazel Resendez M.D. [address] [place], [place] [phone] (Wo rk) Social History [...] or relatives? How often do you attend moravian or Never 2021 sikh services? Do you belong to any clubs or Yes 04/18/2022 organizations such as moravian groups, unions, fraternal or athletic groups, or [...] encounter Progress Notes Yolanda Daniel M.D. - 07/29/2005 2:15 PM CST [id number] Candi is a 40 year old here for her annual exam. Obstetric History The patient has not been asked about . 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 Her menses are regular, lots of cramps, very heavy, no bleeding between cycles HPI: no conerns. Is seen at [place] for Migraines, doing pretty well on the topamax. periods are prettypainful. PAST MEDICAL HISTORY: Previous Medical History: MIGRAINE NEC INTRACTABLE 12/21/04 Comment: recurrent idiopathic stabbing, jabbing head apins ANEURYSM NOS Comment: H/O intracranial aneurysm s/p clipping PAST SURGICAL HISTORY: Review of patient's past surgical history indicates: SURGERY, INTRACRANIAL ANEURYSM, COMPLEX, INTRA* CURRENT MEDICATIONS: Current outpatient prescriptions: BACTRIM DS 800-160 MG OR TABS 1 tablet 2 times daily x 14 days ULTRAM 50 MG OR TABS one pill TID prn pain ULTRAM 50 MG OR TABS 1 TABLET EVERY 4 TO 6 HOURS NEEDED ALLERGIES: Review of patient's allergies indicates not on file. FAMILY HX: No family history on file ROS: REVIEW OF SYSTEMS: NEUROLOGIC: Negative EYES: Negative ENT: Negative GI: Negative BREAST: Negative : Negative EFFICIENCY MINER: Negative CV: Negative PULMONARY: Negative MUSCULOSKELETAL: Negative PSYCH: Negative SOCIAL HISTORY: Social History Marital Status: Spouse Name: N/A Years of Education: N/A Number of Children: N/A Occupational History None on file Social History Main Topics Tobacco Use: Not on file Alcohol Use: Not on file Drug Use: Not on file Sexually Active: Not on file Other Topics Concern Social History Narrative None on file HEALTH HABITS: calcium intake adequte, last dT up to date, last lipids up to date, last mammogram yly in [place] and was normal, last pap 2003 and was normal, last eye exam was up tot date, last dental exam was up to date PHYSICAL EXAM: This is a well-developed, well-nourished female in no apparent distress. ENT: ENT exam normal, no neck nodes or sinus tenderness. NECK: Supple, no adenopathy and thyroid normal. LUNGS: Normal - CTA without rales, rhonchi, or wheezing.. HEART: Regular rate, rhythm and No murmur, rub, gallop. BREASTS: No masses, skin, nipple or axillary changes. ABDOMEN: Benign, Soft, flat, non-tender, No masses, organomegaly, No inguinal nodes and Bowel soundsnormoactive. PELVIC EXAM: Lymph: no enlarged groin nodes External genitalia: normal development, normal BUS, no lesions Perineum: normal skin, no lesions, good support Urethra meatus: normal , no lesion or caruncle Urethra: normal, nontender Bladder: nontender, no masses, not enlarged Vagina:normal mucosa and ruggae, no lesions not atrophic Cervix:multiparous and no lesions Uterus: smooth, firm, mobile, without irregularities anteverted Adnexa: non tender, 2 x 3 bilateral without abnormality RV: not indicated Rectum: no hemorrhoids, no bleeding EXTREMITIES: Normal. NEUROLOGIC: Normal. 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 Heavy menses, can't get any type of surgery for 3 more yrs. Painful menses, too. Takes ultram prn for this. Health maintenance includes: pap smear done today. might want UAE or endoablation when 5 yrs out from aneruysm surgery (2002) Source: [facility] Document Id: [id number] Electronically signed by Conversion, [facility] Roller Skates Assembler [id number] at 02/28/2017 11:09 PM CDT documented in this encounter Miscellaneous Notes Miscellaneous - Yolanda Daniel M.D. - 07/29/2005 2:15 PM CST [id number] Candi Gudino [address] [place] [address] July 30, 2005 Dear Candi: I am writing to inform you the results of the laboratory tests you had done during your recent visitto the clinic. The results of your recent lab(s) were: Your urine analysis was normal. It was a pleasure to see you in the clinic. If you have any further questions or problems, please contact our office at [phone]. Sincerely, Yolanda Daniel MD, PRINT DEVELOPER Department [facility] Document Id: [id number] Electronically signed by Conversion, [facility] Roller Skates Assembler [id number] at 02/28/2017 11:09 PM CDT Miscellaneous - Conversion, Historical Provider Ser - 07/29/2005 2:15 PM PERINATAL SPECIALIST [id number] Candi Gudino [address] [place] [address] August 03, 2005 Dear Candi Gudino, I am happy to inform you that your recent cervical cancer screening test (PAP smear) was normal. Preventative screening such as this helps insure your health for years to come. Congratulations for taking care of yourself! Please contact my office if you have any further questions. [phone]. Sincerely, Yolanda Daniel M.D. OBSTETRICS/GYNECOLOGY [facility] Source: [facility] Document Id: [id number] documented in this encounter Plan of Treatment Upcoming Encounters Date Type Specialty Care Team Description 07/21/2022 Office Visit Sleep Medicine Mahad Bustamante M .D. [address] [place], [place] [phone] (Wo rk) documented as of this encounter Visit Diagnoses Not on filedocumented in this encounter
--- OUTSIDE RECORDS SUMMARY | 2022-06-14 15:25 | XMS_ITS | Encounter Summary ---
:1965 Author Organization [facility] Address [address] [place] [address] Care Team Providers Name Role Phone Unavailable Primary Care Provider Unavailable Encounter Details Date Type Department Care Team Description 05/13/2008 Hospital Encounter HX NO MAPPING Provider, Historical [...] or relatives? How often do you attend yazidism or Never 2021 methodist services? Do you belong to any clubs or Yes 04/18/2022 organizations such as yazidism groups, unions, fraternal or athletic groups, or [...] Medicine Mahad Bustamante M .D. [address] [place], [place] [phone] (Wo rk) documented as of this encounter Visit Diagnoses Not on filedocumented in this encounter
--- OUTSIDE RECORDS SUMMARY | 2022-06-14 15:25 | XMS_ITS | Encounter Summary ---
:1965 Author Organization [facility] Address [address] [place] [address] Care Team Providers Name Role Phone Unavailable Primary Care Provider Unavailable Encounter Details Date Type Department Care Team Description 12/05/2008 Hospital Encounter HX NO MAPPING Provider, Historical [...] or relatives? How often do you attend anabaptism or Never 2021 nondenominational services? Do you belong to any clubs or Yes 04/18/2022 organizations such as anabaptism groups, unions, fraternal or athletic groups, or [...] slept in a care home (including now)? Sex Assigned at Date Recorded Female 06/25/2021 7:39 PM CDT documented as of this encounter Plan of Treatment Upcoming Encounters Date Type Specialty Care Team Description 07/21/2022 Office Visit Sleep Medicine Mahad Bustamante M .D. [address] [place], [place] [phone] (Wo rk) documented as of this encounter Visit Diagnoses Not on filedocumented in this encounter
--- OUTSIDE RECORDS SUMMARY | 2022-06-14 15:25 | XMS_ITS | Encounter Summary ---
:1965 Author Organization [facility] Address [address] [place] [address] Care Team Providers Name Role Phone Unavailable Primary Care Provider Unavailable Encounter Details Date Type Department Care Team Description 10/25/2006 Hospital Encounter HX NO MAPPING Yelena Daniel M.D. [address] [place] [phone] (Wo rk) Social History Tobacco [...] do you attend yazdanism or Never 2021 catholic services? Do you [...] Visit Sleep Medicine Mahad Bustamante M .D. [address] [place] [phone] (Wo rk) documented as of this encounter Visit Diagnoses Not on filedocumented in this encounter
--- OUTSIDE RECORDS SUMMARY | 2022-06-14 15:25 | XMS_ITS | Encounter Summary ---
:1965 Author Organization [facility] Address [address] [place] [address] Care Team Providers Name Role Phone Unavailable Primary Care Provider Unavailable Encounter Details Date Type Department Care Team Description 11/15/2008 Hospital Encounter HX NO MAPPING Yelena Daniel M.D. [address] [place] [phone] (Wo rk) Social History Tobacco [...] do you attend jain or Never 2021 anglican services? Do you [...] Visit Sleep Medicine Mahad Bustamante M .D. [address] [place] [phone] (Wo rk) documented as of this encounter Visit Diagnoses Not on filedocumented in this encounter
--- OUTSIDE RECORDS SUMMARY | 2022-06-14 15:25 | XMS_ITS | Encounter Summary ---
:1965 Author Organization [facility] Address [address] [place] [address] Care Team Providers Name Role Phone Unavailable Primary Care Provider Unavailable Encounter Details Date Type Department Care Team Description 10/16/2007 Hospital Encounter HX [facility] Jarvis Oconnell M.D. [address] [place], [place] [phone] (Wo rk) Social History [...] do you attend confucianist or Never 2021 sabianism services? Do you belong to any clubs [...] or slept in a jail (including now)? Sex Assigned at Date Recorded Female 06/25/2021 7:39 PM CDT documented as of this encounter Plan of Treatment Upcoming Encounters Date Type Specialty Care Team Description 07/21/2022 Office Visit Sleep Medicine Mahad Bustamante M .D. [address] [place], [place] [phone] (Wo rk) documented as of this encounter Visit Diagnoses Not on filedocumented in this encounter
--- OUTSIDE RECORDS SUMMARY | 2022-06-14 15:25 | XMS_ITS | Encounter Summary ---
:1965 Author Organization [facility] Address [address] [place] [address] Care Team Providers Name Role Phone Unavailable Primary Care Provider Unavailable Encounter Details Date Type Department Care Team Description 03/18/2003 Hospital Encounter HX NO MAPPING Provider, Historical [...] do you attend restorationism or Never 2021 confucianism services? Do you [...] or slept in a fdc (including now)? Sex Assigned at Date Recorded Female 06/25/2021 7:39 PM CDT documented as of this encounter Plan of Treatment Upcoming Encounters Date Type Specialty Care Team Description 07/21/2022 Office Visit Sleep Medicine Mahad Bustamante M .D. [address] [place], [place] [phone] (Wo rk) documented as of this encounter Visit Diagnoses Not on filedocumented in this encounter
--- OUTSIDE RECORDS SUMMARY | 2022-06-14 15:25 | XMS_ITS | Encounter Summary ---
:1965 Author Organization [facility] Address [address] [place] [address] Care Team Providers Name Role Phone Unavailable Primary Care Provider Unavailable Encounter Details Date Type Department Care Team Description 03/11/2005 Hospital Encounter HX NO MAPPING Provider, Historical [...] do you attend restorationism or Never 2021 jew services? Do you [...] Medicine Mahad Bustamante M .D. [address] [place], [place] [phone] (Wo rk) documented as of this encounter Visit Diagnoses Not on filedocumented in this encounter
--- OUTSIDE RECORDS SUMMARY | 2022-06-14 15:25 | XMS_ITS | Encounter Summary ---
:1965 Author Organization [facility] Address [address] [place] [address] Care Team Providers Name Role Phone Unavailable Primary Care Provider Unavailable Encounter Details Date Type Department Care Team Description 10/31/[address] [facility] Hazel Resendez M.D. [address] [place], [place] [phone] (Wo rk) Social History [...] do you attend muslim or Never 2021 tenriism services? Do you belong to any clubs [...] Medicine Mahad Bustamante M .D. [address] [place], [place] [phone] (Wo rk) documented as of this encounter Visit Diagnoses Not on filedocumented in this encounter
--- OUTSIDE RECORDS SUMMARY | 2022-06-14 15:25 | XMS_ITS | Encounter Summary ---
:1965 Author Organization [facility] Address [address] [place] [address] Care Team Providers Name Role Phone Unavailable Primary Care Provider Unavailable Encounter Details Date Type Department Care Team Description 10/30/2007 Hospital Encounter [facility] XRAY Provider, Naveen nava Social History Tobacco Use Types Packs/Day Years [...] do you attend religious or Never 2021 confucianism services? Do you [...] Medicine Mahad Bustamante M .D. [address] [place], [place] [phone] (Wo rk) documented as of this encounter Visit Diagnoses Not on filedocumented in this encounter
--- OUTSIDE RECORDS SUMMARY | 2022-06-14 15:25 | XMS_ITS | Encounter Summary ---
:1965 Author Organization [facility] Address [address] [place] [address] Care Team Providers Name Role Phone Unavailable Primary Care Provider Unavailable Encounter Details Date Type Department Care Team Description 01/29/2008 Hospital Encounter HX NO MAPPING Provider, Historical [...] do you attend yarsani or Never 2021 sikh services? Do you [...] Medicine Mahad Bustamante M .D. [address] [place], [place] [phone] (Wo rk) documented as of this encounter Visit Diagnoses Not on filedocumented in this encounter
--- OUTSIDE RECORDS SUMMARY | 2022-06-14 15:25 | XMS_ITS | Encounter Summary ---
:1965 Author Organization [facility] Address [address] [place] [address] Care Team Providers Name Role Phone Unavailable Primary Care Provider Unavailable Encounter Details Date Type Department Care Team Description 05/23/2007 Hospital Encounter HX NO MAPPING Provider, Historical [...] do you attend methodist or Never 2021 mormon services? Do you [...] Medicine Mahad Bustamante M .D. [address] [place], [place] [phone] (Wo rk) documented as of this encounter Visit Diagnoses Not on filedocumented in this encounter
--- OUTSIDE RECORDS SUMMARY | 2022-06-14 15:25 | XMS_ITS | Encounter Summary ---
:1965 Author Organization [facility] Address [address] [place] [address] Care Team Providers Name Role Phone Unavailable Primary Care Provider Unavailable Encounter Details Date Type Department Care Team Description 05/05/2006 Hospital Encounter HX NO MAPPING Provider, Historical [...] do you attend restorationist or Never 2021 bahai services? Do you belong to any clubs [...] Medicine Mahad Bustamante M .D. [address] [place], [place] [phone] (Wo rk) documented as of this encounter Visit Diagnoses Not on filedocumented in this encounter
--- OUTSIDE RECORDS SUMMARY | 2022-06-14 15:25 | XMS_ITS | Encounter Summary ---
:1965 Author Organization [facility] Address [address] [place] [address] Care Team Providers Name Role Phone Unavailable Primary Care Provider Unavailable Encounter Details Date Type Department Care Team Description 03/03/2007 Hospital Encounter HX NO MAPPING Provider, Historical [...] do you attend worship or Never 2021 alevism services? Do you belong to any clubs [...] Medicine Mahad Bustamante M .D. [address] [place], [place] [phone] (Wo rk) documented as of this encounter Visit Diagnoses Not on filedocumented in this encounter
--- OUTSIDE RECORDS SUMMARY | 2022-06-14 15:25 | XMS_ITS | Encounter Summary ---
:1965 Author Organization [facility] Address [address] [place] [address] Care Team Providers Name Role Phone Unavailable Primary Care Provider Unavailable Encounter Details Date Type Department Care Team Description 04/13/2004 Hospital Encounter HX NO MAPPING Provider, Historical [...] do you attend latter-day or Never 2021 sabianist services? Do you belong to any clubs [...] Medicine Mahad Bustamante M .D. [address] [place], [place] [phone] (Wo rk) documented as of this encounter Visit Diagnoses Not on filedocumented in this encounter
--- OUTSIDE RECORDS SUMMARY | 2022-06-14 15:25 | XMS_ITS | Encounter Summary ---
:1965 Author Organization [facility] Address [address] [place] [address] Care Team Providers Name Role Phone Unavailable Primary Care Provider Unavailable Encounter Details Date Type Department Care Team Description 02/27/2003 Hospital Encounter HX NO MAPPING Provider, Historical [...] or relatives? How often do you attend judaism or Never 2021 zoroastrianism services? Do you belong to any clubs or Yes 04/18/2022 organizations such as judaism groups, unions, fraternal or athletic groups, or [...] Medicine Mahad Bustamante M .D. [address] [place], [place] [phone] (Wo rk) documented as of this encounter Visit Diagnoses Not on filedocumented in this encounter
--- OUTSIDE RECORDS SUMMARY | 2022-06-14 15:25 | XMS_ITS | Encounter Summary ---
:1965 Author Organization [facility] Address [address] [place] [address] Care Team Providers Name Role Phone Unavailable Primary Care Provider Unavailable Encounter Details Date Type Department Care Team Description 11/04/2008 Hospital Encounter HX [facility] Jarvis Oconnell M.D. [address] [place], [place] [phone] (Wo rk) Social History [...] do you attend episcopalian or Never 2021 presybeterian services? Do you belong to any clubs [...] Sleep Medicine Mahad Bustamante M .D. [address] [place], [place] [phone] (Wo rk) documented as of this encounter Visit Diagnoses Not on filedocumented in this encounter
--- OUTSIDE RECORDS SUMMARY | 2022-06-14 15:25 | XMS_ITS | Encounter Summary ---
:1965 Author Organization [facility] Address [address] [place] [address] Care Team Providers Name Role Phone Unavailable Primary Care Provider Unavailable Encounter Details Date Type Department Care Team Description 10/25/2006 Hospital Encounter HX [facility] Hazel Resendez M.D. [address] [place], [place] [phone] (Wo rk) Social History [...] do you attend islam or Never 2021 gnosticist services? Do you belong to any clubs [...] encounter Progress Notes Yolanda Daniel M.D. - 10/25/2006 10:15 AM CST [id number] Candi is a 41 year old here for her annual exam. Obstetric History T2 P0 TAB0 SAB0 E0 M0 L2 using vasectomy for contraception. 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 Her menses are regular, lots of cramps, very heavy, no bleeding between cycles HPI: Right cheek is hurting again. Had 2 tumors of unknown origin excised 2004, 2005. Has gained 40 pounds. Has been on Lexapro in April, and the 40 pounds has been since then. Would like to wean off. 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, jabbing head apins ANEURYSM NOS H/O intracranial aneurysm s/p clipping ANXIETY STATE NOS with paranoid ideation PAST SURGICAL HISTORY: Past Surgical History Procedure Date Surgery, intracranial aneurysm, complex, intracranial approach; carotid circulation x2 Full rout obste care, deliv section Exploratory of abdomen Laparotomy lymphnodes CURRENT MEDICATIONS: Current outpatient prescriptions Medication Sig LEXAPRO 20 MG OR TABS 1 TABLET DAILY ULTRAM 50 MG OR TABS one pill TID prn pain CONCERTA OR 1 TABLET EVERY MORNING IMITREX 20 MG/ACT NA SOLN ONE SPRAY AT ONSET OF HEADACHE ALLERGIES: Asa and Nsaids FAMILY HX: Family History Problem Relation Diabetes Paternal Grandmother Breast CA Mother stomach and eye Depression Mother Neurological Maternal Grandmother auernsym Respiratory Brother asthma Respiratory Maternal Uncle emphysema Thyroid Sister Thyroid Mother ROS: REVIEW OF SYSTEMS: NEUROLOGIC: Migraines are coming back, weaned off Topamax. EYES: Negative ENT: Negative GI: Negative BREAST: Negative : Negative ORDER PICKER/ASSEMBLER: Negative CV: Negative PULMONARY: Negative MUSCULOSKELETAL: Negative PSYCH: Negative SOCIAL HISTORY: History Social History Marital Status: Spouse Name: N/A Number of Children: 2 Years of Education: N/A Occupational History Not on file. Social History Main Topics Tobacco Use: Never Alcohol Use: Yes seldom Drug Use: No Sexually Active: Yes -- Male partner(s) Other Topics Concern Blood Transfusions No Sleep Concern No Stress Concern No Weight Concern Yes Exercise No Seat Belt Yes Self Exams Yes Social History Narrative No narrative on file HEALTH HABITS: calcium intake inadequate, last dT up to date, last lipids 150, last mammogram last yr and was normal, last pap last yr and was normal PHYSICAL [...] skin, nipple or axillary changes. ABDOMEN: Benign, No masses, organomegaly, No inguinal nodes and tender over epigastric, RUQ and periumbilical area, no rebound tenderness, neg Martinez's. 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 2. 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 Now has symptoms similar to those she had when she had them initially diagnosed (cheek pain, increase in migraines). 3. Diarrhea/ab pain-going on for about a month. Will check TSh today, advised should have workup , can get that done at [place]. 4. Menorrhagia/dysmenorrhea-pain managed on ultram and tylenol (can't take any NSAIDs). She would alecia good candidate for hydrothermablation. Can call for US, preop same day (has fibroids so would liketheir size measured prior to hydrothermablation), would do EMB same day. Can't take Provera due to aneurysm history so woul TRY to time the procedure during the first 1-2 weeks of cycle. Might be difficult as menses are Q 4-6 weeks. 5. Depression-likely situational from last Fall. She just started Lexapro last April and has [id number] She has 10mg pills at home, advsied to do 10mg for 2 weeks then QOD. Withdrawal symptoms reviewed. Health maintenance includes: pap smear done today and mammogram. Will check UA, too (urine dark sometimes). Source: [facility] Document Id: [id number] Electronically signed by Conversion, [facility] Petroleum Blending Plant Operator [id number] at 02/28/2017 8:32 AM CDT documented in this encounter Miscellaneous Notes Miscellaneous - Conversion, Historical Provider Ser - 10/25/2006 10:15 AM OFFLINE EDITOR [id number] Candi Gudino [address] [place] [address] October 27, 2006 Dear Candi Gudino, I am happy to inform you that your recent cervical cancer screening test (PAP smear) was normal. Preventative screening such as this helps insure your health for years to come. Congratulations for taking care of yourself! Please contact my office if you have any further questions. [phone]. Sincerely, Yolanda Daniel M.D. OBSTETRICS/GYNECOLOGY [facility] Source: [facility] Document Id: [id number] documented in this encounter Plan of Treatment Upcoming Encounters Date Type Specialty Care Team Description 07/21/2022 Office Visit Sleep Medicine Mahad Bustamante M .D. [address] [place], [place] [phone] (Wo rk) documented as of this encounter Visit Diagnoses Not on filedocumented in this encounter
--- OUTSIDE RECORDS SUMMARY | 2022-06-14 15:25 | XMS_ITS | Encounter Summary ---
:1965 Author Organization [facility] Address [address] [place] [address] Care Team Providers Name Role Phone Unavailable Primary Care Provider Unavailable Encounter Details Date Type Department Care Team Description 10/30/2007 Hospital Encounter HX NO MAPPING Yelena Daniel M.D. [address] [place] [phone] (Wo rk) Social History Tobacco [...] do you attend islam or Never 2021 yazidism services? Do you [...] or slept in a mcfp (including now)? Sex Assigned at Date Recorded Female 06/25/2021 7:39 PM CDT documented as of this encounter Plan of Treatment Upcoming Encounters Date Type Specialty Care Team Description 07/21/2022 Office Visit Sleep Medicine Mahad Bustamante M .D. [address] [place] [phone] (Wo rk) documented as of this encounter Visit Diagnoses Not on filedocumented in this encounter
--- OUTSIDE RECORDS SUMMARY | 2022-06-14 15:25 | XMS_ITS | Encounter Summary ---
:[address] [facility] Address [address] [place] [address] Care Team Providers Name Role Phone Unavailable Primary Care Provider Unavailable Encounter Details Date Type Department Care Team Description 10/31/2007 Hospital En[facility] Hazel Resendez M.D. [address] [place], [place] [phone] (Wo rk) Social History [...] do you attend protestant or Never 2021 mosque services? Do you belong to any clubs [...] encounter Progress Notes Yolanda Daniel M.D. - 10/31/2007 8:30 AM CST [id number] Quick Note: [employer] message sent to patient All labs normal. Source: [facility] Document Id: [id number] Electronically signed by Conversion, [facility] Hand Cultivator [id number] at 02/28/2017 12:49 AM CDT Yolanda Daniel M.D. - 10/31/2007 8:30 AM CST [id number] Candi is a 42 year old here for her annual exam. Obstetric History T2 P0 TAB0 SAB0 E0 M0 L2 using vasectomy for contraception. 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 Her menses are regular once a month, lots of cramps, very heavy, no bleeding between cycles HPI: Has heavy bleeding for 3-4 days with clots, changes every 2 hrs. 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, with arthralgia, reduced range of motion OTHER UNSPEC SLEEP APNEA ATYPICAL FACE PAIN chronic (R) facial pain PAST SURGICAL HISTORY: Past Surgical History Procedure Date Complex aneurysm surg/carotid circ x2 Full rout obste care, deliv section Exploratory of abdomen Laparotomy lymphnodes Craniotomy 2000, 2002 (R) craniotomy with reduced range of mandibular motion 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 As soon as her face pain got better,then her migraines went away. 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 CV: Negative PULMONARY: Negative MUSCULOSKELETAL: left arm gets numb when she's tired or has just had a big migraine. PSYCH: Negative SOCIAL HISTORY: History Social History Marital Status: Spouse Name: N/A Number of Children: 2 Years of Education: N/A Occupational History [employer] Social History Main Topics Tobacco Use: Never Alcohol Use: Yes seldom Drug Use: No Sexually Active: Yes -- Male partner(s) vasectomy Other Topics Concern Blood Transfusions No Sleep Concern No Stress Concern No Weight Concern Yes Diet No Back Care No Exercise Yes Seat Belt Yes Self Exams Yes Social History Narrative No narrative on file HEALTH HABITS: calcium intake inadequate, last dT 2005, last lipids ? 5 yrs ago, last mammogram lastyr and was normal, last pap last yr and was normal, last eye exam was needs one (was 2004), last dental exam was up to date PHYSICAL EXAM: This is a well-developed, well-nourished female in no apparent distress. ENT: neck without nodes. NECK: Supple, no adenopathy and thyroid normal. [...] SKIN: scattered benign nevi ASSESSMENT AND PLAN: 1. 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 2. Facial pain-controlled on ultram ER. She thinks the migraines were triggered by the facial pain because once the pain was controled, then rare (once a month) migraines. 3. Migraines-infrequent now, refilled imitrex spray. Rarely uses vicodin if the imitrex doesn't work. Refilled both. 4. Menorrhagia/dysmenorrhea-normal in timing, bleeds pretty heavily. Takes an additional 100mg of ultram during menses to control pain. Advised would be a good candidate for hydrothermablation. If she'd like to have this done, can call for OR date and preop with EMB prior to the surgery. Advised should take an extra ultram prior to the surgery. -CBC today 5. 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 Had a sleep study showing no SHANNON -refilled lunesta -nasal surgery planned in the spring, refilled nasacort. -her doctor at [facility] wanted her TSH drawn and labs, so will get CMP today. 6. Reaction to Noran bone graft material- has had 2 subsequent surgeries to remove tumorsthat havedeveloped at the graft site. Suggested that she get a second opinion re: management (Jeanine was removed from [facility] ? Needs to be excised) -needs amox prophylaxis for dental procedures due to the implant. Health maintenance includes: pap smear done today, mammogram and random cholesterol, random glucose and HgA1C. Source: [facility] Document Id: [id number] Electronically signed by Conversion, [facility] Hand Cultivator [id number] at 02/28/2017 12:49 AM CDT documented in this encounter Miscellaneous Notes Miscellaneous - Conversion, Historical Provider Ser - 10/31/2007 8:30 AM DATABASE SECURITY ADMINISTRATOR [id number] Candi Gudino [address] [place] [address] November 02, 2007 Dear Candi Gudino, I am happy to inform you that your recent cervical cancer screening test (PAP smear) was normal. Preventative screening such as this helps insure your health for years to come. Congratulations for taking care of yourself! Please contact my office if you have any further questions. [phone]. Sincerely, Yolanda Daniel M.D. OBSTETRICS/GYNECOLOGY [facility] Source: [facility] Document Id: [id number] documented in this encounter Plan of Treatment Upcoming Encounters Date Type Specialty Care Team Description 07/21/2022 Office Visit Sleep Medicine Mahad Bustamante M .D. [address] [place], [place] [phone] (Wo rk) documented as of this encounter Visit Diagnoses Not on filedocumented in this encounter
--- OUTSIDE RECORDS SUMMARY | 2022-06-14 15:26 | XMS_ITS | Encounter Summary ---
:[address] [facility] Address [address] [place] [address] Care Team Providers Name Role Phone Unavailable Primary Care Provider Unavailable Encounter Details Date Type Department Care Team Description 06/16/2001 - Hospital Encounter HX [facility] Horace Gruber, 06/19/2001 M.D. [address] [place] [address] Social History Tobacco Use Types Packs/Day Years [...] do you attend jain or Never 2021 methodist services? Do you [...] Sleep Medicine Mahad Bustamante M .D. [address] [place], [place] [phone] (Wo rk) documented as of this encounter Visit Diagnoses Not on filedocumented in this encounter
== END 2022-06-14 15:11 | disposition home or self-care (01) ==
LOC: MAMMO 15:11
PROVIDERS: PCP Family Medicine; Visit Provider Family Medicine
DX: Z12.31 Encounter for screening mammogram for malignant neoplasm of breast (principal)
CPT/HCPCS: 77063; 77067

== ENCOUNTER 2023-06-14 08:52 | Outpatient (CLI) | payer OTHER, SELFPAY | END 2023-06-14 08:53 | disposition home or self-care (01) | LOC: NFLDREF 06-15 11:09 | PROVIDERS: PCP Family Medicine; Referring Provider Family Medicine; Visit Provider Family Medicine | DX: Z01.419 Encounter for gynecological examination (general) (routine) without abnormal findings (principal); I10 Essential (primary) hypertension; E03.9 Hypothyroidism, unspecified; E55.9 Vitamin D deficiency, unspecified; R68.82 Decreased libido; E66.9 Obesity, unspecified | CPT/HCPCS: 80053; 80061; 82306; 84443 ==

== ENCOUNTER 2023-08-19 08:15 | Outpatient (CLI) | payer OTHER, SELFPAY | END 2023-08-19 08:16 | disposition home or self-care (01) | LOC: NFLDREF 08-23 09:58 | PROVIDERS: PCP Family Medicine; Referring Provider Family Medicine; Visit Provider Obstetrics & Gynecology | DX: R68.82 Decreased libido (principal) | CPT/HCPCS: 84270; 84402; 84403 ==

== ENCOUNTER 2023-10-14 07:49 | Outpatient (CLI) | payer OTHER, SELFPAY ==
--- OUTSIDE RECORDS SUMMARY | 2023-10-19 09:31 | XMS_ITS | Clinical Summary ---
Author Name Unknown Organization [facility] Address [address] [place] [address] Care Team Providers Care Bond Underwriter Name Role Phone Elsewhere, Pcp Primary Care Provider Unavailabl e Source Comments Patient records contain information from all sites at [facility]. For routine questions regarding patient records, call [phone] during business hours, M-F 8:00 AM - 5:00 PM Central Time. Record requests for emergency care only can be directed to [phone] at any time.[facility] Allergies Active Allergy Reactions Criticality Noted Date Comments Aspirin Rash,Other (see comments) High 12/22/2013 ASPIRIN - Mouth ulcers and rash across chest Erythromycin Other (see comments) High 12/22/2013 ERYTHROMYCIN - Eyes swelled shut Ibuprofen Other (see comments) High 12/05/2002 Mouth ulcers and rash Nsaids (Non-Steroidal Anti-Inflammatory Drug) Rash High 03/13/2018 Mouth ulcers Plant Extracts Edema (Reselect Reaction) High 04/21/2022 Bethany Zaleplon Headache High 12/22/2013 SONATA - Caused migraines Medications Medication Sig Dispensed Refills Start Date End Date Status eszopiclone (LUNESTA) 3 mg tablet Lunesta 3 mg oral tablet See Instructions, 1 TABLET AT BEDTIME 0 12/22/2013 Active HYDROcodone-acetam inophen (NORCO) 7.5-325 mg per tablet 0.5 tablets as needed. 0 12/22/2013 Ac tive SUMAtriptan (IMITREX) 20 mg/actuation nasal spray Administer into affected nostril(s) as needed. 0 12/24/2008 Active traMADol ER (ULTRAM ER) 200 mg 24 hr tablet MEDS ON BACK ORDER, that's why 100mg is prescribed at this time 0 12/22/2013 Active traMADol (ULTRAM) 50 mg tablet 50 mg as needed. 0 12/21/2017 Active EPINEPHrine (EPIPEN) 0.3 mg/0.3 mL injection syringe Inject 0.3 mg intramuscularly as needed. 0 01/31/2019 Active losartan (COZAAR) 25 mg tablet Take 25 mg by mouth at bedtime. 0 08/19/2021 Active levothyroxine (SYNTHROID, LEVOTHROID) 112 mcg tablet Take 112 mcg by mouth every evening. 0 09/18/2021 Active methylphenidate HCl (CONCERTA) 54 mg CR tablet every morning. 0 08/25/2020 Active traMADol ER (ULTRAM ER) 100 mg 24 hr tablet 200 mg at bedtime. 0 09/23/2021 Acti ve triamcinolone (NASACORT) 55 mcg/actuation nasal spray Administer 1 spray into each nostril daily. 0 Active cholecalciferol (VITAMIN D3) 125 mcg (5,000 Unit) capsule Take 125 mcg by mouth daily. 0 Active Concerta 36 mg CR tablet 0 02/05/2023 Active Active Problems Problem Noted Date Diagnosed Date Trigeminal Neuralgia 10/27/2021 Apnea Sleep Obstructive 08/14/2021 Aneurysm Carotid Artery 07/13/2011 Migraine Headache Hypothyroidism Overview: treating with levothyroxine Hypertension NOS Overview: medically treated Resolved Problems Problem Noted Date Diagnosed Date Resolved Date Obstruction Nasal 09/30/2021 01/13/2022 Overview: Added automatically from request for surgery [id number] Deviation Nasal Septal 09/30/202101/13 Overview: Added automatically from request for surgery [id number] Immunizations Name Administration Dates Next Due HZV (ZOSTAVAX) 04/20/2017 HepA / HepB 01/20/2012 HepA Adult 03/30/2019 HepB Adult 03/30/2019,07/17/2012 Influenza (IM) Preservative Free 09/05/2014 Influenza, Seasonal, Injectable 07/20/2005 MMR 03/30/2019 RZV (SHINGRIX) 01/31/2019 Td (Adult), adsorbed 09/26/2005 Tdap 06/10/2011,11/15/2008 Ty21a (oral) 03/30/2019(Deferred: Other - Prescripton given) TyVi (inj) 01/20/2012 YF 01/20/2012 influenza vaccine quad (FLUZONE/FLUARIX) (6 months and older)(PF) 09/21/2016,08/14/2015 Family History Medical History Relation Name Comments ADD Father Marlo Mckinney Anxiety disorder Father Marlo Mckinney Colon polyps Father Marlo Mckinney Sleep apnea Father Marlo Mckinney Alcohol abuse Mother [place] Arthritis Mother [place] Breast cancer Mother [place] Colon polyps Mother [place] Depression Mother [place] Lymphoma Mother [place] Melanoma Mother [place] Migraines Mother [place] Relation Name Status Comments Father Marlo Mckinney Mother [place] Social History Tobacco Use Types Packs/Day Years Used Date Smoking Tobacco: Never Smokeless Tobacco: Never Alcohol Use Standard Drinks/Week Comments Yes 2 (1 standard drink = 0.6 oz pur e alcohol) Humiliation, Afraid, Rape, and Kick questionnair e Answer Date Recorded Within the last year, have y ou been afraid of your partner or ex-partner? No 04/18/2022 Within the last year, have y ou been humiliated or emotionally abused in other ways by your partner or ex-partner? No Within the last year, have y ou been kicked, hit, slapped, or otherwise physically hurt by your partner or ex-partner? No 04/18/2022 Within the last year, have y ou been raped or forced to have any kind of sexual activity by your partner or ex-partner? No 04/18/2022 Social Connection and Isolat ion Panel [NHANES] Answer Date Recorded In a typical week, how many times do you talk on the phone with family, friends, or neighbors? More than three times a week 04/18/2022 How often do you get togethe r with friends or relatives? Three times a week 04/18/2022 How often do you attend chur ch or episcopal services? Never 04/18/2022 Do you belong to any clubs o r organizations such as tenriism groups, unions, fraternal or athletic groups, or school groups? Yes 04/18/2022 How often do you attend meet ings of the clubs or organizations you belong to? 1 to 4 times per year 04/18/2022 Are you , , di vorced, , never , or living with a partner? 04/18/2022 AUDIT-C Answer Date Recorded Q1: How often do you have a drink containing alc ohol? 2-3 times a week 04/18/2022 Q2: How many drinks containi ng alcohol do you have on a typical day when you are drinking? 1 or 2 04/18/2022 Q3: How often do you have si x or more drinks on one occasion? Never 04/18/2022 Overall Financial Resource Strain (CARDIA) Answe r Date Recorded How hard is it for you to pa y for the very basics like food, housing, medical care, and heating? Not hard at all 04/18/2022 [facility] - Occupational Stress Questionnaire Answer Date Recorded Do you feel stress - tense, restless, nervous, or anxious, or unable to sleep at night because your mind is troubled all the time - these days? Not at all 04/18/2022 Exercise Vital Sign Answer Date Recorde d On average, how many days pe r week do you engage in moderate to strenuous exercise (like a brisk walk)? 5 days 04/18/2022 On average, how many minutes do you engage in exercise at this level? 60 min 04/18/2022 Hunger Vital Sign Answer Date Recorded Within the past 12 months, y ou worried that your food would run out before you got the money to buy more. Never true 04/18/20 22 Within the past 12 months, t he food you bought just didn't last and you didn't have money to get more. Never true 04/18/2022 PRAPARE - Transportation Answer Date Re corded In the past 12 months, has l ack of transportation kept you from medical appointments or from getting medications? No 03/27 In the past 12 months, has l ack of transportation kept you from meetings, work, or from getting things needed for daily living? No 04/18/2022 Housing Stability Vital Sign Answer Erick e Recorded In the last 12 months, was t here a time when you were not able to pay the mortgage or rent on time? No 04/18/2022 In the last 12 months, how many places have you lived? 1 04/18/2022 In the last 12 months, was t here a time when you did not have a steady place to sleep or slept in a fdc (including now)? No 04/18/2022 Nutrition Answer Date Recorded Nutrition: EVOO Fat Source No 04/18 On average, how many serving s of fruits and vegetables do you eat per day (serving size is equal to 1 cup or approximately the size of a tennis ball)? 4-5 04/18/2022 Dental Answer Date Recorded Dental: Regular Dentist Yes 05/20/20 Employment Answer Date Recorded Employment status Employed and actively working without restrictions 04/18/2022 Education Answer Date Recorded What is the highest level of school you have completed or the highest degree you have received? Master's degree (e.g., MA, MS, Elias, MEd, TICKET DISPATCHER, JAX) 05/20/2021 Sex and Gender Information Value Date Recorded Sex Assigned at Female 06/25/2021 7:39 PM CDT Gender Identity Female 06/25/2021 7:39 PM CDT Sexual Orientation Not on file Last Filed Vital Signs Vital Sign Reading Time Taken Comments Blood Pressure 120/79 04/23/2022 1:14 PM CDT Pulse 67 04/23/2022 1:14 PM CDT Temperature 36.5 ??C (97.7 ??F) 03/10/2022 7:36 PM CD T Respiratory Rate 19 03/10/2022 6:30 PM CDT Oxygen Saturation 98% 03/10/2022 7:30 PM CDT Inhaled Oxygen Concentration - - Weight 93.2 kg (205 lb 5.7 oz) 04/23/2022 1:14 P M CDT Height 175 cm (5' 8.9) 04/23/2022 1:14 PM CDT Body Mass Index 30.42 04/23/2022 1:14 PM CDT Plan of Treatment Health Maintenance Due Date Last Done Comments CT Colonography 1964 Cervical Cancer Screening 1964 Cologuard 1964 Colonoscopy 1964 Colorectal Cancer Screening 1964 FIT 1964 HIV Screening 1964 Hepatitis C Screening 1964 Lipid (Cholesterol) Screening 1964 Thyroid Stimulating Hormone (TSH) test for thyroid function 1964 Mammogram 11/15/2009 11/15/2008, 12/2007, 10/25/2006 Creatinine Level (Kidney Function Test) 05/21/2022 05/21/2021 Potassium Level 05/21/2022 05/21/2021 Sodium Level 05/21/2022 05/21/2021 Office Visit for Blood Pressure Check / Re-check 04/23/2023 04/23/2022 COVID-19 Vaccine ( season) 2023 08/28/2022, 04/09/2022, 07/31/2021, Additional history exists Influenza Vaccine (#1) 2023 , 07/22/2021, 07/29/2020, Additional history exists Depression Screening (Annual PHQ-2) 09/26/2023 Fasting Glucose for Diabetes Screening 05/21/2024 05/21/2021 DTaP,Tdap,and Td Vaccines (4 - Td or Tdap) 06/14/2033 06/14/2023, 06/10/2011, 11/15/2008, Additional history exists Hepatitis B Vaccines Completed 03/30/2019, 07/17/2012, 01/20/2012 Zoster Vaccines Completed 04/03/2019, 050 04/2019, 04/20/2017 Hepatitis A Vaccines Completed 01/19/2021, 03/30/2019, 01/20/2012 Pneumococcal vaccine (0-64 years) Aged Out No longer eligible based on patient's age to complete this topic Medical Devices Implanted Type Area Analytical Engineer Device Identifier Shelf Expiration Date Model / Serial / Lot Clip Slimline Side Angle 15 - [id number] Implanted:Qty: 1 on 06/16/2001 Aneurysm Clip Renae Description:Device Manufactu rer - J [employer] Renae. Device Status Text - [id number]. Kls-Plate 16ho Straight - [id number] Implanted:Qty: 1 on 12/05/2002 Hardware e.g. pins/screws/rods JAYESH Alba Description:Device Manufactu rer - JAYESH Alba. Device Status Text - [id number]. Lead Computer Operations Manager Ap Thor Rsp Sns - [id number] - [id number] Implanted:Qty: 1 on 03/10/2022 by Vishnu Edwards M.D. at [facility] Responsive Neurostimulator Sys Right: Chest [employer] 09/07/2023 4340 / [id number] / Gen Nrstm Sleep Apnea Thor - [id number] - [id number] Implanted:Qty: 1 on 03/10/2022 by Vishnu Edwards M.D. at [facility] Spinal Cord Stimulator Right: Chest [employer] 08/14/2024 3028 / [id number] / Advance Directives For more information, please contact: [phone] Documents on File Type Date Recorded Patient Gas Engine Operator Compressors Expl anation Advance Directives 05/05/2017 12:00 AM Leg acy document. See document viewer. Advance Directives 05/13/2004 12:00 AM Leg acy document. See document viewer. Care Teams Bond Underwriter Relationship Specialty Start Date End Date Elsewhere, Pcp PCP - General Family Medicine 05/20/21 Dr. Livia Scott [facility] [address] [place] [address] External Primary Care Physician 04/21/22
--- OUTSIDE RECORDS SUMMARY | 2023-10-19 09:31 | XMS_ITS | Referral Summary ---
Author Name Unknown Organization [facility] Address [address] [place] [address] Care Team Providers Care Software Support Specialist Name Role Phone Elsewhere, Pcp Primary Care Provider Unavailabl e Source Comments Patient records contain information from all sites at [facility]. For routine questions regarding patient records, call [phone] during business hours, M-F 8:00 AM - 5:00 PM Central Time. Record requests for emergency care only can be directed to [phone] at any time.[facility] Allergies Active Allergy Reactions Criticality Noted Date Comments Aspirin Rash,Other (see comments) High 12/22/2013 ASPIRIN - Mouth ulcers and rash across chest Erythromycin Other (see comments) High 12/22/2013 ERYTHROMYCIN - Eyes swelled shut Ibuprofen Other (see comments) High 12/05/2002 Mouth ulcers and rash Nsaids (Non-Steroidal Anti-Inflammatory Drug) Rash High 03/13/2018 Mouth ulcers Plant Extracts Edema (Reselect Reaction) High 04/21/2022 Absaraka Zaleplon Headache High 12/22/2013 SONATA - Caused [...] Overview: Added automatically from request for surgery [id number] Deviation Nasal Septal 09/30/202101/13 Overview: Added automatically from request for surgery [id number] Immunizations Name Administration Dates Next Due HZV (ZOSTAVAX) 04/20/2017 HepA / HepB 01/20/2012 HepA Adult 03/30/2019 HepB Adult 03/30/2019,07/17/2012 Influenza (IM) Preservative Free 09/05/2014 Influenza, Seasonal, Injectable 07/20/2005 MMR 03/30/2019 RZV (SHINGRIX) 01/31/2019 Td (Adult), adsorbed 09/26/2005 Tdap 06/10/2011,11/15/2008 Ty21a (oral) 03/30/2019(Deferred: Other - Prescripton given) TyVi (inj) 01/20/2012 YF 01/20/2012 influenza vaccine quad (FLUZONE/FLUARIX) (6 months and older)(PF) 09/21/2016,08/14/2015 Social History Tobacco Use Types Packs/Day Years [...] often do you attend chur ch or taoist services? Never 04/18/2022 Do you belong to any clubs o r organizations such as latter-day groups, unions, fraternal [...] and heating? Not hard at all 04/18/2022 [facility] - Occupational Stress [...] or slept in a penitentiary (including now)? No 04/18/2022 Nutrition Answer Date [...] Master's degree (e.g., MA, MS, Elias, MEd, DETECTIVE PRECINCT, JAX) 05/20/2021 Sex and Gender Information Value [...] 04/23/2022 1:14 PM CDT Plan of Treatment Not on file Medical Devices Implanted Type Area Varnish Maker Device Identifier Shelf Expiration Date Model / Serial / Lot Clip Slimline Side Angle 15 - [id number] Implanted:Qty: 1 on 06/16/2001 Aneurysm Clip Codman Description:Device Manufactu rer - J [employer] Renae. Device Status Text - [id number]. Kls-Plate 16ho Straight - [id number] Implanted:Qty: 1 on 12/05/2002 Hardware e.g. pins/screws/rods JAYESH Alba Description:Device Manufactu ethan - JAYESH Alba. Device Status Text - [id number]. Lead Director Of Conservation Ap Thor Rsp Sns - [id number] - [id number] Implanted:Qty: 1 on 03/10/2022 by Vishnu Edwards M.D. at [facility] Responsive Neurostimulator Sys Right: Chest [employer] 09/07/2023 4340 / [id number] / Gen Nrstm Sleep Apnea Thor - [id number] - [id number] Implanted:Qty: 1 on 03/10/2022 by Vishnu Edwards M.D. at [facility] Spinal Cord Stimulator Right: Chest [employer] 08/14/2024 3028 / [id number] / Advance Directives For more information, please contact: [phone] Documents on File Type Date Recorded Patient Head Men'S Golf Coach Expl anation Advance Directives 05/05/2017 12:00 AM Leg acy document. See document viewer. Advance Directives 05/13/2004 12:00 AM Leg acy document. See document viewer. Care Teams Software Support Specialist Relationship Specialty Start Date End Date Elsewhere, Pcp PCP - General Family Medicine 05/20/21 Dr. Livia Scott [facility] [address] [place] [address] External Primary Care Physician 04/21/22
--- OUTSIDE RECORDS SUMMARY | 2023-10-19 09:32 | XMS_ITS | Encounter Summary ---
Author Name Unknown Organization [facility] Address [address] [place] [id number] Care Team Providers Care Boomboat Operator Name Role Phone Elsewhere, Pcp Primary Care Provider Unavailabl e Reason for Referral * Specialty Diagnoses / Procedures Referred By Kareem hsieh Referred To Contact Mahad Bustamante M.D. [address] [place] [phone] [facility] Referral ID Status Reason Start Date Expiration Date Visits Re quested Visits Authorized Scheduling Instructions 1 pm page EJO after download- patient can leave Encounter Details Date Type Department Care Team (Latest Contact Info) Description 04/19/2023 12:33 PM CDT - 04/22/2023 11:59 PM CDT [facility] [place], [place] [address] [place] [phone] Mahad Bustamante M.D. [address] [place] [phone] Apnea Sleep Obstructive Discharge Disposition: Home or Self Care Social History Tobacco Use Types Packs/Day Years [...] often do you attend chur ch or taoism services? Never 04/18/2022 Do you belong to any clubs o r organizations such as sabianist groups, unions, fraternal [...] and heating? Not hard at all 04/18/2022 [facility] - Occupational Stress [...] slept in a skilled nursing (including now)? No 04/18/2022 Nutrition Answer Date [...] Master's degree (e.g., MA, MS, Elias, MEd, MOBILITY SPECIALIST, JAX) 05/20/2021 Sex and Gender Information Value Date Recorded Sex Assigned at Female 06/25/2021 7:39 PM CDT Gender Identity Female 06/25/2021 7:39 PM CDT Sexual Orientation Not on file documented as of this encounter Medications at Time of Discharge Medication Sig Dispensed Refills Start Date End Date cholecalciferol (VITAMIN D3) 125 mcg (5,000 Unit) capsule Take 125 mcg by mouth daily. 0 Concerta 36 mg CR tablet 0 02/05/2023 EPINEPHrine (EPIPEN) 0.3 mg/0.3 mL injection syringe Inject 0.3 mg intramuscularly as needed. 0 01/31/2019 eszopiclone (LUNESTA) 3 mg tablet Lunesta 3 mg oral tablet See Instructions, 1 TABLET AT BEDTIME 0 12/22/2013 HYDROcodone-acetamino phen (NORCO) 7.5-325 mg per tablet 0.5 tablets as needed. 0 12/22/2013 levothyroxine (SYNTHROID, LEVOTHROID) 112 mcg tablet Take 112 mcg by mouth every evening. 0 09/18/2021 losartan (COZAAR) 25 mg tablet Take 25 mg by mouth at bedtime. 0 08/19/2021 methylphenidate HCl (CONCERTA) 54 mg CR tablet every morning. 0 08/25/2020 SUMAtriptan (IMITREX) 20 mg/actuation nasal spray Administer into affected nostril(s) as needed. 0 12/24/2008 traMADol (ULTRAM) 50 mg tablet 50 mg as needed. 0 12/21/2017 traMADol ER (ULTRAM ER) 100 mg 24 hr tablet 200 mg at bedtime. 0 09/23/2021 traMADol ER (ULTRAM ER) 200 mg 24 hr tablet MEDS ON BACK ORDER, that's why 100mg is prescribed at this time 0 12/22/2013 triamcinolone (NASACORT) 55 mcg/actuation nasal spray Administer 1 spray into each nostril daily. 0 documented as of this encounter Plan of Treatment Scheduled Referrals Name Type Priority Associated Diagnoses Order Schedule Sleep Medicine - Technologist education visit (clinic) Outpatient Referral Routine Apnea Sleep Obstructive Once for 1 Occurrences starting 04/19/2023 until 04/19/2023 documented as of this encounter Visit Diagnoses Diagnosis Apnea Sleep Obstructive documented in this encounter Care Teams Boomboat Operator Relationship Specialty Start Date End Date Elsewhere, Pcp PCP - General Family Medicine 05/20/21 Dr. Livia Scott [facility] [address] [place] [address] External Primary Care Physician 04/21/22 documented as of this encounter
--- OUTSIDE RECORDS SUMMARY | 2023-10-19 09:32 | XMS_ITS | Encounter Summary ---
Author Name Unknown Organization [facility] Address [address] [place] [address] Care Team Providers Care Commodities Broker Name Role Phone Elsewhere, Pcp Primary Care Provider Unavailabl e Reason for Referral * Outpatient (Routine) - Authorized Specialty Diagnoses / Procedures Referred By Kareem hsieh Referred To Contact Sleep Medicine Mahad Bustamante M.D. [address] [place] [phone] [facility] Referral ID Status Reason Start Date Expiration Date V isits Requested Visits Authorized [id number] Authorized 04/01/2023 03/31/2026 1 1 Reason for Visit * Outpatient (Routine) - Closed Specialty Diagnoses / Procedures Referred By Kareem hsieh Referred To Contact Sleep Medicine Mahad Bustamante M.D. [address] [place] [phone] [facility] Referral ID Status Reason Start Date Expiration Date Visits Re quested Visits Authorized [id number] Closed 07/30/2022 07/29/2025 1 1 Encounter Details Date Type Department Care Team (Late st Contact Info) Description 04/01/2023 3:30 PM CDT Telemedicine [facility] in [place], [place] [address] [place] [phone] Mahad Bustamante M.D. [address] [place] [phone] Apnea Sleep Obstructive (Primary Dx) Social History Tobacco Use Types Packs/Day Years [...] 04/18/2022 How often do you attend chur or worship services? Never 04/18/2022 Do you belong to any clubs o r organizations such as sabianism groups, unions, fraternal or athletic groups, or [...] and heating? Not hard at all 04/18/2022 [facility] [place] of Occupat ional Health - Occupational Stress [...] or slept in a long-term (including now)? No 04/18/2022 Nutrition Answer Date [...] degree you have received? Master's degree (e.g., LEBRON, , Elias, Ayesha, DIRECTOR DANCE, JAX) 05/20/2021 Sex and Gender Information Value Date Recorded Sex Assigned at Female 06/25/2021 7:39 PM CDT Gender Identity Female 06/25/2021 7:39 PM CDT Sexual Orientation Not on file documented as of this encounter Progress Notes * Mahad Bustamante M.D. - 04/01/2023 3:30 PM CDT SUBJECTIVE CHIEF COMPLAINT / REASON FOR VISIT Recheck of long-term hypoglossal nerve stimulator (Inspire) therapy HISTORY OF PRESENT ILLNESS Ms. Gudino is a 57 y.o. female with severe, non positional obstructive sleep apnea-status post Inspire implantation on March 10, 2022 who is for a recheck of Inspire therapy. The verbal history was obtained today exclusively from the patient. She elected to do the visit via video because she is helping her daughter move today in the [place] area. Ms. Gudino remains extremely pleased with Inspire therapy! She labels therapy ???fantastic. She has not made any changes in the stimulation amplitude of 3.0 volts that was recommended at our last visit on July 30, 2022. This stimulation amplitude is not associated with any breakthrough snoring, witnessed apneas, choking/snorting/gasping arousals from sleep, dysarthria, dysphagia, sleep fragmentation, or tongue weakness. A utilization report from the patient's Inspire remote was not available today given the virtual nature of this visit. The patient characterizes her Inspire use as all night, every night. Bedtime is typically at 10:00 p.m.. The patient almost always is asleep within the 30 minute start delay window. She awakens 0-2 times per night to go to the bathroom. At these times, she opts to turn the Inspire off to take advantage of the 30 minute start delay while she falls back to sleep. She arises between 5:00 a.m. and 7:00 a.m. feeling refreshed. She denies excessive daytime sleepiness. Her [place] Sleepiness Scale score is 6. She denies drowsiness with driving. Ms. Gudino denies the interval development of other sleep issues, such as dream enactment episodesor restless leg symptoms. Ms. Gudino estimates mild weight gain since our last visit. OBJECTIVE PHYSICAL EXAMINATION General: Alert. No distress. Skin: No rash or significant lesions were visualized. Eyes: Visual acuity at least sufficient to see me. No nystagmus or lid lesions. No icterus. ENT: Able to hear me. Nose normal. Speech clear. No hoarseness. Heart: No obvious JVD. Lungs: Respiratory effort and rate normal. No audible wheezing, stridor, cough, or sputum production observed. Extremities: No cyanosis. Mental: No formal thought disorder or abnormalities of thought content apparent. No hallucinations,illusions, or delusions described or elicited. No apparent abnormalities in attention or concentration. Knowledge base within normal limits. ASSESSMENT / PLAN #1 Severe obstructive sleep apnea-status post hypoglossal nerve stimulator implantation March 10, 2022 Today's history suggests things are going well on Inspire at a stimulation amplitude of 3 volts. The patient reports elimination of snoring, no witnessed apneas, excellent sleep quality, and satisfactory daytime alertness. She denies significant technical problems related to the use of Inspire therapy. She voiced understanding of the need for further efforts at weight watching. Plan 1. Continue Inspire at a stimulation amplitude of 3.0 volts on an all night, every night basis. 2. The patient will stop by our Center on April 19 so that a technologist can download her Inspire remote. I will review the results when available and contact the patient by phone with my impressionsand recommendations. 3. An order was placed for a 1 year Inspire recheck visit; this plan can be amended if there are concerns after review of the Inspire download. 4. Weight watching advised. Total time 30 minutes includes fwjh-wb-fcmr and vlr-frux-yb-face pre and post visit tasks performedon the day of the patient encounter. Visit conducted via real-time audio/video technology by Mahad Bustamante M.D. in his office at [facility] [place] to the patient's home. This Video Visit was performed during the COVID- emergency when many states had issued rhvkobh-cu-cugaa orders. documented in this encounter Plan of Treatment Scheduled Referrals Name Type Priority Associated Diagnoses Orde r Schedule Sleep Medicine office visit (clinic) Outpatient Referral Routine Expected: 04/01/2024 (Approximate), Expires: 07/02/2024 documented as of this encounter Visit Diagnoses Diagnosis Apnea Sleep Obstructive- Primary documented in this encounter Care Teams Commodities Broker Relationship Specialty Start Date End Date Elsewhere, Pcp PCP - General Family Medicine 05/20/21 Dr. Livia Scott [facility] [address] [place] [address] External Primary Care Physician 04/21/22 documented as of this encounter
--- OUTSIDE RECORDS SUMMARY | 2023-10-19 09:32 | XMS_ITS | Encounter Summary ---
Author Name Unknown Organization [facility] Address [address] [place] [address] Care Team Providers Care Yeast Tender Name Role Phone Elsewhere, Pcp Primary Care Provider Unavailabl e Reason for Referral * Outpatient (Routine) - Closed Specialty Diagnoses / Procedures Referred By Kareem hsieh Referred To Contact Sleep Medicine Nichole Umaña M.D. [address] [place] [phone] [facility] Referral ID Status Reason Start Date Expiration Date Visits Re quested Visits Authorized [id number] Closed 07/30/2022 07/29/2025 1 1 Reason for Visit * Outpatient (Routine) - Closed Specialty Diagnoses / Procedures Referred By Kareem hsieh Referred To Contact Sleep Medicine Nichole Umaña M.D. [address] [place] [phone] [facility] Referral ID Status Reason Start Date Expiration Date Visits Re quested Visits Authorized [id number] Closed 07/21/2022 07/20/2025 1 1 Encounter Details Date Type Department Care Team ([facility] st Contact Info) Description 07/30/2022 8:00 AM CDT Office Visit Center for Sleep Medicine in [place], [place] [address] [place] [phone] Nichole Umaña M.D. [address] [place] [phone] Apnea Sleep Obstructive (Primary Dx) Social History [...] How often do you attend chur or mosque services? Never 04/18/2022 Do you belong to any clubs o r organizations such as jainism groups, unions, fraternal [...] and heating? Not hard at all 04/18/2022 [facility] [place] of Occupat ional Health - Occupational Stress [...] or slept in a snf (including now)? No 04/18/2022 Nutrition Answer Date [...] you have received? Master's degree (e.g., LEBRON, MS, Elias, Ayesha, SKI INSTRUCTOR, JAX) 05/20/2021 Sex and Gender Information Value Date Recorded Sex Assigned at Female 06/25/2021 7:39 PM CDT Gender Identity Female 06/25/2021 7:39 PM CDT Sexual Orientation Not on file documented as of this encounter Progress Notes * Nichole Umaña M.D. - 07/30/2022 8:00 AM CDT SUBJECTIVE CHIEF COMPLAINT / REASON FOR VISIT Post testing report visit. HISTORY OF PRESENT ILLNESS I met with Ms. Gudino to review test results. ASSESSMENT / PLAN #1 Severe obstructive sleep apnea-status post hypoglossal nerve stimulator implantation March 10, 2022, activation on April 23, 2022 Last night's fine tune polysomnogram revealed elimination of most obstructive sleep disordered breathing events during non-REM and REM sleep off the back at a stimulation amplitude of 2.9 volts. Supine sleep did not occur during the titration. The overall apnea-hypopnea index was 7 events per hour.Please see the formal report for more details. I congratulated Ms. Gudino on her excellent response to Inspire therapy. Recall that her pre implantation home sleep apnea study revealed very severe obstructive sleep apnea (pAHI 62 events per hourin January 2022). She does not think she sleeps much on her back at home so the lack of supine positionsleep during last night's titration polysomnogram may not be of major clinical relevance. Plan 1. During today's encounter, I used the Inspire clinical statistical programmer to reset the patient to a stimulation amplitude of 3.0 volts (I opted to go slightly above the 2.9 volts use last night with the thinking itmay be slightly more therapeutic if the patient occasionally sleeps in the supine position). The full Inspire settings are summarized below. 2. I encouraged a goal of continuing to use Inspire on an all night, every night basis. 3. Continued efforts at weight watching were encouraged as were efforts to avoid supine position sleep. 4. Inspire recheck visit in 6 months. I encouraged the patient to call in the meantime if problems or questions arise with respect to Inspire. Summary of Inspire settings: Stimulation range: 2.8-3.8 volts (new) Stimulation amplitude: 3.0 volts (new) Start delay: 30 minutes (unchanged) Pause time: 15 minutes (unchanged) Maximum therapy duration: 8 hours (unchanged) I personally spent 30 minutes in care of the patient today. Time includes both eeo-vhhs-hl-face epazucq-ge-rpms patient care. documented in this encounter Miscellaneous Notes * Addendum Note - Nichole Umaña M.D. - 07/30/2022 8:00 AM CDTAddended by: NICHOLE UMAÑA on: 07/30/2022 08:25 AM Modules accepted: Orders documented in this encounter Plan of Treatment Scheduled Referrals Name Type Priority Associated Diagnoses Orde r Schedule Sleep Medicine office visit (clinic) Outpatient Referral Routine Expected: 01/27/2023 (Approximate), Expires: 10/30/2023 documented as of this encounter Visit Diagnoses Diagnosis Apnea Sleep Obstructive- Primary documented in this encounter Care Teams Yeast Tender Relationship Specialty Start Date End Date Elsewhere, Pcp PCP - General Family Medicine 05/20/21 Dr. Livia Scott [facility] [address] [place] [address] External Primary Care Physician 04/21/22 documented as of this encounter
--- OUTSIDE RECORDS SUMMARY | 2023-10-19 09:32 | XMS_ITS ---
Author Name Unknown Organization [facility] Address [address] [place] [address] Care Team Providers Care Cane Flume Chute Operator Name Role Phone Unavailable Unavailable Unavailable Surgery Details Not on file Complications Check Surgery Details section. Procedure Estimated Blood Loss Check Surgery Details section. Procedure Findings Check Surgery Details section. Procedure Specimens Taken Check Surgery Details section.
--- OUTSIDE RECORDS SUMMARY | 2023-10-19 09:32 | XMS_ITS | Encounter Summary ---
Author Name Unknown Organization [facility] Address [address] [place] [address] Care Team Providers Care Commercial Loan Analyst Name Role Phone Elsewhere, Pcp Primary Care Provider Unavailabl e Encounter Details Date Type Department Care Team (Latest Contact Info) Description 03/31/2023 10:00 AM CDT Clinical Communication Virtual Review in [place], [place] [address] [place], [place] [address] Social History Tobacco Use Types Packs/Day Years [...] often do you attend chur ch or catholic services? Never 04/18/2022 Do you belong to any clubs o r organizations such as christianity groups, unions, fraternal [...] and heating? Not hard at all 04/18/2022 [facility] [place] of Occupat ional Health - Occupational Stress [...] or slept in a fci (including now)? No 04/18/2022 Nutrition Answer Date [...] Master's degree (e.g., MA, MS, Elias, MEd, LEATHER STITCHER, JAX) 05/20/2021 Sex and Gender Information Value Date Recorded Sex Assigned at Female 06/25/2021 7:39 PM CDT Gender Identity Female 06/25/2021 7:39 PM CDT Sexual Orientation Not on file documented as of this encounter Plan of Treatment Not on file documented as of this encounter Visit Diagnoses Not on filedocumented in this encounter Care Teams Commercial Loan Analyst Relationship Specialty Start Date End Date Elsewhere, Pcp PCP - General Family Medicine 05/20/21 Dr. Livia Scott [facility] [address] [place] [address] External Primary Care Physician 04/21/22 documented as of this encounter
== END 2023-10-14 07:50 | disposition home or self-care (01) ==
PROVIDERS: PCP Family Medicine; Referring Provider Family Medicine; Visit Provider Obstetrics & Gynecology
DX: Z79.899 Other long term (current) drug therapy (principal)
CPT/HCPCS: 84403

== ENCOUNTER 2023-11-14 12:47 | Outpatient (CLI) | payer OTHER, SELFPAY ==
--- OUTSIDE RECORDS SUMMARY | 2023-11-14 12:50 | XMS_ITS | Clinical Summary ---
Author Name Unknown Organization [facility] Address [address] [place] [address] Care Team Providers Care Wafer Fabrication Operator Name Role Phone Elsewhere, Pcp Primary Care Provider Unavailabl e Source Comments Patient records contain information from all sites at [facility]. For routine questions regarding patient records, call [phone] during business hours, M-F 8:00 AM - 5:00 PM Central Time. Record requests for emergency care only can be directed to [phone] at any time.[facility] Allergies Active Allergy Reactions Criticality Noted Date Comments Aspirin Rash,Other (see comments) High 12/22/2013 ASPIRIN - Mouth ulcers and rash across chest Erythromycin Other (see comments) High 12/22/2013 ERYTHROMYCIN - Eyes swelled shut Ibuprofen Other (see comments) High 12/05/2002 Mouth ulcers and rash Nsaids (Non-Steroidal Anti-Inflammatory Drug) Rash High 03/13/2018 Mouth ulcers Plant Extracts Edema (Reselect Reaction) High 04/21/2022 [place] Zaleplon Headache High 12/22/2013 SONATA - Caused [...] Overview: Added automatically from request for surgery [id number] Deviation Nasal Septal 09/30/202101/13 Overview: Added automatically from request for surgery [id number] Immunizations Name Administration Dates Next Due HZV [...] often do you attend chur ch or yazdanism services? Never 04/18/2022 Do you belong to [...] and heating? Not hard at all 04/18/2022 [facility] of Occupat ional Health - Occupational [...] or slept in a longterm (including now)? No 04/18/2022 Nutrition Answer Date [...] Master's degree (e.g., MA, MS, Elias, MEd, BINDER SORTER, JAX) 05/20/2021 Sex and Gender Information Value [...] Blood Pressure Check / Re-check 04/23/2023 04/23/2022 Depression Screening (Annual PHQ-2) 09/26/2023 Fasting Glucose for Diabetes Screening 05/21/2024 05/21/2021 DTaP,Tdap,and Td Vaccines (4 - Td or Tdap) 06/14/2033 06/14/2023, 06/10/2011, 11/15/2008, Additional history exists Hepatitis B Vaccines Completed 03/30/2019, 07/17/2012, 01/20/2012 Zoster Vaccines Completed 04/03/2019, 04/2019, 04/20/2017 Hepatitis A Vaccines Completed 01/19/2021, 03/30/2019, 01/20/2012 Influenza Vaccine Completed 07/20/2023, , 07/22/2021, Additional history exists COVID-19 Vaccine Completed 11/02/2023, 11/2021, 04/09/2022, Additional history exists Pneumococcal vaccine (0-64 years) Aged Out No longer eligible based on patient's age to complete this topic Medical Devices Implanted Type Area Ply Cutter Device Identifier Shelf Expiration Date Model / [...] Alba. Device Status Text - [id number]. Lead Floor Attendant Ap Thor Rsp Sns - [id number] - [id number] Implanted:Qty: 1 on 03/10/2022 by Vishnu Edwards M.D. at [facility] Responsive Neurostimulator Sys Right: Chest [employer] 09/07/2023 [id number] / [id number] / Gen Nrstm Sleep Apnea Thor - [id number] - [id number] Implanted:Qty: 1 on 03/10/2022 by Vishnu Edwards M.D. at [facility] Spinal Cord Stimulator Right: Chest [employer] 08/14/2024 [id number] / [id number] / Advance Directives For more information, please contact: [phone] Documents on File Type Date Recorded Patient Supervisor Computer Operations Expl anation Advance Directives 05/05/2017 12:00 AM Leg acy document. See document viewer. Advance Directives 05/13/2004 12:00 AM Leg acy document. See document viewer. Care Teams Wafer Fabrication Operator Relationship Specialty Start Date End Date Elsewhere, Pcp PCP - General Family Medicine 05/20/21 Dr. Livia Scott [facility] [address] [place] [address] External Primary Care Physician 04/21/22
--- OUTSIDE RECORDS SUMMARY | 2023-11-14 12:51 | XMS_ITS | Encounter Summary ---
Author Name Unknown Organization [facility] Address [address] [place] [address] Care Team Providers Care Route Rider Name Role Phone Elsewhere, Pcp Primary Care Provider Unavailabl e Reason for Referral * Outpatient (Routine) - Authorized Specialty Diagnoses / Procedures Referred By Kareem hsieh Referred To Contact Sleep Medicine Mahad Bustamante M.D. [address] [place] [phone] [facility] Referral ID Status Reason Start Date Expiration Date V isits Requested Visits Authorized [id number] Authorized 04/01/2023 03/31/2026 1 1 Reason for Visit * Outpatient (Routine) - Closed Specialty Diagnoses / Procedures Referred By Kareem hsieh Referred To Contact Sleep Medicine Mahad Bustamante M.D. [address] [place] [phone] [facility] Referral ID Status Reason Start Date Expiration Date Visits Re quested Visits Authorized [id number] Closed 07/30/2022 07/29/2025 1 1 Encounter Details Date Type Department Care Team (Late st Contact Info) Description 04/01/2023 3:30 PM CDT Telemedicine Center for Sleep Medicine in [place], [place] [address] [place] [phone] Mahad Bustamante M.D. [address] [place] [phone] Apnea Sleep Obstructive (Primary Dx) Social History [...] How often do you attend chur or confucianist services? Never 04/18/2022 Do you belong to any clubs o r organizations such as caodaism groups, unions, fraternal or athletic groups, or [...] and heating? Not hard at all 04/18/2022 [facility] [place] of Occupat ional Health - Occupational Stress [...] or slept in a alf (including now)? No 04/18/2022 Nutrition Answer Date [...] Master's degree (e.g., LEBRON, , Elias, Ayesha, SPECIAL FORCES OFFICER, JAX) 05/20/2021 Sex and Gender Information Value [...] helping her daughter move today in the [place] area. Ms. Gudino remains extremely pleased with [...] refreshed. She denies excessive daytime sleepiness. Her [place] Sleepiness Scale score is 6. She denies [...] watching advised. Total time 30 minutes includes khve-jj-clgt and vtp-imlw-vi-face pre and post visit tasks performedon the day of the patient encounter. Visit conducted via real-time audio/video technology by Mahad Bustamante M.D. in his office at [facility] to the patient's home. This Video Visit was performed during the COVID- emergency when many states had issued cuszdqm-xt-chkmt orders. documented in this encounter Plan of Treatment Scheduled Referrals Name Type Priority Associated Diagnoses Orde r Schedule Sleep Medicine office visit (clinic) Outpatient Referral Routine Expected: 04/01/2024 (Approximate), Expires: 07/02/2024 documented as of this encounter Visit Diagnoses Diagnosis Apnea Sleep Obstructive- Primary documented in this encounter Care Teams Route Rider Relationship Specialty Start Date End Date Elsewhere, Pcp PCP - General Family Medicine 05/20/21 Dr. Livia Scott [facility] [address] [place] [address] External Primary Care Physician 04/21/22 documented as of this encounter
--- OUTSIDE RECORDS SUMMARY | 2023-11-14 12:51 | XMS_ITS ---
Author Name Unknown Organization [facility] Address [address] [place] [address] Care Team Providers Care Dental Instructor Name Role Phone Unavailable Unavailable Unavailable Surgery Details Not on file Complications Check Surgery Details section. Procedure Estimated Blood Loss Check Surgery Details section. Procedure Findings Check Surgery Details section. Procedure Specimens Taken Check Surgery Details section.
--- OUTSIDE RECORDS SUMMARY | 2023-11-14 12:51 | XMS_ITS | Encounter Summary ---
Author Name Unknown Organization [facility] Address [address] [place] [address] Care Team Providers Care Construction Technology Instructor Name Role Phone Elsewhere, Pcp Primary Care Provider Unavailabl e Reason for Referral * Outpatient (Routine) - Closed Specialty Diagnoses / Procedures Referred By Kareem hsieh Referred To Contact Sleep Medicine Nichole Umaña M.D. [address] [place] [phone] [facility] Referral ID Status Reason Start Date Expiration Date Visits Re quested Visits Authorized [id number] Closed 07/30/2022 07/29/2025 1 1 Reason for Visit * Outpatient (Routine) - Closed Specialty Diagnoses / Procedures Referred By Kareem hsieh Referred To Contact Sleep Medicine Nichole Umaña M.D. [address] [place] [phone] [facility] Referral ID Status Reason Start Date Expiration Date Visits Re quested Visits Authorized [id number] Closed 07/21/2022 07/20/2025 1 1 Encounter Details Date Type Department Care Team ([facility] st Contact Info) Description 07/30/2022 8:00 AM CDT Office Visit Center for Sleep Medicine in [place], [place] [address] [place] [phone] Nichole Umaña M.D. [address] [place] [phone] Apnea Sleep Obstructive (Primary Dx) Social History [...] How often do you attend chur or pentecostal services? Never 04/18/2022 Do you belong to any clubs o r organizations such as jain groups, unions, fraternal [...] and heating? Not hard at all 04/18/2022 [facility] [place] of Occupat ional Health - Occupational Stress [...] Master's degree (e.g., LEBRON, MS, Elias, Ayesha, INSTRUCTOR ROBOTICS, JAX) 05/20/2021 Sex and Gender Information Value [...] During today's encounter, I used the Inspire db2 systems programmer to reset the patient to a [...] of the patient today. Time includes both awd-bnmi-xi-face qztyvjr-dt-tfds patient care. documented in this encounter Miscellaneous [...] Primary documented in this encounter Care Teams Construction Technology Instructor Relationship Specialty Start Date End Date Elsewhere, Pcp PCP - General Family Medicine 05/20/21 Dr. Livia Scott [facility] [address] [place] [address] External Primary Care Physician 04/21/22 documented as of this encounter
--- OUTSIDE RECORDS SUMMARY | 2023-11-14 12:51 | XMS_ITS | Referral Summary ---
Author Name Unknown Organization [facility] Address [address] [place] [address] Care Team Providers Care Manufacturing Project Engineer Name Role Phone Elsewhere, Pcp Primary Care Provider Unavailabl e Source Comments Patient records contain information from all sites at [facility]. For routine questions regarding patient records, call [phone] during business hours, M-F 8:00 AM - 5:00 PM Central Time. Record requests for emergency care only can be directed to [phone] at any time.[facility] Allergies Active Allergy Reactions Criticality Noted Date Comments Aspirin Rash,Other (see comments) High 12/22/2013 ASPIRIN - Mouth ulcers and rash across chest Erythromycin Other (see comments) High 12/22/2013 ERYTHROMYCIN - Eyes swelled shut Ibuprofen Other (see comments) High 12/05/2002 Mouth ulcers and rash Nsaids (Non-Steroidal Anti-Inflammatory Drug) Rash High 03/13/2018 Mouth ulcers Plant Extracts Edema (Reselect Reaction) High 04/21/2022 [place] Zaleplon Headache High 12/22/2013 SONATA - Caused [...] Overview: Added automatically from request for surgery [id number] Deviation Nasal Septal 09/30/202101/13 Overview: Added automatically from request for surgery [id number] Immunizations Name Administration Dates Next Due HZV [...] often do you attend chur ch or restoration services? Never 04/18/2022 Do you belong to any clubs o r organizations such as faith groups, unions, fraternal [...] and heating? Not hard at all 04/18/2022 [facility] - [...] or slept in a retirement (including now)? No 04/18/2022 Nutrition Answer Date [...] Master's degree (e.g., MA, MS, Elias, MEd, ASSISTANT PURCHASING MANAGER, JAX) 05/20/2021 Sex and Gender Information Value [...] on file Medical Devices Implanted Type Area Firer Kiln Device Identifier Shelf Expiration Date Model / [...] Alba. Device Status Text - [id number]. Lead Bevel Gear Generator Operator Ap Thor Rsp Sns - [id number] - [id number] Implanted:Qty: 1 on 03/10/2022 by Vishnu Edwards M.D. at [facility] Responsive Neurostimulator Sys Right: Chest [employer] 09/07/2023 [id number] / [id number] / Gen Nrstm Sleep Apnea Thor - [id number] - [id number] Implanted:Qty: 1 on 03/10/2022 by Vishnu Edwards M.D. at [facility] Spinal Cord Stimulator Right: Chest [employer] 08/14/2024 3028 / [id number] / Advance Directives For more information, please contact: [phone] Documents on File Type Date Recorded Patient Program Clinician Expl anation Advance Directives 05/05/2017 12:00 AM Leg acy document. See document viewer. Advance Directives 05/13/2004 12:00 AM Leg acy document. See document viewer. Care Teams Manufacturing Project Engineer Relationship Specialty Start Date End Date Elsewhere, Pcp PCP - General Family Medicine 05/20/21 Dr. Livia Scott [facility] [address] [place] [address] External Primary Care Physician 04/21/22
--- OUTSIDE RECORDS SUMMARY | 2023-11-14 12:51 | XMS_ITS | Encounter Summary ---
Author Name Unknown Organization [facility] Address [address] [place] [address] Care Team Providers Care Vice President Quality Name Role Phone Elsewhere, Pcp Primary Care Provider Unavailabl e Encounter Details Date Type Department Care Team (Latest Contact Info) Description 03/31/2023 10:00 AM CDT Clinical Communication Virtual Review in [place], [place] [address] [place], [place] [id number] Social History Tobacco Use Types Packs/Day Years [...] often do you attend chur ch or jain services? Never 04/18/2022 Do you belong to any clubs o r organizations such as temple groups, unions, fraternal [...] and heating? Not hard at all 04/18/2022 [facility] [place] of Occupat ional Health - Occupational Stress [...] or slept in a mcfp (including now)? No 04/18/2022 Nutrition Answer Date [...] Master's degree (e.g., MA, MS, Elias, MEd, ENVIRONMENTAL SAMPLING TECHNICIAN, JAX) 05/20/2021 Sex and Gender Information Value Date Recorded Sex Assigned at Female 06/25/2021 7:39 PM CDT Gender Identity Female 06/25/2021 7:39 PM CDT Sexual Orientation Not on file documented as of this encounter Plan of Treatment Not on file documented as of this encounter Visit Diagnoses Not on filedocumented in this encounter Care Teams Vice President Quality Relationship Specialty Start Date End Date Elsewhere, Pcp PCP - General Family Medicine 05/20/21 Dr. Livia Scott [facility] [address] [place] [address] External Primary Care Physician 04/21/22 documented as of this encounter
--- OUTSIDE RECORDS SUMMARY | 2023-11-14 12:51 | XMS_ITS | Encounter Summary ---
Author Name Unknown Organization [facility] Address [address] [place] [address] Care Team Providers Care Motion Study Technician Name Role Phone Elsewhere, Pcp Primary Care Provider Unavailabl e Reason for Referral * Specialty Diagnoses / Procedures Referred By Kareem hsieh Referred To Contact Mahad Bustamante M.D. [address] [place] [phone] [facility] Referral ID Status Reason Start Date Expiration Date Visits Re quested Visits Authorized Scheduling Instructions 1 pm page EJO after download- patient can leave Encounter Details Date Type Department Care Team (Latest Contact Info) Description 04/19/2023 12:33 PM CDT - 04/22/2023 11:59 PM CDT Hospital En[facility] [place], [place] [address] [place] [phone] Mahad Bustamante M.D. [address] [place] [phone] Apnea Sleep Obstructive Discharge Disposition: Home or [...] often do you attend chur ch or hinduism services? Never 04/18/2022 Do you belong to any clubs o r organizations such as shinto groups, unions, fraternal or athletic groups, or [...] and heating? Not hard at all 04/18/2022 [facility] of Occupat ional Health - Occupational Stress [...] Master's degree (e.g., MA, MS, Elias, MEd, STABILIZING MACHINE OPERATOR, JAX) 05/20/2021 Sex and Gender Information Value [...] Obstructive documented in this encounter Care Teams Motion Study Technician Relationship Specialty Start Date End Date Elsewhere, Pcp PCP - General Family Medicine 05/20/21 Dr. Livia Scott [facility] [address] [place] [address] External Primary Care Physician 04/21/22 documented as of this encounter
--- NOTE | 2023-11-14 13:00 | MM_ITS ---
Final Report Patient: FRANCOIS ROBERTO Facility:?[facility] Patient ID:?[id number] :?[id number] Study:?XRay Breast Bilateral 3D W/CAD-11/14/2023 1:53:14 PM Ordering Physician:[place] Final Report: BILATERAL SCREENING MAMMOGRAM WITH COMPUTER-AIDED DETECTION AND TOMOSYNTHESIS TECHNIQUE: CC and MLO views were obtained. These mammographic images have been obtained using full-field digital technique. These mammographic images were interpreted with the benefit of computer-aided detection. Breast Tomosynthesis was used in this interpretation. COMPARISON FILM: 06/14/22, 03/30/21,04/02/20. FINDINGS: There are scattered areas of fibroglandular density. IMPRESSION: There is no radiographic evidence for malignancy. ASSESSMENT: BI-RADS Category 1: Negative RECOMMENDATION: Routine screening mammogram in 1 year. A lay language report of this examination will be provided to the patient. Liban Mckinley M.D. Diagnostic Radiologist [email or web address] ADELINE/sp R& Transcribed: 3:42 p.m. SP/Dictated by: Liban Mckinley MD @ 11/16/2023 1:07:00 PM (Electronic Signature
== END 2023-11-14 12:48 | disposition home or self-care (01) ==
PROVIDERS: PCP Family Medicine; Visit Provider Family Medicine
DX: Z12.31 Encounter for screening mammogram for malignant neoplasm of breast (principal)
CPT/HCPCS: 77063; 77067

== ENCOUNTER 2024-08-03 07:39 | Outpatient (CLI) | payer OTHER, SELFPAY ==
--- OUTSIDE RECORDS SUMMARY | 2024-08-03 13:53 | XMS_ITS ---
Author Organization [facility] Address [address] [place] [address] Care Team Providers Care Customs Port Director Name Role Phone Unavailable Unavailable Unavailable Surgery Details Not on file Complications Check Surgery Details section. Procedure Estimated Blood Loss Check Surgery Details section. Procedure Findings Check Surgery Details section. Procedure Specimens Taken Check Surgery Details section.
--- OUTSIDE RECORDS SUMMARY | 2024-08-03 13:53 | XMS_ITS | Clinical Summary ---
Author Organization [facility] Address [address] [place] [address] Care Team Providers Care Shredding Machine Operator Name Role Phone Elsewhere, Pcp Primary Care Provider Unavailabl e Source Comments Patient records contain information from all sites at [facility]. For routine questions regarding patient records, call [phone] during business hours, M-F 8:00 AM - 5:00 PM Central Time. Record requests for emergency care only can be directed to [phone] at any time.[facility] Allergies Active Allergy Reactions Criticality Noted Date Comments Aspirin Rash,Other (see comments) High 12/22/2013 ASPIRIN - Mouth ulcers and rash across chest Erythromycin Other (see comments) High 12/22/2013 ERYTHROMYCIN - Eyes swelled shut Ibuprofen Other (see comments) High 12/05/2002 Mouth ulcers and rash Nsaids (Non-Steroidal Anti-Inflammatory Drug) Rash High 03/13/2018 Mouth ulcers Plant Extracts Edema (Reselect Reaction) High 04/21/2022 [place] Zaleplon Headache High 12/22/2013 SONATA - Caused migraines Medications eszopiclone (LUNESTA) 3 mg tablet Lunesta 3 mg oral tablet See Instructions, 1 TABLET AT BEDTIME 12/23/19 14 Active HYDROcodone-ac etaminophen (NORCO) 7.5-325 mg per tablet 0.5 tablets as needed. 12/23/19 14 Active SUMAtriptan (IMITREX) 20 mg/actuation nasal spray Administer into affected nostril(s) as needed. 12/25/19 09 Active traMADol ER (ULTRAM ER) 200 mg 24 hr tablet MEDS ON BACK ORDER, that's why 100mg is prescribed at this time 12/23/19 14 Active traMADol (ULTRAM) 50 mg tablet 50 mg as needed. 0 12/22/19 18 Active EPINEPHrine (EPIPEN) 0.3 mg/0.3 mL injection syringe Inject 0.3 mg intramuscularly as needed. 0 02/01/20 19 Active losartan (COZAAR) 25 mg tablet Take 25 mg by mouth at bedtime. 08/19/20 21 Active levothyroxine (SYNTHROID, LEVOTHROID) 112 mcg tablet Take 112 mcg by mouth every evening. 09/18/20 21 Active methylphenidat e HCl (CONCERTA) 54 mg CR tablet every morning. 08/25/20 20 Active traMADol ER (ULTRAM ER) 100 mg 24 hr tablet 200 mg at bedtime. 09/23/20 21 Active triamcinolone (NASACORT) 55 mcg/actuation nasal spray Administer 1 spray into each nostril daily. Active cholecalcifero l (VITAMIN D3) 125 mcg (5,000 Unit) capsule Take 125 mcg by mouth daily. Active Concerta 36 mg CR tablet 02/06/20 23 Active Active Problems Problem Noted Date Diagnosed Date Trigeminal Neuralgia 10/27/2021 Apnea Sleep Obstructive 08/14/2021 Aneurysm Carotid Artery 07/13/2011 Migraine Headache Hypothyroidism Overview (10/27/2021): treating with levothyroxine Hypertension NOS Overview (10/27/2021): medically treated Resolved Problems Problem Noted Date Diagnosed Date Resolved Date Obstruction Nasal 09/30/2021 01/13/2022 Overview (09/30/2021): Added automatically from request for surgery [id number] Deviation Nasal Septal 09/30/202101/13 Overview (09/30/2021): Added automatically from request for surgery [id number] Immunizations Name Administration Dates Next Due HZV (ZOSTAVAX) 04/20/2017 HepA / HepB 01/20/2012 HepA Adult 03/30/2019 HepB Adult 03/30/2019,07/17/2012 Influenza, Seasonal, Injectable 07/20/2005 MMR 03/30/2019 RZV (SHINGRIX) 01/31/2019 Td (Adult), adsorbed 09/26/2005 Tdap 06/10/2011,11/15/2008 Ty21a (oral) 03/30/2019(Deferred: Other - Prescripton given) TyVi (inj) 01/20/2012 YF 01/20/2012 influenza trivalent vaccine (6 months and older)(PF) 09/05/2014 influenza vaccine quad (FLUZONE/FLUARIX) (6 months and [...] Comments Father Marlo Mckinney Mother Paris Mi Eljmsky Social History Tobacco Use Types Packs/Day Years [...] often do you attend chur ch or jewish services? Never 04/18/2022 Do you belong to any clubs o r organizations such as presybeterian groups, unions, fraternal [...] and heating? Not hard at all 04/18/2022 [facility]ational Stress Questionnaire Answer [...] now)? No 04/18/2022 Nutrition Answer Date Recorded On average, how many serving s of [...] Master's degree (e.g., MA, MS, Elias, MEd, TRANSMISSION TESTER, JAX) 05/20/2021 Comments No Sex and Gender Information Value Date Recorded Sex Assigned at Female 06/25/2021 7:39 PM CDT Legal Sex Female 2:14 PM SENIOR HEALTH CONSULTANT Gender Identity Female 06/25/2021 7:39 PM CDT [...] Date Last Done Comments CT Colonography 1965 Cervical/Vaginal Cancer Screening 1965 Cologuard 1965 Colonoscopy 1965 Colorectal Cancer Screening 1965 FIT 1965 HIV Screening 1965 Hepatitis C Screening 1965 Lipid (Cholesterol) Screening 1965 Office Visit for Blood Pressure Check / Re-check 1965 Thyroid Stimulating Hormone (TSH) test for thyroid function 1965 Mammogram 11/15/2009 11/15/2008, 12/2007, 10/25/2006 Creatinine Level (Kidney Function Test) 05/21/2022 05/21/2021 Potassium Level 05/21/2022 05/21/2021 Sodium Level 05/21/2022 05/21/2021 Depression Screening (Annual PHQ-2) 09/26/2023 Fasting Glucose for Diabetes Screening 05/21/2024 05/21/2021 COVID-19 Vaccine ( season) 2024 11/02/2023, 08/28/2022, 04/09/2022, Additional history exists Influenza Vaccine (#1) 2024 , 07/22/2022, 07/22/2021, Additional history exists DTaP,Tdap,and Td Vaccines (4 - Td or Tdap) 06/14/2033 06/14/2023, 06/10/2011, 11/15/2008, Additional history exists Hepatitis B Vaccines Completed 03/30/2019, 07/17/2012, 01/20/2012 Zoster Vaccines Completed 04/03/2019, 04/2019, 04/20/2017 Hepatitis A Vaccines Completed 01/19/2021, 03/30/2019, 01/20/2012 IPV Vaccines Aged Out No longer eligi ble based on patient's age to complete this topic Pneumococcal vaccine (0-64 years) Aged Out No longer eligible based on patient's age to complete this topic Medical Devices Implanted Type Area Rat Culturist Device Identifier Shelf Expiration Date Model / Serial / Lot Clip Sundt Slimline 3x 6x 9 - [id number] Implanted:Qty: 1 on 06/16/2001 Aneurysm Clip Codman Description:Device Manufactu rer - J [employer] Codman. Device Status Text - [id number]. Clip Slimline Side Angle 15 - [id number] Implanted:Qty: 1 on 06/16/2001 Aneurysm Clip Codman Description:Device Manufactu rer - J & J Codman. Device Status Text - [id number]. Kls-Plate 1.5 Y Reg Dbl - Lawson [id number] Implanted:Qty: 1 on 12/05/2002 Hardware e.g. pins/screws/rods MARCELLES Parth Description:Device Manufactu rer - KLS Parth. Device Status Text - [id number]. Kls-Plate 1.5 L Lng Lt - Lawson [id number] Implanted:Qty: 1 on 12/05/2002 Hardware e.g. pins/screws/rods MARCELLES Parth Description:Device Manufactu ethan - KLS Parth. Device Status Text - [id number]. Kls-Screw Drill Free 1.5x5 - Lawson [id number] Implanted:Qty: 1 on 12/05/2002 Hardware e.g. pins/screws/rods MARCELLES Parth Description:Device Manufactu ethan - KLS Parth. Device Status Text - [id number]. Kls-Screw Drill Free 1.5x4 - Lawson [id number] Implanted:Qty: 12 on 12/05/2002 Hardware e.g. pins/screws/rods MARCELLES Parth Description:Device Manufactu rer - KLS Parth. Device Status Text - [id number]. Kls-Plate 16ho Straight - Lawson [id number] Implanted:Qty: 1 on 12/05/2002 Hardware e.g. pins/screws/rods MARCELLES Parth Description:Device Manufactu rer - [employer] Parth. Device Status Text - [id number]-8186. Lead Cuff Stimulation - [id number] - [id number] Implanted:Qty: 1 on 03/10/2022 by Vishnu Edwards M.D. at [facility] Responsive Neurostimulator Sys Right: Neck [email or web address] 09/14/2023 4063 / [id number] / Lead Ambulatory Nurse Ap Thor Rsp Sns - [id number] - [id number] Implanted:Qty: 1 on 03/10/2022 by Vishnu Edwards M.D. at [facility] Responsive Neurostimulator Sys Right: Chest [employer] 09/07/2023 4340 / [id number] / Gen Nrstm Sleep Apnea Thor - [id number] - [id number] Implanted:Qty: 1 on 03/10/2022 by Vishnu Edwards M.D. at [facility] Spinal Cord Stimulator Right: Chest [employer] 08/14/2024 3028 / [id number] 0C / Procedures Procedure Name Priority Date/Time Associated Diagnosis Comments COMPREHENSIVE METABOLIC PANEL, S/P Routine 05/21/2021 9:51 AM CDT Hives BI BREAST SCREENING BILATERAL Routine 11/15/2008 11:15 AM SENIOR HEALTH CONSULTANT from Last 3 Months or Most Recently Relevant to Health Maintenance Results * (ABNORMAL) Comprehensive Metabolic Panel (05/21/2021 9:51 AM CDT) Pathologist [facility] Potassium, S 4.6 3.6 - 5.2 mmol/L 05/21/2021 10:53 AM CDT DTL Sodium, S 140 135 - 145 mmol/L 05/21/2021 10:53 AM CDT DTL Chloride, S 100 98 - 107 mmol/L 05/21/2021 10:53 AM CDT DTL Bicarbonate, S 31(H) 22 - 29 mmol/L 05/21/2021 10:53 AM CDT DTL Anion Gap 9 7 - 15 05/21/2021 10:53 AM CDT DTL BUN (Blood Urea Nitrogen), S 16 6 - 21 mg/dL 05/21/2021 10:53 AM CDT DTL Creatinine 0.93 0.59 - 1.04 mg/dL 05/21/2021 10:53 AM CDT DTL eGFR-Non Black/ 69 >=60 mL/min/BS A 05/21/2021 10:53 AM CDT DTL Comment: ----ADDITIONAL INFORMATION---- Estimated GFR calculated using the 2009 CKD_EPI creatinine equation. eGFR-Black/ 79 >=60 mL/min/BS A 05/21/2021 10:53 AM CDT DTL Comment: ----ADDITIONAL INFORMATION---- Estimated GFR calculated using the 2009 CKD_EPI creatinine equation. Calcium, Total, S 9.8 8.6 - 10.0 mg/dL 05/21/2021 10:53 AM CDT DTL Glucose, S 80 70 - 140 mg/dL 05/21/2021 10:53 AM CDT DTL Protein, Total, S 7.5 6.3 - 7.9 g/dL 05/21/2021 10:53 AM CDT DTL Albumin, S 4.9 3.5 - 5.0 g/dL 05/21/2021 10:53 AM CDT DTL Aspartate Aminotransferase (AST), S 22 8 - 43 U/L 05/21/2021 10:53 AM CDT DTL Alkaline Phosphatase, S 82 35 - 104 U/L 05/21/2021 10:53 AM CDT DTL Alanine Aminotransferase (ALT), S 20 7 - 45 U/L 05/21/2021 10:53 AM CDT DTL Bilirubin, Total, S 0.5 <=1.2 mg/dL 05/21/2021 10:53 AM CDT DTL Blood (Blood, Venous) 05/21/2021 9:51 AM CDT 05/21/2021 10:27 AM CDT us Raheem Larsen M.D. LAB BLOOD ADD-ON Final R esult [facility] [address] [place] [address], [facility] [address] [place] [address] * BI Breast Screening Bilateral (11/15/2008 11:15 AM SENIOR HEALTH CONSULTANT) Anatomical Region Laterality Modality Breast Bilateral Mammography 11/15/2008 11:1 5 AM SENIOR HEALTH CONSULTANT Impressions 11/19/2008 9:52 AM SENIOR HEALTH CONSULTANT ACR BIRADS Category No. 1, negative. A letter has been sent to the patient. This study was evaluated with the assistance of CAD (R2 v5.3). ?? Lakshmi Pang M.D. ? Electronically signed by: ?? Kya Peña MD 19-Nov-2008 09:52 Narrative 11/19/2008 9:52 AM SENIOR HEALTH CONSULTANT 15-Nov-2008 11:15:00 ??Exam: Mammo Screen Bilat Indications: ?? ORIGINAL REPORT - 19-Nov-2008 09:52:00 This [facility] ([facility]) exam was historically loaded. BILATERAL SCREENING MAMMOGRAM: ?? Breast symptoms: None. Previous mammography: 2007 and 2004. ?? Breast parenchyma: Heterogeneously dense. ?? Comment: No significant change. ?? IMAGING Procedure Note ProviderVelvet M.D. - 12/25/2017 15-Nov-2008 11:15:00 Exam: Mammo Screen Bilat Indications: ORIGINAL REPORT - 19-Nov-2008 09:52:00 This [facility] ([facility]) exam was historically loaded. BILATERAL SCREENING MAMMOGRAM: Breast symptoms: None. Previous mammography: 2007 and 2004. Breast parenchyma: Heterogeneously dense. Comment: No significant change. IMAGING IMPRESSION: ACR BIRADS Category No. 1, negative. A letter has been sent to the patient.This study was evaluated with the assistance of CAD (R2 v5.3). Lakshmi Pang M.D. Electronically signed by: Kya Peña MD 19-Nov-2008 09:52 Yolanda Daniel M.D. IMG BI PROCEDURES Final Result from Last 3 Months or Most Recently Relevant to Health Maintenance Insurance [employer] Advance Directives For more information, please contact: [phone] Documents on File Type Date Recorded Patient Betting Agency Manager Expl anation Advance Directives 05/05/2017 12:00 AM Leg acy document. See document viewer. Advance Directives 05/13/2004 12:00 AM Leg acy document. See document viewer. Care Teams Shredding Machine Operator Relationship Specialty Start Date End Date Elsewhere, Pcp PCP - General Family Medicine 05/20/21 Dr. Livia Scott [facility] [address] [place] [address] External Primary Care Physician 04/21/22
--- OUTSIDE RECORDS SUMMARY | 2024-08-03 13:53 | XMS_ITS | Referral Summary ---
Author Organization [facility] Address [address] [place] [address] Care Team Providers Care Outdoor Guide Name Role Phone Elsewhere, Pcp Primary Care Provider Unavailabl e Source Comments Patient records contain information from all sites at [facility]. For routine questions regarding patient records, call [phone] during business hours, M-F 8:00 AM - 5:00 PM Central Time. Record requests for emergency care only can be directed to [phone] at any time.[facility] Allergies Active Allergy Reactions Criticality Noted Date Comments Aspirin Rash,Other (see comments) High 12/22/2013 ASPIRIN - Mouth ulcers and rash across chest Erythromycin Other (see comments) High 12/22/2013 ERYTHROMYCIN - Eyes swelled shut Ibuprofen Other (see comments) High 12/05/2002 Mouth ulcers and rash Nsaids (Non-Steroidal Anti-Inflammatory Drug) Rash High 03/13/2018 Mouth ulcers Plant Extracts Edema (Reselect Reaction) High 04/21/2022 [place] Headache High 12/22/2013 SONATA - Caused [...] (09/30/2021): Added automatically from request for surgery [id number] Deviation Nasal Septal 09/30/202101/13 Overview (09/30/2021): Added automatically from request for surgery [id number] Immunizations Name Administration Dates Next Due HZV [...] often do you attend chur ch or adventist services? Never 04/18/2022 Do you belong to any clubs o r organizations such as evangelical groups, unions, fraternal [...] and heating? Not hard at all 04/18/2022 [facility] [place] of Occupat ional Health - Occupational Stress [...] Master's degree (e.g., MA, MS, Elias, MEd, INVESTMENT PROFESSIONAL, [employer]) 05/20/2021 Comments No Sex and Gender Information Value Date Recorded Sex Assigned at Female 06/25/2021 7:39 PM CDT Legal Sex Female 2:14 PM FUR MATCHER Gender Identity Female 06/25/2021 7:39 PM CDT [...] on file Medical Devices Implanted Type Area Seo Professional Device Identifier Shelf Expiration Date Model / Serial / Lot Clip Sundt Slimline 3x 6x 9 - Lawson [id number] Implanted:Qty: 1 on 06/16/2001 Aneurysm Clip Codclaudio Description:Device Manufactu rer - [employer]. Device Status Text - [id number]. Clip Slimline Side Angle 15 - Lawson [id number] Implanted:Qty: 1 on 06/16/2001 Aneurysm Clip Codman Description:Device Manufactu rer - [employer]man. Device Status Text - [id number]. Kls-Plate 1.5 Y Reg Dbl - Lawson 8159 Implanted:Qty: 1 on 12/05/2002 Hardware e.g. pins/screws/rods KLS Parth Description:Device Manufactu rer - K[employer] Parth. Device Status Text - [id number]-8159. Kls-Plate 1.5 L Lng Lt - Lawson 8155 Implanted:Qty: 1 on 12/05/2002 Hardware e.g. pins/screws/rods KLS Parth Description:Device Manufactu rer - K[employer] Parth. Device Status Text - [id number]-8155. Kls-Screw Drill Free 1.5x5 - Lawson [id number] Implanted:Qty: 1 on 12/05/2002 Hardware e.g. pins/screws/rods KLS Parth Description:Device Manufactu rer - [employer] Parth. Device Status Text - [id number]. Kls-Screw Drill Free 1.5x4 - Lawson [id number] Implanted:Qty: 12 on 12/05/2002 Hardware e.g. pins/screws/rods KLS Parth Description:Device Manufactu rer - [employer] Parth. Device Status Text - [id number]. Kls-Plate 16ho Straight - Lawson 8186 Implanted:Qty: 1 on 12/05/2002 Hardware e.g. pins/screws/rods KLS Parth Description:Device Manufactu rer - K[employer] Parth. Device Status Text - HARDWARE-8186. Lead Cuff Stimulation - [id number] - [id number] Implanted:Qty: 1 on 03/10/2022 by Vishnu Edwards M.D. at [facility] Responsive Neurostimulator Sys Right: Neck [employer] 09/14/2023 4063 / [id number] / Lead Transportation Assistant Ap Thor Rsp Sns - [id number] - [id number] Implanted:Qty: 1 on 03/10/2022 by Vishnu Edwards M.D. at [facility] Responsive Neurostimulator Sys Right: Chest [employer] 09/07/2023 [id number] / [id number] / Gen Nrstm Sleep Apnea Thor - [id number] - [id number] Implanted:Qty: 1 on 03/10/2022 by Vishnu Edwards M.D. at [facility] Spinal Cord Stimulator Right: Chest [facility] [employer] 08/14/2024 [id number] / [id number] / Procedures Procedure Name Priority Date/Time Associated Diagnosis Comments COMPREHENSIVE METABOLIC PANEL, S/P Routine 05/21/2021 9:51 AM CDT Hives BI BREAST SCREENING BILATERAL Routine 11/15/2008 11:15 AM FUR MATCHER from Last 3 Months or Most Recently Relevant to Health Maintenance Results * (ABNORMAL) Comprehensive Metabolic Panel (05/21/2021 9:51 AM CDT) Potassium, S 4.6 3.6 - 5.2 mmol/L [...] M.D. LAB BLOOD [place] [address], [facility] [place] [id number] * BI Breast Screening Bilateral (11/15/2008 11:15 AM FUR MATCHER) Anatomical Region Laterality Modality Breast Bilateral Mammography 11/15/2008 11:1 5 AM FUR MATCHER Impressions 11/19/2008 9:52 AM FUR MATCHER ACR BIRADS Category No. 1, negative. A letter has been sent to the patient. This study was evaluated with the assistance of CAD (R2 v5.3). ?? Lakshmi Pang M.D. ? Electronically signed by: ?? Kya Peña MD 19-Nov-2008 09:52 Narrative 11/19/2008 9:52 AM FUR MATCHER 15-Nov-2008 11:15:00 ??Exam: Mammo Screen Bilat Indications: ?? ORIGINAL REPORT - 19-Nov-2008 09:52:00 This [facility] ([facility]) exam was historically loaded. BILATERAL SCREENING MAMMOGRAM: ?? Breast symptoms: None. Previous mammography: 2007 and 2004. ?? Breast parenchyma: Heterogeneously dense. ?? Comment: No significant change. ?? IMAGING Procedure Note ProviderVelvet M.D. - 12/25/2017 15-Nov-2008 11:15:00 Exam: Mammo Screen Bilat Indications: ORIGINAL REPORT - 19-Nov-2008 09:52:00 This [facility] ([facility]) exam was historically loaded. BILATERAL SCREENING MAMMOGRAM: [...] Advance Directives For more information, please contact: [phone] Documents on File Type Date Recorded Patient Abstract Manager Expl anation Advance Directives 05/05/2017 12:00 AM Leg acy document. See document viewer. Advance Directives 05/13/2004 12:00 AM Leg acy document. See document viewer. Care Teams Outdoor Guide Relationship Specialty Start Date End Date Elsewhere, Pcp PCP - General Family Medicine 05/20/21 Dr. Livia Scott [facility] [address] [place] [address] External Primary Care Physician 04/21/22
[2024-08-06 16:30] LABS: HPV Source Cervical/Vag; HPV, High Risk by TMA Not Detected
== END 2024-08-03 07:40 | disposition home or self-care (01) ==
PROVIDERS: PCP Family Medicine; Referring Provider Family Medicine; Visit Provider Family Medicine
DX: Z00.00 Encounter for general adult medical examination without abnormal findings (principal); I10 Essential (primary) hypertension; E03.9 Hypothyroidism, unspecified; E55.9 Vitamin D deficiency, unspecified; E78.5 Hyperlipidemia, unspecified; E66.9 Obesity, unspecified; Z12.4 Encounter for screening for malignant neoplasm of cervix; Z11.51 Encounter for screening for human papillomavirus (HPV)
CPT/HCPCS: 80053; 80061; 82306; 84439; 84443; 87624; 87625; 88141; 88142

== ENCOUNTER 2025-02-12 16:22 | Outpatient (CLI) | payer OTHER, SELFPAY ==
--- NOTE | 2025-02-12 16:40 | CRLHL7_ITS ---
For Patients: As a result of the Century Cures Act, medical imaging exams and procedure reports are released immediately into your electronic medical record. You may view this report before your referring provider. If you have questions, please contact your health care provider. INDICATION: BILATERAL SCREENING MAMMOGRAM, ASYMPTOMATIC 59 Y/O FEMALE COMPARISON: 11/14/2023, 06/14/2022, 03/30/2021 TECHNIQUE: Digital mammogram in CC and MLO projections including computer-aided detection (CAD) and tomosynthesis. BREAST COMPOSITION: There are scattered areas of fibroglandular density. FINDINGS: No suspicious findings. ASSESSMENT: BI-RADS 2 Benign RECOMMENDATION: Annual screening mammogram. A lay language report of this examination will be provided to the patient. Dictated by: Liban Mckinley MD @ 02/13/2025 12:42:42 (Electronically Signed)
== END 2025-02-12 16:23 | disposition home or self-care (01) ==
LOC: MAMMO 16:23
PROVIDERS: PCP Family Medicine; Visit Provider Family Medicine
DX: Z12.31 Encounter for screening mammogram for malignant neoplasm of breast (principal)
CPT/HCPCS: 77063; 77067